=== PATIENT | female | born 1960 | race Caucasian/White ===

== ENCOUNTER 2020-04-16 08:39 | Inpatient (IN) | payer OTHER, MEDICAID, SELFPAY ==
[2020-04-16 09:10] VITALS: BP 142/70; PULSE 96; RESP 20; TEMP 36.8; BMI 86.0
--- NOTE | 2020-04-16 09:10 | ED.PSYCH ---
HPI - Psych General Chief Complaint: Psychiatric Symptoms Stated Complaint: CRISIS W/SI AND HALLUCINATIONS,REFUSED VS Time Seen by Provider: 04/16/20 08:55 Source: patient Mode of arrival: EMS Limitations: no limitations History of Present Illness HPI Narrative: Patient presents to ED for auditory and visual hallucinations. Patient states he is also suicidal. Patient states he stopped taking his psych meds. Patient states having auditory and visual hallucinations in the past. Patient states hallucinations have been occurring for the past 2 weeks. Related Data Home Medications Medication Instructions Recorded Confirmed clonazepam 1 mg PO BEDTIME 04/16/20 04/16/20 fluoxetine 40 mg PO DAILY 04/16/20 04/16/20 levothyroxine 50 mcg PO DAILY 04/16/20 04/16/20 lisinopril 20 mg PO DAILY 04/16/20 04/16/20 paliperidone [Invega] 6 mg PO QAM 04/16/20 04/16/20 trazodone 150 mg PO BEDTIME PRN 04/16/20 04/16/20 Allergies Allergy/AdvReac Type Severity Reaction Status Date / Time No Known Allergies Allergy Mild NOT Unverified 03/05/20 16:31 APPLICABLE Review of Systems Review of Systems: Yes all other systems are reviewed and are negative Constitutional: Constitutional: Denies frequent falls Eyes: Eyes: Reports as per HPI and Reports no additional eye complaints ENT: Reports system reviewed and no additional complaints, except as documented, Reports as per HPI, Denies vertigo and Denies dizziness Cardiovascular: Cardiovascular: Reports as per HPI, Reports no additional cardiovascular complaints, Denies painful fingertips, Denies chest pain, Denies chest pain at rest, Denies chest pain with activity, Denies syncope, Denies pedal edema, Denies edema, Denies dyspnea, Denies dyspnea on exertion, Denies orthopnea and Denies paroxysmal nocturnal dyspnea Respiratory: Respiratory: Reports as per HPI, Reports no additional respiratory complaints, Denies no additional respiratory complaints, Denies change in phlegm color, Denies chest congestion, Denies cough, Denies hemoptysis, Denies excessive phlegm production, Denies pain on inspiration, Denies pain with cough, Denies dyspnea, Denies dyspnea on exertion, Denies stridor and Denies wheezing Gastrointestinal: Gastrointestinal: Reports as per HPI, Reports no additional gastrointestinal complaints, Denies abdominal pain, Denies belching, Denies melena, Denies bloating, Denies hematochezia, Denies change in bowel habits, Denies tenesmus, Denies change in stool character, Denies coffee ground emesis, Denies constipation, Denies GI cramping, Denies dyspepsia, Denies heartburn, Denies fecal incontinence, Denies diarrhea, Denies loose stools and Denies nausea Genitourinary: Genitourinary: Reports no additional female genitourinary complaints, Denies urinary frequency, Denies dysuria, Denies pelvic pain, Denies urinary incontinence, Denies urinary hesitancy and Denies urinary urgency Musculoskeletal: Musculoskeletal: Reports no additional musculoskeletal complaints and Reports as per HPI Neurologic: Reports system reviewed and no additional complaints, except as documented, Reports as per HPI, Denies Neuro-related abnormal movements, Denies behavioral changes, Denies burning sensations, Denies confusion, Denies vertigo, Denies dizziness, Denies syncope and Denies frequent falls Psychiatric: Psychiatric: Reports no additional psychiatric complaints, Reports as per HPI, Denies behavioral changes, Denies change in appetite, Denies confusion, Denies auditory hallucinations, Denies hopelessness, Denies irritability, Denies anhedonia, Denies panic attacks and Denies paranoia Allergic/Immunologic: Allergic/Immunologic: Denies wheezing [facility] Past Medical History Medical History (Updated 04/16/20 @ 16:11 by SATISH Trinidad) Hypertension Hypothyroid Social History Social History Alcohol intake: unknown Smoking Status: Unknown if ever smoked Use of substances other than those prescribed or required for medical reasons: Unknown Advance Directives: No Advance Directives Information Provided: No Physical Exam Vital Signs: Vital Signs: Vital Signs Temp Pulse Resp BP 04/16/20 09:10 98.2 F 96 20 142/70 H Body Mass Index 86.0 Const: General: cooperative, healthy appearing, comfortable and no acute distress; No confusion Orientation/consciousness: patient oriented x3 and No confusion HENMT: Head: Yes normal to inspection Eyes: General: appearance normal, both eyes and all related structures Neck: Neck: Yes normal visual inspection, Yes full ROM, Yes no lymphadenopathy and Yes no meningeal signs Chest: Chest palpation & inspection: normal inspection of the chest, normal palpation of entire chest wall and no localized rib tenderness Resp: Effort & Inspection: normal respiratory effort, able to speak in complete sentences, normal respiratory pattern, no audible wheezes, no cough, no nasal flaring, no paradoxical thoraco-abdom movements, no pursed lip breathing, no segmental paradox chest wall movement, no stridor and no tracheal deviation Auscultation: clear to auscultation bilaterally, no crackles, no rales, no rhonchi and no wheezes Percussion: percussion normal Cardio: Jugular venous distension: no JVD Heart sounds: S1 normal heart sound present and S2 normal heart sound present GI: Inspection: Yes normal to inspection and No abdominal wall ecchymosis Palpation (GI): Soft to palpation, not firm, nontender, no guarding and not rigid Percussion: Yes normal to percussion Auscultation: normal bowel sounds : General: No CVA tenderness and Yes no CVA tenderness Back/Spine/Pelvis: Back: no CVA tenderness, No CVA tenderness and No back tenderness Skin: General skin exam: no rashes or lesions noted Neuro: General: patient oriented x3, no meningeal signs, CN's II-XI intact bilaterally and No confusion Cranial nerves: Yes CN's II-XII intact bilaterally Extrem: General: Yes normal to inspection and Yes full ROM Psych: Other: Patient has a flat affect Appearance: grossly normal and well kempt Course Course Course Narrative: Patient is alert oriented x3. Patient will have basic labs including UA and alcohol. Reevaluation(s) Reevaluation #1: patient seen by behavior health vocational rehabilitation consultant who recommends patient be admitted. Patient Section 12 was signed. Diagnosis psychosis. patient has a bed search Time: 16:03 Reevaluation #2: Patient will be signed out to electrical designer David Time: 16:12 MDM - Psych MDM Narrative Medical decision making narrative: psychosis Restraints Face to Face Assessment: Face to Face Assessment: Current Situation: After assessment of the patient, a review of the pertinent medical record and a discussion with nursing staff, I feel the patient requires a restrain intervention. Reaction To: [] Medical Condition: [] Behavioral State: [] Continued Need: [] Lab Data Result diagrams: 04/16/20 09:50 04/16/20 09:49 Labs: Lab Results 04/16/20 04/16/20 04/16/20 Range/Units 09:49 09:50 09:50 WBC 8.3 (4.8-10.8) X10*3/uL RBC 4.91 (4.20-5.50) X10*6/uL Hgb 14.5 (12.0-16.0) g/dl Hct 43.3 (37-47) % MCV 88.2 (80-98) fL MCH 29.5 (27.0-33.0) pg MCHC 33.5 (31.0-35.0) g/dl RDW 12.2 (11.0-16.0) % Plt Count 237 (160-400) X10*3/uL MPV 10.0 (9.4-12.3) fL Immature Gran % (Auto) 0.6 H (0.0-0.4) % Neut % (Auto) 75.3 H (45-73) % Lymph % (Auto) 15.9 L (20-40) % [place] % (Auto) 7.1 (2-11) % Eos % (Auto) 0.5 (0-4) % Baso % (Auto) 0.6 (0-2) % Lymph # (Auto) 1.3 (1.2-4.9) X10*3/uL [place] # (Auto) 0.6 (0.1-1.2) X10*3/uL Eos # (Auto) 0.0 (0.0-0.4) X10*3/uL Baso # (Auto) 0.1 (0.0-0.2) X10*3/uL Abs Immat Gran (auto) 0.05 H (0.00-0.03) X10*3/uL Absolute Neuts (auto) 6.2 (2.0-8.3) X10*3/uL Absolute Nucleated RBC 0.000 (0.0-0.012) X10*3/uL Nucleated RBC % (auto) 0.0 (0.0-0.2) /100WBC Sodium 136 (135-145) mmol/L Potassium 3.9 (3.3-5.1) mmol/l Chloride 102 (96-108) mmol/L Carbon Dioxide 24 (22-29) mmol/L Anion Gap 14 (12-20) BUN 9 (9-16) mg/dL Creatinine 0.69 (0.5-1.4) mg/dL Estim Creat Clear Calc 146.8 Estimated GFR > 60 Random Glucose 132 H (60-115) mg/dL Calcium 9.0 (8.4-10.2) mg/dL Total Bilirubin 1.0 (0.0-1.0) mg/dL Direct Bilirubin 0.3 (0.0-0.5) mg/dL AST 21 (5-31) U/L ALT 28 (0-31) U/L Alkaline Phosphatase 98 (39-117) U/L Total Protein 7.5 (6.5-8.0) g/dL Albumin 4.3 (3.5-5.0) g/dL Urine Color Urine Appearance Urine pH (5.0-8.0) Ur Specific [place] (1.005-1.025) Urine Protein (NEG-TRACE) MG/DL Urine Glucose (UA) (NEG) MG/DL Urine Ketones (NEG) MG/DL Urine Blood (NEG) Urine Nitrite (NEG) Ur Leukocyte Esterase (NEG) Urine RBC (0) /HPF Urine WBC (0-4) /HPF Ur Squamous Epith Cells /LPF Urine Bacteria /LPF Hyaline Casts /LPF Salicylates < 5.0 L (15-30) mg/dL Urine Opiates Screen (Not Detect) Acetaminophen < 1 (<30) mcg/mL Ur Barbiturates Screen (Not Detect) Ur Phencyclidine Scrn (Not Detect) Ur Amphetamines Screen (Not Detect) U Benzodiazepines Scrn (Not Detect) Urine Cocaine Screen (Not Detect) U Marijuana (THC) Screen (Not Detect) Ethyl Alcohol mg/dL 04/16/20 04/16/20 04/16/20 Range/Units 09:50 Unknown Unknown WBC (4.8-10.8) X10*3/uL RBC (4.20-5.50) X10*6/uL Hgb (12.0-16.0) g/dl Hct (37-47) % MCV (80-98) fL MCH (27.0-33.0) pg MCHC (31.0-35.0) g/dl RDW (11.0-16.0) % Plt Count (160-400) X10*3/uL MPV (9.4-12.3) fL Immature Gran % (Auto) (0.0-0.4) % Neut % (Auto) (45-73) % Lymph % (Auto) (20-40) % [place] % (Auto) (2-11) % Eos % (Auto) (0-4) % Baso % (Auto) (0-2) % Lymph # (Auto) (1.2-4.9) X10*3/uL [place] # (Auto) (0.1-1.2) X10*3/uL Eos # (Auto) (0.0-0.4) X10*3/uL Baso # (Auto) (0.0-0.2) X10*3/uL Abs Immat Gran (auto) (0.00-0.03) X10*3/uL Absolute Neuts (auto) (2.0-8.3) X10*3/uL Absolute Nucleated RBC (0.0-0.012) X10*3/uL Nucleated RBC % (auto) (0.0-0.2) /100WBC Sodium (135-145) mmol/L Potassium (3.3-5.1) mmol/l Chloride (96-108) mmol/L Carbon Dioxide (22-29) mmol/L Anion Gap (12-20) BUN (9-16) mg/dL Creatinine (0.5-1.4) mg/dL Estim Creat Clear Calc Estimated GFR Random Glucose (60-115) mg/dL Calcium (8.4-10.2) mg/dL Total Bilirubin (0.0-1.0) mg/dL Direct Bilirubin (0.0-0.5) mg/dL AST (5-31) U/L ALT (0-31) U/L Alkaline Phosphatase (39-117) U/L Total Protein (6.5-8.0) g/dL Albumin (3.5-5.0) g/dL Urine Color YELLOW Urine Appearance HAZY Urine pH 6.5 (5.0-8.0) Ur Specific [place] >= 1.030 H (1.005-1.025) Urine Protein 2+ H (NEG-TRACE) MG/DL Urine Glucose (UA) NEG (NEG) MG/DL Urine Ketones NEG (NEG) MG/DL Urine Blood TRACE (NEG) Urine Nitrite NEG (NEG) Ur Leukocyte Esterase NEG (NEG) Urine RBC 0-2 (0) /HPF Urine WBC 0-2 (0-4) /HPF Ur Squamous Epith Cells 2+ /LPF Urine Bacteria NONE /LPF Hyaline Casts 5-9 /LPF Salicylates (15-30) mg/dL Urine Opiates Screen Not Detected (Not Detect) Acetaminophen (<30) mcg/mL Ur Barbiturates Screen Not Detected (Not Detect) Ur Phencyclidine Scrn Not Detected (Not Detect) Ur Amphetamines Screen Not Detected (Not Detect) U Benzodiazepines Scrn Not Detected (Not Detect) Urine Cocaine Screen Not Detected (Not Detect) U Marijuana (THC) Screen Not Detected (Not Detect) Ethyl Alcohol < 10 mg/dL Discharge Plan Discharge Clinical Impression: Psychosis Prescriptions: No Action fluoxetine 40 mg Capsule 40 mg PO DAILY RF: 0 lisinopril 20 mg Tablet 20 mg PO DAILY RF: 0 clonazepam 1 mg Tablet 1 mg PO BEDTIME RF: 0 trazodone 150 mg Tablet 150 mg PO BEDTIME PRN (Reason: Insomnia) RF: 0 paliperidone [Invega] 6 mg Tablet Extended Release 24hr 6 mg PO QAM RF: 0 levothyroxine 50 mcg Capsule 50 mcg PO DAILY RF: 0
[2020-04-16 09:40] LABS: Glucose Urine UA NEG (NEG); Leukocyte Esterase Urine NEG (NEG); Nitrite Urine NEG (NEG); PH 6.5 (5.0-8.0); Specific Gravity - Urine >= 1.030 (1.005-1.025); Urine Blood TRACE (NEG); Urine Ketones NEG (NEG); Urine Protein 2+ MG/DL (NEG-TRACE)
[2020-04-16 09:41] LABS: Appearance Urine HAZY; Color Urine YELLOW
--- NOTE | 2020-04-16 09:49 | PC.NURSE ---
Pt resting in room, cooperative w/ lab draw.
[2020-04-16 09:56] LABS: Amphetamine Screen Urine Not Detected (Not Detect); Barbiturates, Urine Not Detected (Not Detect); Benzodiazepines Screen Urine Not Detected (Not Detect); Cannabinoid Screen Urine Not Detected (Not Detect); Cocaine Screen Urine Not Detected (Not Detect); Opiate Screen Urine Not Detected (Not Detect); Phencyclidine Screen Urine Not Detected (Not Detect)
[2020-04-16 09:58] LABS: MANUAL DIFF FLAG NO
[2020-04-16 09:59] LABS: RBC Urine 0-2 /HPF (0); Squamous Epithelial Cell Urine 2+ /LPF; WBC Urine 0-2 /HPF (0-4)
[2020-04-16 10:07] LABS: Basophils Absolute Auto 0.1 X10*3/uL (0.0-0.2); Basophils Percent Auto 0.6 % (0-2); Eosinophils Percent Auto 0.5 % (0-4); Hematocrit 43.3 % (37-47); Hemoglobin 14.5 g/dl (12.0-16.0); Imm Gran Abs Auto 0.05 X10*3/uL (0.00-0.03); Imm Gran Pct Auto 0.6 % (0.0-0.4); Lymphocytes Absolute Auto 1.3 X10*3/uL (1.2-4.9); Lymphocytes Percent Auto 15.9 % (20-40); Mean Corpuscular HGB Conc 33.5 g/dl (31.0-35.0); Mean Corpuscular Hemoglobin 29.5 pg (27.0-33.0); Mean Corpuscular Volume 88.2 fL (80-98); Monocytes Absolute Auto 0.6 X10*3/uL (0.1-1.2); Monocytes Percent Auto 7.1 % (2-11); Neutrophils Absolute Auto 6.2 X10*3/uL (2.0-8.3); Neutrophils Percent Auto 75.3 % (45-73); Platelet Count 237 X10*3/uL (160-400); Red Blood Count 4.91 X10*6/uL (4.20-5.50); Red Cell Distribution Width 12.2 % (11.0-16.0); White Blood Count 8.3 X10*3/uL (4.8-10.8)
[2020-04-16 10:23] LABS: Ethanol < 10 mg/dL
[2020-04-16 10:27] LABS: Acetaminophen LAB < 1 mcg/mL (<30); Salicylate < 5.0 mg/dL (15-30)
[2020-04-16 10:27] LABS: Alanine Aminotransferase 28 U/L (0-31); Albumin Level 4.3 g/dL (3.5-5.0); Alkaline Phosphatase 98 U/L (39-117); Anion Gap 14 (12-20); Aspartate Amino Transferase 21 U/L (5-31); Bilirubin Direct 0.3 mg/dL (0.0-0.5); Blood Urea Nitrogen 9 mg/dL (9-16); Carbon Dioxide 24 mmol/L (22-29); Chloride 102 mmol/L (96-108); Creatinine Clr Calc Pharmacy 146.8; Estimated Glomerular Filt Rate > 60; Glucose Random 132 mg/dL (60-115); Potassium 3.9 mmol/l (3.3-5.1); Sodium 136 mmol/L (135-145); Total Protein 7.5 g/dL (6.5-8.0)
--- NOTE | 2020-04-16 11:17 | PC.NURSE ---
Pt medication reconciliation completed w/ [facility]. Pt vague historian. Called daughter Nya, who is her RN REGISTRY, requesting return call re: when meds were last taken. Pt receives prefilled med box from [facility].
[2020-04-16] MEDS: clonazePAM 1 MG TABLET PO ×2 (12:57→20:41)
--- NOTE | 2020-04-16 14:34 | PC.NURSE ---
Daughters: Kiera Wood [phone] Nya Hugo [phone]
[2020-04-16 16:40] VITALS: BP 150/95; PULSE 74; RESP 18; TEMP 37.1; O2SAT 95
--- NOTE | 2020-04-16 19:12 | PC.NURSE ---
Report received. PT is sleeping in bed. Breathing is even and unlabored. Inpatient bed search in progress.
[2020-04-16 21:40] VITALS: BP 126/72; PULSE 78; RESP 18; TEMP 36.1; O2SAT 95
--- NOTE | 2020-04-17 07:09 | PC.NURSE ---
Report received from ALESIA Izaguirre. Pt awake, crying out at times, then took a shower.
[2020-04-17 07:41] VITALS: BP 124/94; PULSE 99; TEMP 36.3; O2SAT 94
[2020-04-17 08:09] VITALS: BP 124/94; PULSE 99
[2020-04-17] MEDS: Levothyroxine Sodium 50 MCG TABLET PO (08:09)
[2020-04-17] MEDS: Paliperidone ER 6 MG TAB.ER.24 PO (08:09)
[2020-04-17] MEDS: lisinopriL 20 MG TABLET PO (08:09)
[2020-04-17] MEDS: FLUoxetine HCl 20 MG CAPSULE 40 MG PO (08:09)
--- NOTE | 2020-04-17 09:36 | PC.NURSE ---
Pt was resting in room, came out and requested warm blanket, then became very agitated, screaming and shouting at staff. pt currently sitting in common area, home decorator called.
--- NOTE | 2020-04-17 12:36 | PC.NURSE ---
With drum drier operator present, Covid testing completed, pt cooperative. Pt aware that she will be transferred to [facility]- appears familiar w/ [facility], no concerns reported.
[2020-04-17 13:33] LABS: SARS COV2 PCR INHOUSE NEGATIVE (Negative)
--- NOTE | 2020-04-17 13:40 | PC.NURSE ---
pt ate lunch. sitting quietly in her room at present time
--- NOTE | 2020-04-17 14:57 | PC.NURSE ---
Report given to ALESIA Pennington on [facility].
--- NOTE | 2020-04-17 15:18 | PC.NURSE ---
Pt awoke, very upset, shouting. Director Business Development called.
[2020-04-17] MEDS: clonazePAM 1 MG TABLET PO (15:42)
--- NOTE | 2020-04-17 15:44 | PC.NURSE ---
Pt continued to be very upset, crying loudly- dressing room attendant called, pt difficult to console. Offered medication- initially refusing to take it, then after discussion, pt agreed to take pt.
--- NOTE | 2020-04-17 16:06 | PC.NURSE ---
Care team in to transfer pt to [facility]. Pt was initially reluctant to go, but after discussion w/ Care team, pt was willing to go. Pt calmer than she was earlier, no longer crying, able to converse with staff. Joel on M5 aware pt recently received clonopin.
[2020-04-17 18:00] VITALS: BP 129/71; PULSE 81; RESP 18; TEMP 36.4; O2SAT 98
--- NOTE | 2020-04-17 21:10 | PC.ADMIT ---
Pt is a 60 year old Slovenian speaking female who presented to [facility] via EMS after her daughter reported she was having increased hallucinations and poor sleep. During the assessment PT presented as paranoid and disorientated. Pt speech exhibited asderailed and untranslatable, with the support of spanish interpreter/translator. Pt reports visual,tactile and auditory hallucinations. Due to Pts current state she had minimal engagement in the assessment. Pt has a [facility] last 5 plus years ago. Precipitant appears to be a recent medication chage per her daughter. Pt came to via wheelchair at 1600. Pt did not answer most of the questions and signed legals after looking at it for alsmost 10 minutes with repeat instructions through interpretor on where to sign. Pt kept repeating that her body is in ghanaian and that the is not in it. Pt refused to take pm Clonazepam. Pt went to her room and is in bed with the covers over her. Pt signed CV.
[2020-04-18] MEDS: traZODone HCL 50 MG TABLET 150 MG PO ×2 (01:36→22:50)
[2020-04-18] MEDS: clonazePAM 1 MG TABLET PO (01:36)
--- NOTE | 2020-04-18 01:57 | PC.NURSE ---
At approximately 00:15 t/w responded to pt yelling and moaning while in bed. Pt Greek speaking only. Pan Devulcanizer called for assistance. Pt refused to take medication for sleep and anxiety and presented with psychosis I'm burning, I'm burning everywhere! I'm already! I'm a bad woman, I don't go to jewish. Pt continued to yell and refused request to get out of bed and move to Group Room A. Security called for assistance. Pt refused to walk and sat down on the floor. With assistance from the billing and insurance coordinator and security, pt transported via wheelchair to Group Room A. Through the hospital billing and insurance coordinator, she requested to not have a male nurse and stated bad things at home. Pt continued to refuse medication. I took medication for years and didn't work. Pt reported audio hallucination, referring to the voices. Eventually, pt took medication, PRN trazodone 150 mg PO and Klonopin 1 mg PO, with applesauce at 01:40. Pt deescalated but refused to return to bed. Will continue 5 min safety checks.
[2020-04-18 06:50] VITALS: BP 145/76; PULSE 80; RESP 18; TEMP 36.2; O2SAT 95
--- NOTE | 2020-04-18 08:00 | ECG_ITS ---
Test Reason : CP Blood Pressure : / mmHG Vent. Rate : 074 BPM Atrial Rate : 074 BPM P-R Int : 134 ms QRS Dur : 076 ms QT Int : 374 ms P-R-T Axes : 059 -16 016 degrees QTc Int : 415 ms Normal sinus rhythm with sinus arrhythmia Possible Left atrial enlargement Abnormal ECG When compared with ECG of 27-MAR-2013 10:03, No significant changes seen Referred By: Alfredo James Electronically Signed By:RADHA CARR MD
--- NOTE | 2020-04-18 10:53 | P.HPPS_ITS ---
HPI Chief Complaint: psychotic decompensation Sources of Information: patient interviewed, chart reviewed and crisis/core team assessment reviewed HPI Narrative: 60 yo HF presented to ER brought in by her daugther- wbo reported mother was not sleeping, and was having increse hallucinations and making no sense. Pt seemed paranoid and her speech was disorganized-/untranslatable- Pt was reporting tactile, visual and auditory hallucinations- Daughter reported pt had rescent medication change by outpt prescriber- Dr Miguel Connors Past Psychiatric History: Prior inpatient 5 years ago [facility] Medical History Hypertension Hypothyroid Diagnostics Vital Signs (24Hr): Vital Signs - 24 hr 04/17/20 18:00 04/18/20 06:50 Temperature 97.5 F 97.1 F Pulse Rate 81 80 Respiratory Rate 18 18 Blood Pressure 129/71 145/76 H Pulse Oximetry 98 95 Body Mass Index 86.0 Labs Results: 04/16/20 09:50 04/16/20 09:49 Labs: Laboratory Results - last 48 hr 04/17/20 12:33 Coronavirus (PCR) NEGATIVE Meds/Allergies Meds Home Medications Medication Instructions Recorded Confirmed Type clonazepam 1 mg PO BEDTIME 04/16/20 04/16/20 History fluoxetine 40 mg PO DAILY 04/16/20 04/16/20 History levothyroxine 50 mcg PO DAILY 04/16/20 04/16/20 History lisinopril 20 mg PO DAILY 04/16/20 04/16/20 History paliperidone [Invega] 6 mg PO QAM 04/16/20 04/16/20 History trazodone 150 mg PO BEDTIME PRN 04/16/20 04/16/20 History Allergies Allergies Allergy/AdvReac Type Severity Reaction Status Date / Time No Known Allergies Allergy Mild NOT Unverified 03/05/20 16:31 APPLICABLE Mental Status Exam Mental Status Exam Narrative: patient needing to be coached about most things on unit today screaming into phone, redirected- requesting her clothing- Patient Appearance: Disheveled and Unkempt Patient Orientation: Person Level of Consciousness: Awake and Disoriented Patient Behavior: Swearing, Confused, Impulsive and Poor Eye Contact Behavior Comments: patient mostly appears disorganized in appearance, behavior and thoughts Mood Description: Labile Affect Description: Depressed and Anxious Patient Cognition Impaired: Yes Ability to Follow Directions: Poor Speech Pattern: Loud and Poor Articulation Memory Description: Immediate Impaired Hallucinations: Auditory, Visual and Tactile Thought Process: Disoriented, Illogical and Word Salad (possibly since some things are untranslatable) Thought Content: positive for Disoriented and positive for Disorganized Depressive Symptoms: Insomnia, Diff. Making Decisions and Increased Irritability Abnormal Motor Activity Signs and Symptoms: Agitation Judgement: Poor Assessment & Plan Assessment & Plan (1) Psychosis: Status: Acute Code(s): F29 - Unspecified psychosis not due to a substance or known physiological condition Assessment and Plan: Taking medication will dc fluoxetine since pt not sleeping ? schizoaffective do - bioplar type (2) Hypothyroid: Status: Acute Code(s): E03.9 - Hypothyroidism, unspecified Assessment and Plan: check thyroid - blood was drawn today (3) Hypertension: Status: Acute Code(s): I10 - Essential (primary) hypertension Assessment and Plan: follow bp heraclio when less agitated
[2020-04-18 12:22] VITALS: BP 145/76; PULSE 80
[2020-04-18] MEDS: lisinopriL 20 MG TABLET PO (12:22)
[2020-04-18] MEDS: Levothyroxine Sodium 50 MCG TABLET PO (12:22)
[2020-04-18] MEDS: FLUoxetine HCl 20 MG CAPSULE 40 MG PO (12:22)
[2020-04-18] MEDS: Paliperidone ER 6 MG TAB.ER.24 PO (12:36)
[2020-04-18 14:37] LABS: Cholesterol 157 mg/dL; Glucose Fasting 153 mg/dL (60-99); HDL Cholesterol 54 mg/dL; LDL Cholesterol Calculated 87 mg/dl; Triglycerides 81 mg/dL
[2020-04-18 18:00] VITALS: BP 115/60; PULSE 88; RESP 16; TEMP 36.1
[2020-04-19 06:00] VITALS: BP 125/75; PULSE 86; RESP 16; TEMP 36.4; O2SAT 96
[2020-04-19 08:56] VITALS: BP 125/75; PULSE 86
[2020-04-19] MEDS: lisinopriL 20 MG TABLET PO (08:56)
[2020-04-19] MEDS: OXcarbazepine 150 MG TABLET PO ×3 (08:57→21:25)
[2020-04-19] MEDS: Levothyroxine Sodium 50 MCG TABLET PO (08:57)
[2020-04-19] MEDS: Paliperidone ER 6 MG TAB.ER.24 PO (08:57)
[2020-04-19] MEDS: Paliperidone ER 3 MG TAB.ER.24 PO (13:28)
--- NOTE | 2020-04-19 15:00 | P.PNPSI_ITS ---
Subjective Subjective Date of Service: 04/19/20 Reason For Visit: psychotic decompensation Subjective Notes: Conditional Voluntary Interim History: doing better more engaged and making more sense off fluoxetine has been taking oxcarbazipine and inc invega to 9 mg/day might want to change her to sustaina Medication Compliance: Yes Side effects from medications: No Attending Groups: No Review of Systems Acute medical concerns: No Review of Systems: co pain in neck , reports thyroid= but ? of stiffness did not want to start cogentin given most recent change in MSE and that she is better today Review of Systems Constitutional: Denies frequent falls Denies vertigo and Denies dizziness Cardiovascular: Denies syncope Reports as per HPI, Denies Neuro-related abnormal movements, Denies behavioral changes, Denies burning sensations, Denies confusion, Denies vertigo, Denies dizziness, Denies syncope and Denies frequent falls Psychiatric: Denies behavioral changes and Denies confusion Mental Status Exam Mental Status Exam Narrative: lying in bed with blanket over her but pulled down to talk to provider Patient Appearance: Disheveled Patient Orientation: Person and Place Level of Consciousness: Awake Patient Behavior: Appropriate Behavior Comments: much less labile today Ability to Follow Directions: Fair (yesterday was poor) Speech Pattern: Impoverished Thought Content: positive for [place] and positive for Poverty of Content Depressive Symptoms: Insomnia and Diff. Making Decisions Abnormal Motor Activity Signs and Symptoms: Muscle Rigidity (? doesn't appear so ) Judgement: Poor Diagnostics Vital Signs (24Hr): Vital Signs - 24 hr 04/18/20 18:00 04/19/20 06:00 04/19/20 08:56 Temperature 97 F 97.6 F Pulse Rate 88 86 86 Respiratory Rate 16 16 Blood Pressure 115/60 125/75 125/75 Pulse Oximetry 96 Body Mass Index 86.0 Labs Results: 04/16/20 09:50 04/16/20 09:49 Labs: Laboratory Results - last 48 hr 04/18/20 13:51 Fasting Glucose 153 H Triglycerides 81 Cholesterol 157 LDL Cholesterol, Calc 87 HDL Cholesterol 54 Medications Medications Current Medications Generic Name Dose Route Start Last Admin Trade Name Freq PRN Reason Stop Dose Admin Acetaminophen 650 mg 04/17/20 16:45 Acetaminophen 325 Mg Tablet PO Q6H PRN Headache/Pain Mild Scale (1-3) Al Hydroxide/Mg Hydroxide 30 ml 04/17/20 16:45 Magnesium Hydrox/Alum Hydrox 30 Ml Oral.Susp PO Q6H PRN Heartburn/Nausea Al Hydroxide/Mg Hydroxide 30 ml 04/17/20 17:25 Magnesium Hydrox/Alum Hydrox 30 Ml Oral.Susp PO Q6H PRN Heartburn/Nausea Clonazepam 1 mg 04/16/20 21:00 04/18/20 01:36 Clonazepam 1 Mg Tablet PO 1 mg BEDTIME SARATH Administration Hydroxyzine HCl 25 mg 04/17/20 16:45 Hydroxyzine Hcl 25 Mg Tablet PO BEDTIME PRN Anxiety Levothyroxine Sodium 50 mcg 04/16/20 17:15 04/19/20 08:57 Levothyroxine Sodium 50 Mcg Tablet PO 50 mcg DAILY SARATH Administration Lisinopril 20 mg 04/16/20 18:00 04/19/20 08:56 Lisinopril 20 Mg Tablet PO 20 mg DAILY SARATH Administration Protocol Magnesium Hydroxide 30 ml 04/17/20 16:45 Milk Of Magnesia 30 Ml Oral.Susp PO DAILY PRN Constipation Oxcarbazepine 150 mg 04/18/20 21:00 04/19/20 13:28 Oxcarbazepine 150 Mg Tablet PO 150 mg TID SARATH Administration Paliperidone 9 mg 04/20/20 09:00 Paliperidone Er 9 Mg Tab.Er.24 PO DAILY SARATH Trazodone HCl 150 mg 04/16/20 17:12 04/18/20 22:50 Trazodone Hcl 50 Mg Tablet PO 150 mg BEDTIME PRN Administration Insomnia Allergies Allergies Allergy/AdvReac Type Severity Reaction Status Date / Time No Known Allergies Allergy Mild NOT Unverified 03/05/20 16:31 APPLICABLE Assessment & Plan Assessment & Plan (1) Psychosis: Status: Acute Code(s): F29 - Unspecified psychosis not due to a substance or known physiological condition Assessment and Plan: better off fluoxetine and inc invega 9mg also started trileptal but may be fine just off fluoxetine and on higher invega Greater than 50% of the session was spent on counseling and/or coordination of care
[2020-04-19 18:00] VITALS: BP 137/59; PULSE 91; RESP 17; TEMP 36.7
[2020-04-19] MEDS: clonazePAM 1 MG TABLET PO (21:25)
[2020-04-20 06:10] VITALS: BP 96/80; PULSE 97; RESP 18; TEMP 36.3
[2020-04-20 08:46] VITALS: BP 96/80; PULSE 97
[2020-04-20] MEDS: Levothyroxine Sodium 50 MCG TABLET PO (08:46)
[2020-04-20] MEDS: lisinopriL 20 MG TABLET PO (08:46)
[2020-04-20] MEDS: OXcarbazepine 150 MG TABLET PO ×2 (08:46→15:26)
[2020-04-20] MEDS: Paliperidone ER 9 MG TAB.ER.24 PO (08:47)
--- NOTE | 2020-04-20 09:32 | HO.PSYCHPN ---
Subjective Subjective Date of Service: 04/20/20 Reason For Visit: psychotic decompensation Subjective Notes: Conditional Voluntary Interim History: Kiera was quiet and more visible. There was no behavioral dyscontrol. She did now want to talk to this engineering technical writer so I was not able to talk with her about switching to invega nienna. Will continue to attempt this. Medication Compliance: Yes Side effects from medications: No Attending Groups: Intermittent Review of Systems Acute medical concerns: No Medical Review of Systems: unchanged Review of Systems Review of Systems Yes all other systems are reviewed and are negative Constitutional: Denies frequent falls Denies vertigo Cardiovascular: Denies syncope Reports system reviewed and no additional complaints, except as documented, Reports as per HPI, Denies Neuro-related abnormal movements, Denies behavioral changes, Denies burning sensations, Denies confusion, Denies vertigo, Denies syncope and Denies frequent falls Psychiatric: Denies behavioral changes and Denies confusion Mental Status Exam Mental Status Exam Patient Appearance: Disheveled Patient Orientation: Person and Place Level of Consciousness: Awake Patient Behavior: Appropriate and Good Eye Contact Behavior Comments: much less labile today Mood Description: Apathetic and Appropriate Affect Description: Depressed and Anxious Patient Cognition Impaired: Yes Ability to Follow Directions: Fair (yesterday was poor) Speech Pattern: Impoverished Memory Description: Immediate Impaired Hallucinations: None Delusions: Not Present Thought Process: Rumination Thought Content: positive for Circumstantial, negative for Suicidal Ideation and negative for Homicidal Ideation Judgement: Fair Diagnostics Vital Signs (24Hr): Vital Signs - 24 hr 04/19/20 18:00 04/20/20 06:10 04/20/20 08:46 Temperature 98.1 F 97.4 F Pulse Rate 91 97 97 Respiratory Rate 17 18 Blood Pressure 137/59 L 96/80 96/80 Body Mass Index 86.0 Labs Results: 04/16/20 09:50 04/16/20 09:49 Labs: Laboratory Results - last 48 hr 04/18/20 13:51 Fasting Glucose 153 H Triglycerides 81 Cholesterol 157 LDL Cholesterol, Calc 87 HDL Cholesterol 54 Medications Medications Current Medications Generic Name Dose Route Start Last Admin Trade Name Freq PRN Reason Stop Dose Admin Acetaminophen 650 mg 04/17/20 16:45 Acetaminophen 325 Mg Tablet PO Q6H PRN Headache/Pain Mild Scale (1-3) Al Hydroxide/Mg Hydroxide 30 ml 04/17/20 16:45 Magnesium Hydrox/Alum Hydrox 30 Ml Oral.Susp PO Q6H PRN Heartburn/Nausea Al Hydroxide/Mg Hydroxide 30 ml 04/17/20 17:25 Magnesium Hydrox/Alum Hydrox 30 Ml Oral.Susp PO Q6H PRN Heartburn/Nausea Clonazepam 1 mg 04/16/20 21:00 04/19/20 21:25 Clonazepam 1 Mg Tablet PO 1 mg BEDTIME SARATH Administration Hydroxyzine HCl 25 mg 04/17/20 16:45 Hydroxyzine Hcl 25 Mg Tablet PO BEDTIME PRN Anxiety Levothyroxine Sodium 50 mcg 04/16/20 17:15 04/20/20 08:46 Levothyroxine Sodium 50 Mcg Tablet PO 50 mcg DAILY SARATH Administration Lisinopril 20 mg 04/16/20 18:00 04/20/20 08:46 Lisinopril 20 Mg Tablet PO 20 mg DAILY SARATH Administration Protocol Magnesium Hydroxide 30 ml 04/17/20 16:45 Milk Of Magnesia 30 Ml Oral.Susp PO DAILY PRN Constipation Oxcarbazepine 150 mg 04/18/20 21:00 04/20/20 08:46 Oxcarbazepine 150 Mg Tablet PO 150 mg TID SARATH Administration Paliperidone 9 mg 04/20/20 09:00 04/20/20 08:47 Paliperidone Er 9 Mg Tab.Er.24 PO 9 mg DAILY SARATH Administration Trazodone HCl 150 mg 04/16/20 17:12 04/18/20 22:50 Trazodone Hcl 50 Mg Tablet PO 150 mg BEDTIME PRN Administration Insomnia Allergies Allergies Allergy/AdvReac Type Severity Reaction Status Date / Time No Known Allergies Allergy Mild NOT Unverified 03/05/20 16:31 APPLICABLE Assessment & Plan Assessment & Plan (1) Psychosis: Status: Acute Code(s): F29 - Unspecified psychosis not due to a substance or known physiological condition Assessment and Plan: CT current plan Consider invega Liase with caregivers Greater than 50% of the session was spent on counseling and/or coordination of care
[2020-04-20 18:00] VITALS: BP 131/70; PULSE 121; RESP 20; TEMP 36
--- NOTE | 2020-04-20 23:39 | PC.NURSE ---
Tomy and another RN walked over to Kiera L rooms after hearing screams coming from her bedroom. Kiera was confused to Place, Time and Situation and reported that God placed her here in this dirt because she is a bad person . Kiera reported to staff that she is hearing voices in her head every time she goes to her bedroom. Yaron/Tristian offered Kiera PRN medications and she refused, she also had refused her nightly scheduled medications. Yaron/W told Kiera that she was safe on the unit and that she can come to staff when ever she needed to. Kiera has been picking at her forehead and Yaron/Tristian observed approximately three superficial cuts on her head from her picking at her skin with her nails. Kiera was encouraged to not pick at her head.
[2020-04-21 06:15] VITALS: BP 145/74; PULSE 100; RESP 18; TEMP 36.3
[2020-04-21 09:06] VITALS: BP 145/74; PULSE 100
[2020-04-21] MEDS: Paliperidone ER 9 MG TAB.ER.24 PO (09:06)
[2020-04-21] MEDS: Levothyroxine Sodium 50 MCG TABLET PO (09:06)
[2020-04-21] MEDS: lisinopriL 20 MG TABLET PO (09:06)
[2020-04-21] MEDS: OXcarbazepine 150 MG TABLET PO ×3 (09:06→20:42)
--- NOTE | 2020-04-21 09:17 | HO.PSYCHPN ---
Subjective Subjective Date of Service: 04/21/20 Reason For Visit: psychotic decompensation Subjective Notes: Conditional Voluntary Interim History: Kiera was quiet and more visible. There was no behavioral dyscontrol. She continues to complain of AH but states that they are less bothersome to her. She agreed to invega kely. Medication Compliance: Yes Side effects from medications: No Attending Groups: Yes Review of Systems Acute medical concerns: No Medical Review of Systems: unchanged Review of Systems Constitutional: Denies frequent falls Denies vertigo and Denies dizziness Cardiovascular: Denies syncope Reports system reviewed and no additional complaints, except as documented, Reports as per HPI, Denies Neuro-related abnormal movements, Denies behavioral changes, Denies burning sensations, Denies confusion, Denies vertigo, Denies dizziness, Denies syncope and Denies frequent falls Psychiatric: Denies behavioral changes and Denies confusion Mental Status Exam Mental Status Exam Patient Appearance: Disheveled Patient Orientation: Person and Place Level of Consciousness: Awake Patient Behavior: Appropriate and Good Eye Contact Behavior Comments: much less labile today Mood Description: Apathetic and Appropriate Affect Description: Depressed and Anxious Patient Cognition Impaired: Yes Ability to Follow Directions: Fair (yesterday was poor) Speech Pattern: Impoverished Memory Description: Immediate Impaired Diagnostics Vital Signs (24Hr): Vital Signs - 24 hr 04/20/20 18:00 04/21/20 06:15 04/21/20 09:06 Temperature 96.8 F 97.4 F Pulse Rate 121 H 100 100 Respiratory Rate 20 18 Blood Pressure 131/70 145/74 H 145/74 H Body Mass Index 86.0 Labs Results: 04/16/20 09:50 04/16/20 09:49 Medications Medications Current Medications Generic Name Dose Route Start Last Admin Trade Name Rajq PRN Reason Stop Dose Admin Acetaminophen 650 mg 04/17/20 16:45 Acetaminophen 325 Mg Tablet PO Q6H PRN Headache/Pain Mild Scale (1-3) Al Hydroxide/Mg Hydroxide 30 ml 04/17/20 16:45 Magnesium Hydrox/Alum Hydrox 30 Ml Oral.Susp PO Q6H PRN Heartburn/Nausea Al Hydroxide/Mg Hydroxide 30 ml 04/17/20 17:25 Magnesium Hydrox/Alum Hydrox 30 Ml Oral.Susp PO Q6H PRN Heartburn/Nausea Clonazepam 1 mg 04/16/20 21:00 04/20/20 21:06 Clonazepam 1 Mg Tablet PO Not Given BEDTIME SARATH Hydroxyzine HCl 25 mg 04/17/20 16:45 Hydroxyzine Hcl 25 Mg Tablet PO BEDTIME PRN Anxiety Levothyroxine Sodium 50 mcg 04/16/20 17:15 04/21/20 09:06 Levothyroxine Sodium 50 Mcg Tablet PO 50 mcg DAILY SARATH Administration Lisinopril 20 mg 04/16/20 18:00 04/21/20 09:06 Lisinopril 20 Mg Tablet PO 20 mg DAILY SARATH Administration Protocol Magnesium Hydroxide 30 ml 04/17/20 16:45 Milk Of Magnesia 30 Ml Oral.Susp PO DAILY PRN Constipation Oxcarbazepine 150 mg 04/18/20 21:00 04/21/20 09:06 Oxcarbazepine 150 Mg Tablet PO 150 mg TID SARATH Administration Paliperidone 9 mg 04/20/20 09:00 04/21/20 09:06 Paliperidone Er 9 Mg Tab.Er.24 PO 9 mg DAILY SARATH Administration Trazodone HCl 150 mg 04/16/20 17:12 04/18/20 22:50 Trazodone Hcl 50 Mg Tablet PO 150 mg BEDTIME PRN Administration Insomnia Allergies Allergies Allergy/AdvReac Type Severity Reaction Status Date / Time No Known Allergies Allergy Mild NOT Unverified 03/05/20 16:31 APPLICABLE Assessment & Plan Assessment & Plan (1) Psychosis: Status: Acute Code(s): F29 - Unspecified psychosis not due to a substance or known physiological condition Assessment and Plan: CT current plan Begin invega sustenna Liase with caregivers Greater than 50% of the session was spent on counseling and/or coordination of care Patient educated on: diagnosis and medication risk/benefits Informed Consent: further education needed Reason for contiued inpatient stay Substantial Risk for: rapid decompensation
[2020-04-21 18:00] VITALS: BP 142/65; PULSE 96; TEMP 36.5
[2020-04-21] MEDS: clonazePAM 1 MG TABLET PO (20:42)
[2020-04-22 05:35] VITALS: BP 139/79; PULSE 95; RESP 18; TEMP 36.9
[2020-04-22] MEDS: OXcarbazepine 150 MG TABLET PO ×3 (09:20→21:34)
--- NOTE | 2020-04-22 09:20 | HO.PSYCHPN ---
Subjective Subjective Date of Service: 04/22/20 Reason For Visit: psychotic decompensation Subjective Notes: Conditional Voluntary Interim History: Kiera was quiet and more visible. There was no behavioral dyscontrol. She continues to complain of AH but states that they are less bothersome to her. She appears to be returning to her baseline. She agreed to invega sustenna. This will be given today. Medication Compliance: Yes Side effects from medications: No Attending Groups: Yes Review of Systems Acute medical concerns: No Medical Review of Systems: unchanged Review of Systems Constitutional: Denies frequent falls Denies vertigo and Denies dizziness Cardiovascular: Denies syncope Reports system reviewed and no additional complaints, except as documented, Reports as per HPI, Denies Neuro-related abnormal movements, Denies behavioral changes, Denies burning sensations, Denies confusion, Denies vertigo, Denies dizziness, Denies syncope and Denies frequent falls Psychiatric: Denies behavioral changes and Denies confusion Mental Status Exam Mental Status Exam Patient Appearance: Well Grooomed Patient Orientation: Person and Place Level of Consciousness: Awake Patient Behavior: Appropriate and Good Eye Contact Behavior Comments: much less labile today Mood Description: Apathetic and Appropriate Affect Description: Depressed and Anxious Patient Cognition Impaired: Yes Ability to Follow Directions: Fair (yesterday was poor) Speech Pattern: Clear Memory Description: Intact Hallucinations: None Delusions: Not Present Thought Process: Rumination Thought Content: positive for Intact, negative for Suicidal Ideation and negative for Homicidal Ideation Judgement: Fair Diagnostics Vital Signs (24Hr): Vital Signs - 24 hr 04/21/20 18:00 04/22/20 05:35 Temperature 97.7 F 98.4 F Pulse Rate 96 95 Respiratory Rate 18 Blood Pressure 142/65 H 139/79 Body Mass Index 86.0 Labs Results: 04/16/20 09:50 04/16/20 09:49 Medications Medications Current Medications Generic Name Dose Route Start Last Admin Trade Name Freq PRN Reason Stop Dose Admin Acetaminophen 650 mg 04/17/20 16:45 Acetaminophen 325 Mg Tablet PO Q6H PRN Headache/Pain Mild Scale (1-3) Al Hydroxide/Mg Hydroxide 30 ml 04/17/20 16:45 Magnesium Hydrox/Alum Hydrox 30 Ml Oral.Susp PO Q6H PRN Heartburn/Nausea Al Hydroxide/Mg Hydroxide 30 ml 04/17/20 17:25 Magnesium Hydrox/Alum Hydrox 30 Ml Oral.Susp PO Q6H PRN Heartburn/Nausea Clonazepam 1 mg 04/16/20 21:00 04/21/20 20:42 Clonazepam 1 Mg Tablet PO 1 mg BEDTIME SARATH Administration Hydroxyzine HCl 25 mg 04/17/20 16:45 Hydroxyzine Hcl 25 Mg Tablet PO BEDTIME PRN Anxiety Levothyroxine Sodium 50 mcg 04/16/20 17:15 04/21/20 09:06 Levothyroxine Sodium 50 Mcg Tablet PO 50 mcg DAILY SARATH Administration Lisinopril 20 mg 04/16/20 18:00 04/21/20 09:06 Lisinopril 20 Mg Tablet PO 20 mg DAILY SARATH Administration Protocol Magnesium Hydroxide 30 ml 04/17/20 16:45 Milk Of Magnesia 30 Ml Oral.Susp PO DAILY PRN Constipation Oxcarbazepine 150 mg 04/18/20 21:00 04/21/20 20:42 Oxcarbazepine 150 Mg Tablet PO 150 mg TID SARATH Administration Paliperidone 9 mg 04/20/20 09:00 04/21/20 09:06 Paliperidone Er 9 Mg Tab.Er.24 PO 9 mg DAILY SARATH Administration Trazodone HCl 150 mg 04/16/20 17:12 04/18/20 22:50 Trazodone Hcl 50 Mg Tablet PO 150 mg BEDTIME PRN Administration Insomnia Allergies Allergies Allergy/AdvReac Type Severity Reaction Status Date / Time No Known Allergies Allergy Mild NOT Unverified 03/05/20 16:31 APPLICABLE Assessment & Plan Assessment & Plan (1) Psychosis: Qualifiers: Psychosis type: schizoaffective disorder Schizoaffective disorder type: unspecified Qualified Code(s): F25.9 - Schizoaffective disorder, unspecified Status: Acute Code(s): F29 - Unspecified psychosis not due to a substance or known physiological condition Assessment and Plan: CT current plan Begin invega sustenna Liase with caregivers Anticipate DC tomorrow Greater than 50% of the session was spent on counseling and/or coordination of care Patient educated on: diagnosis and medication risk/benefits Informed Consent: further education needed Reason for contiued inpatient stay Substantial Risk for: inability to function
[2020-04-22 09:21] VITALS: BP 139/79; PULSE 95
[2020-04-22] MEDS: lisinopriL 20 MG TABLET PO (09:21)
[2020-04-22] MEDS: Levothyroxine Sodium 50 MCG TABLET PO (09:21)
[2020-04-22] MEDS: Paliperidone ER 9 MG TAB.ER.24 PO (09:22)
[2020-04-22] MEDS: Paliperidone Palmitate 234 MG/1.5 ML SYRINGE IM (13:08)
[2020-04-22 18:00] VITALS: BP 132/63; PULSE 101; TEMP 36.2
[2020-04-22] MEDS: clonazePAM 1 MG TABLET PO (21:49)
[2020-04-23 06:00] VITALS: BP 129/88; PULSE 102
[2020-04-23 07:00] VITALS: BMI 49.1
[2020-04-23] MEDS: Paliperidone ER 9 MG TAB.ER.24 PO (09:14)
[2020-04-23] MEDS: Levothyroxine Sodium 50 MCG TABLET PO (09:15)
[2020-04-23 09:19] VITALS: BP 129/88; PULSE 102
[2020-04-23] MEDS: lisinopriL 20 MG TABLET PO (09:19)
--- NOTE | 2020-04-23 09:23 | P.DS_ITS ---
DS: Providers Provider Date of admission: 04/17/20 17:27 Primary care physician: [facility] DS: Diagnosis Discharge Diagnosis (1) Psychosis: Status: Acute Discharge Plan Discharge Referrals: Dona Keith, therapist [Other] - 04/30/20 2:[address] Miguel Connors, psychiatrist [Other] - 04/29/20 1:40 pm (Appointments by telehealth - number may come up blocked or as spam risk ) [place] [Primary Care Provider] - Discharge Medications: No Action fluoxetine 40 mg Capsule 40 mg PO DAILY RF: 0 lisinopril 20 mg Tablet 20 mg PO DAILY RF: 0 clonazepam 1 mg Tablet 1 mg PO BEDTIME RF: 0 trazodone 150 mg Tablet 150 mg PO BEDTIME PRN (Reason: Insomnia) RF: 0 paliperidone [Invega] 6 mg Tablet Extended Release 24hr 6 mg PO QAM RF: 0 levothyroxine 50 mcg Capsule 50 mcg PO DAILY RF: 0 Data Data Completed and Pending Completed studies during hospitalization [Text1]: 04/16/20 04/16/20 04/16/20 09:49 09:50 09:50 Sodium 136 Potassium 3.9 Chloride 102 Carbon Dioxide 24 Anion Gap 14 BUN 9 Creatinine 0.69 Estim Creat Clear Calc 146.8 Estimated GFR > 60 Random Glucose 132 H Fasting Glucose Calcium 9.0 Total Bilirubin 1.0 Direct Bilirubin 0.3 AST 21 ALT 28 Alkaline Phosphatase 98 Total Protein 7.5 Albumin 4.3 Triglycerides Cholesterol LDL Cholesterol, Calc HDL Cholesterol Salicylates < 5.0 L Acetaminophen < 1 Ethyl Alcohol < 10 Coronavirus (PCR) 04/17/20 04/18/20 12:33 13:51 Sodium Potassium Chloride Carbon Dioxide Anion Gap BUN Creatinine Estim Creat Clear Calc Estimated GFR Random Glucose Fasting Glucose 153 H Calcium Total Bilirubin Direct Bilirubin AST ALT Alkaline Phosphatase Total Protein Albumin Triglycerides 81 Cholesterol 157 LDL Cholesterol, Calc 87 HDL Cholesterol 54 Salicylates Acetaminophen Ethyl Alcohol Coronavirus (PCR) NEGATIVE DS: Summary Time Spent with Patient Time attestation: Total time spent providing and/or coordinating discharge services:
--- NOTE | 2020-04-23 14:19 | HO.PSYCHPN ---
Subjective Subjective Date of Service: 04/23/20 Reason For Visit: psychotic decompensation Subjective Notes: Conditional Voluntary Interim History: Kiera was more agitated and she became irritable with her nurse today. She was speaking of an increase in AH , and with worries that the world is going to come to an end. She reports that she is missing her daughter and wants to see her. Because of her increase in psychosis and agitation, DC is delayed. SUZI will be in touch with her daughter and will ask her to come in. Medication Compliance: Yes Side effects from medications: No Attending Groups: Yes Review of Systems Acute medical concerns: No Medical Review of Systems: unchanged Review of Systems Constitutional: Denies frequent falls Denies vertigo and Denies dizziness Cardiovascular: Denies syncope Reports system reviewed and no additional complaints, except as documented, Reports as per HPI, Denies Neuro-related abnormal movements, Denies behavioral changes, Denies burning sensations, Denies confusion, Denies vertigo, Denies dizziness, Denies syncope and Denies frequent falls Psychiatric: Denies behavioral changes and Denies confusion Mental Status Exam Mental Status Exam Patient Appearance: Well Grooomed Patient Orientation: Person and Place Level of Consciousness: Awake Patient Behavior: Appropriate and Good Eye Contact Behavior Comments: More labile today Mood Description: Apathetic and Appropriate Affect Description: Depressed and Anxious Patient Cognition Impaired: Yes Ability to Follow Directions: Fair (yesterday was poor) Speech Pattern: Clear and Soft-Spoken Memory Description: Intact Hallucinations: Auditory Delusions: Not Present, Paranoid Ideation and Present (End of the world) Thought Process: Rumination Thought Content: positive for Intact, positive for Slowed Thinking, negative for Suicidal Ideation and negative for Homicidal Ideation Judgement: Fair Diagnostics Vital Signs (24Hr): Vital Signs - 24 hr 04/22/20 18:00 04/23/20 06:00 04/23/20 09:19 Temperature 97.1 F Pulse Rate 101 H 102 H 102 H Blood Pressure 132/63 129/88 129/88 Body Mass Index 86.0 Labs Results: 04/16/20 09:50 04/16/20 09:49 Medications Medications Current Medications Generic Name Dose Route Start Last Admin Trade Name Freq PRN Reason Stop Dose Admin Acetaminophen 650 mg 04/17/20 16:45 Acetaminophen 325 Mg Tablet PO Q6H PRN Headache/Pain Mild Scale (1-3) Al Hydroxide/Mg Hydroxide 30 ml 04/17/20 16:45 Magnesium Hydrox/Alum Hydrox 30 Ml Oral.Susp PO Q6H PRN Heartburn/Nausea Al Hydroxide/Mg Hydroxide 30 ml 04/17/20 17:25 Magnesium Hydrox/Alum Hydrox 30 Ml Oral.Susp PO Q6H PRN Heartburn/Nausea Clonazepam 1 mg 04/16/20 21:00 04/22/20 21:49 Clonazepam 1 Mg Tablet PO 1 mg BEDTIME SARATH Administration Hydroxyzine HCl 25 mg 04/17/20 16:45 Hydroxyzine Hcl 25 Mg Tablet PO BEDTIME PRN Anxiety Levothyroxine Sodium 50 mcg 04/16/20 17:15 04/23/20 09:15 Levothyroxine Sodium 50 Mcg Tablet PO 50 mcg DAILY SARATH Administration Lisinopril 20 mg 04/16/20 18:00 04/23/20 09:19 Lisinopril 20 Mg Tablet PO 20 mg DAILY SARATH Administration Protocol Magnesium Hydroxide 30 ml 04/17/20 16:45 Milk Of Magnesia 30 Ml Oral.Susp PO DAILY PRN Constipation Oxcarbazepine 150 mg 04/18/20 21:00 04/23/20 09:15 Oxcarbazepine 150 Mg Tablet PO 150 mg TID SARATH Administration Paliperidone 9 mg 04/20/20 09:00 04/23/20 09:14 Paliperidone Er 9 Mg Tab.Er.24 PO 9 mg DAILY SARATH Administration Trazodone HCl 150 mg 04/16/20 17:12 04/18/20 22:50 Trazodone Hcl 50 Mg Tablet PO 150 mg BEDTIME PRN Administration Insomnia Allergies Allergies Allergy/AdvReac Type Severity Reaction Status Date / Time No Known Allergies Allergy Mild NOT Unverified 03/05/20 16:31 APPLICABLE Assessment & Plan Assessment & Plan (1) Psychosis: Qualifiers: Psychosis type: schizoaffective disorder Schizoaffective disorder type: unspecified Qualified Code(s): F25.9 - Schizoaffective disorder, unspecified Status: Acute Code(s): F29 - Unspecified psychosis not due to a substance or known physiological condition (2) Schizoaffective disorder: Qualifiers: Schizoaffective disorder type: bipolar Qualified Code(s): F25.0 - Schizoaffective disorder, bipolar type Status: Acute Code(s): F25.9 - Schizoaffective disorder, unspecified Assessment and Plan: Dealy DC. CT medications Ask daughter to visit so she can give more input into baseline. Greater than 50% of the session was spent on counseling and/or coordination of care Patient educated on: diagnosis and medication risk/benefits Informed Consent: further education needed Reason for contiued inpatient stay Substantial Risk for: inability to function and rapid decompensation
[2020-04-23] MEDS: OXcarbazepine 150 MG TABLET PO ×2 (15:10→20:10)
[2020-04-23] MEDS: Acetaminophen 325 MG TABLET 650 MG PO (15:44)
[2020-04-23 18:00] VITALS: BP 148/85; PULSE 91; TEMP 37.1
[2020-04-23] MEDS: clonazePAM 1 MG TABLET PO (20:09)
[2020-04-24 06:00] VITALS: BP 128/71; PULSE 99; TEMP 36.5
[2020-04-24 08:56] VITALS: BP 128/71; PULSE 99
[2020-04-24] MEDS: lisinopriL 20 MG TABLET PO (08:56)
[2020-04-24] MEDS: Paliperidone ER 9 MG TAB.ER.24 PO (08:56)
[2020-04-24] MEDS: OXcarbazepine 150 MG TABLET PO (08:56)
[2020-04-24] MEDS: Levothyroxine Sodium 50 MCG TABLET PO (08:56)
--- NOTE | 2020-04-24 11:57 | HO.PSYCHPN ---
Subjective Subjective Date of Service: 04/24/20 Reason For Visit: psychotic decompensation Subjective Notes: Conditional Voluntary Interim History: Kiera was somewhat sad. She has been appearing increasingly depressed. She does report that the voices are less than they have been. She continues to miss her daughter. She states that she feels that she needs to be in the hospital for a little longer. Medication Compliance: Yes Side effects from medications: No Attending Groups: Yes Review of Systems Acute medical concerns: No Medical Review of Systems: unchanged Review of Systems Constitutional: Denies frequent falls Denies vertigo and Denies dizziness Cardiovascular: Denies syncope Reports system reviewed and no additional complaints, except as documented, Reports as per HPI, Denies Neuro-related abnormal movements, Denies behavioral changes, Denies burning sensations, Denies confusion, Denies vertigo, Denies dizziness, Denies syncope and Denies frequent falls Psychiatric: Denies behavioral changes and Denies confusion Mental Status Exam Mental Status Exam Patient Appearance: Well Grooomed Patient Orientation: Person and Place Level of Consciousness: Awake Patient Behavior: Appropriate and Good Eye Contact Behavior Comments: More labile today Mood Description: Apathetic, Appropriate, Flat and Sad Affect Description: Depressed, Anxious and Sad Patient Cognition Impaired: Yes Ability to Follow Directions: Fair (yesterday was poor) Speech Pattern: Clear and Soft-Spoken Memory Description: Intact Hallucinations: Auditory Delusions: Not Present, Paranoid Ideation and Present (End of the world) Thought Process: Rumination Thought Content: positive for Intact, positive for Slowed Thinking, negative for Suicidal Ideation and negative for Homicidal Ideation Depressive Symptoms: Unhappiness and Loss of Energy Judgement: Fair Diagnostics Vital Signs (24Hr): Vital Signs - 24 hr 04/23/20 18:00 04/24/20 08:56 Temperature 98.8 F Pulse Rate 91 99 Blood Pressure 148/85 H 128/71 Body Mass Index 49.1 Labs Results: 04/16/20 09:50 04/16/20 09:49 Medications Medications Current Medications Generic Name Dose Route Start Last Admin Trade Name Freq PRN Reason Stop Dose Admin Acetaminophen 650 mg 04/17/20 16:45 04/23/20 15:44 Acetaminophen 325 Mg Tablet PO 650 mg Q6H PRN Administration Headache/Pain Mild Scale (1-3) Al Hydroxide/Mg Hydroxide 30 ml 04/17/20 16:45 Magnesium Hydrox/Alum Hydrox 30 Ml Oral.Susp PO Q6H PRN Heartburn/Nausea Al Hydroxide/Mg Hydroxide 30 ml 04/17/20 17:25 Magnesium Hydrox/Alum Hydrox 30 Ml Oral.Susp PO Q6H PRN Heartburn/Nausea Clonazepam 1 mg 04/16/20 21:00 04/23/20 20:09 Clonazepam 1 Mg Tablet PO 1 mg BEDTIME SARATH Administration Hydroxyzine HCl 25 mg 04/17/20 16:45 Hydroxyzine Hcl 25 Mg Tablet PO BEDTIME PRN Anxiety Levothyroxine Sodium 50 mcg 04/16/20 17:15 04/24/20 08:56 Levothyroxine Sodium 50 Mcg Tablet PO 50 mcg DAILY SARATH Administration Lisinopril 20 mg 04/16/20 18:00 04/24/20 08:56 Lisinopril 20 Mg Tablet PO 20 mg DAILY SARATH Administration Protocol Magnesium Hydroxide 30 ml 04/17/20 16:45 Milk Of Magnesia 30 Ml Oral.Susp PO DAILY PRN Constipation Paliperidone 9 mg 04/20/20 09:00 04/24/20 08:56 Paliperidone Er 9 Mg Tab.Er.24 PO 9 mg DAILY SARATH Administration Trazodone HCl 150 mg 04/16/20 17:12 04/18/20 22:50 Trazodone Hcl 50 Mg Tablet PO 150 mg BEDTIME PRN Administration Insomnia Allergies Allergies Allergy/AdvReac Type Severity Reaction Status Date / Time No Known Allergies Allergy Mild NOT Unverified 03/05/20 16:31 APPLICABLE Assessment & Plan Assessment & Plan (1) Schizoaffective disorder: Qualifiers: Schizoaffective disorder type: bipolar Qualified Code(s): F25.0 - Schizoaffective disorder, bipolar type Status: Acute Code(s): F25.9 - Schizoaffective disorder, unspecified Assessment and Plan: DC trileptal Add fluoxetine CT invega Collect collateral Anticipate DC 04/27 or 04/28 Greater than 50% of the session was spent on counseling and/or coordination of care Patient educated on: diagnosis and medication risk/benefits Informed Consent: further education needed Reason for contiued inpatient stay Substantial Risk for: rapid decompensation
[2020-04-24] MEDS: FLUoxetine HCl 20 MG CAPSULE PO (12:17)
[2020-04-24 18:00] VITALS: BP 163/75; PULSE 117; TEMP 36.3
[2020-04-24] MEDS: clonazePAM 1 MG TABLET PO (20:20)
[2020-04-25 10:21] VITALS: BP 124/62; PULSE 92
[2020-04-25] MEDS: FLUoxetine HCl 20 MG CAPSULE PO (10:21)
[2020-04-25] MEDS: Paliperidone ER 9 MG TAB.ER.24 PO (10:21)
[2020-04-25] MEDS: Levothyroxine Sodium 50 MCG TABLET PO (10:21)
[2020-04-25] MEDS: lisinopriL 20 MG TABLET PO (10:21)
[2020-04-25 10:26] VITALS: BP 124/62; PULSE 92; TEMP 36.2; O2SAT 97
[2020-04-25 18:00] VITALS: BP 167/72; PULSE 90; TEMP 36.4
[2020-04-25] MEDS: clonazePAM 1 MG TABLET PO (20:06)
--- NOTE | 2020-04-25 20:39 | HO.PSYCHPN ---
Subjective Subjective Date of Service: 04/25/20 Reason For Visit: psychotic decompensation Subjective Notes: Conditional Voluntary Interim History: Kiera was somewhat sad. She has been appearing increasingly depressed. She does report that the voices are less than they have been. She continues to miss her daughter. She states that she feels that she needs to be in the hospital for a little longer. She states that she thinks that she and has been resurrected and she is not sure if she is alive or . Her baseline remains unclear. Medication Compliance: Yes Side effects from medications: No Attending Groups: Yes Review of Systems Acute medical concerns: No Medical Review of Systems: unchanged Review of Systems Constitutional: Denies frequent falls Denies vertigo and Denies dizziness Cardiovascular: Denies syncope Reports system reviewed and no additional complaints, except as documented, Reports as per HPI, Denies Neuro-related abnormal movements, Denies behavioral changes, Denies burning sensations, Denies confusion, Denies vertigo, Denies dizziness, Denies syncope and Denies frequent falls Psychiatric: Denies behavioral changes and Denies confusion Mental Status Exam Mental Status Exam Patient Appearance: Well Grooomed Patient Orientation: Person and Place Level of Consciousness: Awake Patient Behavior: Appropriate and Good Eye Contact Behavior Comments: More labile today Mood Description: Apathetic, Appropriate, Flat and Sad Affect Description: Depressed, Anxious and Sad Patient Cognition Impaired: Yes Ability to Follow Directions: Fair (yesterday was poor) Speech Pattern: Clear and Soft-Spoken Memory Description: Intact Hallucinations: Auditory Delusions: Not Present, Paranoid Ideation and Present (End of the world) Thought Process: Rumination Thought Content: positive for Intact, positive for Slowed Thinking, negative for Suicidal Ideation and negative for Homicidal Ideation Depressive Symptoms: Unhappiness and Loss of Energy Judgement: Fair Diagnostics Vital Signs (24Hr): Vital Signs - 24 hr 04/25/20 10:21 04/25/20 10:26 04/25/20 18:00 Temperature 97.2 F 97.6 F Pulse Rate 92 92 90 Blood Pressure 124/62 124/62 167/72 H Pulse Oximetry 97 Body Mass Index 49.1 Labs Results: 04/16/20 09:50 04/16/20 09:49 Medications Medications Current Medications Generic Name Dose Route Start Last Admin Trade Name Freq PRN Reason Stop Dose Admin Acetaminophen 650 mg 04/17/20 16:45 04/23/20 15:44 Acetaminophen 325 Mg Tablet PO 650 mg Q6H PRN Administration Headache/Pain Mild Scale (1-3) Al Hydroxide/Mg Hydroxide 30 ml 04/17/20 16:45 Magnesium Hydrox/Alum Hydrox 30 Ml Oral.Susp PO Q6H PRN Heartburn/Nausea Al Hydroxide/Mg Hydroxide 30 ml 04/17/20 17:25 Magnesium Hydrox/Alum Hydrox 30 Ml Oral.Susp PO Q6H PRN Heartburn/Nausea Clonazepam 1 mg 04/16/20 21:00 04/25/20 20:06 Clonazepam 1 Mg Tablet PO 1 mg BEDTIME SARATH Administration Fluoxetine HCl 20 mg 04/24/20 12:00 04/25/20 10:21 Fluoxetine Hcl 20 Mg Capsule PO 20 mg DAILY SARATH Administration Hydroxyzine HCl 25 mg 04/17/20 16:45 Hydroxyzine Hcl 25 Mg Tablet PO BEDTIME PRN Anxiety Levothyroxine Sodium 50 mcg 04/16/20 17:15 04/25/20 10:21 Levothyroxine Sodium 50 Mcg Tablet PO 50 mcg DAILY SARATH Administration Lisinopril 20 mg 04/16/20 18:00 04/25/20 10:21 Lisinopril 20 Mg Tablet PO 20 mg DAILY SARATH Administration Protocol Magnesium Hydroxide 30 ml 04/17/20 16:45 Milk Of Magnesia 30 Ml Oral.Susp PO DAILY PRN Constipation Paliperidone 9 mg 04/20/20 09:00 04/25/20 10:21 Paliperidone Er 9 Mg Tab.Er.24 PO 9 mg DAILY SARATH Administration Trazodone HCl 150 mg 04/16/20 17:12 04/18/20 22:50 Trazodone Hcl 50 Mg Tablet PO 150 mg BEDTIME PRN Administration Insomnia Allergies Allergies Allergy/AdvReac Type Severity Reaction Status Date / Time No Known Allergies Allergy Mild NOT Unverified 03/05/20 16:31 APPLICABLE Assessment & Plan Assessment & Plan (1) Schizoaffective disorder: Qualifiers: Schizoaffective disorder type: bipolar Qualified Code(s): F25.0 - Schizoaffective disorder, bipolar type Status: Acute Code(s): F25.9 - Schizoaffective disorder, unspecified Assessment and Plan: CT current plan Greater than 50% of the session was spent on counseling and/or coordination of care Patient educated on: diagnosis and medication risk/benefits Informed Consent: further education needed Reason for contiued inpatient stay Substantial Risk for: rapid decompensation
[2020-04-26] MEDS: FLUoxetine HCl 20 MG CAPSULE PO (08:31)
[2020-04-26] MEDS: Paliperidone ER 9 MG TAB.ER.24 PO (08:31)
[2020-04-26] MEDS: Levothyroxine Sodium 50 MCG TABLET PO (08:32)
[2020-04-26 08:44] VITALS: BP 139/68; PULSE 95
[2020-04-26] MEDS: lisinopriL 20 MG TABLET PO (08:44)
--- NOTE | 2020-04-26 12:14 | P.PNPSI_ITS ---
Subjective Subjective Date of Service: 04/26/20 Reason For Visit: psychotic decompensation Subjective Notes: Conditional Voluntary Interim History: Kiera was somewhat sad. She has been appearing increasingly depressed. She does report that the voices are less than they have been. She continues to miss her daughter. She states that she feels that she is ready to leave the hospital. She agreed to have the second invega shot today. Medication Compliance: Yes Side effects from medications: No Attending Groups: Yes Review of Systems Acute medical concerns: No Medical Review of Systems: unchanged Review of Systems Constitutional: Denies frequent falls Denies vertigo and Denies dizziness Cardiovascular: Denies syncope Reports system reviewed and no additional complaints, except as documented, Rep orts as per HPI, Denies Neuro-related abnormal movements, Denies behavioral changes, Denies burning sensations, Denies confusion, Denies vertigo, Denies dizziness, Denies syncope and Denies frequent falls Psychiatric: Denies behavioral changes and Denies confusion Mental Status Exam Mental Status Exam Patient Appearance: Well Grooomed Patient Orientation: Person and Place Level of Consciousness: Awake Patient Behavior: Appropriate and Good Eye Contact Behavior Comments: More labile today Mood Description: Apathetic, Appropriate, Flat and Sad Affect Description: Depressed, Anxious and Sad Patient Cognition Impaired: Yes Ability to Follow Directions: Fair (yesterday was poor) Speech Pattern: Clear and Soft-Spoken Memory Description: Intact Hallucinations: None Delusions: Not Present Thought Process: Intact Thought Content: negative for Suicidal Ideation and negative for Homicidal Ideation Diagnostics Vital Signs (24Hr): Vital Signs - 24 hr 04/25/20 18:00 04/26/20 08:44 Temperature 97.6 F Pulse Rate 90 95 Blood Pressure 167/72 H 139/68 Body Mass Index 49.1 Labs Results: 04/16/20 09:50 04/16/20 09:49 Medications Medications Current Medications Generic Name Dose Route Start Last Admin Trade Name Freq PRN Reason Stop Dose Admin Acetaminophen 650 mg 04/17/20 16:45 04/23/20 15:44 Acetaminophen 325 Mg Tablet PO 650 mg Q6H PRN Administration Headache/Pain Mild Scale (1-3) Al Hydroxide/Mg Hydroxide 30 ml 04/17/20 16:45 Magnesium Hydrox/Alum Hydrox 30 Ml Oral.Susp PO Q6H PRN Heartburn/Nausea Al Hydroxide/Mg Hydroxide 30 ml 04/17/20 17:25 Magnesium Hydrox/Alum Hydrox 30 Ml Oral.Susp PO Q6H PRN Heartburn/Nausea Clonazepam 1 mg 04/26/20 21:00 Clonazepam 1 Mg Tablet PO BEDTIME SARATH Fluoxetine HCl 20 mg 04/24/20 12:00 04/26/20 08:31 Fluoxetine Hcl 20 Mg Capsule PO 20 mg DAILY SARATH Administration Hydroxyzine HCl 25 mg 04/17/20 16:45 Hydroxyzine Hcl 25 Mg Tablet PO BEDTIME PRN Anxiety Levothyroxine Sodium 50 mcg 04/16/20 17:15 04/26/20 08:32 Levothyroxine Sodium 50 Mcg Tablet PO 50 mcg DAILY SARATH Administration Lisinopril 20 mg 04/16/20 18:00 04/26/20 08:44 Lisinopril 20 Mg Tablet PO 20 mg DAILY SARATH Administration Protocol Magnesium Hydroxide 30 ml 04/17/20 16:45 Milk Of Magnesia 30 Ml Oral.Susp PO DAILY PRN Constipation Paliperidone 9 mg 04/20/20 09:00 04/26/20 08:31 Paliperidone Er 9 Mg Tab.Er.24 PO 9 mg DAILY SARATH Administration Paliperidone Palmitate 156 mg 04/26/20 10:15 Paliperidone Palmitate 156 Mg/Ml Syringe IM Q30D SARATH Trazodone HCl 150 mg 04/16/20 17:12 04/18/20 22:50 Trazodone Hcl 50 Mg Tablet PO 150 mg BEDTIME PRN Administration Insomnia Allergies Allergies Allergy/AdvReac Type Severity Reaction Status Date / Time No Known Allergies Allergy Mild NOT Unverified 03/05/20 16:31 APPLICABLE Assessment & Plan Assessment & Plan (1) Schizoaffective disorder: Qualifiers: Schizoaffective disorder type: bipolar Qualified Code(s): F25.0 - Schizoaffective disorder, bipolar type Status: Acute Code(s): F25.9 - Schizoaffective disorder, unspecified Assessment and Plan: CT current plan Greater than 50% of the session was spent on counseling and/or coordination of care Patient educated on: diagnosis and medication risk/benefits Informed Consent: further education needed Reason for contiued inpatient stay Substantial Risk for: rapid decompensation
[2020-04-26] MEDS: Paliperidone Palmitate 156 MG/ML SYRINGE IM (13:56)
--- NOTE | 2020-04-26 16:05 | PC.NURSE ---
PT RECEIVED INVEGA SUSTENNA 156MG TO LEFT DELTOID
[2020-04-26 18:00] VITALS: BP 139/80; PULSE 115; TEMP 36.4
[2020-04-26] MEDS: Magnesium Hydrox/Alum Hydrox 30 ML ORAL.SUSP PO (20:23)
[2020-04-26] MEDS: traZODone HCL 50 MG TABLET 150 MG PO (21:24)
[2020-04-26] MEDS: clonazePAM 1 MG TABLET PO (21:24)
[2020-04-27] MEDS: Levothyroxine Sodium 50 MCG TABLET PO (08:45)
[2020-04-27] MEDS: Paliperidone ER 9 MG TAB.ER.24 PO (08:45)
[2020-04-27] MEDS: FLUoxetine HCl 20 MG CAPSULE PO (08:45)
[2020-04-27 08:48] VITALS: BP 112/56; PULSE 116
[2020-04-27] MEDS: lisinopriL 20 MG TABLET PO (08:48)
--- NOTE | 2020-04-27 14:09 | HO.PSYCHPN ---
Subjective Subjective Date of Service: 04/27/20 Reason For Visit: psychotic decompensation Subjective Notes: Conditional Voluntary Interim History: Kiera was in good spirits. SUZI spoke with her daughter who visited last night. She is comfortable with her going home tomorrow. She received her second invega shot wihtout incident. Medication Compliance: Yes Side effects from medications: No Attending Groups: Yes Review of Systems Acute medical concerns: No Medical Review of Systems: unchanged Review of Systems Constitutional: Denies frequent falls Denies vertigo and Denies dizziness Cardiovascular: Denies syncope Reports system reviewed and no additional complaints, except as documented, Reports as per HPI, Denies Neuro-related abnormal movements, Denies behavioral changes, Denies burning sensations, Denies confusion, Denies vertigo, Denies dizziness, Denies syncope and Denies frequent falls Psychiatric: Denies behavioral changes and Denies confusion Mental Status Exam Mental Status Exam Patient Appearance: Well Grooomed Patient Orientation: Person and Place Level of Consciousness: Awake Patient Behavior: Appropriate and Good Eye Contact Behavior Comments: More labile today Mood Description: Apathetic, Appropriate, Flat and Sad Affect Description: Depressed, Anxious and Sad Patient Cognition Impaired: Yes Ability to Follow Directions: Fair (yesterday was poor) Speech Pattern: Clear and Soft-Spoken Memory Description: Intact Hallucinations: None Delusions: Not Present Thought Process: Intact Thought Content: negative for Suicidal Ideation and negative for Homicidal Ideation Diagnostics Vital Signs (24Hr): Vital Signs - 24 hr 04/26/20 18:00 04/27/20 08:48 Temperature 97.6 F Pulse Rate 115 H 116 H Blood Pressure 139/80 112/56 L Body Mass Index 49.1 Labs Results: 04/16/20 09:50 04/16/20 09:49 Medications Medications Current Medications Generic Name Dose Route Start Last Admin Trade Name Freq PRN Reason Stop Dose Admin Acetaminophen 650 mg 04/17/20 16:45 04/23/20 15:44 Acetaminophen 325 Mg Tablet PO 650 mg Q6H PRN Administration Headache/Pain Mild Scale (1-3) Al Hydroxide/Mg Hydroxide 30 ml 04/17/20 16:45 04/26/20 20:23 Magnesium Hydrox/Alum Hydrox 30 Ml Oral.Susp PO 30 ml Q6H PRN Administration Heartburn/Nausea Al Hydroxide/Mg Hydroxide 30 ml 04/17/20 17:25 Magnesium Hydrox/Alum Hydrox 30 Ml Oral.Susp PO Q6H PRN Heartburn/Nausea Clonazepam 1 mg 04/26/20 21:00 04/26/20 21:24 Clonazepam 1 Mg Tablet PO 1 mg BEDTIME SARATH Administration Fluoxetine HCl 20 mg 04/24/20 12:00 04/27/20 08:45 Fluoxetine Hcl 20 Mg Capsule PO 20 mg DAILY SARATH Administration Hydroxyzine HCl 25 mg 04/17/20 16:45 Hydroxyzine Hcl 25 Mg Tablet PO BEDTIME PRN Anxiety Levothyroxine Sodium 50 mcg 04/16/20 17:15 04/27/20 08:45 Levothyroxine Sodium 50 Mcg Tablet PO 50 mcg DAILY SARATH Administration Lisinopril 20 mg 04/16/20 18:00 04/27/20 08:48 Lisinopril 20 Mg Tablet PO 20 mg DAILY SARATH Administration Protocol Magnesium Hydroxide 30 ml 04/17/20 16:45 Milk Of Magnesia 30 Ml Oral.Susp PO DAILY PRN Constipation Paliperidone 9 mg 04/20/20 09:00 04/27/20 08:45 Paliperidone Er 9 Mg Tab.Er.24 PO 9 mg DAILY SARATH Administration Paliperidone Palmitate 156 mg 04/26/20 10:15 04/26/20 13:56 Paliperidone Palmitate 156 Mg/Ml Syringe IM 156 mg Q30D SARATH Administration Trazodone HCl 150 mg 04/16/20 17:12 04/26/20 21:24 Trazodone Hcl 50 Mg Tablet PO 150 mg BEDTIME PRN Administration Insomnia Allergies Allergies Allergy/AdvReac Type Severity Reaction Status Date / Time No Known Allergies Allergy Mild NOT Unverified 03/05/20 16:31 APPLICABLE Assessment & Plan Assessment & Plan (1) Schizoaffective disorder: Qualifiers: Schizoaffective disorder type: bipolar Qualified Code(s): F25.0 - Schizoaffective disorder, bipolar type Status: Acute Code(s): F25.9 - Schizoaffective disorder, unspecified Assessment and Plan: CT current treatment plan DC in am Greater than 50% of the session was spent on counseling and/or coordination of care Patient educated on: diagnosis and medication risk/benefits Informed Consent: further education needed Reason for contiued inpatient stay Substantial Risk for: rapid decompensation
[2020-04-27 18:00] VITALS: BP 139/91; PULSE 92; TEMP 36.2; O2SAT 97
[2020-04-27] MEDS: clonazePAM 1 MG TABLET PO (20:49)
[2020-04-28] MEDS: FLUoxetine HCl 20 MG CAPSULE PO (08:46)
[2020-04-28] MEDS: Paliperidone ER 9 MG TAB.ER.24 PO (08:46)
[2020-04-28] MEDS: Levothyroxine Sodium 50 MCG TABLET PO (08:47)
[2020-04-28 08:51] VITALS: BP 117/79; PULSE 88
[2020-04-28] MEDS: lisinopriL 20 MG TABLET PO (08:51)
[2020-04-28 08:54] VITALS: BP 117/79; PULSE 88; RESP 16; TEMP 36.3; O2SAT 98
--- NOTE | 2020-04-28 09:22 | PM.PSYDC ---
DS: Providers Provider Date of admission: 04/17/20 17:27 Date of discharge: 04/28/20 Primary care physician: [facility] Attending physician on admission: Janie Spain Attending physician on discharge: Carlyn Alba DS: Diagnosis Discharge Diagnosis (1) Schizoaffective disorder: Status: Acute Discharge Plan Discharge Patient Disposition: Home, Self-Care Referrals: Dona Keith, therapist [Other] - 04/30/[address] 2:[address] Miguel Connors, psychiatrist [Other] - 04/29/20 1:40 pm (Appointments by telehealth - number may come up blocked or as spam risk ) [facility] [Other] - 04/29/20 (Fax- [phone]) Lindsay Chapman MD [Physician] - 05/08/20 9:30 am (TELE-VISIT VIA PHONE) Discharge Medications: New paliperidone [Invega] 9 mg Tablet Extended Release 24hr 9 mg PO DAILY Qty: 30 RF: 0 fluoxetine 20 mg Capsule 20 mg PO DAILY Qty: 30 RF: 0 Invega Sustenna 156 mg/mL Syringe 156 mg IM Q30D Qty: 1 RF: 0 Continued clonazepam 1 mg Tablet 1 mg PO BEDTIME RF: 0 lisinopril 20 mg Tablet 20 mg PO DAILY Qty: 30 RF: 0 trazodone 150 mg Tablet 150 mg PO BEDTIME PRN (Reason: Insomnia) Qty: 30 RF: 0 levothyroxine 50 mcg Capsule 50 mcg PO DAILY Qty: 30 RF: 0 Discontinued fluoxetine 40 mg Capsule 40 mg PO DAILY RF: 0 paliperidone [Invega] 6 mg Tablet Extended Release 24hr 6 mg PO QAM RF: 0 Discharge Orders: Discharge Order (Routine); Ordered 04/28/20 Ordered By: Carlyn Alba Diet: advance to your usual diet Activity on Discharge: As tolerated Stand Alone Forms: Community Support Discharge Date/Time: 04/28/20 17:25 Visit Report Forms: Patient Portal Discharge page Care Plan Goals: Reduce depression and voices Health Concerns: Psychosis Depression Low thyroid High BP Plan of Treatment: Stay on your medications Go to your appointments Mental Status Exam Mental Status Exam Patient Appearance: Well Grooomed Patient Orientation: Person and Place Level of Consciousness: Awake Patient Behavior: Appropriate and Good Eye Contact Behavior Comments: More labile today Mood Description: Apathetic, Appropriate, Flat and Sad Affect Description: Depressed and Sad Patient Cognition Impaired: Yes Ability to Follow Directions: Fair (yesterday was poor) Speech Pattern: Clear and Soft-Spoken Memory Description: Intact Hallucinations: None Delusions: Not Present Thought Process: Intact Thought Content: positive for Intact, negative for Suicidal Ideation and negative for Homicidal Ideation DS: Summary Hospital Course Hospital Course: 60 yo HF presented to ER brought in by her daughter, who reported mother was not sleeping, and was having an increase in hallucinations. She was not making sense. Patient seemed paranoid and her speech was disorganized-/untranslatable. She was reporting tactile, visual and auditory hallucinations. Her daughter reported patient had recent medication change by outpt prescriber- Dr Miguel Connors. She had not been compliant with medications. On arrival to the unit she was quite disorganized and behaviorally difficult. She was started on invega and later prozac was re-started. She accepted invega sustenna. She rapidly recompensated and stated that she felt ready to go home. However she did not want to fo home due to loneliness. SW worked with her daughters to problem solve. She was medically stable throughout her stay. Status at Discharge Cognitive/behavioral status at discharge: Future oriented and without AH or VH. Functional status at discharge: independent ambulation Overall status at discharge: patient is back to baseline Time Spent with Patient Time attestation: Total time spent providing and/or coordinating discharge services:
== END 2020-04-28 17:25 | disposition home or self-care (01) | DRG 750 ==
LOC: HO.ED 04-17 17:20 → HO.PM5 04-17 17:57
PROVIDERS: Physician Assistant; Psychiatry & Neurology Psychiatry; Admitting Provider Psychiatry & Neurology Psychiatry; Emergency Provider Emergency Medicine; Visit Provider Psychiatry & Neurology Psychiatry
DX: F25.9 Schizoaffective disorder, unspecified (principal); E03.9 Hypothyroidism, unspecified; I10 Essential (primary) hypertension; Z20.828 Contact with and (suspected) exposure to other viral communicable diseases; Z79.899 Other long term (current) drug therapy
CPT/HCPCS: 36415; 80053; 80061; 80076; 80307; 80320; 81001; 82248; 82947; 85025; 90792; 93005; 96365; 96375; 99232; 99284; 99285; G0480; J2426; U0003

== ENCOUNTER 2020-06-03 10:31 | Outpatient (REF) | payer MEDICAID, SELFPAY ==
--- NOTE | 2020-06-03 | MM_ITS ---
EXAMINATION: MM SCREENING DIGITAL BREAST TOMOSYNTHESIS, BILATERAL CLINICAL INFORMATION: Screening. Asymptomatic. The lifetime risk of breast cancer based on the Tyrer-Cuzick Model is 6%. COMPARISON: Mammography: 06/20/2018, 05/02/2017 TECHNIQUE: Digital breast tomosynthesis is performed in both the craniocaudal and mediolateral oblique views along with computer-aided detection (CAD). Synthesized 2D images are generated from the tomosynthesis. Additional bilateral exaggerated CC views and bilateral MLO views are provided. FINDINGS: There are scattered areas of fibroglandular density (ACR BI-RADS breast composition Category b). Breast tissue composition borders on predominantly fatty. There are no significant masses, abnormal calcifications, or other abnormalities. There are grouped dermal calcifications again noted posterior 6:00 right breast. The axilla and skin contours are unremarkable. MM/MM tomosynthesis screening BI IMPRESSION: No mammographic evidence of malignancy. ASSESSMENT: BI-RADS 2: Benign RECOMMENDATION: Routine annual mammography screening. This patient's information was entered into a reminder system with a target due date for their next mammogram.
== END 2020-06-03 10:32 | disposition home or self-care (01) ==
LOC: HO.MAMMO 10:31
PROVIDERS: PCP Family Medicine; Visit Provider Family Medicine
DX: Z12.31 Encounter for screening mammogram for malignant neoplasm of breast (principal)
CPT/HCPCS: 77063; 77067

== ENCOUNTER 2020-06-13 14:10 | Emergency (ER) | payer MEDICAID, SELFPAY ==
[2020-06-13 19:18] VITALS: BP 127/72; PULSE 97; RESP 16; TEMP 37; O2SAT 95; BMI 44.2
--- NOTE | 2020-06-13 19:49 | ED.ABDPAIN ---
HPI - Abdominal Pain General Chief Complaint: Abdominal Pain <Florida Espinal NP - Last Filed: 06/13/20 23:16> Stated Complaint: pelvic pain <Florida Espinal NP - Last Filed: 06/13/20 23:16> Time Seen by Provider: 06/13/20 20:53 <Florida Espinal NP - Last Filed: 06/13/20 23:16> Source: patient <Florida Espinal NP - Last Filed: 06/13/20 23:16> Mode of arrival: ambulatory <Florida Espinal NP - Last Filed: 06/13/20 23:16> Limitations: language barrier <Florida Espinal NP - Last Filed: 06/13/20 23:16> History of Present Illness HPI narrative: 60-year-old female with past medical history of hypertension, hypothyroidism, schizoaffective disorder presents with 3 weeks of left lower abdominal pain and suprapubic pain with dysuria. She does not report any fevers or chills, denies chest pain or pressure, palpitations, shortness of breath, vaginal discharge, abnormal vaginal bleeding, hematuria, or edema. <Florida Espinal NP - Last Filed: 06/13/20 23:16> MD elicited complaint: abdominal pain <Florida Espinal NP - Last Filed: 06/13/20 23:16> Pertinent past history: past UTI <Florida Espinal NP - Last Filed: 06/13/20 23:16> Onset (ago): week(s) (3) <Florida Espinal NP - Last Filed: 06/13/20 23:16> Pain Consistency: intermittent <Florida Espinal NP - Last Filed: 06/13/20 23:16> Location: LLQ and suprapubic <Florida Espinal NP - Last Filed: 06/13/20 23:16> Severity: moderate <Florida Espinal NP - Last Filed: 06/13/20 23:16> Pain scale (0-10): 6 <Florida Espinal NP - Last Filed: 06/13/20 23:16> Quality: aching <Florida Espinal NP - Last Filed: 06/13/20 23:16> Radiation: none <Florida Espinal NP - Last Filed: 06/13/20 23:16> Exacerbating factors: bowel movement and movement <Florida Espinal NP - Last Filed: 06/13/20 23:16> Relieving factors: nothing <Florida Espinal NP - Last Filed: 06/13/20 23:16> Associated symptoms: denies other symptoms <NUHA Mcguire Last Filed: 06/13/20 23:16> Related Data Home Medications: Home Medications Medication Instructions Recorded Confirmed clonazepam 1 mg PO BEDTIME 04/16/20 04/16/20 Previous Rx's Medication Instructions Recorded fluoxetine 20 mg PO DAILY #30 cap 04/28/20 levothyroxine 50 mcg PO DAILY #30 cap 04/28/20 lisinopril 20 mg PO DAILY #30 tab 04/28/20 paliperidone [Invega] 9 mg PO DAILY #30 tab 04/28/20 paliperidone palmitate [Invega 156 mg IM Q30D #1 ml 04/28/20 Sustenna] trazodone 150 mg PO BEDTIME PRN #30 tab 04/28/20 levofloxacin 750 mg PO DAILY 6 Days #6 tab 06/13/20 metoclopramide HCl [Reglan] 10 mg PO Q6H PRN 7 Days #14 tab 06/13/20 metronidazole [Flagyl] 500 mg PO Q8H 7 Days #21 tab 06/13/20 oxycodone 5 mg PO Q8H PRN #10 tab 06/13/20 <Florida Espinal NP - Last Filed: 06/13/20 23:16> Allergies/Adverse Reactions: Allergies Allergy/AdvReac Type Severity Reaction Status Date / Time No Known Allergies Allergy Mild NOT Unverified 03/05/20 16:31 APPLICABLE <NUHA Mcguire Last Filed: 06/13/20 23:16> Review of Systems Review of Systems Constitutional: No Weight loss, No Fever, No Chills, No Night Sweats, No Fatigue, No Malaise ENT/Mouth: No Hearing loss, No Ear Pain, No Nasal Congestion, No Sinus Pain, No Hoarseness, No sore throat, No Rhinorrhea, No Swallowing Difficulty Eyes: No Eye Pain, No Swelling, No Redness, No Foreign Body, No Discharge, No Vision Changes Cardiovascular: No Chest Pain, No SOB, No Dyspnea on Exertion, No Orthopnea, No Edema, No Palpitations Respiratory: No Cough, No Sputum, No Wheezing, No Smoke Exposure, No Dyspnea Gastrointestinal: Positive abdominal pain, No Nausea, no Vomiting, no Diarrhea, No Hematochezia, No Melena Genitourinary: Positive dysuria and frequency, no irregular bleeding, No Hematuria, No Urinary Incontinence, No Urgency, No Flank Pain, No Urinary Flow Changes, No Hesitancy Musculoskeletal: No joint pain, No Myalgias, No Joint Swelling Skin: No Skin Lesions, No rash Neuro: No Weakness, No Numbness, No Paresthesias, No Loss of Consciousness, No Dizziness, No Headache Psych: No Anxiety/Panic, No Depression, No SI/HI/AH/VH, No Social Issues Heme/Lymph: No Bruising, No Bleeding,No Lymphadenopathy Endocrine: No Polyuria, No Polydipsia, No Temperature Intolerance <Florida Espinal NP - Last Filed: 06/13/20 23:16> Yes all other systems are reviewed and are negative <Florida Espinal NP - Last Filed: 06/13/20 23:16> Physical Exam Vital Signs: Vital Signs: Last Vital Signs Temp 98.5 F 06/13/20 22:00 Pulse 80 06/13/20 22:00 Resp 16 06/13/20 22:00 BP 125/70 06/13/20 22:00 Pulse Ox 96 06/13/20 22:00 Body Mass Index 44.2 <Florida Espinal NP - Last Filed: 06/13/20 23:16> Vital Signs: Last Vital Signs Temp 98.5 F 06/13/20 22:00 Pulse 80 06/13/20 22:00 Resp 16 06/13/20 22:00 BP 125/70 06/13/20 22:00 Pulse Ox 96 06/13/20 22:00 Body Mass Index 44.2 <Emerita Jackson MD - Last Filed: 06/14/20 07:42> Appearance: Alert. Oriented X3. No acute distress. Eyes: Pupils equal, round and reactive to light. ENT: Pharynx normal. Neck: Normal inspection. Neck supple. CVS: Normal heart rate and rhythm. Pulses normal. Respiratory: No respiratory distress. Breath sounds normal. Abdomen: Soft and tender to palpation to the left lower quadrant. Skin: Skin warm and dry. Normal skin color. Normal skin turgor. Extremities: No lower extremity edema. Neuro: No motor deficit. No sensory deficit. <Florida Espinal NP - Last Filed: 06/13/20 23:16> Course Course Course Narrative: 60-year-old female with past medical history of hypertension, hypothyroidism and schizoaffective disorder presents with 3 weeks of left lower quadrant and suprapubic pain. She does not report any trauma, vaginal discharge, fevers or chills. Plan is for CT scan of abdomen as she does have tenderness to palpation to left lower quadrant, CBC, Chem 7, lactic, cultures, rule out ACS and urinalysis. EKG is normal sinus, troponins are negative, lab values are unremarkable with the exception of an elevated glucose at 142. Urinalysis is negative for acute findings. CT scan positive for sigmoid diverticulitis. Per discussion with hospitalist, review of labs, plan is to discharge home with p.o. antibiotics, antiemetics and pain management. Detailed description of findings and plan discussed with patient and patient's daughter. deal architect utilized for all correspondence. Google translate utilized for discharge instructions. <Florida Espinal NP - Last Filed: 06/13/20 23:16> Reevaluation(s) Reevaluation #1: CT scan still pending at this time. <Florida Espinal NP - Last Filed: 06/13/20 23:16> Time: 21:13 <Floirda Espinal NP - Last Filed: 06/13/20 23:16> Consultations Consultation #1: Julio <Florida Espinal NP - Last Filed: 06/13/20 23:16> Time: 22:30 <Florida Espinal NP - Last Filed: 06/13/20 23:16> MDM - Abdominal Pain Differential Diagnosis Differential diagnosis: Likely abdominal pain, acute appendicitis, calculus of kidney, constipation, diverticulitis and gastroenteritis <Florida Espinal NP - Last Filed: 06/13/20 23:16> Medical Records Attestation: I reviewed the patient's medical records. <Florida Espinal NP - Last Filed: 06/13/20 23:16> Lab Data Attestation: I reviewed the patient's lab results. <Florida Espinal NP - Last Filed: 06/13/20 23:16> Result diagrams: : 06/13/20 20:10 06/13/20 20:10 <Florida Espinal [employer] OPERATOR - Last Filed: 06/13/20 23:16> Labs: Lab Results 06/13/20 06/13/20 06/13/20 Range/Units 20:10 20:10 20:10 WBC 10.4 (4.8-10.8) X10*3/uL RBC 4.85 (4.20-5.50) X10*6/uL Hgb 14.3 (12.0-16.0) g/dl Hct 43.7 (37-47) % MCV 90.1 (80-98) fL MCH 29.5 (27.0-33.0) pg MCHC 32.7 (31.0-35.0) g/dl RDW 12.1 (11.0-16.0) % Plt Count 204 (160-400) X10*3/uL MPV 10.2 (9.4-12.3) fL Immature Gran % (Auto) 0.7 H (0.0-0.4) % Neut % (Auto) 62.8 (45-73) % Lymph % (Auto) 23.7 (20-40) % [place] % (Auto) 9.6 (2-11) % Eos % (Auto) 2.7 (0-4) % Baso % (Auto) 0.5 (0-2) % Lymph # (Auto) 2.5 (1.2-4.9) X10*3/uL [place] # (Auto) 1.0 (0.1-1.2) X10*3/uL Eos # (Auto) 0.3 (0.0-0.4) X10*3/uL Baso # (Auto) 0.1 (0.0-0.2) X10*3/uL Abs Immat Gran (auto) 0.07 H (0.00-0.03) X10*3/uL Absolute Neuts (auto) 6.5 (2.0-8.3) X10*3/uL Absolute Nucleated RBC 0.000 (0.0-0.012) X10*3/uL Nucleated RBC % (auto) 0.0 (0.0-0.2) /100WBC Sodium 138 (135-145) mmol/L Potassium 3.7 (3.3-5.1) mmol/l Chloride 101 (96-108) mmol/L Carbon Dioxide 26 (22-29) mmol/L Anion Gap 15 (12-20) BUN 7 L (9-16) mg/dL Creatinine 0.75 (0.5-1.4) mg/dL Estim Creat Clear Calc 96.6 Estimated GFR > 60 Random Glucose 142 H (60-115) mg/dL Calcium 8.6 (8.4-10.2) mg/dL Total Bilirubin 0.6 (0.0-1.0) mg/dL AST 18 (5-31) U/L ALT 19 (0-31) U/L Alkaline Phosphatase 93 (39-117) U/L Troponin I High Sens 5.3 (<3.5-17.0) ng/L Total Protein 7.5 (6.5-8.0) g/dL Albumin 4.2 (3.5-5.0) g/dL Urine Color Urine Appearance Urine pH (5.0-8.0) Ur Specific [place] (1.005-1.025) Urine Protein (NEG-TRACE) MG/DL Urine Glucose (UA) (NEG) MG/DL Urine Ketones (NEG) MG/DL Urine Blood (NEG) Urine Nitrite (NEG) Ur Leukocyte Esterase (NEG) 06/13/ Range/Units 20:10 WBC (4.8-10.8) X10*3/uL RBC (4.20-5.50) X10*6/uL Hgb (12.0-16.0) g/dl Hct (37-47) % MCV (80-98) fL MCH (27.0-33.0) pg MCHC (31.0-35.0) g/dl RDW (11.0-16.0) % Plt Count (160-400) X10*3/uL MPV (9.4-12.3) fL Immature Gran % (Auto) (0.0-0.4) % Neut % (Auto) (45-73) % Lymph % (Auto) (20-40) % [place] % (Auto) (2-11) % Eos % (Auto) (0-4) % Baso % (Auto) (0-2) % Lymph # (Auto) (1.2-4.9) X10*3/uL [place] # (Auto) (0.1-1.2) X10*3/uL Eos # (Auto) (0.0-0.4) X10*3/uL Baso # (Auto) (0.0-0.2) X10*3/uL Abs Immat Gran (auto) (0.00-0.03) X10*3/uL Absolute Neuts (auto) (2.0-8.3) X10*3/uL Absolute Nucleated RBC (0.0-0.012) X10*3/uL Nucleated RBC % (auto) (0.0-0.2) /100WBC Sodium (135-145) mmol/L Potassium (3.3-5.1) mmol/l Chloride (96-108) mmol/L Carbon Dioxide (22-29) mmol/L Anion Gap (12-20) BUN (9-16) mg/dL Creatinine (0.5-1.4) mg/dL Estim Creat Clear Calc Estimated GFR Random Glucose (60-115) mg/dL Calcium (8.4-10.2) mg/dL Total Bilirubin (0.0-1.0) mg/dL AST (5-31) U/L ALT (0-31) U/L Alkaline Phosphatase (39-117) U/L Troponin I High Sens (<3.5-17.0) ng/L Total Protein (6.5-8.0) g/dL Albumin (3.5-5.0) g/dL Urine Color YELLOW Urine Appearance CLEAR Urine pH 6.5 (5.0-8.0) Ur Specific [place] 1.020 (1.005-1.025) Urine Protein NEG (NEG-TRACE) MG/DL Urine Glucose (UA) NEG (NEG) MG/DL Urine Ketones NEG (NEG) MG/DL Urine Blood NEG (NEG) Urine Nitrite NEG (NEG) Ur Leukocyte Esterase NEG (NEG) <Florida Espinal NP - Last Filed: 06/13/20 23:16> Lab Results 06/13/20 06/13/20 06/13/20 Range/Units 20:10 20:10 20:10 WBC 10.4 (4.8-10.8) X10*3/uL RBC 4.85 (4.20-5.50) X10*6/uL Hgb 14.3 (12.0-16.0) g/dl Hct 43.7 (37-47) % MCV 90.1 (80-98) fL MCH 29.5 (27.0-33.0) pg MCHC 32.7 (31.0-35.0) g/dl RDW 12.1 (11.0-16.0) % Plt Count 204 (160-400) X10*3/uL MPV 10.2 (9.4-12.3) fL Immature Gran % (Auto) 0.7 H (0.0-0.4) % Neut % (Auto) 62.8 (45-73) % Lymph % (Auto) 23.7 (20-40) % [place] % (Auto) 9.6 (2-11) % Eos % (Auto) 2.7 (0-4) % Baso % (Auto) 0.5 (0-2) % Lymph # (Auto) 2.5 (1.2-4.9) X10*3/uL [place] # (Auto) 1.0 (0.1-1.2) X10*3/uL Eos # (Auto) 0.3 (0.0-0.4) X10*3/uL Baso # (Auto) 0.1 (0.0-0.2) X10*3/uL Abs Immat Gran (auto) 0.07 H (0.00-0.03) X10*3/uL Absolute Neuts (auto) 6.5 (2.0-8.3) X10*3/uL Absolute Nucleated RBC 0.000 (0.0-0.012) X10*3/uL Nucleated RBC % (auto) 0.0 (0.0-0.2) /100WBC Sodium 138 (135-145) mmol/L Potassium 3.7 (3.3-5.1) mmol/l Chloride 101 (96-108) mmol/L Carbon Dioxide 26 (22-29) mmol/L Anion Gap 15 (12-20) BUN 7 L (9-16) mg/dL Creatinine 0.75 (0.5-1.4) mg/dL Estim Creat Clear Calc 96.6 Estimated GFR > 60 Random Glucose 142 H (60-115) mg/dL Calcium 8.6 (8.4-10.2) mg/dL Total Bilirubin 0.6 (0.0-1.0) mg/dL AST 18 (5-31) U/L ALT 19 (0-31) U/L Alkaline Phosphatase 93 (39-117) U/L Troponin I High Sens 5.3 (<3.5-17.0) ng/L Total Protein 7.5 (6.5-8.0) g/dL Albumin 4.2 (3.5-5.0) g/dL Urine Color Urine Appearance Urine pH (5.0-8.0) Ur Specific [place] (1.005-1.025) Urine Protein (NEG-TRACE) MG/DL Urine Glucose (UA) (NEG) MG/DL Urine Ketones (NEG) MG/DL Urine Blood (NEG) Urine Nitrite (NEG) Ur Leukocyte Esterase (NEG) 06/13/20 Range/Units 20:10 WBC (4.8-10.8) X10*3/uL RBC (4.20-5.50) X10*6/uL Hgb (12.0-16.0) g/dl Hct (37-47) % MCV (80-98) fL MCH (27.0-33.0) pg MCHC (31.0-35.0) g/dl RDW (11.0-16.0) % Plt Count (160-400) X10*3/uL MPV (9.4-12.3) fL Immature Gran % (Auto) (0.0-0.4) % Neut % (Auto) (45-73) % Lymph % (Auto) (20-40) % [place] % (Auto) (2-11) % Eos % (Auto) (0-4) % Baso % (Auto) (0-2) % Lymph # (Auto) (1.2-4.9) X10*3/uL [place] # (Auto) (0.1-1.2) X10*3/uL Eos # (Auto) (0.0-0.4) X10*3/uL Baso # (Auto) (0.0-0.2) X10*3/uL Abs Immat Gran (auto) (0.00-0.03) X10*3/uL Absolute Neuts (auto) (2.0-8.3) X10*3/uL Absolute Nucleated RBC (0.0-0.012) X10*3/uL Nucleated RBC % (auto) (0.0-0.2) /100WBC Sodium (135-145) mmol/L Potassium (3.3-5.1) mmol/l Chloride (96-108) mmol/L Carbon Dioxide (22-29) mmol/L Anion Gap (12-20) BUN (9-16) mg/dL Creatinine (0.5-1.4) mg/dL Estim Creat Clear Calc Estimated GFR Random Glucose (60-115) mg/dL Calcium (8.4-10.2) mg/dL Total Bilirubin (0.0-1.0) mg/dL AST (5-31) U/L ALT (0-31) U/L Alkaline Phosphatase (39-117) U/L Troponin I High Sens (<3.5-17.0) ng/L Total Protein (6.5-8.0) g/dL Albumin (3.5-5.0) g/dL Urine Color YELLOW Urine Appearance CLEAR Urine pH 6.5 (5.0-8.0) Ur Specific [place] 1.020 (1.005-1.025) Urine Protein NEG (NEG-TRACE) MG/DL Urine Glucose (UA) NEG (NEG) MG/DL Urine Ketones NEG (NEG) MG/DL Urine Blood NEG (NEG) Urine Nitrite NEG (NEG) Ur Leukocyte Esterase NEG (NEG) <Emerita Jackson MD - Last Filed: 06/14/20 07:42> Imaging Data CT scan - abdomen: Attestation: I personally reviewed and interpreted this imaging study as follows: <Florida Espinal NP - Last Filed: 06/13/20 23:16> Radiologist's impression: EXAMINATION: CT ABDOMEN AND PELVIS WITHOUT CONTRAST CLINICAL INFORMATION: Suprapubic and left lower quadrant abdominal pain. COMPARISON: 08/21/2019 TECHNIQUE: Multidetector volumetric imaging was performed from the superior aspect of the liver through the pubic symphysis. Sagittal and coronal reformatted images were obtained on the technologist's workstation. This CT examination was performed using dose optimization techniques as appropriate, variously including the following: *Automated exposure control *Adjustment of mA and/or kV according to patient size (this includes techniques or standardized protocols for targeted exams where dose is matched to indication/reason for exam; i.e. extremities or head) *Use of iterative reconstruction technique DLP: 1088 mGy-cm FINDINGS: LUNG BASES: Bilateral posterior pleural thickening. Plate-like atelectasis in the left lung base. Diffuse low-attenuation of the liver. No focal lesions. No intrahepatic biliary duct dilatation. No definite gallstone seen. No acute inflammatory changes. Pancreas, spleen, adrenal glands appear unremarkable. Normal size of the kidneys. 2 mm calculus in the left renal upper pole calyceal region, vascular calcification versus tiny stone. No hydronephrosis. No suspicious lesions. Urinary bladder appears unremarkable. Diverticulosis of the descending colon and transverse colon. There is wall thickening of the junction of the lower descending and the sigmoid colon, with inflammatory changes present. The inflammatory changes/fluid extend into the pelvis. The findings are indicative of diverticulitis. No focal fluid collections or free air is seen. Stomach is partially distended. No dilated small bowel loops are seen. Appendix is best visualized on the coronal reconstructions, appears unremarkable. Normal caliber aorta. Again noted is a small, 7 mm, rounded, partially calcified focus in the region of the splenic artery, likely a small aneurysm. No lymphadenopathy is seen. Uterus and adnexa are within normal limits for CT. The abdominal wall appears unremarkable. No acute or suspicious osseous abnormality. CT/CT abdomen pelvis wo con IMPRESSION: 1. Abnormal findings indicative of diverticulitis involving the lower descending and the proximal sigmoid colon, with the presence of inflammatory changes and fluid. No focal drainable fluid collections or free air is seen. 2. A small 7 mm splenic artery aneurysm suspected, similar to previous. 3. Hepatic steatosis. 4. Additional findings and details as above. <Florida Espinal NP - Last Filed: 06/13/20 23:16> ECG Data Attestation: I personally reviewed and interpreted this ECG as follows: <Florida Espinal NP - Last Filed: 06/13/20 23:16> ECG interpretation date: 06/13/20 <Florida Espinal NP - Last Filed: 06/13/20 23:16> ECG interpretation time: 20:24 <Florida Espinal NP - Last Filed: 06/13/20 23:16> Interpretation: Vent. Rate : 083 BPM Atrial Rate : 083 BPM P-R Int : 146 ms QRS Dur : 072 ms QT Int : 372 ms P-R-T Axes : 055 -14 018 degrees QTc Int : 437 ms Normal sinus rhythm Normal ECG When compared with ECG of 17-APR-2020 14:51, No significant change was found <Florida Espinal NP - Last Filed: 06/13/20 23:16> Discharge Plan Discharge Clinical Impression: Diverticulitis <Florida Espinal NP - Last Filed: 06/13/20 23:16> Patient Disposition: Home, Self-Care <Florida Espinal NP - Last Filed: 06/13/20 23:16> Instructions: Diverticulitis (ED) <Florida Espinal NP - Last Filed: 06/13/20 23:16> Additional Instructions: Te evaluaron para el dolor abdominal del cuadrante inferior jonathan. La tomograf?a computarizada muestra diverticulitis que es jose infecci?n dentro del colon. Por favor, tome Levaquin 750 mg al d?a. Te dimos tu 1a dosis hoy. Le quedan 6 comprimidos. Por favor, tome Flagyl cada 8 horas aldo los pr?ximos 7 d?as. No luanne alcohol con nguyễn medicamento. Usted tendr? jose reacci?n grave algunos hace que nguyễn medicamento con alcohol. Le recetamos a Reglan para las n?useas. Por favor, tome nguyễn medicamento seg?n sea necesario. Le recetamos oxicodona para el manejo del dolor. Nguyễn medicamento es un narc?bridgette y tiene un alto riesgo de adicci?n y abuso. Nguyễn medicamento retrasar? el tiempo de reacci?n, aumentar? el riesgo de ca?martinez y causar? estre?imiento. No conduzca ni utilice maquinaria mientras est? tomando nguyễn medicamento. Si juanita s?ntomas empeoran o tiene fiebre, escalofr?os o distensi?n abdominal o cualquier otro s?ntoma relacionado, por favor regrese al departamento de emergencias inmediatamente. Fco por elegir nguyễn departamento de emergencias para la evaluaci?n. Por favor, sherrill un seguimiento con el m?dico de atenci?n primaria seg?n sea necesario. Regrese al servicio de urgencias para cualquier s?ntoma nuevo, preocupante o que empeore. You were evaluated for left lower quadrant abdominal pain. CT scan shows diverticulitis which is infection inside the colon. Please take Levaquin 750 mg daily. We gave you your 1st dose today. You have 6 tablets left. Please take Flagyl every 8 hours for the next 7 days. Do not drink alcohol with this medication. You will have a severe reaction a few makes this medication with alcohol. We prescribed Reglan for nausea. Please take this medication as needed. We prescribed oxycodone for pain management. This medication is a narcotic and has high risk for addiction and abuse. This medication will delay reaction time, increased risk for falls, and cause constipation. Do not drive or operate machinery while taking this medication. If your symptoms get worse or you have fevers, chills, or abdominal distension or any other concerning symptoms please return to the emergency department immediately. Thank you for choosing this emergency department for evaluation. Please follow-up with primary care physician as needed. Return to the emergency department for any new, concerning, or worsening symptoms. <Florida Espinal NP - Last Filed: 06/13/20 23:16> Prescriptions: New levofloxacin 750 mg tablet 750 mg PO DAILY 6 Days Qty: 6 RF: 0 metronidazole [Flagyl] 500 mg tablet 500 mg PO Q8H 7 Days Qty: 21 RF: 0 metoclopramide HCl [Reglan] 10 mg tablet 10 mg PO Q6H PRN (Reason: nausea and vomiting) 7 Days Qty: 14 RF: 0 oxycodone 5 mg tablet 5 mg PO Q8H PRN (Reason: pain) Qty: 10 RF: 0 No Action clonazepam 1 mg Tablet 1 mg PO BEDTIME RF: 0 paliperidone [Invega] 9 mg Tablet Extended Release 24hr 9 mg PO DAILY Qty: 30 RF: 0 fluoxetine 20 mg Capsule 20 mg PO DAILY Qty: 30 RF: 0 Invega Sustenna 156 mg/mL Syringe 156 mg IM Q30D Qty: 1 RF: 0 lisinopril 20 mg Tablet 20 mg PO DAILY Qty: 30 RF: 0 trazodone 150 mg Tablet 150 mg PO BEDTIME PRN (Reason: Insomnia) Qty: 30 RF: 0 levothyroxine 50 mcg Capsule 50 mcg PO DAILY Qty: 30 RF: 0 <Florida Espinal NP - Last Filed: 06/13/20 23:16> Interventions: ED Discharge Assessment Last Done: 06/13/20 22:51 <Florida Espinal NP - Last Filed: 06/13/20 23:16> Discharge Date/Time: 06/13/20 22:52 <Florida Espinal NP - Last Filed: 06/13/20 23:16> Print Language: Latvian <Florida Espinal NP - Last Filed: 06/13/20 23:16> [facility] Past Medical History Attestation statement: The following information was validated with the patient. <Florida Espinal NP - Last Filed: 06/13/20 23:16> Source: old records reviewed <Florida Espinal NP - Last Filed: 06/13/20 23:16> Medical History: Medical History Hypertension Hypothyroid <Florida Espinal NP - Last Filed: 06/13/20 23:16> Social History Social History: Social History Household Members: Unknown / Unable to assess Housing: Apartment Alcohol intake: never Smoking Status: Never smoker Second Hand Smoke Exposure: No Use of substances other than those prescribed or required for medical reasons: No Advance Directives: No service: No Sexual orientation: Straight/Heterosexual <Florida Espinal NP - Last Filed: 06/13/20 23:16>
--- NOTE | 2020-06-13 20:00 | ECG_ITS ---
Test Reason : ABD PAIN Blood Pressure : / mmHG Vent. Rate : 083 BPM Atrial Rate : 083 BPM P-R Int : 146 ms QRS Dur : 072 ms QT Int : 372 ms P-R-T Axes : 055 -14 018 degrees QTc Int : 437 ms Normal sinus rhythm Normal ECG When compared with ECG of 17-APR-2020 14:51, No significant change was found Referred By: Florida Espinal Electronically Signed By:BHAVANI PATEL MD
[2020-06-13 20:20] LABS: Basophils Absolute Auto 0.1 X10*3/uL (0.0-0.2); Basophils Percent Auto 0.5 % (0-2); Eosinophils Absolute Auto 0.3 X10*3/uL (0.0-0.4); Eosinophils Percent Auto 2.7 % (0-4); Hematocrit 43.7 % (37-47); Hemoglobin 14.3 g/dl (12.0-16.0); Imm Gran Abs Auto 0.07 X10*3/uL (0.00-0.03); Imm Gran Pct Auto 0.7 % (0.0-0.4); Lymphocytes Absolute Auto 2.5 X10*3/uL (1.2-4.9); Lymphocytes Percent Auto 23.7 % (20-40); MANUAL DIFF FLAG NO; Mean Corpuscular HGB Conc 32.7 g/dl (31.0-35.0); Mean Corpuscular Hemoglobin 29.5 pg (27.0-33.0); Mean Corpuscular Volume 90.1 fL (80-98); Mean Platelet Volume 10.2 fL (9.4-12.3); Monocytes Percent Auto 9.6 % (2-11); Neutrophils Absolute Auto 6.5 X10*3/uL (2.0-8.3); Neutrophils Percent Auto 62.8 % (45-73); Platelet Count 204 X10*3/uL (160-400); Red Blood Count 4.85 X10*6/uL (4.20-5.50); Red Cell Distribution Width 12.1 % (11.0-16.0); White Blood Count 10.4 X10*3/uL (4.8-10.8)
[2020-06-13 20:40] LABS: Glucose Urine UA NEG (NEG); Leukocyte Esterase Urine NEG (NEG); Nitrite Urine NEG (NEG); PH 6.5 (5.0-8.0); Urine Blood NEG (NEG); Urine Ketones NEG (NEG); Urine Protein NEG (NEG-TRACE)
[2020-06-13 20:47] LABS: Alanine Aminotransferase 19 U/L (0-31); Albumin Level 4.2 g/dL (3.5-5.0); Alkaline Phosphatase 93 U/L (39-117); Anion Gap 15 (12-20); Aspartate Amino Transferase 18 U/L (5-31); Bilirubin Total 0.6 mg/dL (0.0-1.0); Blood Urea Nitrogen 7 mg/dL (9-16); Calcium 8.6 mg/dL (8.4-10.2); Carbon Dioxide 26 mmol/L (22-29); Chloride 101 mmol/L (96-108); Creatinine Clr Calc Pharmacy 96.6; Estimated Glomerular Filt Rate > 60; Glucose Random 142 mg/dL (60-115); Potassium 3.7 mmol/l (3.3-5.1); Sodium 138 mmol/L (135-145); Total Protein 7.5 g/dL (6.5-8.0)
[2020-06-13 20:50] LABS: Troponin-I High Sensitivity 5.3 ng/L (<3.5-17.0)
[2020-06-13 20:52] LABS: Appearance Urine CLEAR; Color Urine YELLOW
[2020-06-13 22:00] VITALS: BP 125/70; PULSE 80; RESP 16; TEMP 36.9; O2SAT 96
[2020-06-13] MEDS: metroNIDAZOLE 500 MG TABLET PO (22:40)
[2020-06-13] MEDS: levoFLOXacin 750 MG TABLET PO (22:40)
== END 2020-06-13 22:52 | disposition home or self-care (01) ==
PROVIDERS: Nurse Practitioner Family; Emergency Provider Student in an Organized Health Care Education/Training Program
DX: K57.32 Diverticulitis of large intestine without perforation or abscess without bleeding (principal); R10.32 Left lower quadrant pain; I10 Essential (primary) hypertension; Z79.899 Other long term (current) drug therapy
CPT/HCPCS: 36415; 74176; 80053; 81003; 84484; 85025; 93005; 99284

== ENCOUNTER 2021-03-07 11:25 | Emergency (ER) | payer MEDICAID, SELFPAY ==
--- NOTE | ~2021-03-07 | CT_ITS ---
EXAMINATION: CT ABDOMEN AND PELVIS WITH CONTRAST CLINICAL INFORMATION: Left lower quadrant pain COMPARISON: Previous CT scan of the abdomen and pelvis May 2020 TECHNIQUE: Multidetector volumetric images were obtained from the superior aspect of the liver through the pubic symphysis following administration 100 mL of Omnipaque 350 intravenous contrast. Sagittal and coronal reformatted images were obtained on the technologist's workstation. Oral contrast: Yes This CT examination was performed using dose optimization techniques as appropriate, variously including the following: *Automated exposure control *Adjustment of mA and/or kV according to patient size (this includes techniques or standardized protocols for targeted exams where dose is matched to indication/reason for exam; i.e. extremities or head) *Use of iterative reconstruction technique DLP: 1398 mGy-cm FINDINGS: LUNG BASES: There are small bilateral pleural effusions. Heart is enlarged. LIVER, GALLBLADDER, AND BILIARY TREE: The liver is low in attenuation suggestive of fatty infiltration. No focal liver lesion is seen. The gallbladder is unremarkable. There is no intrahepatic biliary duct dilatation. The common bile duct appears slightly prominent measuring 1.1 cm. PANCREAS: Unremarkable. SPLEEN: Unremarkable. ADRENAL GLANDS: Unremarkable. KIDNEYS AND URETERS: The kidneys are normal in size, shape, and attenuation. No hydronephrosis, hydroureter, or calculi seen. No perinephric stranding. BLADDER: Unremarkable. GASTROINTESTINAL TRACT: There is diverticulosis of the colon. There is wall thickening of the distal left and proximal sigmoid colon and stranding of the surrounding fat suggestive of diverticulitis. This is similar in location to May 2020 exam. No evidence of obstruction, perforation or abscess is seen. There is a small amount of the pelvis. The small and large bowel are otherwise unremarkable. The appendix is unremarkable. Stomach is unremarkable. ABDOMINAL WALL: No significant hernia is appreciated. LYMPH NODES: Normal. VASCULAR: Unremarkable. PELVIC VISCERA: Uterus and adnexa are unremarkable. There is a small amount of fluid in the pelvis. OSSEOUS STRUCTURES: There are degenerative changes of the lower lumbar spine. CT/CT abdomen pelvis w con IMPRESSION: Diverticulitis of the distal colon. Small amount of fluid in the pelvis. Fatty liver.
--- NOTE | 2021-03-07 11:40 | ED_ITS ---
HPI - Abdominal Pain General Chief Complaint: Abdominal Pain Stated Complaint: abd pain Time Seen by Provider: 03/07/21 11:37 History of Present Illness HPI narrative: Patient is 61 years old presents today with having abdominal pain worse in the left lower quadrant. It is dull in nature. Nonradiating. No fever no chills no cough no congestion or upper respiratory symptoms. No diaph oresis. Patient had her coronavirus vaccine. History of diverticulitis with similar pain in the past. No history of abdominal surgery. Patient from home. No change in bowel movement. No vomiting. No nausea positive decreased appetite. Related Data Home Medications Medication Instructions Recorded Confirmed clonazepam 1 mg tablet 1 mg PO BEDTIME 04/16/20 04/16/20 Previous Rx's Medication Instructions Recorded fluoxetine 20 mg capsule 20 mg PO DAILY #30 cap 04/28/20 levothyroxine 50 mcg capsule 50 mcg PO DAILY #30 cap 04/28/20 lisinopril 20 mg tablet 20 mg PO DAILY #30 tab 04/28/20 paliperidone 9 mg tablet,extended 9 mg PO DAILY #30 tab 04/28/20 release 24 hr (Invega) paliperidone palmitate 156 mg/mL 156 mg IM Q30D #1 ml 04/28/20 intramuscular syringe (Invega Sustenna) trazodone 150 mg tablet 150 mg PO BEDTIME PRN #30 tab 04/28/20 levofloxacin 750 mg tablet 750 mg PO DAILY 6 Days #6 tab 06/13/20 metoclopramide HCl 10 mg tablet 10 mg PO Q6H PRN 7 Days #14 tab 06/13/20 (Reglan) metronidazole 500 mg tablet 500 mg PO Q8H 7 Days #21 tab 06/13/20 (Flagyl) oxycodone 5 mg tablet 5 mg PO Q8H PRN #10 tab 06/13/20 amoxicillin 875 mg-potassium 1 tab PO BID 10 Days #20 tab 03/07/21 clavulanate 125 mg tablet (Augmentin) Allergies Allergy/AdvReac Type Severity Reaction Status Date / Time No Known Allergies Allergy Mild NOT Unverified 03/05/20 16:31 APPLICABLE Review of Systems Review of Systems No fever no chills positive abdominal pain No diaphoresis all systems reviewed otherwise negative Yes all other systems are reviewed and are negative Physical Exam Vital Signs: Vital Signs: Last Vital Signs Temp 99.1 F 03/07/21 12:21 Pulse 96 03/07/21 12:21 Resp 18 03/07/21 12:21 BP 100/59 L 03/07/21 12:21 Pulse Ox 92 03/07/21 12:21 Body Mass Index 48.3 Appearance: Alert. Oriented X3. No acute distress. Eyes: Pupils equal, round and reactive to light. ENT: Pharynx normal. Neck: Normal inspection. Neck supple. No lymph nodes noted. No crepitus CVS: Normal heart rate and rhythm. Pulses normal. Normal S1 and S2 Respiratory: No respiratory distress. Breath sounds normal. No Wheezing. No rales Abdomen: Positive left lower quadrant tenderness no rebound or guarding. No rigidity. No distention. good BS x4 Skin: Skin warm and dry. Normal skin color. Normal skin turgor. Extremities: No lower extremity edema. Neurovascular intact to all extremities. No Lacerations. No Rash Neuro: Oriented X 3. No motor deficit. No sensory deficit. Moving all extermities. No slurred speech MDM - Abdominal Pain MDM Narrative Medical decision making narrative: CT scan of the abdomen positive for diverticulitis. There is no abscess is no perforation. Will start patient on antibiotics. Patient well-appearing. Close follow-up outpatient basis with GI. In stable condition. Differential Diagnosis Differential diagnosis: Likely abdominal pain, aortic dissection, acute appendicitis, bowel perforation, calculus of kidney, constipation, diverticulitis and endometriosis Lab Data Result diagrams: 03/07/21 11:59 03/07/21 11:59 Labs: Lab Results 03/07/21 03/07/21 03/07/21 Range/Units 11:59 11:59 11:59 WBC 13.2 H (4.8-10.8) X10*3/uL RBC 4.48 (4.20-5.50) X10*6/uL Hgb 13.3 (12.0-16.0) g/dl Hct 39.4 (37-47) % MCV 87.9 (80-98) fL MCH 29.7 (27.0-33.0) pg MCHC 33.8 (31.0-35.0) g/dl RDW 12.4 (11.0-16.0) % Plt Count 207 (160-400) X10*3/uL MPV 9.6 (9.4-12.3) fL Immature Gran % (Auto) 0.5 H (0.0-0.4) % Neut % (Auto) 79.0 H (45-73) % Lymph % (Auto) 13.2 L (20-40) % [place] % (Auto) 6.6 (2-11) % Eos % (Auto) 0.5 (0-4) % Baso % (Auto) 0.2 (0-2) % Lymph # (Auto) 1.7 (1.2-4.9) X10*3/uL [place] # (Auto) 0.9 (0.1-1.2) X10*3/uL Eos # (Auto) 0.1 (0.0-0.4) X10*3/uL Baso # (Auto) 0.0 (0.0-0.2) X10*3/uL Abs Immat Gran (auto) 0.07 H (0.00-0.03) X10*3/uL Absolute Neuts (auto) 10.4 H (2.0-8.3) X10*3/uL Absolute Nucleated RBC 0.000 (0.0-0.012) X10*3/uL Nucleated RBC % (auto) 0.0 (0.0-0.2) /100WBC PT 14.1 H (9.9-13.0) SEC INR 1.2 H (0.9-1.1) Sodium 137 (135-145) mmol/L Potassium 3.6 (3.3-5.1) mmol/L Chloride 102 (96-108) mmol/L Carbon Dioxide 26 (22-29) mmol/L Anion Gap 13 (12-20) BUN 7 L (9-16) mg/dL Creatinine 0.69 (0.5-1.4) mg/dL Estim Creat Clear Calc 105.4 Estimated GFR > 60 Random Glucose 133 H (60-115) mg/dL Calcium 8.9 (8.4-10.2) mg/dL Total Bilirubin 0.8 (0.0-1.0) mg/dL Direct Bilirubin 0.4 (0.0-0.5) mg/dL AST 15 (5-31) U/L ALT 19 (0-31) U/L Alkaline Phosphatase 92 (39-117) U/L Total Protein 6.7 (6.5-8.0) g/dL Albumin 3.8 (3.5-5.0) g/dL COVID-19 (ARNULFO) (Negative) COVID-19 Clin Com 03/07/21 Range/Units 11:59 WBC (4.8-10.8) X10*3/uL RBC (4.20-5.50) X10*6/uL Hgb (12.0-16.0) g/dl Hct (37-47) % MCV (80-98) fL MCH (27.0-33.0) pg MCHC (31.0-35.0) g/dl RDW (11.0-16.0) % Plt Count (160-400) X10*3/uL MPV (9.4-12.3) fL Immature Gran % (Auto) (0.0-0.4) % Neut % (Auto) (45-73) % Lymph % (Auto) (20-40) % [place] % (Auto) (2-11) % Eos % (Auto) (0-4) % Baso % (Auto) (0-2) % Lymph # (Auto) (1.2-4.9) X10*3/uL [place] # (Auto) (0.1-1.2) X10*3/uL Eos # (Auto) (0.0-0.4) X10*3/uL Baso # (Auto) (0.0-0.2) X10*3/uL Abs Immat Gran (auto) (0.00-0.03) X10*3/uL Absolute Neuts (auto) (2.0-8.3) X10*3/uL Absolute Nucleated RBC (0.0-0.012) X10*3/uL Nucleated RBC % (auto) (0.0-0.2) /100WBC PT (9.9-13.0) SEC INR (0.9-1.1) Sodium (135-145) mmol/L Potassium (3.3-5.1) mmol/L Chloride (96-108) mmol/L Carbon Dioxide (22-29) mmol/L Anion Gap (12-20) BUN (9-16) mg/dL Creatinine (0.5-1.4) mg/dL Estim Creat Clear Calc Estimated GFR Random Glucose (60-115) mg/dL Calcium (8.4-10.2) mg/dL Total Bilirubin (0.0-1.0) mg/dL Direct Bilirubin (0.0-0.5) mg/dL AST (5-31) U/L ALT (0-31) U/L Alkaline Phosphatase (39-117) U/L Total Protein (6.5-8.0) g/dL Albumin (3.5-5.0) g/dL COVID-19 (ARNULFO) Negative (Negative) COVID-19 Clin Com See Note Discharge Plan Discharge Clinical Impression: Diverticulitis Patient Disposition: Home, Self-Care Instructions: Diverticulitis (ED) Prescriptions: New amoxicillin-pot clavulanate [Augmentin] 875-125 mg tablet 1 tab PO BID 10 Days Qty: 20 RF: 0 No Action clonazepam 1 mg Tablet 1 mg PO BEDTIME RF: 0 paliperidone [Invega] 9 mg Tablet Extended Release 24hr 9 mg PO DAILY Qty: 30 RF: 0 fluoxetine 20 mg Capsule 20 mg PO DAILY Qty: 30 RF: 0 Invega Sustenna 156 mg/mL Syringe 156 mg IM Q30D Qty: 1 RF: 0 lisinopril 20 mg Tablet 20 mg PO DAILY Qty: 30 RF: 0 trazodone 150 mg Tablet 150 mg PO BEDTIME PRN (Reason: Insomnia) Qty: 30 RF: 0 levothyroxine 50 mcg Capsule 50 mcg PO DAILY Qty: 30 RF: 0 levofloxacin 750 mg tablet 750 mg PO DAILY 6 Days Qty: 6 RF: 0 metronidazole [Flagyl] 500 mg tablet 500 mg PO Q8H 7 Days Qty: 21 RF: 0 metoclopramide HCl [Reglan] 10 mg tablet 10 mg PO Q6H PRN (Reason: nausea and vomiting) 7 Days Qty: 14 RF: 0 oxycodone 5 mg tablet 5 mg PO Q8H PRN (Reason: pain) Qty: 10 RF: 0 Referrals: [facility] [Primary Care Provider] - 2 days Nayana Calderon MD [Physician] - 2 days Print Language: [facility] Past Medical History Medical History Hypertension Hypothyroid Social History Social History Household Members: Unknown / Unable to assess Housing: Apartment Do you presently have visiting nurse or other home services: No Alcohol intake: never Second Hand Smoke Exposure: No Advance Directives: No Advance Directives Information Provided: No Patient : No service: No Sexual orientation: Straight/Heterosexual
[2021-03-07 11:42] VITALS: BP 130/67; PULSE 103; RESP 18; TEMP 36.6; O2SAT 94; BMI 48.3
[2021-03-07 12:04] LABS: Basophils Percent Auto 0.2 % (0-2); Eosinophils Absolute Auto 0.1 X10*3/uL (0.0-0.4); Eosinophils Percent Auto 0.5 % (0-4); Hematocrit 39.4 % (37-47); Hemoglobin 13.3 g/dl (12.0-16.0); Imm Gran Abs Auto 0.07 X10*3/uL (0.00-0.03); Imm Gran Pct Auto 0.5 % (0.0-0.4); Lymphocytes Absolute Auto 1.7 X10*3/uL (1.2-4.9); Lymphocytes Percent Auto 13.2 % (20-40); MANUAL DIFF FLAG NO; Mean Corpuscular HGB Conc 33.8 g/dl (31.0-35.0); Mean Corpuscular Hemoglobin 29.7 pg (27.0-33.0); Mean Corpuscular Volume 87.9 fL (80-98); Mean Platelet Volume 9.6 fL (9.4-12.3); Monocytes Absolute Auto 0.9 X10*3/uL (0.1-1.2); Monocytes Percent Auto 6.6 % (2-11); Neutrophils Absolute Auto 10.4 X10*3/uL (2.0-8.3); Platelet Count 207 X10*3/uL (160-400); Red Blood Count 4.48 X10*6/uL (4.20-5.50); Red Cell Distribution Width 12.4 % (11.0-16.0); White Blood Count 13.2 X10*3/uL (4.8-10.8)
[2021-03-07] MEDS: 0.9 % Sodium Chloride 1,000 ML 999 ML IV (12:04)
[2021-03-07] MEDS: HYDROmorphone HCl 0.5 MG/0.5 ML SYRINGE IVPUSH (12:06)
[2021-03-07] MEDS: ondansetron HCL 4 MG/2 ML VIAL IVPUSH (12:06)
[2021-03-07 12:16] LABS: INTERNATIONAL NORM RATIO 1.2 (0.9-1.1); Prothrombin Time 14.1 SEC (9.9-13.0)
[2021-03-07 12:19] LABS: COVID-19 Test Negative (Negative)
[2021-03-07 12:21] VITALS: BP 100/59; PULSE 96; RESP 18; TEMP 37.3; O2SAT 92
[2021-03-07 12:39] LABS: Alanine Aminotransferase 19 U/L (0-31); Albumin Level 3.8 g/dL (3.5-5.0); Alkaline Phosphatase 92 U/L (39-117); Anion Gap 13 (12-20); Aspartate Amino Transferase 15 U/L (5-31); Bilirubin Direct 0.4 mg/dL (0.0-0.5); Bilirubin Total 0.8 mg/dL (0.0-1.0); Blood Urea Nitrogen 7 mg/dL (9-16); Calcium 8.9 mg/dL (8.4-10.2); Carbon Dioxide 26 mmol/L (22-29); Chloride 102 mmol/L (96-108); Creatinine Clr Calc Pharmacy 105.4; Estimated Glomerular Filt Rate > 60; Glucose Random 133 mg/dL (60-115); Potassium 3.6 mmol/L (3.3-5.1); Sodium 137 mmol/L (135-145); Total Protein 6.7 g/dL (6.5-8.0)
[2021-03-07] MEDS: iohexoL 350 MG/ML 100 ML INFUS..BTL IV (13:49)
[2021-03-07] MEDS: metroNIDAZOLE 500 MG TABLET PO (14:55)
[2021-03-07] MEDS: cefTRIAXone sodium 1 GM in 0.9 % Sodium Chloride 50 ML IV (14:56)
== END 2021-03-07 15:41 | disposition home or self-care (01) ==
PROVIDERS: Emergency Provider Emergency Medicine Emergency Medical Services
DX: K57.32 Diverticulitis of large intestine without perforation or abscess without bleeding (principal); R10.32 Left lower quadrant pain; Z20.822 Contact with and (suspected) exposure to COVID-19; Z79.899 Other long term (current) drug therapy
CPT/HCPCS: 36415; 74177; 80048; 80076; 85025; 85610; 87635; 96361; 96365; 96375; 99283; 99284; J0696; J1170; J2405; Q9967

== ENCOUNTER 2022-01-11 09:10 | Emergency (ER) | payer MEDICAID, SELFPAY ==
--- NOTE | ~2022-01-11 | XR_ITS ---
EXAMINATION: XR ABDOMEN COMPLETE CLINICAL INDICATION: Constipation. COMPARISON: CT abdomen and pelvis 03/07/2021 TECHNIQUE: 5 views of the abdomen. FINDINGS: There is scattered gas in the bowel of normal caliber. There is no gaseous dilatation of bowel, pneumatosis, or abnormal collections of gas. No constipation. No visible urinary tract calculi. No acute bony abnormality. Lung bases grossly clear. No air bronchograms. Possible coarsening bronchiolar markings. XR/XR abdomen min 2V IMPRESSION: -No bowel obstruction or abnormal collections of gas. -No constipation.
[2022-01-11 09:22] VITALS: BP 153/88; PULSE 105; RESP 18; TEMP 36.3; O2SAT 93; BMI 69.0
[2022-01-11 09:38] LABS: MANUAL DIFF FLAG NO
[2022-01-11 09:39] LABS: Basophils Absolute Auto 0.1 X10*3/uL (0.0-0.2); Basophils Percent Auto 0.5 % (0-2); Eosinophils Absolute Auto 0.1 X10*3/uL (0.0-0.4); Eosinophils Percent Auto 1.2 % (0-4); Hematocrit 43.8 % (37.0-47.0); Hemoglobin 14.5 g/dl (12.0-16.0); Imm Gran Abs Auto 0.05 X10*3/uL (0.00-0.03); Imm Gran Pct Auto 0.5 % (0.0-0.4); Lymphocytes Percent Auto 19.6 % (20-40); Mean Corpuscular HGB Conc 33.1 g/dl (31.0-35.0); Mean Corpuscular Volume 87.6 fL (80.0-98.0); Mean Platelet Volume 9.7 fL (9.4-12.3); Monocytes Absolute Auto 0.5 X10*3/uL (0.1-1.2); Monocytes Percent Auto 5.2 % (2-11); Neutrophils Absolute Auto 7.3 x10*3/uL (2.0-8.3); Platelet Count 232 X10*3/uL (160-400); Red Cell Distribution Width 12.4 % (11.0-16.0)
[2022-01-11 09:55] LABS: Alanine Aminotransferase 36 U/L (0-31); Albumin Level 4.3 g/dL (3.5-5.0); Alkaline Phosphatase 101 U/L (39-117); Anion Gap 14 (12-20); Aspartate Amino Transferase 28 U/L (5-31); Bilirubin Total 0.9 mg/dL (0.0-1.0); Blood Urea Nitrogen 8 mg/dL (9-16); Calcium 9.3 mg/dL (8.4-10.2); Carbon Dioxide 26 mmol/L (22-29); Chloride 102 mmol/L (96-108); Creatinine Clr Calc Pharmacy 117.7; Estimated Glomerular Filt Rate > 60; Glucose Random 178 mg/dL (60-115); Potassium 4.8 mmol/L (3.3-5.1); Sodium 137 mmol/L (135-145); Total Protein 7.7 g/dL (6.5-8.0)
--- NOTE | 2022-01-11 12:02 | ED_ITS ---
HPI - Abdominal Pain General Chief Complaint: Abdominal Pain Stated Complaint: Abd pain Time Seen by Provider: 01/11/22 09:11 Source: patient Mode of arrival: ambulatory Limitations: language barrier History of Present Illness HPI narrative: History obtained through wound care coordinator. 3 days of low abdominal pain with co nstipation. Took a laxative and had diarrhea. patient with cramping pain, eating and drinking normally. patient feels very full and bloated. No fever no vomiting. MD elicited complaint: abdominal pain Pertinent past history: constipation Onset (ago): day(s) Pain Consistency: intermittent Location: RLQ and LLQ Severity: mild Quality: cramping Radiation: none Migration to: no migration Exacerbating factors: nothing Relieving factors: nothing Associated symptoms: constipation Related Data Home Medications Medication Instructions Recorded Confirmed clonazepam 1 mg tablet 1 mg PO BEDTIME 04/16/20 04/16/20 Previous Rx's Medication Instructions Recorded fluoxetine 20 mg capsule 20 mg PO DAILY #30 caps 04/28/20 levothyroxine 50 mcg capsule 50 mcg PO DAILY #30 caps 04/28/20 lisinopril 20 mg tablet 20 mg PO DAILY #30 tabs 04/28/20 paliperidone 9 mg tablet,extended 9 mg PO DAILY #30 tabs 04/28/20 release 24 hr (Invega) paliperidone palmitate 156 mg/mL 156 mg IM Q30D #1 mL 04/28/20 intramuscular syringe (Invega Sustenna) trazodone 150 mg tablet 150 mg PO BEDTIME PRN Insomnia #30 04/28/20 tabs levofloxacin 750 mg tablet 750 mg PO DAILY 6 days #6 tabs 06/13/20 metoclopramide HCl 10 mg tablet 10 mg PO Q6H PRN nausea and 06/13/20 (Reglan) vomiting 7 days #14 tabs metronidazole 500 mg tablet 500 mg PO Q8H 7 days #21 tabs 06/13/20 (Flagyl) oxycodone 5 mg tablet 5 mg PO Q8H PRN pain #10 tabs 06/13/20 amoxicillin 875 mg-potassium 1 tab PO BID diverticultitis 10 03/07/21 clavulanate 125 mg tablet days #20 tabs (Augmentin) psyllium husk 3.4 gram/5.4 gram 1 tbsp PO DAILY #660 grams 01/11/22 oral powder (Metamucil) Allergies Allergy/AdvReac Type Severity Reaction Status Date / Time No Known Allergies Allergy Mild NOT Unverified 03/05/20 16:31 APPLICABLE Review of Systems Constitutional: Reports no additional constitutional complaints Eyes: Reports no additional eye complaints Denies dizziness Cardiovascular: Reports no additional cardiovascular complaints Respiratory: Reports as per HPI Gastrointestinal: Reports no additional gastrointestinal complaints Genitourinary: Reports no additional female genitourinary complaints Musculoskeletal: Reports no additional musculoskeletal complaints Skin/Breast: Denies rash Reports system reviewed and no additional complaints, except as documented, Denies dizziness and Denies Sensory deficit (Neuro) Psychiatric: Denies anxiety [facility] Past Medical History Medical History Hypertension Hypothyroid Social History Social History Household Members: Unknown / Unable to assess Housing: Apartment Do you presently have visiting nurse or other home services: No Alcohol intake: never Second Hand Smoke Exposure: No Advance Directives: No Advance Directives Information Provided: Yes service: No Sexual orientation: Straight/Heterosexual Physical Exam ED Vital Signs: Vital Signs - 24 hr 01/11/22 09:22 01/11/22 12:28 Temperature 97.3 F 98.1 F Pulse Rate 105 H 102 H Respiratory Rate 18 28 H Blood Pressure 153/88 H 113/42 L Pulse Oximetry 93 94 Oxygen Delivery Method Room Air Room Air BMI result Body Mass Index 69.0 Const General: healthy appearing Nutritional Appearance: obese Orientation/consciousness: oriented to person and patient oriented x3 Limitations: no limitations HENMT Head: Yes normal to inspection Ears: external ears normal General nose exam: Normal external nose present Mouth: Normal oral and palatal mucosa present and oropharynx normal Throat: Yes posterior oropharynx normal Eyes General: appearance normal, both eyes and all related structures Neck Neck: Yes normal visual inspection Chest Chest palpation & inspection: normal inspection of the chest Resp Auscultation: clear to auscultation bilaterally Cardio Jugular venous distension: no JVD Rate: regular rate Rhythm: regular rhythm Heart sounds: S1 normal heart sound present and S2 normal heart sound present GI Inspection: Yes normal to inspection Palpation (GI): Soft to palpation, nontender and No hepatosplenomegaly present Auscultation: normal bowel sounds General: Yes no CVA tenderness Back/Spine/Pelvis Back: no CVA tenderness Skin General skin exam: no rashes or lesions noted Neuro General: oriented to person and patient oriented x3 Cranial nerves: Yes CN's II-XII intact bilaterally Motor exam (neuro): 5/5 motor strength present throughout Sensory Exam: No Sensory deficit (Neuro) Extrem General: Yes normal to inspection Psych Appearance: grossly normal Course Reevaluation(s) Reevaluation #1: No increase in stool burden will start on metamucil Time: 13:27 MDM - Abdominal Pain Lab Data Result diagrams: 01/11/22 09:29 01/11/22 09:29 Labs: Lab Results 01/11/22 01/11/22 01/11/22 Range/Units 09:29 09:29 12:34 WBC 10.0 (4.8-10.8) X10*3/uL RBC 5.00 (4.20-5.50) X10*6/uL Hgb 14.5 (12.0-16.0) g/dl Hct 43.8 (37.0-47.0) % MCV 87.6 (80.0-98.0) fL MCH 29.0 (27.0-33.0) pg MCHC 33.1 (31.0-35.0) g/dl RDW 12.4 (11.0-16.0) % Plt Count 232 (160-400) X10*3/uL MPV 9.7 (9.4-12.3) fL Immature Gran % (Auto) 0.5 H (0.0-0.4) % Neut % (Auto) 73.0 (45-73) % Lymph % (Auto) 19.6 L (20-40) % Kane % (Auto) 5.2 (2-11) % Eos % (Auto) 1.2 (0-4) % Baso % (Auto) 0.5 (0-2) % Lymph # (Auto) 2.0 (1.2-4.9) X10*3/uL Kane # (Auto) 0.5 (0.1-1.2) X10*3/uL Eos # (Auto) 0.1 (0.0-0.4) X10*3/uL Baso # (Auto) 0.1 (0.0-0.2) X10*3/uL Abs Immat Gran (auto) 0.05 H (0.00-0.03) X10*3/uL Absolute Neuts (auto) 7.3 (2.0-8.3) x10*3/uL Absolute Nucleated RBC 0.000 (0.0-0.012) X10*3/uL Nucleated RBC % (auto) 0.0 (0.0-0.2) /100WBC Sodium 137 (135-145) mmol/L Potassium 4.8 D (3.3-5.1) mmol/L Chloride 102 (96-108) mmol/L Carbon Dioxide 26 (22-29) mmol/L Anion Gap 14 (12-20) BUN 8 L (9-16) mg/dL Creatinine 0.78 (0.5-1.4) mg/dL Estim Creat Clear Calc 117.7 Estimated GFR > 60 Random Glucose 178 H (60-115) mg/dL Calcium 9.3 (8.4-10.2) mg/dL Total Bilirubin 0.9 (0.0-1.0) mg/dL AST 28 D (5-31) U/L ALT 36 H (0-31) U/L Alkaline Phosphatase 101 (39-117) U/L Total Protein 7.7 (6.5-8.0) g/dL Albumin 4.3 (3.5-5.0) g/dL Urine Color YELLOW Urine Appearance HAZY Urine pH 7.0 (5.0-8.0) Ur Specific [place] 1.010 (1.005-1.025) Urine Protein NEG (NEG-TRACE) MG/DL Urine Glucose (UA) NEG (NEG) MG/DL Urine Ketones NEG (NEG) MG/DL Urine Blood NEG (NEG) Urine Nitrite NEG (NEG) Ur Leukocyte Esterase NEG (NEG) Imaging Data Abdominal x-ray: Radiologist's impression: normal bowel gas pattern, no increased stool burden. Discharge Plan Discharge Clinical Impression: Constipation Patient Disposition: Home, Self-Care Instructions: Constipation (ED) Prescriptions: New Metamucil 3.4 gram/5.4 gram powder 1 tbsp PO DAILY Qty: 660 0RF Rx Instructions: mix into at least 8 oz of water or juice before administering No Action clonazepam 1 mg Tablet 1 mg PO BEDTIME paliperidone [Invega] 9 mg Tablet Extended Release 24hr 9 mg PO DAILY Qty: 30 0RF fluoxetine 20 mg Capsule 20 mg PO DAILY Qty: 30 0RF Invega Sustenna 156 mg/mL Syringe 156 mg IM Q30D Qty: 1 0RF lisinopril 20 mg Tablet 20 mg PO DAILY Qty: 30 0RF trazodone 150 mg Tablet 150 mg PO BEDTIME PRN (Reason: Insomnia) Qty: 30 0RF Rx Instructions: May take one or two tabs at bedtime prn levothyroxine 50 mcg Capsule 50 mcg PO DAILY Qty: 30 0RF levofloxacin 750 mg tablet 750 mg PO DAILY 6 Days Qty: 6 0RF metronidazole [Flagyl] 500 mg tablet 500 mg PO Q8H 7 Days Qty: 21 0RF metoclopramide HCl [Reglan] 10 mg tablet 10 mg PO Q6H PRN (Reason: nausea and vomiting) 7 Days Qty: 14 0RF oxycodone 5 mg tablet 5 mg PO Q8H PRN (Reason: pain) Qty: 10 0RF amoxicillin-pot clavulanate [Augmentin] 875-125 mg tablet 1 tab PO BID 10 Days Qty: 20 0RF Referrals: [facility] [Primary Care Provider] - 1 week
[2022-01-11 12:28] VITALS: BP 113/42; PULSE 102; RESP 28; TEMP 36.7; O2SAT 94
[2022-01-11 12:41] LABS: Appearance Urine HAZY; Color Urine YELLOW; Glucose Urine UA NEG (NEG); Leukocyte Esterase Urine NEG (NEG); Nitrite Urine NEG (NEG); Urine Blood NEG (NEG); Urine Ketones NEG (NEG); Urine Protein NEG (NEG-TRACE)
== END 2022-01-11 13:59 | disposition home or self-care (01) ==
PROVIDERS: Emergency Provider Emergency Medicine
DX: K59.00 Constipation, unspecified (principal); R10.30 Lower abdominal pain, unspecified; I10 Essential (primary) hypertension
CPT/HCPCS: 36415; 74019; 80053; 81003; 85025; 99283

== ENCOUNTER 2022-01-31 09:32 | Emergency (ER) | payer MEDICAID, SELFPAY ==
[2022-01-31 09:37] VITALS: BP 146/88; PULSE 89; RESP 19; TEMP 36.6; O2SAT 98; BMI 50.8
[2022-01-31] MEDS: Lidocaine HCl 1 % MPF 2 ML VIAL INFILTRATI ×3 (13:52)
--- NOTE | 2022-01-31 14:18 | ED_ITS ---
HPI - Wound/Laceration General Chief Complaint: Wound/Laceration Stated Complaint: cyst on R rear cheek Time Seen by Provider: 01/31/22 13:46 History of Present Illness HPI narrative: Patient complains of painful bump right posterior upper thigh for several days, no fever no chills no discharge Related Data Home Medications Medication Instructions Recorded Confirmed clonazepam 1 mg tablet 1 mg PO BEDTIME 04/16/20 04/16/20 Previous Rx's Medication Instructions Recorded fluoxetine 20 mg capsule 20 mg PO DAILY #30 caps 04/28/20 levothyroxine 50 mcg capsule 50 mcg PO DAILY #30 caps 04/28/20 lisinopril 20 mg tablet 20 mg PO DAILY #30 tabs 04/28/20 paliperidone 9 mg tablet,extended 9 mg PO DAILY #30 tabs 04/28/20 release 24 hr (Invega) paliperidone palmitate 156 mg/mL 156 mg IM Q30D #1 mL 04/28/20 intramuscular syringe (Invega Sustenna) trazodone 150 mg tablet 150 mg PO BEDTIME PRN Insomnia #30 04/28/20 tabs levofloxacin 750 mg tablet 750 mg PO DAILY 6 days #6 tabs 06/13/20 metoclopramide HCl 10 mg tablet 10 mg PO Q6H PRN nausea and 06/13/20 (Reglan) vomiting 7 days #14 tabs metronidazole 500 mg tablet 500 mg PO Q8H 7 days #21 tabs 06/13/20 (Flagyl) oxycodone 5 mg tablet 5 mg PO Q8H PRN pain #10 tabs 06/13/20 amoxicillin 875 mg-potassium 1 tab PO BID diverticultitis 10 03/07/21 clavulanate 125 mg tablet days #20 tabs (Augmentin) psyllium husk 3.4 gram/5.4 gram 1 tbsp PO DAILY #660 grams 01/11/22 oral powder (Metamucil) doxycycline hyclate 100 mg tablet 100 mg PO BID 7 days #14 tabs 01/31/22 Allergies Allergy/AdvReac Type Severity Reaction Status Date / Time No Known Allergies Allergy Mild NOT Unverified 03/05/20 16:31 APPLICABLE Review of Systems Review of Systems: Positive for painful bump back of right-sided Negatives no fever no chills no dizziness no weakness no headache neck pain no chest pain no abdominal pain no vomiting no joint pain Yes all other systems are reviewed and are negative [facility] Past Medical History Medical History Hypertension Hypothyroid Social History Social History Household Members: Unknown / Unable to assess Housing: Apartment Do you presently have visiting nurse or other home services: No Alcohol intake: never Second Hand Smoke Exposure: No Advance Directives: No Advance Directives Information Provided: Yes service: No Sexual orientation: Straight/Heterosexual Physical Exam Vital Signs: Vital Signs: Last Vital Signs Temp 98 F 01/31/22 09:37 Pulse 89 01/31/22 09:37 Resp 19 01/31/22 09:37 BP 146/88 H 01/31/22 09:37 Pulse Ox 98 01/31/22 09:37 O2 Del Method 01/31/22 09:37 BMI result Body Mass Index 50.8 General appearance no acute distress Head is normocephalic atraumatic Neck is supple Respiratory no distress Extremities full range of motion x4 Skin there is a slightly larger than quarter-sized indurated tender painful red area on the back of the right upper thigh no surrounding erythema Course Course Course Narrative: Small abscess on right thigh with no surrounding cellulitis Procedure note cleansed with Betadine Anesthesia 6 cc of 1% lidocaine A small incision was made and probed with forceps with discharge of a small amount of pus Packing was placed a small amount and dressing applied Discharge Plan Discharge Clinical Impression: Abscess Patient Disposition: Home, Self-Care Additional Instructions: Return to the ER in 2 days for packing removal and wound check If packing falls out it does not need to be replaced Return any time for worse pain and swelling spreading redness, fever, any sign of worsening infection any worse condition or any concerns Prescriptions: New doxycycline hyclate 100 mg tablet 100 mg PO BID 7 Days Qty: 14 0RF No Action clonazepam 1 mg Tablet 1 mg PO BEDTIME paliperidone [Invega] 9 mg Tablet Extended Release 24hr 9 mg PO DAILY Qty: 30 0RF fluoxetine 20 mg Capsule 20 mg PO DAILY Qty: 30 0RF Invega Sustenna 156 mg/mL Syringe 156 mg IM Q30D Qty: 1 0RF lisinopril 20 mg Tablet 20 mg PO DAILY Qty: 30 0RF trazodone 150 mg Tablet 150 mg PO BEDTIME PRN (Reason: Insomnia) Qty: 30 0RF Rx Instructions: May take one or two tabs at bedtime prn levothyroxine 50 mcg Capsule 50 mcg PO DAILY Qty: 30 0RF levofloxacin 750 mg tablet 750 mg PO DAILY 6 Days Qty: 6 0RF metronidazole [Flagyl] 500 mg tablet 500 mg PO Q8H 7 Days Qty: 21 0RF metoclopramide HCl [Reglan] 10 mg tablet 10 mg PO Q6H PRN (Reason: nausea and vomiting) 7 Days Qty: 14 0RF oxycodone 5 mg tablet 5 mg PO Q8H PRN (Reason: pain) Qty: 10 0RF amoxicillin-pot clavulanate [Augmentin] 875-125 mg tablet 1 tab PO BID 10 Days Qty: 20 0RF Metamucil 3.4 gram/5.4 gram powder 1 tbsp PO DAILY Qty: 660 0RF Rx Instructions: mix into at least 8 oz of water or juice before administering
== END 2022-01-31 14:56 | disposition home or self-care (01) ==
PROVIDERS: Emergency Provider Emergency Medicine
DX: L02.415 Cutaneous abscess of right lower limb (principal)
CPT/HCPCS: 10060; 99282; 99284

== ENCOUNTER 2022-02-02 09:49 | Emergency (ER) | payer MEDICAID, SELFPAY ==
[2022-02-02 09:58] VITALS: BP 138/83; PULSE 90; RESP 18; TEMP 36.6; O2SAT 94; BMI 46.7
--- NOTE | 2022-02-02 10:22 | ED.WOUNDLAC ---
HPI - Wound/Laceration General Chief Complaint: Wound/Laceration Stated Complaint: dizziness, multiple complaints Time Seen by Provider: 02/02/22 10:12 Source: patient Mode of arrival: ambulatory History of Present Illness HPI narrative: 61-year-old female with a past medical history of HTN, hypothyroid, abscess s/p I&D and our ED on 01/31/2022 presenting to the ED for wound check. Reports area overall improved, denies erythema/warmth, drainage, fever, chills. Denies taking prescribed antibiotics as was unaware they were at the pharmacy. Onset (ago): day(s) Related Data Home Medications Medication Instructions Recorded Confirmed clonazepam 1 mg tablet 1 mg PO BEDTIME 04/16/20 04/16/20 Previous Rx's Medication Instructions Recorded fluoxetine 20 mg capsule 20 mg PO DAILY #30 caps 04/28/20 levothyroxine 50 mcg capsule 50 mcg PO DAILY #30 caps 04/28/20 lisinopril 20 mg tablet 20 mg PO DAILY #30 tabs 04/28/20 paliperidone 9 mg tablet,extended 9 mg PO DAILY #30 tabs 04/28/20 release 24 hr (Invega) paliperidone palmitate 156 mg/mL 156 mg IM Q30D #1 mL 04/28/20 intramuscular syringe (Invega Sustenna) trazodone 150 mg tablet 150 mg PO BEDTIME PRN Insomnia #30 04/28/20 tabs levofloxacin 750 mg tablet 750 mg PO DAILY 6 days #6 tabs 06/13/20 metoclopramide HCl 10 mg tablet 10 mg PO Q6H PRN nausea and 06/13/20 (Reglan) vomiting 7 days #14 tabs metronidazole 500 mg tablet 500 mg PO Q8H 7 days #21 tabs 06/13/20 (Flagyl) oxycodone 5 mg tablet 5 mg PO Q8H PRN pain #10 tabs 06/13/20 amoxicillin 875 mg-potassium 1 tab PO BID diverticultitis 10 03/07/21 clavulanate 125 mg tablet days #20 tabs (Augmentin) psyllium husk 3.4 gram/5.4 gram 1 tbsp PO DAILY #660 grams 01/11/22 oral powder (Metamucil) doxycycline hyclate 100 mg tablet 100 mg PO BID 7 days #14 tabs 08/15/22 Allergies Allergy/AdvReac Type Severity Reaction Status Date / Time No Known Allergies Allergy Mild NOT Unverified 03/05/20 16:31 APPLICABLE Review of Systems Review of Systems: Constitutional: No Fever, No Chills ENT/Mouth: No Ear Pain, No Nasal Congestion, No sore throat, No Rhinorrhea, No Swallowing Difficulty Cardiovascular: No Chest Pain, No SOB Respiratory: No Cough, No Sputum, No Wheezing Gastrointestinal: No Nausea, No Vomiting, No Diarrhea, No Constipation, No Abdominal pain Genitourinary: No Dysuria, No Urinary Frequency, NNo Urgency, No Flank Pain Musculoskeletal: No joint pain, No Myalgias, No Joint Swelling Skin: + Skin Lesions, No rash Neuro: No Weakness, No Numbness, No Paresthesias Yes all other systems are reviewed and are negative Constitutional: Constitutional: Reports as per [facility] Past Medical History Attestation statement: The following information was validated with the patient. Medical History Hypertension Hypothyroid Social History Social History Household Members: Unknown / Unable to assess Housing: Apartment Do you presently have visiting nurse or other home services: No Alcohol intake: never Second Hand Smoke Exposure: No Advance Directives: No Advance Directives Information Provided: Yes service: No Sexual orientation: Straight/Heterosexual Physical Exam Vital Signs: Vital Signs: Last Vital Signs Temp 98 F 02/02/22 09:58 Pulse 90 02/02/22 09:58 Resp 18 02/02/22 09:58 BP 138/83 02/02/22 09:58 Pulse Ox 94 02/02/22 09:58 O2 Del Method 02/02/22 09:58 BMI result Body Mass Index 46.7 Const: General: cooperative, healthy appearing and no acute distress Orientation/consciousness: patient oriented x3 Limitations: no limitations HEENT: Head: Yes normal to inspection and Yes atraumatic Ears: hearing grossly normal bilaterally General nose exam: Normal external nose present Face and sinus: Yes normal facial exam Eyes: General: appearance normal, both eyes and all related structures EOM: EOMs intact bilaterally Neck: Neck: Yes normal visual inspection and Yes no meningeal signs Resp: Effort & Inspection: normal respiratory effort and no respiratory distress Auscultation: clear to auscultation bilaterally Cardio: Rate: regular rate Heart sounds: S1 normal heart sound present and S2 normal heart sound present Skin: Other: + healing indurated abscess noted to right upper posterior upper thigh/buttock. No surrounding cellulitis, no warmth, no drainage. No fluctuance or streaking. Packing not in place Rashes: no rashes Neuro: General: patient oriented x3, tone normal and no meningeal signs Gait exam (Neuro): Normal gait present Extrem: General: Yes normal to inspection MDM - Wound/Laceration MDM Narrative Medical decision making narrative: 61-year-old female with a past medical history of HTN, hypothyroid, abscess s/p I&D and our ED on 01/31/2022 presenting to the ED for wound check. On exam vital signs stable, NAD, physical exam as above with appropriately healing abscess s/p I&D 2 days ago. 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 Results discussed with patient including worrisome signs and symptoms and strict return precautions, and when to return to the emergency department. They verbalized understanding and feel safe for discharge at this time. Medical Records Attestation: I reviewed the patient's medical records. Lab Data Attestation: I reviewed the patient's lab results. Discharge Plan Discharge Clinical Impression: Wound check, abscess Patient Disposition: Home, Self-Care Instructions: Warm Compress or Soak (ED), Abscess Follow-up (ED) Additional Instructions: Your abscess is appropriately healing although you need to take previously prescribed antibiotics, go to the pharmacy to pick them up today. Keep area clean. If begins to grow, turn red, at drainage or you fever return to the emergency department. Follow up with her doctor as needed Tu absceso est? sanando adecuadamente aunque necesitas rishabh antibi?ticos prescritos previamente, acude a la farmacia a recogerlos hoy mismo. Mantenga el ?makenzie limpia. Si comienza a crecer, se pone macias, al drenaje o tiene fiebre regrese al departamento de emergencias. Seguimiento con thomson m?dico seg?n sea necesario Prescriptions: No Action clonazepam 1 mg Tablet 1 mg PO BEDTIME paliperidone [Invega] 9 mg Tablet Extended Release 24hr 9 mg PO DAILY Qty: 30 0RF fluoxetine 20 mg Capsule 20 mg PO DAILY Qty: 30 0RF Invega Sustenna 156 mg/mL Syringe 156 mg IM Q30D Qty: 1 0RF lisinopril 20 mg Tablet 20 mg PO DAILY Qty: 30 0RF trazodone 150 mg Tablet 150 mg PO BEDTIME PRN (Reason: Insomnia) Qty: 30 0RF Rx Instructions: May take one or two tabs at bedtime prn levothyroxine 50 mcg Capsule 50 mcg PO DAILY Qty: 30 0RF levofloxacin 750 mg tablet 750 mg PO DAILY 6 Days Qty: 6 0RF metronidazole [Flagyl] 500 mg tablet 500 mg PO Q8H 7 Days Qty: 21 0RF metoclopramide HCl [Reglan] 10 mg tablet 10 mg PO Q6H PRN (Reason: nausea and vomiting) 7 Days Qty: 14 0RF oxycodone 5 mg tablet 5 mg PO Q8H PRN (Reason: pain) Qty: 10 0RF amoxicillin-pot clavulanate [Augmentin] 875-125 mg tablet 1 tab PO BID 10 Days Qty: 20 0RF doxycycline hyclate 100 mg tablet 100 mg PO BID 7 Days Qty: 14 0RF Metamucil 3.4 gram/5.4 gram powder 1 tbsp PO DAILY Qty: 660 0RF Rx Instructions: mix into at least 8 oz of water or juice before administering Referrals: [facility] [Primary Care Provider] - Print Language: Malaysian
== END 2022-02-02 10:38 | disposition home or self-care (01) ==
PROVIDERS: Emergency Provider Emergency Medicine
DX: Z48.01 Encounter for change or removal of surgical wound dressing (principal); L02.415 Cutaneous abscess of right lower limb
CPT/HCPCS: 99283

== ENCOUNTER 2022-02-23 13:29 | Inpatient (IN) | payer OTHER, SELFPAY ==
--- NOTE | 2022-02-23 | ECG_ITS ---
Test Reason : MD ORDERED Blood Pressure : / mmHG Vent. Rate : 091 BPM Atrial Rate : 091 BPM P-R Int : 146 ms QRS Dur : 074 ms QT Int : 364 ms P-R-T Axes : 056 033 021 degrees QTc Int : 447 ms Normal sinus rhythm Normal ECG When compared with ECG of 13-JUN-2020 20:24, No significant change was found Referred By: Gina Christine Electronically Signed By:HUGO SUAZO
[2022-02-23 14:41] VITALS: BP 134/86; BP 140/90; PULSE 105; PULSE 118; RESP 18; TEMP 37.1; O2SAT 97; BMI 44.5
[2022-02-23 15:04] LABS: COVID-19 Test Negative (Negative); IDNOW Serial# 16C4AD1C
[2022-02-23 15:08] LABS: Amphetamine Screen Urine Not Detected (Not Detect); Barbiturates, Urine Not Detected (Not Detect); Benzodiazepines Screen Urine Not Detected (Not Detect); Cannabinoid Screen Urine Not Detected (Not Detect); Cocaine Screen Urine Not Detected (Not Detect); Fentanyl, urine POSITIVE (Not Detect); Opiate Screen Urine Not Detected (Not Detect); Phencyclidine Screen Urine Not Detected (Not Detect)
--- NOTE | 2022-02-23 16:50 | ED_ITS ---
HPI - Psych General Chief Complaint: Psychiatric Symptoms Stated Complaint: HEARING VOICES Time Seen by Provider: 02/23/22 14:31 Source: patient History of Present Illness HPI Narrative: 62-year-old female with a past medical history HTN, hypothyroid, schizoaffective disorder presenting to the ED via EMS complaining of insomnia x3 days and intermittently hearing voices. Patient denies SI/HI at present. Denies EtOH or illicit substance use. Denies CP/SOB, abdominal pain, nausea/vomiting Onset (ago): day(s) Related Data Home Medications Medication Instructions Recorded Confirmed clonazepam 1 mg tablet 1 mg PO BEDTIME 04/16/20 04/16/20 Previous Rx's Medication Instructions Recorded fluoxetine 20 mg capsule 20 mg PO DAILY #30 caps 04/28/20 levothyroxine 50 mcg capsule 50 mcg PO DAILY #30 caps 04/28/20 lisinopril 20 mg tablet 20 mg PO DAILY #30 tabs 04/28/20 paliperidone 9 mg tablet,extended 9 mg PO DAILY #30 tabs 04/28/20 release 24 hr (Invega) paliperidone palmitate 156 mg/mL 156 mg IM Q30D #1 mL 04/28/20 intramuscular syringe (Invega Sustenna) trazodone 150 mg tablet 150 mg PO BEDTIME PRN Insomnia #30 04/28/20 tabs levofloxacin 750 mg tablet 750 mg PO DAILY 6 days #6 tabs 06/13/20 metoclopramide HCl 10 mg tablet 10 mg PO Q6H PRN nausea and 06/13/20 (Reglan) vomiting 7 days #14 tabs metronidazole 500 mg tablet 500 mg PO Q8H 7 days #21 tabs 06/13/20 (Flagyl) oxycodone 5 mg tablet 5 mg PO Q8H PRN pain #10 tabs 06/13/20 amoxicillin 875 mg-potassium 1 tab PO BID diverticultitis 10 03/07/21 clavulanate 125 mg tablet days #20 tabs (Augmentin) psyllium husk 3.4 gram/5.4 gram 1 tbsp PO DAILY #660 grams 01/11/22 oral powder (Metamucil) doxycycline hyclate 100 mg tablet 100 mg PO BID 7 days #14 tabs 01/31/22 Allergies Allergy/AdvReac Type Severity Reaction Status Date / Time No Known Allergies Allergy Mild NOT Unverified 03/05/20 16:31 APPLICABLE Review of Systems Review of Systems: Constitutional: No Fever, No Chills, No Fatigue, No Ma laise, +insomnia ENT/Mouth: No Ear Pain, No Nasal Congestion, No sore throat, No Rhinorrhea, No Swallowing Difficulty Eyes: No Eye Pain, No Swelling, No Redness, No Vision Changes Cardiovascular: No Chest Pain, No SOB, No Edema, No Palpitations Respiratory: No Cough, No Sputum, No Dyspnea Gastrointestinal: No Nausea, No Vomiting, No Diarrhea, No Constipation, No Abdominal pain Genitourinary: No Dysuria, No Urinary Frequency, No Hematuria, No Urinary Incontinence/retention, No Flank Pain Musculoskeletal: No joint pain, No Myalgias, No Joint Swelling Skin: No Skin Lesions, No rash Neuro: No Weakness, No Numbness, No Dizziness, No Headache Psych: No Anxiety/Panic, No Depression, No SI/HI, +AH, No VH, No Social Issues Yes all other systems are reviewed and are negative Constitutional: Constitutional: Reports as per [facility] Past Medical History Attestation statement: The following information was validated with the patient. Medical History Hypertension Hypothyroid Social History Social History Household Members: Unknown / Unable to assess Housing: Apartment Do you presently have visiting nurse or other home services: No Alcohol intake: never Second Hand Smoke Exposure: No Advance Directives: No Advance Directives Information Provided: Yes service: No Sexual orientation: Straight/Heterosexual Physical Exam Vital Signs: Vital Signs: Last Vital Signs Temp 98.8 F 02/23/22 14:41 Pulse 105 H 02/23/22 14:41 Resp 18 02/23/22 14:41 BP 140/90 H 02/23/22 14:41 Pulse Ox 97 02/23/22 14:41 O2 Del Method 02/23/22 14:41 BMI result Body Mass Index 44.5 Const: General: cooperative, healthy appearing and no acute distress Orientation/consciousness: patient oriented x3 Limitations: no limitations HEENT: Head: Yes normal to inspection and Yes atraumatic Ears: hearing grossly normal bilaterally General nose exam: Normal external nose present Face and sinus: Yes normal facial exam Eyes: General: appearance normal, both eyes and all related structures EOM: EOMs intact bilaterally Neck: Neck: Yes normal visual inspection and Yes no meningeal signs Resp: Effort & Inspection: normal respiratory effort and no respiratory distress Auscultation: clear to auscultation bilaterally Cardio: Rate: regular rate Heart sounds: S1 normal heart sound present and S2 normal heart sound present GI: Inspection: Yes normal to inspection Palpation (GI): Soft to palpation, nontender, no guarding and not rigid : General: Yes no CVA tenderness Back/Spine/Pelvis: Back: no CVA tenderness Skin: Rashes: no rashes Wounds: no wounds Neuro: General: patient oriented x3, tone normal and no meningeal signs Gait exam (Neuro): Normal gait present Extrem: General: Yes normal to inspection Course Course Course Narrative: Tox screen positive for fentanyl. COVID-19 negative -labs reassuring. Physician observation initiated as patient needs more time to be evaluated by crisis -1800--ED care transferred to [facility] pending crisis evaluation MDM - Psych MDM Narrative Medical decision making narrative: 62-year-old female with a past medical history HTN, hypothyroid, schizoaffective disorder presenting to the ED via EMS complaining of insomnia x3 days and intermittently hearing voices. On exam vital signs stable, NAD, nontoxic appearing, denies SI/HI at present. Concern for schizoaffective disorder vs sleep deprivation. Plan: Labs, UA, drug screen, crisis eval Differential Diagnosis Differential diagnosis: Likely acute psychosis, mood disorder and schizoaffective disorder Medical Records Attestation: I reviewed the patient's medical records. Lab Data Attestation: I reviewed the patient's lab results. Result diagrams: 02/23/22 17:23 02/23/22 17:23 Labs: Lab Results 02/23/22 02/23/22 02/23/22 Range/Units 14:40 14:40 14:40 WBC (4.8-10.8) X10*3/uL RBC (4.20-5.50) X10*6/uL Hgb (12.0-16.0) g/dl Hct (37.0-47.0) % MCV (80.0-98.0) fL MCH (27.0-33.0) pg MCHC (31.0-35.0) g/dl RDW (11.0-16.0) % Plt Count (160-400) X10*3/uL MPV (9.4-12.3) fL Immature Gran % (Auto) (0.0-0.4) % Neut % (Auto) (45-73) % Lymph % (Auto) (20-40) % Angelina % (Auto) (2-11) % Eos % (Auto) (0-4) % Baso % (Auto) (0-2) % Lymph # (Auto) (1.2-4.9) X10*3/uL Angelina # (Auto) (0.1-1.2) X10*3/uL Eos # (Auto) (0.0-0.4) X10*3/uL Baso # (Auto) (0.0-0.2) X10*3/uL Abs Immat Gran (auto) (0.00-0.03) X10*3/uL Absolute Neuts (auto) (2.0-8.3) x10*3/uL Absolute Nucleated RBC (0.0-0.012) X10*3/uL Nucleated RBC % (auto) (0.0-0.2) /100WBC Sodium (135-145) mmol/L Potassium (3.3-5.1) mmol/L Chloride (96-108) mmol/L Carbon Dioxide (22-29) mmol/L Anion Gap (12-20) BUN (9-16) mg/dL Creatinine (0.5-1.4) mg/dL Estim Creat Clear Calc Estimated GFR Random Glucose (60-115) mg/dL Calcium (8.4-10.2) mg/dL Total Bilirubin (0.0-1.0) mg/dL Direct Bilirubin (0.0-0.5) mg/dL AST (5-31) U/L ALT (0-31) U/L Alkaline Phosphatase (39-117) U/L Total Protein (6.5-8.0) g/dL Albumin (3.5-5.0) g/dL Urine Color Yellow Urine Appearance Clear Urine pH 7.0 (5.0-9.0) Ur Specific [place] 1.015 (1.005-1.025) Urine Protein Trace (Neg-Trace) mg/dL Urine Glucose (UA) Negative (Negative) mg/dL Urine Ketones 15 (Negative) mg/dL Urine Blood Negative (Negative) Urine Nitrite Negative (Negative) Ur Leukocyte Esterase Trace H (Negative) Urine RBC 3-5 H (0-2) /HPF Urine WBC 0-5 (0-5) /HPF Ur Squamous Epith Cells 3-5 (0-2) /HPF Urine Bacteria None Seen (None Seen) Hyaline Casts 0-2 (0-2) /LPF Urine Opiates Screen Not Detected (Not Detect) Urine Fentanyl Screen POSITIVE H (Not Detect) Ur Barbiturates Screen Not Detected (Not Detect) Ur Phencyclidine Scrn Not Detected (Not Detect) Ur Amphetamines Screen Not Detected (Not Detect) U Benzodiazepines Scrn Not Detected (Not Detect) Urine Cocaine Screen Not Detected (Not Detect) U Marijuana (THC) Screen Not Detected (Not Detect) COVID-19 (ARNULFO) Negative (Negative) COVID-19 Clin Com See Note 02/23/22 02/23/22 Range/Units 17:23 17:23 WBC 9.0 (4.8-10.8) X10*3/uL RBC 4.97 (4.20-5.50) X10*6/uL Hgb 14.2 (12.0-16.0) g/dl Hct 43.4 (37.0-47.0) % MCV 87.3 (80.0-98.0) fL MCH 28.6 (27.0-33.0) pg MCHC 32.7 (31.0-35.0) g/dl RDW 12.6 (11.0-16.0) % Plt Count 233 (160-400) X10*3/uL MPV 9.7 (9.4-12.3) fL Immature Gran % (Auto) 0.7 H (0.0-0.4) % Neut % (Auto) 69.3 (45-73) % Lymph % (Auto) 21.5 (20-40) % Angelina % (Auto) 8.0 (2-11) % Eos % (Auto) 0.1 (0-4) % Baso % (Auto) 0.4 (0-2) % Lymph # (Auto) 1.9 (1.2-4.9) X10*3/uL Angelina # (Auto) 0.7 (0.1-1.2) X10*3/uL Eos # (Auto) 0.0 (0.0-0.4) X10*3/uL Baso # (Auto) 0.0 (0.0-0.2) X10*3/uL Abs Immat Gran (auto) 0.06 H (0.00-0.03) X10*3/uL Absolute Neuts (auto) 6.3 (2.0-8.3) x10*3/uL Absolute Nucleated RBC 0.000 (0.0-0.012) X10*3/uL Nucleated RBC % (auto) 0.0 (0.0-0.2) /100WBC Sodium 136 (135-145) mmol/L Potassium 4.2 (3.3-5.1) mmol/L Chloride 101 (96-108) mmol/L Carbon Dioxide 22 (22-29) mmol/L Anion Gap 17 (12-20) BUN 7 L (9-16) mg/dL Creatinine 0.72 (0.5-1.4) mg/dL Estim Creat Clear Calc 84.2 Estimated GFR > 60 Random Glucose 141 H (60-115) mg/dL Calcium 8.9 (8.4-10.2) mg/dL Total Bilirubin 0.3 (0.0-1.0) mg/dL Direct Bilirubin 0.2 (0.0-0.5) mg/dL AST 32 H (5-31) U/L ALT 39 H (0-31) U/L Alkaline Phosphatase 87 (39-117) U/L Total Protein 7.8 (6.5-8.0) g/dL Albumin 4.2 (3.5-5.0) g/dL Urine Color Urine Appearance Urine pH (5.0-9.0) Ur Specific [place] (1.005-1.025) Urine Protein (Neg-Trace) mg/dL Urine Glucose (UA) (Negative) mg/dL Urine Ketones (Negative) mg/dL Urine Blood (Negative) Urine Nitrite (Negative) Ur Leukocyte Esterase (Negative) Urine RBC (0-2) /HPF Urine WBC (0-5) /HPF Ur Squamous Epith Cells (0-2) /HPF Urine Bacteria (None Seen) Hyaline Casts (0-2) /LPF Urine Opiates Screen (Not Detect) Urine Fentanyl Screen (Not Detect) Ur Barbiturates Screen (Not Detect) Ur Phencyclidine Scrn (Not Detect) Ur Amphetamines Screen (Not Detect) U Benzodiazepines Scrn (Not Detect) Urine Cocaine Screen (Not Detect) U Marijuana (THC) Screen (Not Detect) COVID-19 (ARNULFO) (Negative) COVID-19 Clin Com Discharge Plan Discharge Clinical Impression: Schizoaffective disorder, Insomnia Patient Disposition: Still a Patient Prescriptions: No Action clonazepam 1 mg Tablet 1 mg PO BEDTIME paliperidone [Invega] 9 mg Tablet Extended Release 24hr 9 mg PO DAILY Qty: 30 0RF fluoxetine 20 mg Capsule 20 mg PO DAILY Qty: 30 0RF Invega Sustenna 156 mg/mL Syringe 156 mg IM Q30D Qty: 1 0RF lisinopril 20 mg Tablet 20 mg PO DAILY Qty: 30 0RF trazodone 150 mg Tablet 150 mg PO BEDTIME PRN (Reason: Insomnia) Qty: 30 0RF Rx Instructions: May take one or two tabs at bedtime prn levothyroxine 50 mcg Capsule 50 mcg PO DAILY Qty: 30 0RF levofloxacin 750 mg tablet 750 mg PO DAILY 6 Days Qty: 6 0RF metronidazole [Flagyl] 500 mg tablet 500 mg PO Q8H 7 Days Qty: 21 0RF metoclopramide HCl [Reglan] 10 mg tablet 10 mg PO Q6H PRN (Reason: nausea and vomiting) 7 Days Qty: 14 0RF oxycodone 5 mg tablet 5 mg PO Q8H PRN (Reason: pain) Qty: 10 0RF amoxicillin-pot clavulanate [Augmentin] 875-125 mg tablet 1 tab PO BID 10 Days Qty: 20 0RF doxycycline hyclate 100 mg tablet 100 mg PO BID 7 Days Qty: 14 0RF Metamucil 3.4 gram/5.4 gram powder 1 tbsp PO DAILY Qty: 660 0RF Rx Instructions: mix into at least 8 oz of water or juice before administering
[2022-02-23 17:14] LABS: Appearance Urine Clear; Color Urine Yellow; Glucose Urine UA Negative (Negative); Leukocyte Esterase Urine Trace (Negative); Nitrite Urine Negative (Negative); Specific Gravity - Urine 1.015 (1.005-1.025); Urine Blood Negative (Negative); Urine Ketones 15 mg/dL (Negative); Urine Protein Trace mg/dL (Neg-Trace)
[2022-02-23 17:19] LABS: Bacteria Urine None Seen (None Seen); Hyaline Casts Urine 0-2 /LPF (0-2); WBC Urine 0-5 /HPF (0-5)
[2022-02-23 17:27] LABS: MANUAL DIFF FLAG NO
[2022-02-23 17:29] LABS: Basophils Percent Auto 0.4 % (0-2); Eosinophils Percent Auto 0.1 % (0-4); Hematocrit 43.4 % (37.0-47.0); Hemoglobin 14.2 g/dl (12.0-16.0); Imm Gran Abs Auto 0.06 X10*3/uL (0.00-0.03); Imm Gran Pct Auto 0.7 % (0.0-0.4); Lymphocytes Absolute Auto 1.9 X10*3/uL (1.2-4.9); Lymphocytes Percent Auto 21.5 % (20-40); Mean Corpuscular HGB Conc 32.7 g/dl (31.0-35.0); Mean Corpuscular Hemoglobin 28.6 pg (27.0-33.0); Mean Corpuscular Volume 87.3 fL (80.0-98.0); Mean Platelet Volume 9.7 fL (9.4-12.3); Monocytes Absolute Auto 0.7 X10*3/uL (0.1-1.2); Neutrophils Absolute Auto 6.3 x10*3/uL (2.0-8.3); Neutrophils Percent Auto 69.3 % (45-73); Platelet Count 233 X10*3/uL (160-400); Red Blood Count 4.97 X10*6/uL (4.20-5.50); Red Cell Distribution Width 12.6 % (11.0-16.0)
--- NOTE | 2022-02-23 17:38 | MHC.CARE ---
Pt was evaluated by the CARE Team and an Voluntary inpatient bedsearch at this time
[2022-02-23 17:46] LABS: Alanine Aminotransferase 39 U/L (0-31); Albumin Level 4.2 g/dL (3.5-5.0); Alkaline Phosphatase 87 U/L (39-117); Anion Gap 17 (12-20); Aspartate Amino Transferase 32 U/L (5-31); Bilirubin Direct 0.2 mg/dL (0.0-0.5); Bilirubin Total 0.3 mg/dL (0.0-1.0); Blood Urea Nitrogen 7 mg/dL (9-16); Calcium 8.9 mg/dL (8.4-10.2); Carbon Dioxide 22 mmol/L (22-29); Chloride 101 mmol/L (96-108); Creatinine Clr Calc Pharmacy 84.2; Estimated Glomerular Filt Rate > 60; Glucose Random 141 mg/dL (60-115); Potassium 4.2 mmol/L (3.3-5.1); Sodium 136 mmol/L (135-145); Total Protein 7.8 g/dL (6.5-8.0)
[2022-02-23 20:59] VITALS: BP 136/84; PULSE 97; RESP 18; TEMP 36.6; O2SAT 95
[2022-02-23 22:20] VITALS: BP 153/82; PULSE 95; RESP 16; TEMP 36.6; O2SAT 97
[2022-02-23] MEDS: traZODone HCL 50 MG TABLET PO (23:41)
[2022-02-23] MEDS: hydrOXYzine HCL 25 MG TABLET PO (23:41)
--- NOTE | 2022-02-24 00:15 | PC.NURSE ---
Pt is 62-year-old Khmer-speaking, COVID-negative female admitted on CV basis from [facility] ED after reporting to her daughter she did not sleep for three days, and AH. Pt reports AH and was observed to be RTIS in the ED. During assessment, she was difficult to direct and deemed by fire pilot to be incompetent to participate in full assessment. Documentation and brief verbal assessment are used as basis for admission documentation. MedHx reported: Pt reports hypertension, thyroid, unspecified blood issues, and DM I. Pt has no upper teeth. Normal EKG 02/23/22. PsycheHx: F25.0 Schizoaffective d-o. Mental status during assessment was alert to situation, anxious, fearful, concerned about sleeping.? Pt receives medication at [facility]. Med Req needs to be done. Her Aide?s contact information is provided on an index card in the chart.
[2022-02-24 06:00] VITALS: BP 170/108; PULSE 109; RESP 16; TEMP 36.6; O2SAT 98
[2022-02-24 07:00] VITALS: BMI 51.1
[2022-02-24 09:17] LABS: Estimated Average Glucose 120 mg/dL; Hemoglobin A1c % 5.8 %
--- NOTE | 2022-02-24 09:46 | P.HPPS_ITS ---
HPI Date of Service: 02/24/22 Chief Complaint: Hallucinations/psychosis Sources of Information: patient interviewed, chart reviewed and crisis/core team assessment reviewed HPI Subjective Notes: Earl Warning and Conditional Voluntary Narrative: Mrs. Wood is a 62 year-old with hx of schizophrenia. Pt was brought by daughter as pt has not been sleeping, increase paranoia, hearing voices telling her that she is going to lose her apartment and that she will be hurt. She also reports seeing monsters, which pt reports is very scary and distressing to her. Utox was negative. Mrs. Wood appears poor historian. She reports that she did receive LOPEZ of invega. However, it appears that she has been off her medications, but this has not been confirmed. Pt reports very poor sleep due to increase AH and paranoia which she reports making her feel very anxious. She denies SI/HI. She reports fair appetite. She abruptly end meeting stating she is feeling very tired and this technical proposal writer is asking too many questions. Past Psychiatric History: Inpatient: 2019; 2014 unknown OP: Dr. Miguel Connors Past Med trials: invega, prozac Medical Evaluation Reviewed: Yes 02/23/22 CBC wnl, CMP, slightly elevated AST/ALT. EKG normal sinus, Qtc 447ms. Normal EKG. [facility] Medical History Hypertension Hypothyroid Diagnostics Vital Signs (24Hr): Vital Signs - 24 hr 02/23/22 14:41 02/23/22 20:59 02/23/22 22:20 Temperature 98.8 F 98 F 97.8 F Pulse Rate 105 H 97 95 Respiratory Rate 18 18 16 Blood Pressure 140/90 H 136/84 153/82 H Pulse Oximetry 97 95 97 Oxygen Delivery Method Room Air Room Air Room Air 02/24/22 06:00 Temperature 97.8 F Pulse Rate 109 H Respiratory Rate 16 Blood Pressure 170/108 H Pulse Oximetry 98 Oxygen Delivery Method Room Air BMI result Body Mass Index 44.5 Labs Results: 02/23/22 17:23 02/24/22 08:11 Labs: Laboratory Results - last 48 hr 02/23/22 02/23/22 02/23/22 14:40 14:40 14:40 WBC RBC Hgb Hct MCV MCH MCHC RDW Plt Count MPV Immature Gran % (Auto) Neut % (Auto) Lymph % (Auto) Edwards % (Auto) Eos % (Auto) Baso % (Auto) Lymph # (Auto) Edwards # (Auto) Eos # (Auto) Baso # (Auto) Abs Immat Gran (auto) Absolute Neuts (auto) Absolute Nucleated RBC Nucleated RBC % (auto) Sodium Potassium Chloride Carbon Dioxide Anion Gap BUN Creatinine Estim Creat Clear Calc Estimated GFR Random Glucose Estimat Average Glucose Hemoglobin A1c % Calcium Total Bilirubin Direct Bilirubin AST ALT Alkaline Phosphatase Total Protein Albumin Urine Color Yellow Urine Appearance Clear Urine pH 7.0 Ur Specific [place] 1.015 Urine Protein Trace Urine Glucose (UA) Negative Urine Ketones 15 Urine Blood Negative Urine Nitrite Negative Ur Leukocyte Esterase Trace H Urine RBC 3-5 H Urine WBC 0-5 Ur Squamous Epith Cells 3-5 Urine Bacteria None Seen Hyaline Casts 0-2 Urine Opiates Screen Not Detected Urine Fentanyl Screen POSITIVE H Ur Barbiturates Screen Not Detected Ur Phencyclidine Scrn Not Detected Ur Amphetamines Screen Not Detected U Benzodiazepines Scrn Not Detected Urine Cocaine Screen Not Detected U Marijuana (THC) Screen Not Detected COVID-19 (ARNULFO) Negative COVID-19 Clin Com See Note 02/23/22 02/23/22 02/24/22 17:23 17:23 08:11 WBC 9.0 RBC 4.97 Hgb 14.2 Hct 43.4 MCV 87.3 MCH 28.6 MCHC 32.7 RDW 12.6 Plt Count 233 MPV 9.7 Immature Gran % (Auto) 0.7 H Neut % (Auto) 69.3 Lymph % (Auto) 21.5 Edwards % (Auto) 8.0 Eos % (Auto) 0.1 Baso % (Auto) 0.4 Lymph # (Auto) 1.9 Edwards # (Auto) 0.7 Eos # (Auto) 0.0 Baso # (Auto) 0.0 Abs Immat Gran (auto) 0.06 H Absolute Neuts (auto) 6.3 Absolute Nucleated RBC 0.000 Nucleated RBC % (auto) 0.0 Sodium 136 Potassium 4.2 Chloride 101 Carbon Dioxide 22 Anion Gap 17 BUN 7 L Creatinine 0.72 Estim Creat Clear Calc 84.2 Estimated GFR > 60 Random Glucose 141 H Estimat Average Glucose 120 Hemoglobin A1c % 5.8 Calcium 8.9 Total Bilirubin 0.3 Direct Bilirubin 0.2 AST 32 H ALT 39 H Alkaline Phosphatase 87 Total Protein 7.8 Albumin 4.2 Urine Color Urine Appearance Urine pH Ur Specific [place] Urine Protein Urine Glucose (UA) Urine Ketones Urine Blood Urine Nitrite Ur Leukocyte Esterase Urine RBC Urine WBC Ur Squamous Epith Cells Urine Bacteria Hyaline Casts Urine Opiates Screen Urine Fentanyl Screen Ur Barbiturates Screen Ur Phencyclidine Scrn Ur Amphetamines Screen U Benzodiazepines Scrn Urine Cocaine Screen U Marijuana (THC) Screen COVID-19 (ARNULFO) COVID-19 Clin Com Meds/Allergies Meds Home Medications Medication Instructions Recorded Confirmed Type clonazepam 1 mg tablet 1 mg PO BEDTIME 04/16/20 02/24/22 History metformin 500 mg tablet 1 tab PO 02/24/22 History Allergies Allergies Allergy/AdvReac Type Severity Reaction Status Date / Time No Known Allergies Allergy Mild NOT Unverified 03/05/20 16:31 APPLICABLE Mental Status Exam Mental Status Exam Narrative: Appearance: casually groomed, fair hygiene in NAD Behavior: guarded but cooperative psychomotor: no agitation or retardation noted Speech:mumbles at times, some delayed responses, spontaneous Thought process:disorganized at times Thought content:anxious and scared of monster she is seeing and voices telling her that she has no apartment. Mood: tired Affect: somewhat agitated when talking about voices and VH. SI:none HI:none VH/AH:+AH, VH of monsters Delusions:paranoid delusions Insight/judgment:fair x 2. Memory/cog: alert, oriented x 3. not formally tested. Assessment & Plan Assessment & Plan (1) Schizoaffective disorder: Status: Acute Code(s): F25.9 - Schizoaffective disorder, unspecified Plan Mrs. Wood is 62 year-old with hx of schizophrenia. She brought in to hospital as she has not been sleeping and increasingly hearing more voices telling her that she is about to lose her apartment and that she will be hurt, seeing monsters which is very distressing to her. NO SI/HI. This is similar presentation as when she was last admitted to [address] in 03/2020. Utox positive for fentanyl but this may be false positive. Pt does not have substance use hx. She has been on invega sustenna 156mg IM qmonthly but unclear if she has been taking it or not. We discussed risks, benefits and alternative treatment o ptions. Will start oral paliperidone 6mg po qhs, as we verify last Sustenna injection. Continue clonazepam. PLAN 1. Admit to M3, CV, 15 minutes checks for safety 2. start oral as we confirm dose 6mg po qhs, continue clonazepam 1mg po QHS. 3. Obtain collateral information 4. Aftercare planning. Patient educated on: diagnosis and medication risk/benefits Informed Consent: understands Reason for continued inpatient stay Substantial Risk for: inability to function
[2022-02-24 10:09] LABS: Alanine Aminotransferase 41 U/L (0-31); Albumin Level 4.5 g/dL (3.5-5.0); Alkaline Phosphatase 94 U/L (39-117); Anion Gap 17 (12-20); Aspartate Amino Transferase 36 U/L (5-31); Bilirubin Total 0.9 mg/dL (0.0-1.0); Blood Urea Nitrogen 7 mg/dL (9-16); Calcium 9.5 mg/dL (8.4-10.2); Carbon Dioxide 25 mmol/L (22-29); Chloride 99 mmol/L (96-108); Cholesterol 192 mg/dL; Creatinine Clr Calc Pharmacy 77.8; Estimated Glomerular Filt Rate > 60; Glucose Fasting 126 mg/dL (60-99); HDL Cholesterol 64 mg/dL; LDL Cholesterol Calculated 114 mg/dl; Potassium 4.3 mmol/L (3.3-5.1); Sodium 137 mmol/L (135-145); Total Protein 8.3 g/dL (6.5-8.0); Triglycerides 74 mg/dL
[2022-02-24 10:15] LABS: TSH reflex Free T4 3.03 uIU/mL (0.32-4.0)
--- NOTE | 2022-02-24 11:51 | PC.NURSE ---
Patient states she is not a smoker.
[2022-02-24 15:05] VITALS: BP 143/73; PULSE 98; RESP 16
[2022-02-24] MEDS: lisinopriL 20 MG TABLET PO (15:20)
[2022-02-24] MEDS: hydrOXYzine HCL 25 MG TABLET PO (18:01)
[2022-02-24] MEDS: Paliperidone ER 6 MG TAB.ER.24 PO (18:27)
[2022-02-24] MEDS: clonazePAM 1 MG TABLET PO (18:27)
--- NOTE | 2022-02-24 18:31 | PC.NURSE ---
Patient had outburst, screaming as loud as she can, saying that she feels crazy and is hearing voices. Patient given PRN atarax, and per MD was given some her her night time meds early, Klonopin and Invega.
[2022-02-24 22:30] VITALS: RESP 16
[2022-02-25 10:05] VITALS: BP 139/76; PULSE 106; RESP 18; TEMP 36.6; O2SAT 94
[2022-02-25] MEDS: lisinopriL 20 MG TABLET PO (10:06)
[2022-02-25] MEDS: FLUoxetine HCl 20 MG CAPSULE PO (10:07)
[2022-02-25] MEDS: Levothyroxine Sodium 50 MCG TABLET PO (10:07)
[2022-02-25] MEDS: Acetaminophen 325 MG TABLET 650 MG PO (10:21)
--- NOTE | 2022-02-25 12:23 | HO.PSYCHPN ---
Subjective Subjective Date of Service: 02/25/22 Reason For Visit: Hallucinations/psychosis Subjective Notes: Conditional Voluntary Interim History: Pt reports she slept slightly better last night. She does report that she continues to hear voices telling bad things but denies command in nature. She denies SI/HI. She is taking medications as prescribed. Mostly ni her room. No behavioral concerns. Medication Compliance: Yes Side effects from medications: No Review of Systems Review of Systems Constitutional: No Fever, No Chills, No Fatigue, No Malaise, +insomnia ENT/Mouth: No Ear Pain, No Nasal Congestion, No sore throat, No Rhinorrhea, No Swallowing Difficulty Eyes: No Eye Pain, No Swelling, No Redness, No Vision Changes Cardiovascular: No Chest Pain, No SOB, No Edema, No Palpitations Respiratory: No Cough, No Sputum, No Dyspnea Gastrointestinal: No Nausea, No Vomiting, No Diarrhea, No Constipation, No Abdominal pain Genitourinary: No Dysuria, No Urinary Frequency, No Hematuria, No Urinary Incontinence/retention, No Flank Pain Musculoskeletal: No joint pain, No Myalgias, No Joint Swelling Skin: No Skin Lesions, No rash Neuro: No Weakness, No Numbness, No Dizziness, No Headache Psych: No Anxiety/Panic, No Depression, No SI/HI, +AH, No VH, No Social Issues Yes all other systems are reviewed and are negative Constitutional: Reports as per [facility] Mental Status Exam Mental Status Exam Narrative: Appearance: casually groomed, fair hygiene in NAD Behavior: guarded but cooperative psychomotor: no agitation or retardation noted Speech:mumbles at times, some delayed responses, spontaneous Thought process:disorganized at times Thought content:anxious and scared of monster she is seeing and voices telling her that she has no apartment. Mood: tired Affect: somewhat agitated when talking about voices and VH. SI:none HI:none VH/AH:+AH, VH of monsters Delusions:paranoid delusions Insight/judgment:fair x 2. Memory/cog: alert, oriented x 3. not formally tested. Diagnostics Vital Signs (24Hr): Vital Signs - 24 hr 02/24/22 22:30 02/25/22 10:05 02/25/22 20:19 Temperature 97.8 F 97.8 F Pulse Rate 106 H 84 Respiratory Rate 16 18 18 Blood Pressure 139/76 129/77 Pulse Oximetry 94 95 Oxygen Delivery Method Room Air Room Air BMI result Body Mass Index 51.1 Labs Results: 02/23/22 17:23 02/24/22 08:11 Labs: Laboratory Results - last 48 hr 02/24/22 02/24/22 08:11 08:11 Sodium 137 Potassium 4.3 Chloride 99 Carbon Dioxide 25 Anion Gap 17 BUN 7 L Creatinine 0.78 Estim Creat Clear Calc 77.8 Estimated GFR > 60 Fasting Glucose 126 H Estimat Average Glucose 120 Hemoglobin A1c % 5.8 Calcium 9.5 D Total Bilirubin 0.9 AST 36 H ALT 41 H Alkaline Phosphatase 94 Total Protein 8.3 H Albumin 4.5 Triglycerides 74 Cholesterol 192 D LDL Cholesterol, Calc 114 HDL Cholesterol 64 TSH 3.03 Medications Medications Current Medications Acetaminophen (Acetaminophen 325 Mg Tablet) 650 mg PO Q6H PRN PRN Reason: Headache/Pain Mild Scale (1-3) Last Admin: 02/25/22 10:21 Dose: 650 mg Al Hydroxide/Mg Hydroxide (Magnesium Hydrox/Alum Hydrox 30 Ml Oral.Susp) 30 ml PO Q6H PRN PRN Reason: Heartburn/Nausea Clonazepam (Clonazepam 1 Mg Tablet) 1 mg PO BEDTIME SARATH Last Admin: 02/25/22 21:11 Dose: 1 mg Fluoxetine HCl (Fluoxetine Hcl 20 Mg Capsule) 20 mg PO DAILY SARATH Last Admin: 02/25/22 10:07 Dose: 20 mg Hydroxyzine HCl (Hydroxyzine Hcl 25 Mg Tablet) 25 mg PO Q6H PRN PRN Reason: Anxiety Last Admin: 02/24/22 18:01 Dose: 25 mg Levothyroxine Sodium (Levothyroxine Sodium 50 Mcg Tablet) 50 mcg PO DAILY SARATH Last Admin: 02/25/22 10:07 Dose: 50 mcg Lisinopril (Lisinopril 20 Mg Tablet) 20 mg PO DAILY SARATH; Protocol Last Admin: 02/25/22 10:06 Dose: 20 mg Magnesium Hydroxide (Milk Of Magnesia 30 Ml Oral.Susp) 30 ml PO DAILY PRN PRN Reason: Constipation Paliperidone (Paliperidone Er 6 Mg Tab.Er.24) 6 mg PO BEDTIME SARATH Last Admin: 02/25/22 21:11 Dose: 6 mg Trazodone HCl (Trazodone Hcl 50 Mg Tablet) 50 mg PO BEDTIME PRN PRN Reason: Insomnia Last Admin: 02/23/22 23:41 Dose: 50 mg Trazodone HCl (Trazodone Hcl 50 Mg Tablet) 150 mg PO BEDTIME SARATH Last Admin: 02/25/22 21:11 Dose: 150 mg Allergies Allergies Allergy/AdvReac Type Severity Reaction Status Date / Time No Known Allergies Allergy Mild NOT Unverified 03/05/20 16:31 APPLICABLE Assessment & Plan Assessment & Plan (1) Schizoaffective disorder: Status: Acute Code(s): F25.9 - Schizoaffective disorder, unspecified Plan Mrs. Wood is 62 year-old with hx of schizophrenia. She brought in to hospital as she has not been sleeping and increasingly hearing more voices telling her that she is about to lose her apartment and that she will be hurt, seeing monsters which is very distressing to her. NO SI/HI. This is similar presentation as when she was last admitted to back in 03/2020. Utox positive for fentanyl but this may be false positive. Pt does not have substance use hx. She has been on invega sustenna 156mg IM qmonthly but unclear if she has been taking it or not. We discussed risks, benefits and alternative treatment options. Will start oral paliperidone 6mg po qhs, as we verify last Sustenna injection. Continue clonazepam. PLAN 1. Admit to M3, CV, 15 minutes checks for safety 2. start oral as we confirm dose 6mg po qhs, continue clonazepam 1mg po QHS. 3. Obtain collateral information 4. Aftercare planning. 02/25 continue oral paliperidone, unable to confirm if she had invega sustenna, daughter suspect she has not gotten LOPEZ in more than 2 months but states she is not sure either. Need to contact [facility] clinic as it is not [facility] who gives her LOPEZ per daughter. I spent minutes with the patient and/or on the patient floor today, greater than?50% of which was spent counseling/coordinating care. Reason for contiued inpatient stay Substantial Risk for: inability to function
[2022-02-25 20:19] VITALS: BP 129/77; PULSE 84; RESP 18; TEMP 36.6; O2SAT 95
[2022-02-25] MEDS: Paliperidone ER 6 MG TAB.ER.24 PO (21:11)
[2022-02-25] MEDS: clonazePAM 1 MG TABLET PO (21:11)
[2022-02-25] MEDS: traZODone HCL 50 MG TABLET 150 MG PO (21:11)
[2022-02-26 06:00] VITALS: BP 125/74; PULSE 64; RESP 18; TEMP 36.7; O2SAT 98
[2022-02-26] MEDS: lisinopriL 20 MG TABLET PO (09:23)
[2022-02-26] MEDS: FLUoxetine HCl 20 MG CAPSULE PO (09:23)
[2022-02-26] MEDS: Levothyroxine Sodium 50 MCG TABLET PO (09:23)
--- NOTE | 2022-02-26 13:44 | HO.PSYCHPN ---
Subjective Subjective Date of Service: 02/26/22 Reason For Visit: Hallucinations/psychosis Interim History: Patient seen with aid of an database programmer. Has been complaining of stomach pain and constipation not overly agitated or combative patient is withdrawn Medication Compliance: Yes Mental Status Exam Mental Status Exam Narrative: Patient seen with database programmer patient somewhat withdrawn mumbling denied hallucinations could not really explain why she was in the hospital. Mood anxious dysphoric cooperative Denies suicidal thoughts somewhat guarded and evasive Diagnostics Vital Signs (24Hr): Vital Signs - 24 hr 02/25/22 20:19 02/26/22 06:00 Temperature 97.8 F 98.0 F Pulse Rate 84 64 Respiratory Rate 18 18 Blood Pressure 129/77 125/74 Pulse Oximetry 95 98 Oxygen Delivery Method Room Air Room Air BMI result Body Mass Index 51.1 Labs Results: 02/23/22 17:23 02/24/22 08:11 Medications Medications Current Medications Acetaminophen (Acetaminophen 325 Mg Tablet) 650 mg PO Q6H PRN PRN Reason: Headache/Pain Mild Scale (1-3) Last Admin: 02/25/22 10:21 Dose: 650 mg Al Hydroxide/Mg Hydroxide (Magnesium Hydrox/Alum Hydrox 30 Ml Oral.Susp) 30 ml PO Q6H PRN PRN Reason: Heartburn/Nausea Clonazepam (Clonazepam 1 Mg Tablet) 1 mg PO BEDTIME [facility] Last Admin: 02/25/22 21:11 Dose: 1 mg Fluoxetine HCl (Fluoxetine Hcl 20 Mg Capsule) 20 mg PO DAILY [facility] Last Admin: 02/26/22 09:23 Dose: 20 mg Hydroxyzine HCl (Hydroxyzine Hcl 25 Mg Tablet) 25 mg PO Q6H PRN PRN Reason: Anxiety Last Admin: 02/24/22 18:01 Dose: 25 mg Levothyroxine Sodium (Levothyroxine Sodium 50 Mcg Tablet) 50 mcg PO DAILY SARATH Last Admin: 02/26/22 09:23 Dose: 50 mcg Lisinopril (Lisinopril 20 Mg Tablet) 20 mg PO DAILY [facility]; Protocol Last Admin: 02/26/22 09:23 Dose: 20 mg Magnesium Hydroxide (Milk Of Magnesia 30 Ml Oral.Susp) 30 ml PO DAILY PRN PRN Reason: Constipation Paliperidone (Paliperidone Er 6 Mg Tab.Er.24) 6 mg PO BEDTIME SARATH Last Admin: 02/25/22 21:11 Dose: 6 mg Polyethylene Glycol (Polyethylene Glycol 3350 17 Gm Powd.Pack) 17 gm PO DAILY PRN PRN Reason: Constipation Trazodone HCl (Trazodone Hcl 50 Mg Tablet) 50 mg PO BEDTIME PRN PRN Reason: Insomnia Last Admin: 02/23/22 23:41 Dose: 50 mg Trazodone HCl (Trazodone Hcl 50 Mg Tablet) 150 mg PO BEDTIME SARATH Last Admin: 02/25/22 21:11 Dose: 150 mg Allergies Allergies Allergy/AdvReac Type Severity Reaction Status Date / Time No Known Allergies Allergy Mild NOT Unverified 03/05/20 16:31 APPLICABLE Assessment & Plan Assessment & Plan (1) Schizoaffective disorder: Status: Acute Code(s): F25.9 - Schizoaffective disorder, unspecified Plan Mrs. Wood is 62 year-old with hx of schizophrenia. She brought in to hospital as she has not been sleeping and increasingly hearing more voices telling her that she is about to lose her apartment and that she will be hurt, seeing monsters which is very distressing to her. NO SI/HI. This is similar presentation as when she was last admitted to back in 03/2020. Utox positive for fentanyl but this may be false positive. Pt does not have substance use hx. She has been on invega sustenna 156mg IM qmonthly but unclear if she has been taking it or not. We discussed risks, benefits and alternative treatment options. Will start oral paliperidone 6mg po qhs, as we verify last Sustenna injection. Continue clonazepam. PLAN 1. Admit to , CV, 15 minutes checks for safety 2. start oral as we confirm dose 6mg po qhs, continue clonazepam 1mg po QHS. 3. Obtain collateral information 4. Aftercare planning. 02/26/2022 Or continue plan of care I spent minutes with the patient and/or on the patient floor today, greater than?50% of which was spent counseling/coordinating care. Reason for contiued inpatient stay Substantial Risk for: harm to self, inability to function, rapid decompensation and med/psych decompensation
[2022-02-26] MEDS: polyethylene glycoL 3350 17 GM POWD.PACK PO (14:20)
[2022-02-26] MEDS: Paliperidone ER 6 MG TAB.ER.24 PO (21:21)
[2022-02-26] MEDS: clonazePAM 1 MG TABLET PO (21:21)
[2022-02-26] MEDS: traZODone HCL 50 MG TABLET 150 MG PO (21:21)
[2022-02-26] MEDS: hydrOXYzine HCL 25 MG TABLET PO (21:34)
[2022-02-26 21:36] VITALS: BP 124/58; PULSE 96; RESP 18; TEMP 36.8; O2SAT 94
[2022-02-27 06:00] VITALS: BP 120/59; PULSE 58; RESP 18; TEMP 36.7; O2SAT 95
[2022-02-27] MEDS: FLUoxetine HCl 20 MG CAPSULE PO (09:49)
[2022-02-27] MEDS: lisinopriL 20 MG TABLET PO (09:49)
[2022-02-27] MEDS: Levothyroxine Sodium 50 MCG TABLET PO (09:49)
[2022-02-27 20:00] VITALS: BP 116/73; PULSE 90; RESP 18; TEMP 36.7; O2SAT 98
[2022-02-27 20:15] LABS: Glucose, Whole Blood 160 mg/dL (60-115)
[2022-02-27] MEDS: traZODone HCL 50 MG TABLET PO (20:59)
[2022-02-27] MEDS: traZODone HCL 50 MG TABLET 150 MG PO (20:59)
[2022-02-27] MEDS: Paliperidone ER 6 MG TAB.ER.24 PO (20:59)
--- NOTE | 2022-02-27 23:50 | HO.PSYCHPN ---
Subjective Subjective Date of Service: 02/27/22 Reason For Visit: Hallucinations/psychosis Interim History: Patient seen with parachute marker butler range of motion today patient asking about getting her diabetes medication more organized and forthcoming Mental Status Exam Mental Status Exam Narrative: Patient seen with parachute marker patient less withdrawn butler affect no self-harm denies hallucinations. Not very informational regarding events that brought her to the hospital more logical. Denies hallucinations states future oriented Diagnostics Vital Signs (24Hr): Vital Signs - 24 hr 02/27/22 06:00 02/27/22 20:00 Temperature 98.1 F 98.1 F Pulse Rate 58 90 Respiratory Rate 18 18 Blood Pressure 120/59 L 116/73 Pulse Oximetry 95 98 Oxygen Delivery Method Room Air Room Air BMI result Body Mass Index 51.1 Labs Results: 02/23/22 17:23 02/24/22 08:11 Labs: Laboratory Results - last 48 hr 02/27/22 20:01 POC Glucose 160 H Medications Medications Current Medications Acetaminophen (Acetaminophen 325 Mg Tablet) 650 mg PO Q6H PRN PRN Reason: Headache/Pain Mild Scale (1-3) Last Admin: 02/25/22 10:21 Dose: 650 mg Al Hydroxide/Mg Hydroxide (Magnesium Hydrox/Alum Hydrox 30 Ml Oral.Susp) 30 ml PO Q6H PRN PRN Reason: Heartburn/Nausea Clonazepam (Clonazepam 1 Mg Tablet) 1 mg PO BEDTIME SARATH Last Admin: 02/27/22 21:00 Dose: Not Given Fluoxetine HCl (Fluoxetine Hcl 20 Mg Capsule) 20 mg PO DAILY SARATH Last Admin: 02/27/22 09:49 Dose: 20 mg Hydroxyzine HCl (Hydroxyzine Hcl 25 Mg Tablet) 25 mg PO Q6H PRN PRN Reason: Anxiety Last Admin: 02/26/22 21:34 Dose: 25 mg Levothyroxine Sodium (Levothyroxine Sodium 50 Mcg Tablet) 50 mcg PO DAILY SARATH Last Admin: 02/27/22 09:49 Dose: 50 mcg Lisinopril (Lisinopril 20 Mg Tablet) 20 mg PO DAILY [facility]; Protocol Last Admin: 02/27/22 09:49 Dose: 20 mg Magnesium Hydroxide (Milk Of Magnesia 30 Ml Oral.Susp) 30 ml PO DAILY PRN PRN Reason: Constipation Metformin HCl (Metformin Hcl 500 Mg Tablet) 500 mg PO BIDWM [facility] Paliperidone (Paliperidone Er 6 Mg Tab.Er.24) 6 mg PO BEDTIME SARATH Last Admin: 02/27/22 20:59 Dose: 6 mg Polyethylene Glycol (Polyethylene Glycol 3350 17 Gm Powd.Pack) 17 gm PO DAILY PRN PRN Reason: Constipation Last Admin: 02/26/22 14:20 Dose: 17 gm Trazodone HCl (Trazodone Hcl 50 Mg Tablet) 50 mg PO BEDTIME PRN PRN Reason: Insomnia Last Admin: 02/27/22 20:59 Dose: 50 mg Trazodone HCl (Trazodone Hcl 50 Mg Tablet) 150 mg PO BEDTIME SARATH Last Admin: 02/27/22 20:59 Dose: 150 mg Allergies Allergies Allergy/AdvReac Type Severity Reaction Status Date / Time No Known Allergies Allergy Mild NOT Unverified 03/05/20 16:31 APPLICABLE Assessment & Plan Assessment & Plan (1) Schizoaffective disorder: Status: Acute Code(s): F25.9 - Schizoaffective disorder, unspecified Plan Mrs. Wood is 62 year-old with hx of schizophrenia. She brought in to hospital as she has not been sleeping and increasingly hearing more voices telling her that she is about to lose her apartment and that she will be hurt, seeing monsters which is very distressing to her. NO SI/HI. This is similar presentation as when she was last admitted to back in 03/2020. Utox positive for fentanyl but this may be false positive. Pt does not have substance use hx. She has been on invega sustenna 156mg IM qmonthly but unclear if she has been taking it or not. We discussed risks, benefits and alternative treatment options. Will start oral paliperidone 6mg po qhs, as we verify last Sustenna injection. Continue clonazepam. PLAN 1. Admit to M3, CV, 15 minutes checks for safety 2. start oral as we confirm dose 6mg po qhs, continue clonazepam 1mg po QHS. 3. Obtain collateral information 4. Aftercare planning. 02/27/2022 Continue plan of care try and confirm what Invega injection due I spent minutes with the patient and/or on the patient floor today, greater than?50% of which was spent counseling/coordinating care. Reason for contiued inpatient stay Substantial Risk for: inability to function and med/psych decompensation
[2022-02-28 08:57] VITALS: BP 119/66; PULSE 78; RESP 16; TEMP 36.7; O2SAT 95
[2022-02-28] MEDS: metFORMIN HCl 500 MG TABLET PO ×2 (08:58→17:04)
[2022-02-28] MEDS: FLUoxetine HCl 20 MG CAPSULE PO (08:58)
[2022-02-28] MEDS: lisinopriL 20 MG TABLET PO (08:58)
[2022-02-28] MEDS: Levothyroxine Sodium 50 MCG TABLET PO (08:58)
[2022-02-28 09:26] LABS: Glucose, Whole Blood 112 mg/dL (60-115)
--- NOTE | 2022-02-28 12:45 | P.PNPSI_ITS ---
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 patient asking about getting her diabetes medication more organized and forthcoming Review of Systems Review of Systems Constitutional: No Fever, No Chills, No Fatigue, No Malaise, +insomnia ENT/Mouth: No Ear Pain, No Nasal Congestion, No sore throat, No Rhinorrhea, No Swallowing Difficulty Eyes: No Eye Pain, No Swelling, No Redness, No Vision Changes Cardiovascular: No Chest Pain, No SOB, No Edema, No Palpitations Respiratory: No Cough, No Sputum, No Dyspnea Gastrointestinal: No Nausea, No Vomiting, No Diarrhea, No Constipation, No Abdominal pain Genitourinary: No Dysuria, No Urinary Frequency, No Hematuria, No Urinary Incontinence/retention, No Flank Pain Musculoskeletal: No joint pain, No Myalgias, No Joint Swelling Skin: No Skin Lesions, No rash Neuro: No Weakness, No Numbness, No Dizziness, No Headache Psych: No Anxiety/Panic, No Depression, No SI/HI, +AH, No VH, No Social Issues Yes all other systems are reviewed and are negative Constitutional: Reports as per HPI Mental Status Exam Mental Status Exam Narrative: Appearance: casually groomed, fair hygiene in NAD Behavior: cooperative psychomotor: no agitation or retardation noted Speech:mumbles at times, some delayed responses, spontaneous Thought process:disorganized at times Thought content:anxious and scared of monster she is seeing and voices telling her that she has no apartment. Mood: better Affect: constricted in no distress SI:none HI:none VH/AH: less +AH, VH of monsters Delusions:paranoid delusions Insight/judgment:fair x 2. Memory/cog: alert, oriented x 3. limited cognitively but not formally tested. Diagnostics Vital Signs (24Hr): Vital Signs - 24 hr 02/28/22 21:00 03/01/22 09:24 Temperature 98.0 F 98.0 F Pulse Rate 85 88 Respiratory Rate 16 17 Blood Pressure 114/68 135/63 Pulse Oximetry 95 96 Oxygen Delivery Method Room Air Room Air BMI result Body Mass Index 51.1 Labs Results: 02/23/22 17:23 02/24/22 08:11 Labs: Laboratory Results - last 48 hr 02/27/22 02/28/22 02/28/22 20:01 09:08 21:43 POC Glucose 160 H 112 153 H 03/01/22 08:34 POC Glucose 107 Medications Medications Current Medications Acetaminophen (Acetaminophen 325 Mg Tablet) 650 mg PO Q6H PRN PRN Reason: Headache/Pain Mild Scale (1-3) Last Admin: 02/25/22 10:21 Dose: 650 mg Al Hydroxide/Mg Hydroxide (Magnesium Hydrox/Alum Hydrox 30 Ml Oral.Susp) 30 ml PO Q6H PRN PRN Reason: Heartburn/Nausea Fluoxetine HCl (Fluoxetine Hcl 10 Mg Capsule) 10 mg PO DAILY SARATH Last Admin: 03/01/22 09:20 Dose: 10 mg Hydroxyzine HCl (Hydroxyzine Hcl 25 Mg Tablet) 25 mg PO Q6H PRN PRN Reason: Anxiety Last Admin: 02/26/22 21:34 Dose: 25 mg Levothyroxine Sodium (Levothyroxine Sodium 50 Mcg Tablet) 50 mcg PO DAILY SARATH Last Admin: 03/01/22 09:19 Dose: 50 mcg Lisinopril (Lisinopril 20 Mg Tablet) 20 mg PO DAILY SARATH; Protocol Last Admin: 03/01/22 09:20 Dose: 20 mg Lorazepam (Lorazepam 1 Mg Tablet) 1 mg PO BEDTIME SARATH Last Admin: 02/28/22 21:44 Dose: 1 mg Magnesium Hydroxide (Milk Of Magnesia 30 Ml Oral.Susp) 30 ml PO DAILY PRN PRN Reason: Constipation Last Admin: 03/01/22 09:23 Dose: 30 ml Metformin HCl (Metformin Hcl 500 Mg Tablet) 500 mg PO BIDWM SARATH Last Admin: 03/01/22 09:19 Dose: 500 mg Paliperidone (Paliperidone Er 9 Mg Tab.Er.24) 9 mg PO BEDTIME SARATH Last Admin: 02/28/22 21:44 Dose: 9 mg Polyethylene Glycol (Polyethylene Glycol 3350 17 Gm Powd.Pack) 17 gm PO DAILY PRN PRN Reason: Constipation Last Admin: 02/26/22 14:20 Dose: 17 gm Trazodone HCl (Trazodone Hcl 50 Mg Tablet) 50 mg PO BEDTIME PRN PRN Reason: Insomnia Last Admin: 02/28/22 21:44 Dose: 50 mg Trazodone HCl (Trazodone Hcl 100 Mg Tablet) 100 mg PO BEDTIME SARATH Last Admin: 02/28/22 21:44 Dose: 100 mg Allergies Allergies Allergy/AdvReac Type Severity Reaction Status Date / Time No Known Allergies Allergy Mild NOT Unverified 03/05/20 16:31 APPLICABLE Assessment & Plan Assessment & Plan (1) Schizoaffective disorder: Status: Acute Code(s): F25.9 - Schizoaffective disorder, unspecified Plan Mrs. Wood is 62 year-old with hx of schizophrenia. She brought in to hospital as she has not been sleeping and increasingly hearing more voices telling her that she is about to lose her apartment and that she will be hurt, seeing monsters which is very distressing to her. NO SI/HI. This is similar presentation as when she was last admitted to back in 03/2020. Utox positive for fentanyl but this may be false positive. Pt does not have substance use hx. She has been on invega sustenna 156mg IM qmonthly but unclear if she has been taking it or not. We discussed risks, benefits and alternative treatment options. Will start oral paliperidone 6mg po qhs, as we verify last Sustenna injection. Continue clonazepam. PLAN 1. Admit to , CV, 15 minutes checks for safety 2. start oral as we confirm dose 6mg po qhs, continue clonazepam 1mg po QHS. 3. Obtain collateral information 4. Aftercare planning. 02/27/2022 Continue plan of care try and confirm what Invega injection due 02/28 continue current medications. I spent ___25___ minutes with the patient and/or on the patient floor today, greater than?50% of which was spent counseling/coordinating care. Reason for contiued inpatient stay Substantial Risk for: inability to function
[2022-02-28 21:00] VITALS: BP 114/68; PULSE 85; RESP 16; TEMP 36.7; O2SAT 95
[2022-02-28] MEDS: Paliperidone ER 9 MG TAB.ER.24 PO (21:44)
[2022-02-28] MEDS: LORazepam 1 MG TABLET PO (21:44)
[2022-02-28] MEDS: traZODone HCL 100 MG TABLET PO (21:44)
[2022-02-28] MEDS: traZODone HCL 50 MG TABLET PO (21:44)
[2022-02-28 21:56] LABS: Glucose, Whole Blood 153 mg/dL (60-115)
[2022-03-01 08:45] LABS: Glucose, Whole Blood 107 mg/dL (60-115)
[2022-03-01] MEDS: Levothyroxine Sodium 50 MCG TABLET PO (09:19)
[2022-03-01] MEDS: metFORMIN HCl 500 MG TABLET PO ×2 (09:19→17:31)
[2022-03-01] MEDS: FLUoxetine HCl 10 MG CAPSULE PO (09:20)
[2022-03-01] MEDS: lisinopriL 20 MG TABLET PO (09:20)
[2022-03-01] MEDS: Milk of Magnesia 30 ML ORAL.SUSP PO (09:23)
[2022-03-01 09:24] VITALS: BP 135/63; PULSE 88; RESP 17; TEMP 36.7; O2SAT 96
--- NOTE | 2022-03-01 12:55 | P.PNPSI_ITS ---
Subjective Subjective Date of Service: 03/01/22 Reason For Visit: Hallucinations/psychosis Subjective Notes: Conditional Voluntary Interim History: Pt reports she slept well. She is in bed, reports feeling tired and wanting to rest a bit more. She reports less AH, denies VH- was seeing monsters. She does present with some delayed in response. She denies SI/HI. Medication Compliance: Yes Side effects from medications: No Attending Groups: No Review of Systems Review of Systems Constitutional: No Fever, No Chills, No Fatigue, No Malaise, +insomnia ENT/Mouth: No Ear Pain, No Nasal Congestion, No sore throat, No Rhinorrhea, No Swallowing Difficulty Eyes: No Eye Pain, No Swelling, No Redness, No Vision Changes Cardiovascular: No Chest Pain, No SOB, No Edema, No Palpitations Respiratory: No Cough, No Sputum, No Dyspnea Gastrointestinal: No Nausea, No Vomiting, No Diarrhea, No Constipation, No Abdominal pain Genitourinary: No Dysuria, No Urinary Frequency, No Hematuria, No Urinary Incontinence/retention, No Flank Pain Musculoskeletal: No joint pain, No Myalgias, No Joint Swelling Skin: No Skin Lesions, No rash Neuro: No Weakness, No Numbness, No Dizziness, No Headache Psych: No Anxiety/Panic, No Depression, No SI/HI, +AH, No VH, No Social Issues Yes all other systems are reviewed and are negative Constitutional: Reports as per HPI Mental Status Exam Mental Status Exam Narrative: Appearance: casually groomed, fair hygiene in NAD Behavior: cooperative psychomotor: no agitation or retardation noted Speech:mumbles at times, some delayed responses, spontaneous Thought process:disorganized at times Thought content:less anxious and scared of monster she is seeing and voices tel ling her that she has no apartment. Mood: better Affect: constricted in no distress SI:none HI:none VH/AH: less +AH, VH of monsters Delusions:paranoid delusions Insight/judgment:fair x 2. Memory/cog: alert, oriented x 3. limited cognitively but not formally tested. Diagnostics Vital Signs (24Hr): Vital Signs - 24 hr 02/28/22 21:00 03/01/22 09:24 Temperature 98.0 F 98.0 F Pulse Rate 85 88 Respiratory Rate 16 17 Blood Pressure 114/68 135/63 Pulse Oximetry 95 96 Oxygen Delivery Method Room Air Room Air BMI result Body Mass Index 51.1 Labs Results: 02/23/22 17:23 02/24/22 08:11 Labs: Laboratory Results - last 48 hr 02/27/22 02/28/22 02/28/22 20:01 09:08 21:43 POC Glucose 160 H 112 153 H 03/01/22 08:34 POC Glucose 107 Medications Medications Current Medications Acetaminophen (Acetaminophen 325 Mg Tablet) 650 mg PO Q6H PRN PRN Reason: Headache/Pain Mild Scale (1-3) Last Admin: 02/25/22 10:21 Dose: 650 mg Al Hydroxide/Mg Hydroxide (Magnesium Hydrox/Alum Hydrox 30 Ml Oral.Susp) 30 ml PO Q6H PRN PRN Reason: Heartburn/Nausea Fluoxetine HCl (Fluoxetine Hcl 10 Mg Capsule) 10 mg PO DAILY SARATH Last Admin: 03/01/22 09:20 Dose: 10 mg Hydroxyzine HCl (Hydroxyzine Hcl 25 Mg Tablet) 25 mg PO Q6H PRN PRN Reason: Anxiety Last Admin: 02/26/22 21:34 Dose: 25 mg Levothyroxine Sodium (Levothyroxine Sodium 50 Mcg Tablet) 50 mcg PO DAILY SARATH Last Admin: 03/01/22 09:19 Dose: 50 mcg Lisinopril (Lisinopril 20 Mg Tablet) 20 mg PO DAILY SARATH; Protocol Last Admin: 03/01/22 09:20 Dose: 20 mg Lorazepam (Lorazepam 1 Mg Tablet) 1 mg PO BEDTIME SARATH Last Admin: 02/28/22 21:44 Dose: 1 mg Magnesium Hydroxide (Milk Of Magnesia 30 Ml Oral.Susp) 30 ml PO DAILY PRN PRN Reason: Constipation Last Admin: 03/01/22 09:23 Dose: 30 ml Metformin HCl (Metformin Hcl 500 Mg Tablet) 500 mg PO BIDWM SARATH Last Admin: 03/01/22 09:19 Dose: 500 mg Paliperidone (Paliperidone Er 9 Mg Tab.Er.24) 9 mg PO BEDTIME SARATH Last Admin: 02/28/22 21:44 Dose: 9 mg Polyethylene Glycol (Polyethylene Glycol 3350 17 Gm Powd.Pack) 17 gm PO DAILY PRN PRN Reason: Constipation Last Admin: 02/26/22 14:20 Dose: 17 gm Trazodone HCl (Trazodone Hcl 50 Mg Tablet) 50 mg PO BEDTIME PRN PRN Reason: Insomnia Last Admin: 02/28/22 21:44 Dose: 50 mg Trazodone HCl (Trazodone Hcl 100 Mg Tablet) 100 mg PO BEDTIME SARATH Last Admin: 02/28/22 21:44 Dose: 100 mg Allergies Allergies Allergy/AdvReac Type Severity Reaction Status Date / Time No Known Allergies Allergy Mild NOT Unverified 03/05/20 16:31 APPLICABLE Assessment & Plan Assessment & Plan (1) Schizoaffective disorder: Status: Acute Code(s): F25.9 - Schizoaffective disorder, unspecified Plan Mrs. Wood is 62 year-old with hx of schizophrenia. She brought in to hospital as she has not been sleeping and increasingly hearing more voices telling her that she is about to lose her apartment and that she will be hurt, seeing monsters which is very distressing to her. NO SI/HI. This is similar presentation as when she was last admitted to back in 03/2020. Utox positive for fentanyl but this may be false positive. Pt does not have substance use hx. She has been on invega sustenna 156mg IM qmonthly but unclear if she has been taking it or not. We discussed risks, benefits and alternative treatment options. Will start oral paliperidone 6mg po qhs, as we verify last Sustenna injection. Continue clonazepam. PLAN 1. Admit to , CV, 15 minutes checks for safety 2. start oral as we confirm dose 6mg po qhs, continue clonazepam 1mg po QHS. 3. Obtain collateral information 4. Aftercare planning. 02/27/2022 Continue plan of care try and confirm what Invega injection due 02/28 continue current medications. 03/01 continue current medications. I spent ___25___ minutes with the patient and/or on the patient floor today, greater than?50% of which was spent counseling/coordinating care. Reason for contiued inpatient stay Substantial Risk for: inability to function
[2022-03-01] MEDS: Magnesium Hydrox/Alum Hydrox 30 ML ORAL.SUSP PO (17:31)
[2022-03-01] MEDS: Paliperidone ER 9 MG TAB.ER.24 PO (22:25)
[2022-03-01] MEDS: LORazepam 1 MG TABLET PO (22:25)
[2022-03-01] MEDS: traZODone HCL 50 MG TABLET PO (22:25)
[2022-03-01] MEDS: traZODone HCL 100 MG TABLET PO (22:25)
[2022-03-01 22:35] VITALS: BP 125/74; PULSE 95; RESP 18; TEMP 35.9; O2SAT 94
[2022-03-01 22:37] LABS: Glucose, Whole Blood 97 mg/dL (60-115)
[2022-03-02] MEDS: metFORMIN HCl 500 MG TABLET PO ×2 (08:38→17:24)
[2022-03-02] MEDS: Levothyroxine Sodium 50 MCG TABLET PO (08:38)
[2022-03-02] MEDS: FLUoxetine HCl 10 MG CAPSULE PO (08:38)
[2022-03-02] MEDS: lisinopriL 20 MG TABLET PO (08:38)
[2022-03-02 08:44] LABS: Glucose, Whole Blood 109 mg/dL (60-115)
[2022-03-02 09:23] VITALS: BP 112/59; PULSE 84; RESP 14; TEMP 36.3; O2SAT 93
--- NOTE | 2022-03-02 12:31 | P.PNPSI_ITS ---
Subjective Subjective Date of Service: 03/02/22 Reason For Visit: Hallucinations/psychosis Subjective Notes: Conditional Voluntary Interim History: Pt with constricted affect, delayed in response. She reports sleeping and eating well. She reports she is not hearing voices as much. She denies seeing monsters. She denies SI/HI. She shows this principal technical writer small open cyst, some scaring of similar wound. She reports it itches at times but not now. Medication Compliance: Yes Side effects from medications: No Attending Groups: Yes Review of Systems Review of Systems Constitutional: No Fever, No Chills, No Fatigue, No Malaise, +insomnia ENT/Mouth: No Ear Pain, No Nasal Congestion, No sore throat, No Rhinorrhea, No Swallowing Difficulty Eyes: No Eye Pain, No Swelling, No Redness, No Vision Changes Cardiovascular: No Chest Pain, No SOB, No Edema, No Palpitations Respiratory: No Cough, No Sputum, No Dyspnea Gastrointestinal: No Nausea, No Vomiting, No Diarrhea, No Constipation, No Abdominal pain Genitourinary: No Dysuria, No Urinary Frequency, No Hematuria, No Urinary Incontinence/retention, No Flank Pain Musculoskeletal: No joint pain, No Myalgias, No Joint Swelling Skin: No Skin Lesions, No rash Neuro: No Weakness, No Numbness, No Dizziness, No Headache Psych: No Anxiety/Panic, No Depression, No SI/HI, +AH, No VH, No Social Issues Yes all other systems are reviewed and are negative Constitutional: Reports as per HPI Mental Status Exam Mental Status Exam Narrative: Appearance: casually groomed, fair hygiene in NAD Behavior: cooperative psychomotor: no agitation or retardation noted Speech:mumbles at times, some delayed responses, spontaneous Thought process:disorganized at times Thought content:less anxious and scared of monster she is seeing and voices telling her that she has no apartment. Mood: better Affect: constricted in no distress SI:none HI:none VH/AH: less +AH, VH of monsters Delusions:paranoid delusions Insight/judgment:fair x 2. Memory/cog: alert, oriented x 3. limited cognitively but not formally tested. Diagnostics Vital Signs (24Hr): Vital Signs - 24 hr 03/02/22 20:51 03/03/22 08:45 Temperature 97.9 F 97.6 F Pulse Rate 92 82 Respiratory Rate 20 Blood Pressure 120/58 L 128/71 Pulse Oximetry 95 94 Oxygen Delivery Method Room Air Room Air BMI result Body Mass Index 51.2 Labs Results: 02/23/22 17:23 02/24/22 08:11 Labs: Laboratory Results - last 48 hr 03/01/22 03/02/22 03/02/22 22:22 08:26 20:27 POC Glucose 97 109 114 03/03/22 08:21 POC Glucose 102 Medications Medications Current Medications Acetaminophen (Acetaminophen 325 Mg Tablet) 650 mg PO Q6H PRN PRN Reason: Headache/Pain Mild Scale (1-3) Last Admin: 02/25/22 10:21 Dose: 650 mg Al Hydroxide/Mg Hydroxide (Magnesium Hydrox/Alum Hydrox 30 Ml Oral.Susp) 30 ml PO Q6H PRN PRN Reason: Heartburn/Nausea Last Admin: 03/01/22 17:31 Dose: 30 ml Fluoxetine HCl (Fluoxetine Hcl 10 Mg Capsule) 10 mg PO DAILY SARATH Last Admin: 03/03/22 08:53 Dose: 10 mg Hydroxyzine HCl (Hydroxyzine Hcl 25 Mg Tablet) 25 mg PO Q6H PRN PRN Reason: Anxiety Last Admin: 02/26/22 21:34 Dose: 25 mg Levothyroxine Sodium (Levothyroxine Sodium 50 Mcg Tablet) 50 mcg PO DAILY SARATH Last Admin: 03/03/22 08:53 Dose: 50 mcg Lisinopril (Lisinopril 20 Mg Tablet) 20 mg PO DAILY SARATH; Protocol Last Admin: 03/03/22 08:53 Dose: 20 mg Lorazepam (Lorazepam 1 Mg Tablet) 1 mg PO BEDTIME SARATH Last Admin: 03/02/22 20:58 Dose: 1 mg Magnesium Hydroxide (Milk Of Magnesia 30 Ml Oral.Susp) 30 ml PO DAILY PRN PRN Reason: Constipation Last Admin: 03/01/22 09:23 Dose: 30 ml Metformin HCl (Metformin Hcl 500 Mg Tablet) 500 mg PO BIDWM SARATH Last Admin: 03/03/22 08:53 Dose: 500 mg Paliperidone (Paliperidone Er 9 Mg Tab.Er.24) 9 mg PO BEDTIME SARATH Last Admin: 03/02/22 20:58 Dose: 9 mg Polyethylene Glycol (Polyethylene Glycol 3350 17 Gm Powd.Pack) 17 gm PO DAILY PRN PRN Reason: Constipation Last Admin: 02/26/22 14:20 Dose: 17 gm Trazodone HCl (Trazodone Hcl 50 Mg Tablet) 50 mg PO BEDTIME PRN PRN Reason: Insomnia Last Admin: 03/03/22 01:21 Dose: 50 mg Trazodone HCl (Trazodone Hcl 100 Mg Tablet) 100 mg PO BEDTIME SARATH Last Admin: 03/02/22 20:58 Dose: 100 mg Allergies Allergies Allergy/AdvReac Type Severity Reaction Status Date / Time No Known Allergies Allergy Mild NOT Unverified 03/05/20 16:31 APPLICABLE Assessment & Plan Assessment & Plan (1) Schizoaffective disorder: Status: Acute Code(s): F25.9 - Schizoaffective disorder, unspecified Plan Mrs. Wood is 62 year-old with hx of schizophrenia. She brought in to hospital as she has not been sleeping and increasingly hearing more voices telling her that she is about to lose her apartment and that she will be hurt, seeing monsters which is very distressing to her. NO SI/HI. This is similar presentation as when she was last admitted to back in 03/2020. Utox positive for fentanyl but this may be false positive. Pt does not have substance use hx. She has been on invega sustenna 156mg IM qmonthly but unclear if she has been taking it or not. We discussed risks, benefits and alternative treatment options. Will start oral paliperidone 6mg po qhs, as we verify last Sustenna injection. Continue clonazepam. PLAN 1. Admit to M3, CV, 15 minutes checks for safety 2. start oral as we confirm dose 6mg po qhs, continue clonazepam 1mg po QHS. 3. Obtain collateral information 4. Aftercare planning. 02/27/2022 Continue plan of care try and confirm what Invega injection due 02/28 continue current medications. 03/01 continue current medications. 03/02 continue current medications. I spent __25____ minutes with the patient and/or on the patient floor today, greater than?50% of which was spent counseling/coordinating care. Reason for contiued inpatient stay Substantial Risk for: inability to function
[2022-03-02 20:50] LABS: Glucose, Whole Blood 114 mg/dL (60-115)
[2022-03-02 20:51] VITALS: BP 120/58; PULSE 92; TEMP 36.6; O2SAT 95
[2022-03-02] MEDS: traZODone HCL 100 MG TABLET PO (20:58)
[2022-03-02] MEDS: Paliperidone ER 9 MG TAB.ER.24 PO (20:58)
[2022-03-02] MEDS: LORazepam 1 MG TABLET PO (20:58)
[2022-03-03] MEDS: traZODone HCL 50 MG TABLET PO (01:21)
[2022-03-03 07:00] VITALS: BMI 51.2
[2022-03-03 08:36] LABS: Glucose, Whole Blood 102 mg/dL (60-115)
[2022-03-03 08:45] VITALS: BP 128/71; PULSE 82; RESP 20; TEMP 36.4; O2SAT 94
[2022-03-03] MEDS: metFORMIN HCl 500 MG TABLET PO ×2 (08:53→17:08)
[2022-03-03] MEDS: Levothyroxine Sodium 50 MCG TABLET PO (08:53)
[2022-03-03] MEDS: lisinopriL 20 MG TABLET PO (08:53)
[2022-03-03] MEDS: FLUoxetine HCl 10 MG CAPSULE PO (08:53)
--- NOTE | 2022-03-03 09:41 | P.PNPSI_ITS ---
Subjective Subjective Date of Service: 03/03/22 Reason For Visit: Hallucinations/psychosis Subjective Notes: Conditional Voluntary Interim History: Pt continues to present with constricted affect, delayed in response. She reports sleeping and eating well. She reports she is not hearing voices as much. She denies seeing monsters. She denies SI/HI.Somewhat suspicious about male staff who had entered the room while meeting with this junior technical writer. Per nursing, no behavioral concerns. Medication Compliance: Yes Side effects from medications: No Review of Systems Review of Systems Constitutional: No Fever, No Chills, No Fatigue, No Malaise, +insomnia ENT/Mouth: No Ear Pain, No Nasal Congestion, No sore throat, No Rhinorrhea, No Swallowing Difficulty Eyes: No Eye Pain, No Swelling, No Redness, No Vision Changes Cardiovascular: No Chest Pain, No SOB, No Edema, No Palpitations Respiratory: No Cough, No Sputum, No Dyspnea Gastrointestinal: No Nausea, No Vomiting, No Diarrhea, No Constipation, No Abdominal pain Genitourinary: No Dysuria, No Urinary Frequency, No Hematuria, No Urinary Incontinence/retention, No Flank Pain Musculoskeletal: No joint pain, No Myalgias, No Joint Swelling Skin: No Skin Lesions, No rash Neuro: No Weakness, No Numbness, No Dizziness, No Headache Psych: No Anxiety/Panic, No Depression, No SI/HI, +AH, No VH, No Social Issues Yes all other systems are reviewed and are negative Constitutional: Reports as per HPI Mental Status Exam Mental Status Exam Narrative: Appearance: casually groomed, fair hygiene in NAD Behavior: cooperative psychomotor: no agitation or retardation noted Speech:mumbles at times, some delayed responses, spontaneous Thought process:disorganized at times Thought content:less anxious and scared of monster she is seeing and voices telling her that she has no apartment. Mood: better Affect: constricted in no distress SI:none HI:none VH/AH: less +AH, VH of monsters Delusions:paranoid delusions Insight/judgment:fair x 2. Memory/cog: alert, oriented x 3. limited cognitively but not formally tested. Diagnostics Vital Signs (24Hr): Vital Signs - 24 hr 03/03/22 20:45 03/04/22 08:58 Temperature 97.9 F 97.7 F Pulse Rate 69 78 Respiratory Rate 20 16 Blood Pressure 130/69 115/62 Pulse Oximetry 95 96 Oxygen Delivery Method Room Air Room Air BMI result Body Mass Index 51.2 Labs Results: 02/23/22 17:23 02/24/22 08:11 Labs: Laboratory Results - last 48 hr 03/02/22 03/03/22 03/03/22 20:27 08:21 21:00 POC Glucose 114 102 112 03/04/22 08:30 POC Glucose 98 Medications Medications Current Medications Acetaminophen (Acetaminophen 325 Mg Tablet) 650 mg PO Q6H PRN PRN Reason: Headache/Pain Mild Scale (1-3) Last Admin: 02/25/22 10:21 Dose: 650 mg Al Hydroxide/Mg Hydroxide (Magnesium Hydrox/Alum Hydrox 30 Ml Oral.Susp) 30 ml PO Q6H PRN PRN Reason: Heartburn/Nausea Last Admin: 03/01/22 17:31 Dose: 30 ml Fluoxetine HCl (Fluoxetine Hcl 10 Mg Capsule) 10 mg PO DAILY SARATH Last Admin: 03/04/22 09:07 Dose: 10 mg Hydrocortisone (Hydrocortisone 1 % Ointment 28.35 Gm Tube) 1 appl TOPICAL BID SARATH; Protocol Last Admin: 03/04/22 09:07 Dose: 1 appl Hydroxyzine HCl (Hydroxyzine Hcl 25 Mg Tablet) 25 mg PO Q6H PRN PRN Reason: Anxiety Last Admin: 02/26/22 21:34 Dose: 25 mg Levothyroxine Sodium (Levothyroxine Sodium 50 Mcg Tablet) 50 mcg PO DAILY SARATH Last Admin: 03/04/22 09:07 Dose: 50 mcg Lisinopril (Lisinopril 20 Mg Tablet) 20 mg PO DAILY SARATH; Protocol Last Admin: 03/04/22 09:07 Dose: 20 mg Lorazepam (Lorazepam 1 Mg Tablet) 1 mg PO BEDTIME SARATH Last Admin: 03/03/22 20:49 Dose: 1 mg Magnesium Hydroxide (Milk Of Magnesia 30 Ml Oral.Susp) 30 ml PO DAILY PRN PRN Reason: Constipation Last Admin: 03/01/22 09:23 Dose: 30 ml Metformin HCl (Metformin Hcl 500 Mg Tablet) 500 mg PO BIDWM SARATH Last Admin: 03/04/22 09:07 Dose: 500 mg Paliperidone (Paliperidone Er 9 Mg Tab.Er.24) 9 mg PO BEDTIME SARATH Last Admin: 03/03/22 20:49 Dose: 9 mg Polyethylene Glycol (Polyethylene Glycol 3350 17 Gm Powd.Pack) 17 gm PO DAILY PRN PRN Reason: Constipation Last Admin: 02/26/22 14:20 Dose: 17 gm Trazodone HCl (Trazodone Hcl 50 Mg Tablet) 50 mg PO BEDTIME PRN PRN Reason: Insomnia Last Admin: 03/03/22 01:21 Dose: 50 mg Trazodone HCl (Trazodone Hcl 100 Mg Tablet) 100 mg PO BEDTIME SARATH Last Admin: 03/03/22 20:49 Dose: 100 mg Allergies Allergies Allergy/AdvReac Type Severity Reaction Status Date / Time No Known Allergies Allergy Mild NOT Unverified 03/05/20 16:31 APPLICABLE Assessment & Plan Assessment & Plan (1) Schizoaffective disorder: Status: Acute Code(s): F25.9 - Schizoaffective disorder, unspecified Plan Mrs. Wood is 62 year-old with hx of schizophrenia. She brought in to hospital as she has not been sleeping and increasingly hearing more voices telling her that she is about to lose her apartment and that she will be hurt, seeing monsters which is very distressing to her. NO SI/HI. This is similar presentation as when she was last admitted to back in 03/2020. Utox positive for fentanyl but this may be false positive. Pt does not have substance use hx. She has been on invega sustenna 156mg IM qmonthly but unclear if she has been taking it or not. We discussed risks, benefits and alternative treatment options. Will start oral paliperidone 6mg po qhs, as we verify last Sustenna injection. Continue clonazepam. PLAN 1. Admit to , CV, 15 minutes checks for safety 2. start oral as we confirm dose 6mg po qhs, continue clonazepam 1mg po QHS. 3. Obtain collateral information 4. Aftercare planning. 02/27/2022 Continue plan of care try and confirm what Invega injection due 02/28 continue current medications. 03/01 continue current medications. 03/02 continue current medications. 03/03 continue current medications, start low dose ativan blank stares. I spent minutes with the patient and/or on the patient floor today, greater than?50% of which was spent counseling/coordinating care. Reason for contiued inpatient stay Substantial Risk for: inability to function
[2022-03-03] MEDS: Hydrocortisone 1 % Ointment 28.35 GM TUBE 1 APPL TOPICAL ×2 (17:15→22:06)
[2022-03-03 20:45] VITALS: BP 130/69; PULSE 69; RESP 20; TEMP 36.6; O2SAT 95
[2022-03-03] MEDS: LORazepam 1 MG TABLET PO (20:49)
[2022-03-03] MEDS: Paliperidone ER 9 MG TAB.ER.24 PO (20:49)
[2022-03-03] MEDS: traZODone HCL 100 MG TABLET PO (20:49)
[2022-03-03 21:05] LABS: Glucose, Whole Blood 112 mg/dL (60-115)
[2022-03-04 08:35] LABS: Glucose, Whole Blood 98 mg/dL (60-115)
[2022-03-04 08:58] VITALS: BP 115/62; PULSE 78; RESP 16; TEMP 36.5; O2SAT 96
[2022-03-04] MEDS: Levothyroxine Sodium 50 MCG TABLET PO (09:07)
[2022-03-04] MEDS: FLUoxetine HCl 10 MG CAPSULE PO (09:07)
[2022-03-04] MEDS: lisinopriL 20 MG TABLET PO (09:07)
[2022-03-04] MEDS: metFORMIN HCl 500 MG TABLET PO ×2 (09:07→17:34)
[2022-03-04] MEDS: Hydrocortisone 1 % Ointment 28.35 GM TUBE 1 APPL TOPICAL (09:07)
--- NOTE | 2022-03-04 09:16 | P.PNPSI_ITS ---
Subjective Subjective Date of Service: 03/04/22 Reason For Visit: Hallucinations/psychosis Subjective Notes: Conditional Voluntary Interim History: Pt given ativan challenge as she has been presenting with blank stare, less verbal. Pt significantly brighten after ativan 1.5mg po much more visible. She is smiling, reports doing better, hearing less voices. No SI/HI. No VH. No behavioral concerns. Medication Compliance: Yes Review of Systems Review of Systems Constitutional: No Fever, No Chills, No Fatigue, No Malaise, +insomnia ENT/Mouth: No Ear Pain, No Nasal Congestion, No sore throat, No Rhinorrhea, No Swallowing Difficulty Eyes: No Eye Pain, No Swelling, No Redness, No Vision Changes Cardiovascular: No Chest Pain, No SOB, No Edema, No Palpitations Respiratory: No Cough, No Sputum, No Dyspnea Gastrointestinal: No Nausea, No Vomiting, No Diarrhea, No Constipation, No Abdominal pain Genitourinary: No Dysuria, No Urinary Frequency, No Hematuria, No Urinary Incontinence/retention, No Flank Pain Musculoskeletal: No joint pain, No Myalgias, No Joint Swelling Skin: No Skin Lesions, No rash Neuro: No Weakness, No Numbness, No Dizziness, No Headache Psych: No Anxiety/Panic, No Depression, No SI/HI, +AH, No VH, No Social Issues Yes all other systems are reviewed and are negative Constitutional: Reports as per [facility] Mental Status Exam Mental Status Exam Narrative: Appearance: casually groomed, fair hygiene in NAD Behavior: cooperative psychomotor: no agitation or retardation noted Speech:mumbles at times, some delayed responses, spontaneous Thought process:disorganized at times Thought content:less anxious and scared of monster she is seeing and voices telling her that she has no apartment. Mood: better Affect: constricted in no distress SI:none HI:none VH/AH: less +AH, VH of monsters Delusions:paranoid delusions Insight/judgment:fair x 2. Memory/cog: alert, oriented x 3. limited cognitively but not formally tested. Diagnostics Vital Signs (24Hr): Vital Signs - 24 hr 03/04/22 21:12 03/05/22 06:00 Temperature 97.6 F 97.2 F Pulse Rate 86 100 Respiratory Rate 18 16 Blood Pressure 116/59 L 120/85 Pulse Oximetry 95 94 Oxygen Delivery Method Room Air Room Air BMI result Body Mass Index 51.2 Labs Results: 02/23/22 17:23 02/24/22 08:11 Labs: Laboratory Results - last 48 hr 03/03/22 03/04/22 03/04/22 21:00 08:30 21:15 POC Glucose 112 98 105 03/05/22 08:27 POC Glucose 111 Medications Medications Current Medications Acetaminophen (Acetaminophen 325 Mg Tablet) 650 mg PO Q6H PRN PRN Reason: Headache/Pain Mild Scale (1-3) Last Admin: 02/25/22 10:21 Dose: 650 mg Al Hydroxide/Mg Hydroxide (Magnesium Hydrox/Alum Hydrox 30 Ml Oral.Susp) 30 ml PO Q6H PRN PRN Reason: Heartburn/Nausea Last Admin: 03/01/22 17:31 Dose: 30 ml Fluoxetine HCl (Fluoxetine Hcl 10 Mg Capsule) 10 mg PO DAILY SARATH Last Admin: 03/05/22 09:10 Dose: 10 mg Hydrocortisone (Hydrocortisone 1 % Ointment 28.35 Gm Tube) 1 appl TOPICAL BID SARATH; Protocol Last Admin: 03/05/22 09:14 Dose: 1 appl Hydroxyzine HCl (Hydroxyzine Hcl 25 Mg Tablet) 25 mg PO Q6H PRN PRN Reason: Anxiety Last Admin: 02/26/22 21:34 Dose: 25 mg Levothyroxine Sodium (Levothyroxine Sodium 50 Mcg Tablet) 50 mcg PO DAILY SARATH Last Admin: 03/05/22 09:11 Dose: 50 mcg Lisinopril (Lisinopril 20 Mg Tablet) 20 mg PO DAILY SARATH; Protocol Last Admin: 03/05/22 09:11 Dose: 20 mg Lorazepam (Lorazepam 0.5 Mg Tablet) 0.5 mg PO TID SARATH Last Admin: 03/05/22 09:10 Dose: 0.5 mg Magnesium Hydroxide (Milk Of Magnesia 30 Ml Oral.Susp) 30 ml PO DAILY PRN PRN Reason: Constipation Last Admin: 03/01/22 09:23 Dose: 30 ml Metformin HCl (Metformin Hcl 500 Mg Tablet) 500 mg PO BIDWM SARATH Last Admin: 03/05/22 09:10 Dose: 500 mg Paliperidone (Paliperidone Er 9 Mg Tab.Er.24) 9 mg PO BEDTIME SARATH Last Admin: 03/04/22 21:29 Dose: 9 mg Polyethylene Glycol (Polyethylene Glycol 3350 17 Gm Powd.Pack) 17 gm PO DAILY PRN PRN Reason: Constipation Last Admin: 02/26/22 14:20 Dose: 17 gm Trazodone HCl (Trazodone Hcl 50 Mg Tablet) 50 mg PO BEDTIME PRN PRN Reason: Insomnia Last Admin: 03/03/22 01:21 Dose: 50 mg Trazodone HCl (Trazodone Hcl 100 Mg Tablet) 100 mg PO BEDTIME SARATH Last Admin: 03/04/22 21:29 Dose: 100 mg Allergies Allergies Allergy/AdvReac Type Severity Reaction Status Date / Time No Known Allergies Allergy Mild NOT Unverified 03/05/20 16:31 APPLICABLE Assessment & Plan Assessment & Plan (1) Schizoaffective disorder: Status: Acute Code(s): F25.9 - Schizoaffective disorder, unspecified Plan Mrs. Wood is 62 year-old with hx of schizophrenia. She brought in to hospital as she has not been sleeping and increasingly hearing more voices telling her that she is about to lose her apartment and that she will be hurt, seeing monsters which is very distressing to her. NO SI/HI. This is similar presentation as when she was last admitted to back in 03/2020. Utox positive for fentanyl but this may be false positive. Pt does not have substance use hx. She has been on invega sustenna 156mg IM qmonthly but unclear if she has been taking it or not. We discussed risks, benefits and alternative treatment options. Will start oral paliperidone 6mg po qhs, as we verify last Sustenna injection. Continue clonazepam. PLAN 1. Admit to , CV, 15 minutes checks for safety 2. start oral as we confirm dose 6mg po qhs, continue clonazepam 1mg po QHS. 3. Obtain collateral information 4. Aftercare planning. 02/27/2022 Continue plan of care try and confirm what Invega injection due 02/28 continue current medications. 03/01 continue current medications. 03/02 continue current medications. 03/03 continue current medications, start low dose ativan blank stares. 03/04 continue ativan 0.5mg po tid, continue paliperidone. I spent minutes with the patient and/or on the patient floor today, greater than?50% of which was spent counseling/coordinating care. Reason for contiued inpatient stay Substantial Risk for: inability to function
[2022-03-04] MEDS: LORazepam 0.5 MG TABLET PO ×3 (10:19→21:29)
[2022-03-04] MEDS: LORazepam 1 MG TABLET PO (10:19)
[2022-03-04 21:12] VITALS: BP 116/59; PULSE 86; RESP 18; TEMP 36.4; O2SAT 95
[2022-03-04] MEDS: Paliperidone ER 9 MG TAB.ER.24 PO (21:29)
[2022-03-04] MEDS: traZODone HCL 100 MG TABLET PO (21:29)
[2022-03-04 21:43] LABS: Glucose, Whole Blood 105 mg/dL (60-115)
[2022-03-05 06:00] VITALS: BP 120/85; PULSE 100; RESP 16; TEMP 36.2; O2SAT 94
[2022-03-05 09:04] LABS: Glucose, Whole Blood 111 mg/dL (60-115)
[2022-03-05] MEDS: LORazepam 0.5 MG TABLET PO ×3 (09:10→22:27)
[2022-03-05] MEDS: FLUoxetine HCl 10 MG CAPSULE PO (09:10)
[2022-03-05] MEDS: metFORMIN HCl 500 MG TABLET PO ×2 (09:10→16:51)
[2022-03-05] MEDS: lisinopriL 20 MG TABLET PO (09:11)
[2022-03-05] MEDS: Levothyroxine Sodium 50 MCG TABLET PO (09:11)
[2022-03-05] MEDS: Hydrocortisone 1 % Ointment 28.35 GM TUBE 1 APPL TOPICAL (09:14)
--- NOTE | 2022-03-05 09:18 | P.PNPSI_ITS ---
Subjective Subjective Date of Service: 03/05/22 Reason For Visit: Hallucinations/psychosis Subjective Notes: Conditional Voluntary Interim History: Pt with brighter affect, more talkative without signs of labile mood. She reports sleeping well. She reports eating fine. She denies SI/HI. She reports less AH, no monster although reported to RN last night seeing some. No behavioral concerns. Medication Compliance: Yes Side effects from medications: No Review of Systems Review of Systems Constitutional: No Fever, No Chills, No Fatigue, No Malaise, +insomnia ENT/Mouth: No Ear Pain, No Nasal Congestion, No sore throat, No Rhinorrhea, No Swallowing Difficulty Eyes: No Eye Pain, No Swelling, No Redness, No Vision Changes Cardiovascular: No Chest Pain, No SOB, No Edema, No Palpitations Respiratory: No Cough, No Sputum, No Dyspnea Gastrointestinal: No Nausea, No Vomiting, No Diarrhea, No Constipation, No Abdominal pain Genitourinary: No Dysuria, No Urinary Frequency, No Hematuria, No Urinary Incontinence/retention, No Flank Pain Musculoskeletal: No joint pain, No Myalgias, No Joint Swelling Skin: No Skin Lesions, No rash Neuro: No Weakness, No Numbness, No Dizziness, No Headache Psych: No Anxiety/Panic, No Depression, No SI/HI, +AH, No VH, No Social Issues Yes all other systems are reviewed and are negative Constitutional: Reports as per [facility] Mental Status Exam Mental Status Exam Narrative: Appearance: casually groomed, fair hygiene in NAD Behavior: cooperative psychomotor: no agitation or retardation noted Speech:mumbles at times, some delayed responses, spontaneous Thought process:disorganized at times Thought content:less anxious and scared of monster she is seeing and voices telling her that she has no apartment. Mood: better Affect: constricted in no distress SI:none HI:none VH/AH: less +AH, VH of monsters Delusions:paranoid delusions Insight/judgment:fair x 2. Memory/cog: alert, oriented x 3. limited cognitively but not formally tested. Diagnostics Vital Signs (24Hr): Vital Signs - 24 hr 03/04/22 21:12 03/05/22 06:00 Temperature 97.6 F 97.2 F Pulse Rate 86 100 Respiratory Rate 18 16 Blood Pressure 116/59 L 120/85 Pulse Oximetry 95 94 Oxygen Delivery Method Room Air Room Air BMI result Body Mass Index 51.2 Labs Results: 02/23/22 17:23 02/24/22 08:11 Labs: Laboratory Results - last 48 hr 03/03/22 03/04/22 03/04/22 21:00 08:30 21:15 POC Glucose 112 98 105 03/05/22 08:27 POC Glucose 111 Medications Medications Current Medications Acetaminophen (Acetaminophen 325 Mg Tablet) 650 mg PO Q6H PRN PRN Reason: Headache/Pain Mild Scale (1-3) Last Admin: 02/25/22 10:21 Dose: 650 mg Al Hydroxide/Mg Hydroxide (Magnesium Hydrox/Alum Hydrox 30 Ml Oral.Susp) 30 ml PO Q6H PRN PRN Reason: Heartburn/Nausea Last Admin: 03/01/22 17:31 Dose: 30 ml Fluoxetine HCl (Fluoxetine Hcl 10 Mg Capsule) 10 mg PO DAILY SARATH Last Admin: 03/05/22 09:10 Dose: 10 mg Hydrocortisone (Hydrocortisone 1 % Ointment 28.35 Gm Tube) 1 appl TOPICAL BID SARATH; Protocol Last Admin: 03/05/22 09:14 Dose: 1 appl Hydroxyzine HCl (Hydroxyzine Hcl 25 Mg Tablet) 25 mg PO Q6H PRN PRN Reason: Anxiety Last Admin: 02/26/22 21:34 Dose: 25 mg Levothyroxine Sodium (Levothyroxine Sodium 50 Mcg Tablet) 50 mcg PO DAILY SARATH Last Admin: 03/05/22 09:11 Dose: 50 mcg Lisinopril (Lisinopril 20 Mg Tablet) 20 mg PO DAILY SARATH; Protocol Last Admin: 03/05/22 09:11 Dose: 20 mg Lorazepam (Lorazepam 0.5 Mg Tablet) 0.5 mg PO TID SARATH Last Admin: 03/05/22 09:10 Dose: 0.5 mg Magnesium Hydroxide (Milk Of Magnesia 30 Ml Oral.Susp) 30 ml PO DAILY PRN PRN Reason: Constipation Last Admin: 03/01/22 09:23 Dose: 30 ml Metformin HCl (Metformin Hcl 500 Mg Tablet) 500 mg PO BIDWM SARATH Last Admin: 03/05/22 09:10 Dose: 500 mg Paliperidone (Paliperidone Er 9 Mg Tab.Er.24) 9 mg PO BEDTIME SARATH Last Admin: 03/04/22 21:29 Dose: 9 mg Polyethylene Glycol (Polyethylene Glycol 3350 17 Gm Powd.Pack) 17 gm PO DAILY PRN PRN Reason: Constipation Last Admin: 02/26/22 14:20 Dose: 17 gm Trazodone HCl (Trazodone Hcl 50 Mg Tablet) 50 mg PO BEDTIME PRN PRN Reason: Insomnia Last Admin: 03/03/22 01:21 Dose: 50 mg Trazodone HCl (Trazodone Hcl 100 Mg Tablet) 100 mg PO BEDTIME SARATH Last Admin: 03/04/22 21:29 Dose: 100 mg Allergies Allergies Allergy/AdvReac Type Severity Reaction Status Date / Time No Known Allergies Allergy Mild NOT Unverified 03/05/20 16:31 APPLICABLE Assessment & Plan Assessment & Plan (1) Schizoaffective disorder: Status: Acute Code(s): F25.9 - Schizoaffective disorder, unspecified Plan Mrs. Wood is 62 year-old with hx of schizophrenia. She brought in to hospital as she has not been sleeping and increasingly hearing more voices telling her that she is about to lose her apartment and that she will be hurt, seeing monsters which is very distressing to her. NO SI/HI. This is similar p resentation as when she was last admitted to back in 03/2020. Utox positive for fentanyl but this may be false positive. Pt does not have substance use hx. She has been on invega sustenna 156mg IM qmonthly but unclear if she has been taking it or not. We discussed risks, benefits and alternative treatment options. Will start oral paliperidone 6mg po qhs, as we verify last Sustenna injection. Continue clonazepam. PLAN 1. Admit to , CV, 15 minutes checks for safety 2. start oral as we confirm dose 6mg po qhs, continue clonazepam 1mg po QHS. 3. Obtain collateral information 4. Aftercare planning. 02/27/2022 Continue plan of care try and confirm what Invega injection due 02/28 continue current medications. 03/01 continue current medications. 03/02 continue current medications. 03/03 continue current medications, start low dose ativan blank stares. 03/04 continue ativan 0.5mg po tid, continue paliperidone. 03/05 continue current medications. I spent minutes with the patient and/or on the patient floor today, greater than?50% of which was spent counseling/coordinating care. Reason for contiued inpatient stay Substantial Risk for: inability to function
[2022-03-05 11:49] LABS: Creatinine Clr Calc Pharmacy 90.8; Estimated Glomerular Filt Rate > 60
[2022-03-05 22:18] VITALS: BP 133/74; PULSE 96; RESP 18; TEMP 36.3; O2SAT 94
[2022-03-05] MEDS: Paliperidone ER 9 MG TAB.ER.24 PO (22:27)
[2022-03-05] MEDS: traZODone HCL 100 MG TABLET PO (22:27)
[2022-03-05 22:41] LABS: Glucose, Whole Blood 93 mg/dL (60-115)
[2022-03-06 08:30] VITALS: BP 107/59; PULSE 110; RESP 16; TEMP 36.8; O2SAT 98
[2022-03-06 08:42] LABS: Glucose, Whole Blood 110 mg/dL (60-115)
[2022-03-06] MEDS: FLUoxetine HCl 10 MG CAPSULE PO (09:07)
[2022-03-06] MEDS: Levothyroxine Sodium 50 MCG TABLET PO (09:08)
[2022-03-06] MEDS: lisinopriL 20 MG TABLET PO (09:08)
[2022-03-06] MEDS: LORazepam 0.5 MG TABLET PO ×3 (09:08→21:20)
[2022-03-06] MEDS: metFORMIN HCl 500 MG TABLET PO ×2 (09:08→18:13)
--- NOTE | 2022-03-06 11:49 | HO.PSYCHPN ---
Subjective Subjective Date of Service: 03/06/22 Reason For Visit: Hallucinations/psychosis Subjective Notes: Conditional Voluntary Interim History: Pt with brighter affect, smiling. She reports less AH/VH. No SI/HI. She has been visible on the unit. She is taking medications as prescribed looking forward to return home. Medication Compliance: Yes Review of Systems Review of Systems Constitutional: No Fever, No Chills, No Fatigue, No Malaise, +insomnia ENT/Mouth: No Ear Pain, No Nasal Congestion, No sore throat, No Rhinorrhea, No Swallowing Difficulty Eyes: No Eye Pain, No Swelling, No Redness, No Vision Changes Cardiovascular: No Chest Pain, No SOB, No Edema, No Palpitations Respiratory: No Cough, No Sputum, No Dyspnea Gastrointestinal: No Nausea, No Vomiting, No Diarrhea, No Constipation, No Abdominal pain Genitourinary: No Dysuria, No Urinary Frequency, No Hematuria, No Urinary Incontinence/retention, No Flank Pain Musculoskeletal: No joint pain, No Myalgias, No Joint Swelling Skin: No Skin Lesions, No rash Neuro: No Weakness, No Numbness, No Dizziness, No Headache Psych: No Anxiety/Panic, No Depression, No SI/HI, +AH, No VH, No Social Issues Yes all other systems are reviewed and are negative Constitutional: Reports as per [facility] Mental Status Exam Mental Status Exam Narrative: Appearance: casually groomed, fair hygiene in NAD Behavior: cooperative psychomotor: no agitation or retardation noted Speech:mumbles at times, some delayed responses, spontaneous Thought process:disorganized at times Thought content:less anxious and scared of monster she is seeing and voices telling her that she has no apartment. Mood: better Affect: brighter, non labile. SI:none HI:none VH/AH: less +AH, VH of monsters Delusions:less pranoia Insight/judgment:fair x 2. Memory/cog: alert, oriented x 3. limited cognitively but not formally tested. Diagnostics Vital Signs (24Hr): Vital Signs - 24 hr 03/06/22 08:30 03/06/22 20:15 Temperature 98.3 F 97.4 F Pulse Rate 110 H 95 Respiratory Rate 16 16 Blood Pressure 107/59 L 148/81 H Pulse Oximetry 98 97 Oxygen Delivery Method Room Air Room Air BMI result Body Mass Index 51.2 Labs Results: 02/23/22 17:23 03/05/22 11:19 Labs: Laboratory Results - last 48 hr 03/05/22 03/05/22 03/05/22 08:27 11:19 22:22 Creatinine 0.73 Estim Creat Clear Calc 90.8 Estimated GFR > 60 POC Glucose 111 93 03/06/22 03/06/22 08:32 21:19 Creatinine Estim Creat Clear Calc Estimated GFR POC Glucose 110 119 H Medications Medications Current Medications Acetaminophen (Acetaminophen 325 Mg Tablet) 650 mg PO Q6H PRN PRN Reason: Headache/Pain Mild Scale (1-3) Last Admin: 02/25/22 10:21 Dose: 650 mg Al Hydroxide/Mg Hydroxide (Magnesium Hydrox/Alum Hydrox 30 Ml Oral.Susp) 30 ml PO Q6H PRN PRN Reason: Heartburn/Nausea Last Admin: 03/01/22 17:31 Dose: 30 ml Fluoxetine HCl (Fluoxetine Hcl 10 Mg Capsule) 10 mg PO DAILY SARATH Last Admin: 03/06/22 09:07 Dose: 10 mg Hydrocortisone (Hydrocortisone 1 % Ointment 28.35 Gm Tube) 1 appl TOPICAL BID SARATH; Protocol Last Admin: 03/06/22 21:00 Dose: Not Given Hydroxyzine HCl (Hydroxyzine Hcl 25 Mg Tablet) 25 mg PO Q6H PRN PRN Reason: Anxiety Last Admin: 02/26/22 21:34 Dose: 25 mg Levothyroxine Sodium (Levothyroxine Sodium 50 Mcg Tablet) 50 mcg PO DAILY SARATH Last Admin: 03/06/22 09:08 Dose: 50 mcg Lisinopril (Lisinopril 20 Mg Tablet) 20 mg PO DAILY SARATH; Protocol Last Admin: 03/06/22 09:08 Dose: 20 mg Lorazepam (Lorazepam 0.5 Mg Tablet) 0.5 mg PO TID SARATH Last Admin: 03/06/22 21:20 Dose: 0.5 mg Magnesium Hydroxide (Milk Of Magnesia 30 Ml Oral.Susp) 30 ml PO DAILY PRN PRN Reason: Constipation Last Admin: 03/01/22 09:23 Dose: 30 ml Metformin HCl (Metformin Hcl 500 Mg Tablet) 500 mg PO BIDWM SARATH Last Admin: 03/06/22 18:13 Dose: 500 mg Paliperidone (Paliperidone Er 9 Mg Tab.Er.24) 9 mg PO BEDTIME SARATH Last Admin: 09/18/22 21:20 Dose: 9 mg Polyethylene Glycol (Polyethylene Glycol 3350 17 Gm Powd.Pack) 17 gm PO DAILY PRN PRN Reason: Constipation Last Admin: 02/26/22 14:20 Dose: 17 gm Trazodone HCl (Trazodone Hcl 50 Mg Tablet) 50 mg PO BEDTIME PRN PRN Reason: Insomnia Last Admin: 03/07/22 01:20 Dose: 50 mg Trazodone HCl (Trazodone Hcl 100 Mg Tablet) 100 mg PO BEDTIME SARATH Last Admin: 03/06/22 21:20 Dose: 100 mg Allergies Allergies Allergy/AdvReac Type Severity Reaction Status Date / Time No Known Allergies Allergy Mild NOT Unverified 03/05/20 16:31 APPLICABLE Assessment & Plan Assessment & Plan (1) Schizoaffective disorder: Status: Acute Code(s): F25.9 - Schizoaffective disorder, unspecified Plan Mrs. Wood is 62 year-old with hx of schizophrenia. She brought in to hospital as she has not been sleeping and increasingly hearing more voices telling her that she is about to lose her apartment and that she will be hurt, seeing monsters which is very distressing to her. NO SI/HI. This is similar presentation as when she was last admitted to back in 03/2020. Utox positive for fentanyl but this may be false positive. Pt does not have substance use hx. She has been on invega sustenna 156mg IM qmonthly but unclear if she has been taking it or not. We discussed risks, benefits and alternative treatment options. Will start oral paliperidone 6mg po qhs, as we verify last Sustenna injection. Continue clonazepam. PLAN 1. Admit to [facility], CV, 15 minutes checks for safety 2. start oral as we confirm dose 6mg po qhs, continue clonazepam 1mg po QHS. 3. Obtain collateral information 4. Aftercare planning. 02/27/2022 Continue plan of care try and confirm what Invega injection due 02/28 continue current medications. 03/01 continue current medications. 03/02 continue current medications. 03/03 continue current medications, start low dose ativan blank stares. 03/04 continue ativan 0.5mg po tid, continue paliperidone. 03/05 continue current medications. 03/06 continue current medications. I spent minutes with the patient and/or on the patient floor today, greater than?50% of which was spent counseling/coordinating care. Reason for contiued inpatient stay Substantial Risk for: inability to function
[2022-03-06 20:15] VITALS: BP 148/81; PULSE 95; RESP 16; TEMP 36.3; O2SAT 97
[2022-03-06] MEDS: Paliperidone ER 9 MG TAB.ER.24 PO (21:20)
[2022-03-06] MEDS: traZODone HCL 100 MG TABLET PO (21:20)
[2022-03-06 22:36] LABS: Glucose, Whole Blood 119 mg/dL (60-115)
[2022-03-07] MEDS: traZODone HCL 50 MG TABLET PO (01:20)
[2022-03-07 06:00] VITALS: BP 130/87; PULSE 91; RESP 16; TEMP 36.7; O2SAT 95
[2022-03-07] MEDS: metFORMIN HCl 500 MG TABLET PO ×2 (09:00→16:04)
[2022-03-07] MEDS: lisinopriL 20 MG TABLET PO (09:00)
[2022-03-07] MEDS: FLUoxetine HCl 10 MG CAPSULE PO (09:00)
[2022-03-07] MEDS: Levothyroxine Sodium 50 MCG TABLET PO (09:01)
[2022-03-07] MEDS: LORazepam 0.5 MG TABLET PO ×3 (09:01→21:06)
[2022-03-07 12:26] LABS: Glucose, Whole Blood 170 mg/dL (60-115)
--- NOTE | 2022-03-07 15:48 | HO.PSYCHPN ---
Subjective Subjective Date of Service: 03/07/22 Reason For Visit: Hallucinations/psychosis Interim History: denies AVH, SI/HI. mood a little better. seen with staffing branch manager. discuss her loneliness at home and that she is in a program from 8:30 to 2 three days per week. she may look into trying to go 5 days per week. planning for discharge tomorrow. per staff, denies psych Sx. distractable. low anxiety. appears to be RIS. Mental Status Exam Mental Status Exam Narrative: Appearance: casually groomed, fair hygiene in NAD Behavior: cooperative psychomotor: no agitation or retardation noted Speech:mumbles at times, some delayed responses, spontaneous Thought process:disorganized at times Thought content:less anxious and scared of monster she is seeing and voices telling her that she has no apartment. Mood: a little better Affect: brighter, non labile. SI:none HI:none VH/AH: denies Delusions:less pranoia Insight/judgment:fair x 2. Memory/cog: alert, oriented x 3. limited cognitively but not formally tested. Diagnostics Vital Signs (24Hr): Vital Signs - 24 hr 03/06/22 20:15 03/07/22 06:00 Temperature 97.4 F 98.0 F Pulse Rate 95 91 Respiratory Rate 16 16 Blood Pressure 148/81 H 130/87 Pulse Oximetry 97 95 Oxygen Delivery Method Room Air Room Air BMI result Body Mass Index 51.2 Labs Results: 02/23/22 17:23 03/05/22 11:19 Labs: Laboratory Results - last 48 hr 03/05/22 03/06/22 03/06/22 22:22 08:32 21:19 POC Glucose 93 110 119 H 03/07/22 12:22 POC Glucose 170 H Medications Medications Current Medications Acetaminophen (Acetaminophen 325 Mg Tablet) 650 mg PO Q6H PRN PRN Reason: Headache/Pain Mild Scale (1-3) Last Admin: 02/25/22 10:21 Dose: 650 mg Al Hydroxide/Mg Hydroxide (Magnesium Hydrox/Alum Hydrox 30 Ml Oral.Susp) 30 ml PO Q6H PRN PRN Reason: Heartburn/Nausea Last Admin: 03/01/22 17:31 Dose: 30 ml Fluoxetine HCl (Fluoxetine Hcl 10 Mg Capsule) 10 mg PO DAILY SARATH Last Admin: 03/07/22 09:00 Dose: 10 mg Hydrocortisone (Hydrocortisone 1 % Ointment 28.35 Gm Tube) 1 appl TOPICAL BID SARATH; Protocol Last Admin: 03/07/22 09:04 Dose: Not Given Hydroxyzine HCl (Hydroxyzine Hcl 25 Mg Tablet) 25 mg PO Q6H PRN PRN Reason: Anxiety Last Admin: 02/26/22 21:34 Dose: 25 mg Levothyroxine Sodium (Levothyroxine Sodium 50 Mcg Tablet) 50 mcg PO DAILY SARATH Last Admin: 03/07/22 09:01 Dose: 50 mcg Lisinopril (Lisinopril 20 Mg Tablet) 20 mg PO DAILY SARATH; Protocol Last Admin: 03/07/22 09:00 Dose: 20 mg Lorazepam (Lorazepam 0.5 Mg Tablet) 0.5 mg PO TID SARATH Last Admin: 03/07/22 09:01 Dose: 0.5 mg Magnesium Hydroxide (Milk Of Magnesia 30 Ml Oral.Susp) 30 ml PO DAILY PRN PRN Reason: Constipation Last Admin: 03/01/22 09:23 Dose: 30 ml Metformin HCl (Metformin Hcl 500 Mg Tablet) 500 mg PO BIDWM SARATH Last Admin: 03/07/22 09:00 Dose: 500 mg Paliperidone (Paliperidone Er 9 Mg Tab.Er.24) 9 mg PO BEDTIME SARATH Last Admin: 03/06/22 21:20 Dose: 9 mg Polyethylene Glycol (Polyethylene Glycol 3350 17 Gm Powd.Pack) 17 gm PO DAILY PRN PRN Reason: Constipation Last Admin: 02/26/22 14:20 Dose: 17 gm Trazodone HCl (Trazodone Hcl 50 Mg Tablet) 50 mg PO BEDTIME PRN PRN Reason: Insomnia Last Admin: 03/07/22 01:20 Dose: 50 mg Trazodone HCl (Trazodone Hcl 100 Mg Tablet) 100 mg PO BEDTIME SARATH Last Admin: 03/06/22 21:20 Dose: 100 mg Allergies Allergies Allergy/AdvReac Type Severity Reaction Status Date / Time No Known Allergies Allergy Mild NOT Unverified 03/05/20 16:31 APPLICABLE Assessment & Plan Assessment & Plan (1) Schizoaffective disorder: Status: Acute Code(s): F25.9 - Schizoaffective disorder, unspecified Plan Mrs. Wood is 62 year-old with hx of schizophrenia. She brought in to hospital as she has not been sleeping and increasingly hearing more voices telling her that she is about to lose her apartment and that she will be hurt, seeing monsters which is very distressing to her. NO SI/HI. This is similar presentation as when she was last admitted to [facility] back in 03/2020. Utox positive for fentanyl but this may be false positive. Pt does not have substance use hx. She has been on invega sustenna 156mg IM qmonthly but unclear if she has been taking it or not. We discussed risks, benefits and alternative treatment options. Will start oral paliperidone 6mg po qhs, as we verify last Sustenna injection. Continue clonazepam. PLAN 1. Admit to [facility], CV, 15 minutes checks for safety 2. start oral as we confirm dose 6mg po qhs, continue clonazepam 1mg po QHS. 3. Obtain collateral information 4. Aftercare planning. 02/27/2022 Continue plan of care try and confirm what Invega injection due 02/28 continue current medications. 03/01 continue current medications. 03/02 continue current medications. 03/03 continue current medications, start low dose ativan blank stares. 03/04 continue ativan 0.5mg po tid, continue paliperidone. 03/05 continue current medications. 03/06 continue current medications. 03/07: continue current mgmt. I spent ___20___ minutes with the patient and/or on the patient floor today, greater than?50% of which was spent counseling/coordinating care. Reason for contiued inpatient stay Substantial Risk for: inability to function and rapid decompensation
[2022-03-07 20:05] VITALS: BP 122/66; PULSE 100; RESP 18; TEMP 36.3; O2SAT 95
[2022-03-07 20:16] LABS: Glucose, Whole Blood 134 mg/dL (60-115)
[2022-03-07] MEDS: Paliperidone ER 9 MG TAB.ER.24 PO (21:06)
[2022-03-07] MEDS: traZODone HCL 100 MG TABLET PO (21:06)
[2022-03-08 08:25] LABS: Glucose, Whole Blood 106 mg/dL (60-115)
[2022-03-08] MEDS: LORazepam 0.5 MG TABLET PO (08:50)
[2022-03-08] MEDS: Levothyroxine Sodium 50 MCG TABLET PO (08:50)
[2022-03-08] MEDS: lisinopriL 20 MG TABLET PO (08:50)
[2022-03-08] MEDS: FLUoxetine HCl 10 MG CAPSULE PO (08:51)
[2022-03-08] MEDS: metFORMIN HCl 500 MG TABLET PO (08:51)
[2022-03-08 08:53] VITALS: BP 129/72; PULSE 80; RESP 17; TEMP 36.6; O2SAT 97
--- NOTE | 2022-03-08 11:50 | P.DS_ITS ---
DS: Providers Provider Date of Service: 03/08/22 Date of admission: 02/23/22 21:36 Primary care physician: Unknown Physician DS: Diagnosis Discharge Diagnosis (1) Schizoaffective disorder: Status: Acute DS: Medications Discharge Medications Home Medications: Home Medications Medication Instructions Recorded Confirmed clonazepam 1 mg tablet 1 mg PO BEDTIME 04/16/20 02/24/22 Previous Rx's Medication Instructions Recorded levothyroxine 50 mcg capsule 50 mcg PO DAILY #30 caps 04/28/20 lisinopril 20 mg tablet 20 mg PO DAILY #30 tabs 04/28/20 paliperidone 9 mg tablet,extended 9 mg PO DAILY #30 tabs 04/28/20 release 24 hr (Invega) paliperidone palmitate 156 mg/mL 156 mg IM Q30D #1 mL 04/28/20 intramuscular syringe (Invega Sustenna) metoclopramide HCl 10 mg tablet 10 mg PO Q6H PRN nausea and 06/13/20 (Reglan) vomiting 7 days #14 tabs oxycodone 5 mg tablet 5 mg PO Q8H PRN pain #10 tabs 06/13/20 psyllium husk 3.4 gram/5.4 gram 1 tbsp PO DAILY #660 grams 01/11/22 oral powder (Metamucil) fluoxetine 10 mg capsule 10 mg PO DAILY 30 days #30 caps 03/08/22 hydrocortisone 1 % topical ointment 1 appl topical BID 30 days #100 03/08/22 grams lorazepam 0.5 mg tablet 0.5 mg PO TID 30 days #90 tabs 03/08/22 metformin 500 mg tablet 500 mg PO BIDWM 30 days #60 tabs 03/08/22 trazodone 100 mg tablet 100 mg PO BEDTIME 30 days #30 tabs 03/08/22 Mental Status Exam Mental Status Exam Narrative: Appearance: casually groomed, fair hygiene in NAD Behavior: cooperative psychomotor: no agitation or retardation noted Speech:mumbles at times, some delayed responses, spontaneous Thought process: generally organized Thought content: no delusions or paranoia expressed Mood: good Affect: brighter, non labile. SI:none HI:none VH/AH: denies Insight/judgment:fair x 2. Memory/cog: alert, oriented x 3. limited cognitively but not formally tested. Data Data Completed and Pending Completed studies during hospitalization [Text1]: 03/01/22 03/02/22 03/02/22 22:22 08:26 20:27 Creatinine Estim Creat Clear Calc Estimated GFR POC Glucose 97 109 114 03/03/22 03/03/22 03/04/22 08:21 21:00 08:30 Creatinine Estim Creat Clear Calc Estimated GFR POC Glucose 102 112 98 03/04/22 03/05/22 03/05/22 21:15 08:27 11:19 Creatinine 0.73 Estim Creat Clear Calc 90.8 Estimated GFR > 60 POC Glucose 105 111 03/05/22 03/06/22 03/06/22 22:22 08:32 21:19 Creatinine Estim Creat Clear Calc Estimated GFR POC Glucose 93 110 119 H 03/07/22 03/07/22 03/08/22 12:22 20:11 08:21 Creatinine Estim Creat Clear Calc Estimated GFR POC Glucose 170 H 134 H 106 DS: Summary Hospital Course Hospital Course: per 02/24 admission note: Mrs. Wood is a 62 year-old with hx of schizophrenia. Pt was brought by daughter as pt has not been sleeping, increase paranoia, hearing voices telling her that she is going to lose her apartment and that she will be hurt. She also reports seeing monsters, which pt reports is very scary and distressing to her. Utox was negative. Mrs. Wood appears poor historian. She reports that she did receive LOPEZ of invega. However, it appears that she has been off her medications, but this has not been confirmed. Pt reports very poor sleep due to increase AH and paranoia which she reports making her feel very anxious. She denies SI/HI. She reports fair appetite.? She abruptly end meeting stating she is feeling very tired and this engineering technical writer is asking too many questions. Past Psychiatric History: Inpatient: [facility] 2019; 2014 unknown ? OP: Dr. Miguel Connors Past Med trials: invega, prozac Medical Evaluation Reviewed: Yes 02/23/22 CBC wnl, CMP, slightly elevated AST/ALT. EKG normal sinus, Qtc 447ms. Normal EKG. [facility] Medical History? Hypertension Hypothyroid 02/25: Pt reports she slept slightly better last night. She does report that she continues to hear voices telling bad things but denies command in nature. She denies SI/HI. She is taking medications as prescribed. Mostly ni her room. No behavioral concerns. 03/01: Pt reports she slept well. She is in bed, reports feeling tired and wanting to rest a bit more. She reports less AH, denies VH- was seeing monsters. She does present with some delayed in response. She denies SI/HI. 03/03: Pt continues to present with constricted affect, delayed in response. She reports sleeping and eating well. She reports she is not hearing voices as much. She denies seeing monsters. She denies SI/HI.Somewhat suspicious about male staff who had entered the room while meeting with this engineering technical writer. Per nursing, no behavioral concerns. 03/04: Pt given ativan challenge as she has been presenting with blank stare, less verbal. Pt significantly brighten after ativan 1.5mg po much more visible. She is smiling, reports doing better, hearing less voices. No SI/HI. No VH. No behavioral concerns. 03/07: denies AVH, SI/HI.? mood a little better. ? seen with rehab consultant.? discuss her loneliness at home and that she is in a program from 8:30 to 2 three days per week.? she may look into trying to go 5 days per week.? planning for discharge tomorrow.? per staff, denies psych Sx.? distractable.? low anxiety.? appears to be RIS. Precis: Mrs. Wood is 62 year-old with hx of schizophrenia. She brought in to hospital as she has not been sleeping and increasingly hearing more voices telling her that she is about to lose her apartment and that she will be hurt, seeing monsters which is very distressing to her. NO SI/HI. This is similar presen tation as when she was last admitted to [address] in 03/2020. Utox positive for fentanyl but this may be false positive. Pt does not have substance use hx. 02/24 - 02/26: She has been on invega sustenna 156mg IM qmonthly but unclear if she has been taking it or not. We discussed risks, benefits and alternative treatment options. Will start oral paliperidone 6mg po qhs, as we verify last Sustenna injection. Continue clonazepam. 02/27: Continue plan of care try and confirm what Invega injection due 02/28: continue current medications. 03/01: continue current medications. 03/02: continue current medications. 03/03: continue current medications, start low dose ativan blank stares. 03/04: continue ativan 0.5mg po tid, continue paliperidone. 03/05: continue current medications. 03/06: continue current medications. 03/07: continue current mgmt. 03/08: stably improved. discharged to care of family. Time Spent with Patient Time attestation: Total time spent providing and/or coordinating discharge services: Time spent: Greater than 30 minutes Discharge Plan Discharge Patient Disposition: Home, Self-Care Discharge Diagnosis: Schizoaffective Disorder, Bipolar Type Referrals: Joaquín Ramires (therapy intake) [Other] - 03/11/22 3:45 pm (In office appointment) Lynne Hickman (psychiatrist) [Other] - 04/06/22 8:00 am (Telehealth appointment - go to [facility] office in [place] and they will set you up with a [facility] for your appointment) Lynne Hickman (psychiatrist) [Other] - 05/11/22 10:30 am (Telehealth appointment - go to [facility] office in [place] and they will set you up with a computer for your appointment) [facility] [Physician] - 1 Week Discharge Medications: New metformin 500 mg Tablet 500 mg PO BIDWM 30 Days Qty: 60 0RF hydrocortisone 1 % Ointment 1 appl topical BID 30 Days Qty: 100 0RF Protocol: Apply to: Apply to: left deltoid lorazepam 0.5 mg Tablet 0.5 mg PO TID 30 Days Qty: 90 0RF trazodone 100 mg Tablet 100 mg PO BEDTIME 30 Days Qty: 30 0RF fluoxetine 10 mg Capsule 10 mg PO DAILY 30 Days Qty: 30 0RF Continued clonazepam 1 mg Tablet 1 mg PO BEDTIME paliperidone [Invega] 9 mg Tablet Extended Release 24hr 9 mg PO DAILY Qty: 30 0RF Invega Sustenna 156 mg/mL Syringe 156 mg IM Q30D Qty: 1 0RF lisinopril 20 mg Tablet 20 mg PO DAILY Qty: 30 0RF levothyroxine 50 mcg Capsule 50 mcg PO DAILY Qty: 30 0RF metoclopramide HCl [Reglan] 10 mg tablet 10 mg PO Q6H PRN (Reason: nausea and vomiting) 7 Days Qty: 14 0RF oxycodone 5 mg tablet 5 mg PO Q8H PRN (Reason: pain) Qty: 10 0RF Metamucil 3.4 gram/5.4 gram powder 1 tbsp PO DAILY Qty: 660 0RF Rx Instructions: mix into at least 8 oz of water or juice before administering Discontinued fluoxetine 20 mg Capsule 20 mg PO DAILY Qty: 30 0RF trazodone 150 mg Tablet 150 mg PO BEDTIME PRN (Reason: Insomnia) Qty: 30 0RF Rx Instructions: May take one or two tabs at bedtime prn levofloxacin 750 mg tablet 750 mg PO DAILY 6 Days Qty: 6 0RF metronidazole [Flagyl] 500 mg tablet 500 mg PO Q8H 7 Days Qty: 21 0RF amoxicillin-pot clavulanate [Augmentin] 875-125 mg tablet 1 tab PO BID 10 Days Qty: 20 0RF doxycycline hyclate 100 mg tablet 100 mg PO BID 7 Days Qty: 14 0RF metformin 500 mg tablet 1 tab PO Discharge Orders: Discharge Order (Routine); Ordered 03/08/22 Ordered By: Bin Puente Diet: Diabetic diet Activity on Discharge: As tolerated Stand Alone Forms: Patient Portal Discharge page, Community Support Print Language: Turkmen Care Plan Goals: remain safe and stable in the outpatient treatment setting Health Concerns: Diabetes Hypothyroidism Hypertension Plan of Treatment: take medications as prescribed, attend appointments as scheduled Assessment: not at imminent risk of harm to self or others
--- NOTE | 2022-03-08 12:33 | PC.NURSE ---
Discharge completed with Frisian speaking chemists. Patient reports being ready for discharge and looking forward to going home. Patient denies acute physical complaints at this time. No SI/HI/AH/VH Reported. Patient reported an understanding of discharge teachings and was in agreement.
== END 2022-03-08 12:46 | disposition home or self-care (01) | DRG 885 ==
LOC: HO.ED 17:13 → HO.PADLT16 21:43
PROVIDERS: Physician Assistant; Admitting Provider Psychiatry & Neurology Psychiatry; Emergency Provider Emergency Medicine Emergency Medical Services; Visit Provider Social Worker
DX: F25.9 Schizoaffective disorder, unspecified (principal); I10 Essential (primary) hypertension; E03.9 Hypothyroidism, unspecified; Z20.822 Contact with and (suspected) exposure to COVID-19; Z79.84 Long term (current) use of oral hypoglycemic drugs; Z79.890 Hormone replacement therapy; Z79.899 Other long term (current) drug therapy
CPT/HCPCS: 36415; 80048; 80053; 80061; 80076; 80307; 81001; 81003; 82565; 82947; 83036; 84443; 85025; 87635; 93005; 99285

== ENCOUNTER 2022-06-01 10:18 | Emergency (ER) | payer MEDICAID, SELFPAY ==
[2022-06-01 11:08] VITALS: BP 138/85; PULSE 101; RESP 17; TEMP 36.1; O2SAT 95; BMI 46.2
--- NOTE | 2022-06-01 12:52 | ED_ITS ---
HPI - Extremity Problem General Chief complaint: Extremity Problem Stated complaint: rash/yeast infection both feet Time Seen by Provider: 06/01/22 12:44 Source: patient Mode of arrival: ambulatory Limitations: language barrier History of Present Illness HPI Narrative: 62 year old, slovak speaking female with a PMH HTN, hypothyroid, and schizoaffective disorder presents to the emergency department today with com plaints of redness near right toes, dry skin on right foot, itching and two small open areas on the right lateral foot for the past 2 weeks. She states she had similar symptoms on the left foot which she has been treating with [id number] antifungal cream with reduction in symptoms. She states she recently moved into a new apartment and believes she contracted a fungul infection on her feet from the shower franks. She states she cleaned the area well, however; the symptoms have not resolved. She denies any itching on other parts of the body, known sores or rashes, or insect bites. She denies any fever, chills, drainage from the feet. Onset (ago): week(s) (2) Pain Consistency: constant Location: left and right Quality: other (itching) Radiation: none Relieving factors: nothing Exacerbating factors: nothing Associated symptoms: denies other symptoms Context: other (new apartment) Related Data Home Medications Medication Instructions Recorded Confirmed clonazepam 1 mg tablet 1 mg PO BEDTIME 04/16/20 02/24/22 Previous Rx's Medication Instructions Recorded levothyroxine 50 mcg capsule 50 mcg PO DAILY #30 caps 04/28/20 lisinopril 20 mg tablet 20 mg PO DAILY #30 tabs 04/28/20 paliperidone 9 mg tablet,extended 9 mg PO DAILY #30 tabs 04/28/20 release 24 hr (Invega) paliperidone palmitate 156 mg/mL 156 mg IM Q30D #1 mL 04/28/20 intramuscular syringe (Invega Sustenna) metoclopramide HCl 10 mg tablet 10 mg PO Q6H PRN nausea and 06/13/20 (Reglan) vomiting 7 days #14 tabs oxycodone 5 mg tablet 5 mg PO Q8H PRN pain #10 tabs 06/13/20 psyllium husk 3.4 gram/5.4 gram 1 tbsp PO DAILY #660 grams 01/11/22 oral powder (Metamucil) fluoxetine 10 mg capsule 10 mg PO DAILY 30 days #30 caps 03/08/22 hydrocortisone 1 % topical ointment 1 appl topical BID 30 days #100 03/08/22 grams lorazepam 0.5 mg tablet 0.5 mg PO TID 30 days #90 tabs 03/08/22 metformin 500 mg tablet 500 mg PO BIDWM 30 days #60 tabs 03/08/22 trazodone 100 mg tablet 100 mg PO BEDTIME 30 days #30 tabs 03/08/22 clotrimazole 1 % topical cream 1 appl topical BID 2 weeks #30 06/01/22 (Antifungal (clotrimazole)) grams Allergies Allergy/AdvReac Type Severity Reaction Status Date / Time No Known Allergies Allergy Mild NOT Unverified 03/05/20 16:31 APPLICABLE Review of Systems Review of Systems: In addition to documented HPI above, the additional ROS was obtained: Constitutional: No Weight loss, No Fever, No Chills ENT/Mouth: No Ear Pain, No Nasal Congestion, No Sinus Pain, No Hoarseness, No sore throat, No Rhinorrhea, No Swallowing Difficulty Cardiovascular: No Chest Pain, No SOB Respiratory: No Cough, No Sputum, No Wheezing Musculoskeletal: No joint pain, No Myalgias, No Joint Swelling Skin: No Skin Lesions, insect bites, body rashes Neuro: No Weakness, No Numbness, No Paresthesias Yes all other systems are reviewed and are negative [facility] Past Medical History Attestation statement: The following information was validated with the patient. 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 Housing: Unknown / Unable to assess Unable to assess alcohol history related to: Unable to respond Alcohol intake: never Patient Tobacco Use Status: Tobacco use Unknown Second Hand Smoke Exposure: No Advance Directives: No service: No Sexual orientation: Straight/Heterosexual Physical Exam Vital Signs: Vital Signs: Last Vital Signs Temp 97.0 F 06/01/22 11:08 Pulse 101 H 06/01/22 11:08 Resp 17 06/01/22 11:08 BP 138/85 06/01/22 11:08 Pulse Ox 95 06/01/22 11:08 O2 Del Method 06/01/22 11:08 BMI result Body Mass Index 46.2 Const: General: cooperative, alert and awake Nutritional Appearance: well nourished Orientation/consciousness: patient oriented x3 Limitations: language barrier HEENT: Head: Yes normal to inspection and Yes atraumatic Ears: hearing grossly normal bilaterally General nose exam: Normal external nose present Face and sinus: Yes normal facial exam and Yes face symmetric Mouth: Normal oral and palatal mucosa present Eyes: General: appearance normal, both eyes and all related structures Visual Perdomo: normal visual perdomo by confrontation Alignment and Position: alignment normal Periorbital: periorbital findings normal Eyelids: Yes eyelids normal Conjunctivae: conjunctivae normal Sclerae: sclerae normal Corneas: corneas normal Pupils: Equal, round and reactive pupils present EOM: EOMs intact bilaterally Neck: Neck: Yes normal visual inspection and Yes full ROM Chest: Chest palpation & inspection: normal inspection of the chest Resp: Effort & Inspection: normal respiratory effort and not labored Auscultation: clear to auscultation bilaterally, no crackles, no rhonchi and no wheezes Cardio: Rate: regular rate Rhythm: regular rhythm Back/Spine/Pelvis: Cervical Spine: cervical ROM normal Thoracic/Lumbar Spine: thoraco-lumbar ROM normal Skin: General skin exam: no rashes or lesions noted and other (dry peeling skin present on bilateral feet) Neuro: General: patient oriented x3 and moves all extremities Cranial nerves: Yes Equal, round and reactive pupils present Cognition (Neuro): normal cognition Gait exam (Neuro): Normal gait present Motor exam (neuro): 5/5 motor strength present throughout Extrem: General: Yes normal to inspection, Yes full ROM and Yes capillary refill normal Medical Decision Making Medical Decision Making MDM Narrative: 62 year old, slovak speaking female with a PMH HTN, hypothyroid, and schizoaffective disorder presents to the emergency department today with complaints of redness near right toes, dry skin on right foot, itching and two small open areas on the right lateral foot for the past 2 weeks. She states she had similar symptoms on the left foot which she has been treating with [id number] antifungal cream with reduction in symptoms. On exam right foot with dry peeling skin and erythema noted between toes. Right lateral foot with two nonbleeding open areas. Educated to check feet often for skin breakdown and open wounds. Clotrimazole topical cream ordered for treatment of presumed tinea pedis. HPI, physical, and plan discussed with patient via delivery representative with no unanswered questions. Educated to please return to the emergency department with worsening redness and/or itching, worsening pain, swelling in your feet. Recommended to follow up with her primary care provider for further treatment and management Discharge Plan Discharge Clinical Impression: Athlete's foot Patient Disposition: Home, Self-Care Instructions: Betamethasone/Clotrimazole (On the skin), Athlete's Foot (ED), Skin Yeast Infection (ED) Additional Instructions: Please return to the emergency department with worsening redness and/or itching, worsening pain, swelling in your feet. Recommended to follow up with your primary care provider for further treatment and management Prescriptions: New clotrimazole [Antifungal (clotrimazole)] 1 % cream 1 appl topical BID 14 Days Qty: 30 0RF No Action clonazepam 1 mg Tablet 1 mg PO BEDTIME paliperidone [Invega] 9 mg Tablet Extended Release 24hr 9 mg PO DAILY Qty: 30 0RF Invega Sustenna 156 mg/mL Syringe 156 mg IM Q30D Qty: 1 0RF lisinopril 20 mg Tablet 20 mg PO DAILY Qty: 30 0RF levothyroxine 50 mcg Capsule 50 mcg PO DAILY Qty: 30 0RF metoclopramide HCl [Reglan] 10 mg tablet 10 mg PO Q6H PRN (Reason: nausea and vomiting) 7 Days Qty: 14 0RF oxycodone 5 mg tablet 5 mg PO Q8H PRN (Reason: pain) Qty: 10 0RF Metamucil 3.4 gram/5.4 gram powder 1 tbsp PO DAILY Qty: 660 0RF Rx Instructions: mix into at least 8 oz of water or juice before administering metformin 500 mg Tablet 500 mg PO BIDWM 30 Days Qty: 60 0RF hydrocortisone 1 % Ointment 1 appl topical BID 30 Days Qty: 100 0RF Protocol: Apply to: Apply to: left deltoid lorazepam 0.5 mg Tablet 0.5 mg PO TID 30 Days Qty: 90 0RF trazodone 100 mg Tablet 100 mg PO BEDTIME 30 Days Qty: 30 0RF fluoxetine 10 mg Capsule 10 mg PO DAILY 30 Days Qty: 30 0RF Referrals: [facility] Family Medicine [Provider Group] [facility] [Provider Group] [facility] [Provider Group] Interventions: ED Discharge Assessment Last Done: 06/01/22 13:23 Discharge Date/Time: 06/01/22 13:24 Print Language: Pashto
--- OUTSIDE RECORDS SUMMARY | 2022-06-01 13:15 | XMS_ITS | Continuity of Care Document ---
:1960 Author Organization [facility] Address [address] [place] [id number] Care Team Providers Name Role Phone Placido MARLOW, David Primary Care Physician Encounter [facility] [place] Date(s): 10/21/20 - 11/20/[address] [id number] Attending Physician: Kulwinder Marvin Admitting Physician: AdmtrKulwinder Referring Physician: AdmtrKulwinder Allergies, Adverse Reactions, Alerts No Known Medication Allergies Medications clonazePAM 1 mg oral tablet 1 tablet = 1 mg, By Mouth, 3 times a day, 0 Refills, Maintenance, 04/13/18 15:01:10 EDT Start Date: 04/13/18 Status: OrderedInvega 6 mg oral tablet, extended release 1 tablet = 6 mg, By Mouth, Daily in AM, 0 Refills, Maintenance, 04/13/18 15:01:25 EDT Start Date: 04/13/18 Status: Orderedliotrix (levothyroxine 50 mcg-liothyronine 12.5 mcg) oral tablet 1 tablet = 60 mg, By Mouth, Daily, 0 Refills, Maintenance, 04/13/18 15:02:22 EDT Start Date: 04/13/18 Status: Orderedlisinopril 20 mg oral tablet 20 mg, 1, tablet, By Mouth, Daily, Refills 0, Maintenance, 04/13/18 15:02:36 EDT Start Date: 04/13/18 Status: OrderedPROzac 20 mg oral capsule 20 mg, 1, capsule, By Mouth, Daily, Refills 0, Maintenance, 04/13/18 15:02:51 EDT Start Date: 04/13/18 Status: Ordered
== END 2022-06-01 13:24 | disposition home or self-care (01) ==
PROVIDERS: Emergency Provider Student in an Organized Health Care Education/Training Program
DX: B35.3 Tinea pedis (principal); I10 Essential (primary) hypertension; Z79.899 Other long term (current) drug therapy
CPT/HCPCS: 99282; 99283; 99284

== ENCOUNTER 2022-06-14 14:08 | Emergency (ER) | payer MEDICAID, SELFPAY ==
[2022-06-14 16:39] VITALS: BP 151/89; PULSE 88; RESP 18; TEMP 36.4; O2SAT 98; BMI 41.0
--- NOTE | 2022-06-14 16:39 | ED.GENADULT ---
HPI - General Adult General Chief complaint: General Medical Stated complaint: Burning sensation on feet Source: patient Mode of arrival: ambulatory Limitations: no limitations History of Present Illness HPI narrative: 62 year old, spa female with a PMH HTN, hypothyroid, and schizoaffective disorder presents to the emergency department today with complaints of redness near right toes, dry skin on right foot, itchingX 4 weeks. Patient tells me shes was seen here and told she has a fungus needs refill on the medication and needs something for her dry feet. Denies fevers, chills, numbness, tingling, cp, sob Related Data Home Medications Medication Instructions Recorded Confirmed clonazepam 1 mg tablet 1 mg PO BEDTIME 04/16/20 02/24/22 Previous Rx's Medication Instructions Recorded levothyroxine 50 mcg capsule 50 mcg PO DAILY #30 caps 04/28/20 lisinopril 20 mg tablet 20 mg PO DAILY #30 tabs 04/28/20 paliperidone 9 mg tablet,extended 9 mg PO DAILY #30 tabs 04/28/20 release 24 hr (Invega) paliperidone palmitate 156 mg/mL 156 mg IM Q30D #1 mL 04/28/20 intramuscular syringe (Invega Sustenna) metoclopramide HCl 10 mg tablet 10 mg PO Q6H PRN nausea and 06/13/20 (Reglan) vomiting 7 days #14 tabs oxycodone 5 mg tablet 5 mg PO Q8H PRN pain #10 tabs 06/13/20 psyllium husk 3.4 gram/5.4 gram 1 tbsp PO DAILY #660 grams 01/11/22 oral powder (Metamucil) fluoxetine 10 mg capsule 10 mg PO DAILY 30 days #30 caps 03/08/22 hydrocortisone 1 % topical ointment 1 appl topical BID 30 days #100 03/08/22 grams lorazepam 0.5 mg tablet 0.5 mg PO TID 30 days #90 tabs 03/08/22 metformin 500 mg tablet 500 mg PO BIDWM 30 days #60 tabs 03/08/22 trazodone 100 mg tablet 100 mg PO BEDTIME 30 days #30 tabs 03/08/22 clotrimazole 1 % topical cream 1 appl topical BID 2 weeks #30 06/01/22 (Antifungal (clotrimazole)) grams hydrocortisone 1 % topical 1 appl topical BID PRN itching 06/14/22 ointment (Anti-Itch #28.35 grams (hydrocortisone)) Allergies Allergy/AdvReac Type Severity Reaction Status Date / Time No Known Allergies Allergy Mild NOT Verified 06/14/22 16:44 APPLICABLE Review of Systems Review of Systems: Constitutional : No Weight loss, No Fever, No Chills, No Fatigue, No Malaise ENT/Mouth : No sore throat, No Rhinorrhea Eyes: No Eye Pain, No Swelling, No Redness Cardiovascular : No Chest Pain, No SOB, No Dyspnea on Exertion, No Orthopnea, No Edema, No Palpitations Respiratory : No Cough, No Sputum, No Wheezing Gastrointestinal : No Nausea, No Vomiting, No Diarrhea, No Constipation, No abdominal Pain, No Hematochezia, No Melena Genitourinary : No Dysuria, No Urinary Frequency, No Hematuria, Musculoskeletal : No joint pain, No Myalgias, No Joint Swelling Skin : No Skin Lesions, No rash, + itchy feet Neuro : No Weakness, No Numbness, No Dizziness, No Headache Psych : No Anxiety/Panic, No Depression All other systems reviewed and are negative Yes all other systems are reviewed and are negative [facility] Past Medical History Attestation statement: The following information was validated with the patient. Source: old records reviewed and nursing notes reviewed Medical History Hypertension Hypothyroid Social History Social History Household Members: None and Other Household Members Other:: Drophammer Operator advised pt was not competent to participate in assessment. Housing: Unknown / Unable to assess Unable to assess alcohol history related to: Unable to respond Alcohol intake: never Patient Tobacco Use Status: Tobacco use Unknown Second Hand Smoke Exposure: No service: No Sexual orientation: Straight/Heterosexual Physical Exam ED Vital Signs: vss Appearance: Alert.? Oriented X3.? No acute distress.? Head: Normocephalic, atraumatic, no step-offs or deformities Eyes: Pupils equal, round and reactive to light.? CVS: Normal heart rate and rhythm.? Pulses normal.? Respiratory: No respiratory distress.? Breath sounds normal.? Abdomen: Soft and nontender.? Skin: Skin warm and dry.? Normal skin color.? Normal skin turgor.? Extremities: No lower extremity edema.? No calf ttp. 5/5 strength to bilateral upper and lower extremities + dry peeling skin present on bilateral feet no open wounds. Neuro: Oriented X 3.? No motor deficit.? No sensory deficit. CN 2-12 intact Course Reevaluation(s) Reevaluation #1: Was advised to apply hydrocortisone cream to the cracking skin also advised her to use [id number] moisturizers. She can continue to use antifungal between her feet. Educated patient on diagnosis and treatment plan, answered all question, patient verbalizes understanding. At this time patient will be discharged home, advised to return with new or worsening symptoms. Educated on worrisome signs and symptoms and when to return. At this time I feel comfortable discharge home. Medical Decision Making Medical Decision Making [facility] Narrative: [id number] 62 year old female presents w/ dry itchy feet bilaterally X 4 weeks. Recently dx with athletes foot. Needs med refil PE with dy peeling skin to b/l feet NV intact. Hermelindaley athletes foot with exzema. Plan- dc home with hydrocortisone cream Critical Care Time Critical Care Time Critical Care Time: No Discharge Plan Discharge Clinical Impression: Eczema, Athlete's foot Patient Disposition: Home, Self-Care Instructions: Athlete's Foot (ED), Dermatitis (ED) Additional Instructions: Take your medications as prescribed. If you were prescribed antibiotics today, it is important that you take your medication to their entirety, do not skip any doses, do not finish them early. Follow-up with your primary care provider this week. Return to the emergency department with new or worsening symptoms. Such as fevers, chills, chest pain, shortness of breath, nausea, vomiting, dizziness, headache, vision changes, lethargy In case of emergency call 911 Please apply hydrocortisone cream to the cracking part of the skin. Also apply [id number] lotions. You can apply the antifungal between your toes. [place] juanita medicamentos seg?n lo prescrito. Si le recetaron antibi?ticos hoy, es importante que tome thomson medicamento en thomson totalidad, no se salte ninguna dosis, no los termine antes de tiempo. Seguimiento con thomson proveedor de atenci?n primaria esta semana. Regrese al departamento de emergencias con s?ntomas nuevos o que empeoran. Chika fiebre, escalofr?os, dolor de pecho, dificultad para respirar, n?useas, v?mitos, mareos, dolor de lincoln, cambios en la visi?n, letargo En shan de emergencia llama al 911 Aplique crema de hidrocortisona en la parte agrietada de la piel. Tambi?n aplique lociones de venta alyssa. Puede aplicar el antimic?bridgette entre los dedos de los pies. Prescriptions: New hydrocortisone [Anti-Itch (HC)] 1 % ointment 1 appl topical BID PRN (Reason: itching) Qty: 28.35 0RF Continued clotrimazole [Antifungal (clotrimazole)] 1 % cream 1 appl topical BID 14 Days Qty: 30 0RF No Action clonazepam 1 mg Tablet 1 mg PO BEDTIME paliperidone [Invega] 9 mg Tablet Extended Release 24hr 9 mg PO DAILY Qty: 30 0RF Invega Sustenna 156 mg/mL Syringe 156 mg IM Q30D Qty: 1 0RF lisinopril 20 mg Tablet 20 mg PO DAILY Qty: 30 0RF levothyroxine 50 mcg Capsule 50 mcg PO DAILY Qty: 30 0RF metoclopramide HCl [Reglan] 10 mg tablet 10 mg PO Q6H PRN (Reason: nausea and vomiting) 7 Days Qty: 14 0RF oxycodone 5 mg tablet 5 mg PO Q8H PRN (Reason: pain) Qty: 10 0RF Metamucil 3.4 gram/5.4 gram powder 1 tbsp PO DAILY Qty: 660 0RF Rx Instructions: mix into at least 8 oz of water or juice before administering metformin 500 mg Tablet 500 mg PO BIDWM 30 Days Qty: 60 0RF hydrocortisone 1 % Ointment 1 appl topical BID 30 Days Qty: 100 0RF Protocol: Apply to: Apply to: left deltoid lorazepam 0.5 mg Tablet 0.5 mg PO TID 30 Days Qty: 90 0RF trazodone 100 mg Tablet 100 mg PO BEDTIME 30 Days Qty: 30 0RF fluoxetine 10 mg Capsule 10 mg PO DAILY 30 Days Qty: 30 0RF Referrals: Physician,Unknown J [Primary Care Provider] - 2 days
== END 2022-06-14 16:56 | disposition home or self-care (01) ==
LOC: HO.ED 16:55
PROVIDERS: Emergency Provider Internal Medicine
DX: B35.3 Tinea pedis (principal); L30.9 Dermatitis, unspecified
CPT/HCPCS: 99282; 99283

== ENCOUNTER 2023-01-07 15:01 | Emergency (ER) | payer MEDICAID, SELFPAY ==
--- NOTE | ~2023-01-07 | XR_ITS ---
EXAMINATION: XR FOOT, LEFT CLINICAL INFORMATION: Trauma. Pain to great toe. COMPARISON: None available. TECHNIQUE: AP, lateral, and oblique views of the left foot. FINDINGS: The ankle mortise and subtalar joints are normal. There is a small calcaneal enthesophyte. No visible acute fracture or dislocation seen. The soft tissues are normal. XR/XR foot LT min 3V IMPRESSION: Small calcaneal enthesophyte. No visible acute fracture or dislocation seen. Especially no abnormality seen involving the left great toe.
[2023-01-07 15:19] VITALS: BP 123/76; PULSE 106; RESP 16; TEMP 36; O2SAT 95; BMI 52.9
--- NOTE | 2023-01-07 15:21 | ED.LOWEXIN ---
HPI - Extremity Injury (Lower) General Chief Complaint: Extremity Injury, Lower Stated Complaint: leg pain Time Seen by Provider: 01/07/23 16:30 Source: patient Mode of arrival: ambulatory Limitations: language barrier (Syrian-speaking biomedical engineer utilized) History of Present Illness HPI Narrative: Patient is a 62-year-old female who presents emergency department for evaluation of traumatic left great toe pain. Two days ago she was walking in the street which she tripped. Has increasing pain to the great toe. Denies any head strike or loss of consciousness. Upon examination has decreased flexion of the digit the and bruising, no subungual hematoma Related Data Home Medications Medication Instructions Recorded Confirmed clonazepam 1 mg tablet 1 mg PO BEDTIME 04/16/20 02/24/22 Previous Rx's Medication Instructions Recorded levothyroxine 50 mcg capsule 50 mcg PO DAILY #30 caps 04/28/20 lisinopril 20 mg tablet 20 mg PO DAILY #30 tabs 04/28/20 paliperidone 9 mg tablet,extended 9 mg PO DAILY #30 tabs 04/28/20 release 24 hr (Invega) paliperidone palmitate 156 mg/mL 156 mg IM Q30D #1 mL 04/28/20 intramuscular syringe (Invega Sustenna) metoclopramide HCl 10 mg tablet 10 mg PO Q6H PRN nausea and 06/13/20 (Reglan) vomiting 7 days #14 tabs oxycodone 5 mg tablet 5 mg PO Q8H PRN pain #10 tabs 06/13/20 psyllium husk 3.4 gram/5.4 gram 1 tbsp PO DAILY #660 grams 01/11/22 oral powder (Metamucil) fluoxetine 10 mg capsule 10 mg PO DAILY 30 days #30 caps 03/08/22 hydrocortisone 1 % topical ointment 1 appl topical BID 30 days #100 03/08/22 grams lorazepam 0.5 mg tablet 0.5 mg PO TID 30 days #90 tabs 03/08/22 metformin 500 mg tablet 500 mg PO BIDWM 30 days #60 tabs 03/08/22 trazodone 100 mg tablet 100 mg PO BEDTIME 30 days #30 tabs 03/08/22 clotrimazole 1 % topical cream 1 appl topical BID 2 weeks #30 06/01/22 (Antifungal (clotrimazole)) grams hydrocortisone 1 % topical 1 appl topical BID PRN itching 06/14/22 ointment (Anti-Itch #28.35 grams (hydrocortisone)) Allergies Allergy/AdvReac Type Severity Reaction Status Date / Time No Known Allergies Allergy Mild NOT Verified 06/14/22 16:44 APPLICABLE Review of Systems Review of Systems: Yes all other systems are reviewed and are negative [facility] Past Medical History Attestation statement: The following information was validated with the patient. Source: old records reviewed Medical History Hypertension Hypothyroid Social History Social History Household Members: None and Other Household Members Other:: Career Guidance Counselor advised pt was not competent to participate in assessment. Housing: Unknown / Unable to assess Unable to assess alcohol history related to: Unable to respond Alcohol intake: never Patient Tobacco Use Status: Tobacco use Unknown Second Hand Smoke Exposure: No service: No Sexual orientation: Straight/Heterosexual Physical Exam Vital Signs: Vital Signs: Last Vital Signs Temp 96.8 F 01/07/23 15:19 Pulse 106 H 01/07/23 15:19 Resp 16 01/07/23 15:19 BP 123/76 01/07/23 15:19 Pulse Ox 95 01/07/23 15:19 O2 Del Method Room Air 01/07/23 15:19 BMI result Body Mass Index 52.9 Appearance: Alert.?Oriented to person, place and time. No acute distress.?Normal affect.? Neck: Normal inspection.? Neck supple.?? CVS: Heart sounds normal. Normal heart rate and rhythm.? Pulses normal.?? Respiratory: No respiratory distress.? Lung sounds clear to auscultation bilaterally?? Abdomen: Soft and non-tender. Skin: Skin warm and dry.? Normal skin color.? Extremities: No lower extremity edema.? No calf ttp. ?left great toe without obvious deformity, localized bruising without subungual hematoma, decreased flexion, toe is held in extension. Neuro: Moves all extremities spontaneously. Sensation intact bilaterally. No focal neuro deficits. Ambulates with normal steady gait. Medical Decision Making Medical Decision Making MDM Narrative: Patient is a 62-year-old female past medical history of hypertension, hypothyroidism, schizoaffective disorder presenting to emergency department for evaluation of traumatic left great toe pain. Ambulates with antalgic gait. No obvious deformity. Localized bruising without subungual hematoma. XR reveals no acute fracture or dislocation, pain is consistent with sprain of the phalanx. Placed in an offloading postop shoe, advised these to acetaminophen/ibuprofen for pain management, outpatient follow-up with primary care provider for persistent symptoms. Reviewed worrisome signs and symptoms that would warrant re-evaluation emergency department. All questions answered. Stable for discharge. Differential Diagnosis Differential Diagnoses: The differential diagnosis associated with the presentation includes (As noted above) Independent Interpretation I performed an independent interpretation of an: Plain X-Ray (I have personally interpreted XR imaging of the left foot and agree with radiologist impression, there is no acute fracture or dislocation) Radiology Impression Discussion of test interpretation with radiology: I have reviewed the radiologist's reading. Radiologist Impression: XR/XR foot LT min 3V IMPRESSION: Small calcaneal enthesophyte. No visible acute fracture or dislocation seen. Especially no abnormality seen involving the left great toe. Tests considered The following testing was considered but not selected: I considered serum labs including uric acid for potential gout flare, however given history a suspect this is less likely, pain is traumatic in nature, labs were deferred Prescription Management I considered prescription management with: Pain Medication (Considered prescription pain medication management however feel that acetaminophen/ibuprofen would be appropriate at this time) Discharge Plan Discharge Clinical Impression: Contusion of foot, left Patient Disposition: Home, Self-Care Instructions: Foot Contusion (ED) Additional Instructions: Wear the offloading shoe as provided. You can take ibuprofen 200 mg, 3 tablets (600mg) every 6-8 hours as needed for pain, in addition to Tylenol 500 mg, 2 tablets (1,000mg) every 4-6 hours as needed for pain, but not to exceed 3 doses daily (3,000mg).? Follow-up with your primary care provider for any persistent symptoms. Return back to emergency department any new or worsening symptoms or concerns. Use el zapato de descarga nakia se proporciona. Puede rishabh ibuprofeno 200 mg, 3 tabletas (600 mg) cada 6 a 8 horas seg?n sea necesario para el dolor, adem?s de Tylenol 500 mg, 2 tabletas (1000 mg) cada 4 a 6 horas seg?n sea necesario para el dolor, santana sin exceder las 3 dosis diarias (3000 mg). Timmy un seguimiento con thomson proveedor de atenci?n primaria por cualquier s?ntoma persistente. Devuelva al departamento de emergencias cualquier s?ntoma o inquietud nueva o que empeore. Prescriptions: No Action clonazepam 1 mg Tablet 1 mg PO BEDTIME paliperidone [Invega] 9 mg Tablet Extended Release 24hr 9 mg PO DAILY Qty: 30 0RF Invega Sustenna 156 mg/mL Syringe 156 mg IM Q30D Qty: 1 0RF lisinopril 20 mg Tablet 20 mg PO DAILY Qty: 30 0RF levothyroxine 50 mcg Capsule 50 mcg PO DAILY Qty: 30 0RF metoclopramide HCl [Reglan] 10 mg tablet 10 mg PO Q6H PRN (Reason: nausea and vomiting) 7 Days Qty: 14 0RF oxycodone 5 mg tablet 5 mg PO Q8H PRN (Reason: pain) Qty: 10 0RF Metamucil 3.4 gram/5.4 gram powder 1 tbsp PO DAILY Qty: 660 0RF Rx Instructions: mix into at least 8 oz of water or juice before administering metformin 500 mg Tablet 500 mg PO BIDWM 30 Days Qty: 60 0RF hydrocortisone 1 % Ointment 1 appl topical BID 30 Days Qty: 100 0RF Protocol: Apply to: Apply to: left deltoid lorazepam 0.5 mg Tablet 0.5 mg PO TID 30 Days Qty: 90 0RF trazodone 100 mg Tablet 100 mg PO BEDTIME 30 Days Qty: 30 0RF fluoxetine 10 mg Capsule 10 mg PO DAILY 30 Days Qty: 30 0RF clotrimazole [Antifungal (clotrimazole)] 1 % cream 1 appl topical BID 14 Days Qty: 30 0RF hydrocortisone [Anti-Itch (HC)] 1 % ointment 1 appl topical BID PRN (Reason: itching) Qty: 28.35 0RF Print Language: Syrian
== END 2023-01-07 16:57 | disposition home or self-care (01) ==
PROVIDERS: Emergency Provider Emergency Medicine
DX: S90.112A Contusion of left great toe without damage to nail, initial encounter (principal); X58.XXXA Exposure to other specified factors, initial encounter; Y93.9 Activity, unspecified; Y92.9 Unspecified place or not applicable; Y99.9 Unspecified external cause status; I10 Essential (primary) hypertension; E03.9 Hypothyroidism, unspecified; M79.675 Pain in left toe(s); F25.9 Schizoaffective disorder, unspecified
CPT/HCPCS: 73630; 99283

== ENCOUNTER 2023-03-01 11:07 | Emergency (ER) | payer MEDICAID, SELFPAY ==
--- NOTE | ~2023-03-01 | XR_ITS ---
EXAMINATION: XR SHOULDER, RIGHT XR SHOULDER, LEFT CLINICAL INFORMATION: Right and left shoulder pain. COMPARISON: None available. TECHNIQUE: AP, Grashey, and scapular Y views of the right and left shoulder. FINDINGS: Right Shoulder: No acute fracture or dislocation. Moderate acromioclavicular joint space narrowing with marginal osteophytes. No significant glenohumeral joint space narrowing or marginal osteophytes. No concerning lytic or blastic osseous lesion. Calcification adjacent to the posterior aspect of the greater tuberosity measuring up to 0.9 cm, consistent with distal infraspinatus calcific tendinitis. Left Shoulder: No acute fracture or dislocation. Moderate acromioclavicular joint space narrowing with marginal osteophytes. Small subacromial spurs. No significant glenohumeral joint space narrowing or marginal osteophytes. No concerning lytic or blastic osseous lesion. Tiny calcification adjacent to the posterior aspect of the greater tuberosity measuring 0.8 and 0.2 cm, consistent with distal infraspinatus calcific tendinitis. XR/XR shoulder LT min 2V IMPRESSION: RIGHT SHOULDER: Moderate acromioclavicular osteoarthritis with small subacromial spurs. Distal infraspinatus calcific tendinitis. LEFT SHOULDER: Moderate acromioclavicular osteoarthritis with small subacromial spurs. Mild distal infraspinatus calcific tendinitis.
--- NOTE | ~2023-03-01 | XR_ITS ---
EXAMINATION: XR SHOULDER, RIGHT XR SHOULDER, LEFT CLINICAL INFORMATION: Right and left shoulder pain. COMPARISON: None available. TECHNIQUE: AP, Grashey, and scapular Y views of the right and left shoulder. FINDINGS: Right Shoulder: No acute fracture or dislocation. Moderate acromioclavicular joint space narrowing with marginal osteophytes. No significant glenohumeral joint space narrowing or marginal osteophytes. No concerning lytic or blastic osseous lesion. Calcification adjacent to the posterior aspect of the greater tuberosity measuring up to 0.9 cm, consistent with distal infraspinatus calcific tendinitis. Left Shoulder: No acute fracture or dislocation. Moderate acromioclavicular joint space narrowing with marginal osteophytes. Small subacromial spurs. No significant glenohumeral joint space narrowing or marginal osteophytes. No concerning lytic or blastic osseous lesion. Tiny calcification adjacent to the posterior aspect of the greater tuberosity measuring 0.8 and 0.2 cm, consistent with distal infraspinatus calcific tendinitis. XR/XR shoulder RT min 2V IMPRESSION: RIGHT SHOULDER: Moderate acromioclavicular osteoarthritis with small subacromial spurs. Distal infraspinatus calcific tendinitis. LEFT SHOULDER: Moderate acromioclavicular osteoarthritis with small subacromial spurs. Mild distal infraspinatus calcific tendinitis.
--- NOTE | ~2023-03-01 | XR_ITS ---
EXAMINATION: XR LUMBOSACRAL SPINE CLINICAL INFORMATION: Pain. COMPARISON: CT abdomen/pelvis dated 03/07/2021. TECHNIQUE: 3 views of the lumbosacral spine. FINDINGS: Normal vertebral body alignment. The lumbar lordosis is maintained. No acute fracture or subluxation. No loss of vertebral body or intervertebral disc height. Small multilevel endplate osteophytes. Prominent facet arthropathy at L3-S1. No concerning lytic or blastic osseous lesion. No abnormal soft tissue calcification. XR/XR lumbar spine 2-3V IMPRESSION: Mild multilevel degenerative disc disease. Prominent facet arthropathy at L3-S1.
[2023-03-01 11:15] VITALS: BP 139/79; PULSE 90; RESP 19; TEMP 36.6; O2SAT 94; BMI 43.1
--- NOTE | 2023-03-01 11:21 | ED_ITS ---
HPI - General Adult General Chief complaint: General Medical Stated complaint: Low Back Pain Etc Time Seen by Provider: 03/01/23 11:30 Source: patient and [employer] Mode of arrival: ambulatory Limitations: no limitations History of Present Illness HPI narrative: 63-year-old female with history of hypertension, schizoaffective disorder, hypothyroidism, morbid obesity who presents to the ER for evaluation of 3 months of lower back pain that radiates to her buttocks as well as bilateral shoulder pain. She denies any injury or trauma to either area. She states she has been avoiding coming to the hospital for evaluation. She has been taking Tylenol for pain with minimal relief. She has not seen her primary care doctor about this. She states the low back pain has gotten a little bit worse lately, it now radiates into her buttocks on the right. She denies any weakness, numbness, tingling into the legs. No inguinal paresthesias. No urinary or bowel symptoms. No abdominal pain, chest pain. MD complaint: Low back pain and bilateral shoulder pain Onset (ago): month(s) Location: back, left, right and upper extremity Radiation: distal Severity: moderate Quality: stabbing and aching Pain Consistency: intermittent Relieving factors: rest Exacerbating factors: movement Associated symptoms: denies other symptoms Treatments prior to arrival: none Related Data Home Medications Medication Instructions Recorded Confirmed clonazepam 1 mg tablet 1 mg PO BEDTIME 04/16/20 02/24/22 Previous Rx's Medication Instructions Recorded levothyroxine 50 mcg capsule 50 mcg PO DAILY #30 caps 04/28/20 lisinopril 20 mg tablet 20 mg PO DAILY #30 tabs 04/28/20 paliperidone 9 mg tablet,extended 9 mg PO DAILY #30 tabs 04/28/20 release 24 hr (Invega) paliperidone palmitate 156 mg/mL 156 mg IM Q30D #1 mL 04/28/20 intramuscular syringe (Invega Sustenna) metoclopramide HCl 10 mg tablet 10 mg PO Q6H PRN nausea and 06/13/20 (Reglan) vomiting 7 days #14 tabs oxycodone 5 mg tablet 5 mg PO Q8H PRN pain #10 tabs 06/13/20 psyllium husk 3.4 gram/5.4 gram 1 tbsp PO DAILY #660 grams 01/11/22 oral powder (Metamucil) fluoxetine 10 mg capsule 10 mg PO DAILY 30 days #30 caps 03/08/22 hydrocortisone 1 % topical ointment 1 appl topical BID 30 days #100 03/08/22 grams lorazepam 0.5 mg tablet 0.5 mg PO TID 30 days #90 tabs 03/08/22 metformin 500 mg tablet 500 mg PO BIDWM 30 days #60 tabs 03/08/22 trazodone 100 mg tablet 100 mg PO BEDTIME 30 days #30 tabs 03/08/22 clotrimazole 1 % topical cream 1 appl topical BID 2 weeks #30 06/01/22 (Antifungal (clotrimazole)) grams hydrocortisone 1 % topical 1 appl topical BID PRN itching 06/14/22 ointment (Anti-Itch #28.35 grams (hydrocortisone)) cyclobenzaprine 10 mg tablet 10 mg PO TID PRN muscle spasm #10 03/01/23 tabs ibuprofen 600 mg tablet 600 mg PO Q8H PRN pain #14 tabs 03/01/23 prednisone 50 mg tablet 50 mg PO DAILY #5 tabs 03/01/23 Allergies Allergy/AdvReac Type Severity Reaction Status Date / Time No Known Allergies Allergy Mild NOT Verified 03/01/23 11:15 APPLICABLE Review of Systems Review of Systems: Yes all other systems are reviewed and are negative [facility] Past Medical History Medical History Hypertension Hypothyroid Social History Social History Household Members: None and Other 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 Housing: Unknown / Unable to assess Unable to assess alcohol history related to: Unable to respond Alcohol intake: never Patient Tobacco Use Status: Tobacco use Unknown Second Hand Smoke Exposure: No Advance Directives: No Advance Directives Information Provided: Yes service: No Sexual orientation: Straight/Heterosexual Physical Exam ED Vital Signs: Vital Signs - 24 hr 03/01/23 11:15 Temperature 98 F Pulse Rate 90 Respiratory Rate 19 Blood Pressure 139/79 Pulse Oximetry 94 Oxygen Delivery Method Room Air BMI result Body Mass Index 43.1 Appearance: Alert. Oriented X3. No acute distress. HEENT: normal external inspection Neck: Normal inspection. Neck supple. CVS: Normal heart rate and rhythm. Pulses normal. Respiratory: No respiratory distress. Breath sounds normal. Back: Normal inspection. Soft tissue tenderness to the right lumbar area, SI joint on the right. Limited flexion of the spine due to pain. Skin: Skin warm and dry. Normal skin color. Normal skin turgor. No rashes. Extremities: No lower extremity edema. No joint swelling. normal inspection and palpation of the bilateral shoulders. Normal active and passive full range of motion of the bilateral shoulders. Neurovascularly intact distally. Strength is equal and symmetrical throughout. Neuro/psych: Oriented X 3. No motor deficit. No sensory deficit. CN II-XII intact. Normal speech and cognition. Steady gait Course Course Course Narrative: RME- 63-year-old female presents for evaluation of lower back pain and bilateral shoulder pain. Denies any specific injury. She is requesting x-rays, for x- rays. Medical Decision Making Medical Decision Making MDM Narrative: 63-year-old Fijian-speaking female presents to the ER for evaluation of 3 months of nontraumatic low back pain and bilateral shoulder pain. She has full range of motion of her shoulders on examination, exam is benign. She does have some soft tissue tenderness and SI joint tenderness in the lumbar area. X-rays today showing degenerative disc disease of the lumbar spine as well as some calcific tendinitis of the shoulders. residence hall director used to discuss diagnosis, treatment, and recommended outp atient follow-up. Patient expressed understanding and is stable for discharge home. Differential Diagnosis Differential Diagnoses: The differential diagnosis associated with the presentation includes Inflammatory disorders, malignancy, trauma, osteoporosis, nerve root compression, radiculopathy, plexopathy, degenerative disc disease, disc herniation, spinal stenosis, sacroiliac joint dysfunction, facet joint injury, and less likely infection?like abscess or diskitis shoulder pain was likely due to osteoarthritis, possible polymyalgia rheumatica, inflammatory arthritis Independent Interpretation I performed an independent interpretation of an: Plain X-Ray Interpretation: XR of bilateral shoulders w/out fracture or dislocation, agree w/ radiology read XR lumbar spine without compression fx, agree w/ radiology read Radiology Impression Discussion of test interpretation with radiology: I have reviewed the radiologist's reading. Radiologist Impression: XR/XR shoulder RT min 2V IMPRESSION: RIGHT SHOULDER: Moderate acromioclavicular osteoarthritis with small subacromial spurs. Distal infraspinatus calcific tendinitis. LEFT SHOULDER: Moderate acromioclavicular osteoarthritis with small subacromial spurs. Mild distal infraspinatus calcific tendinitis. XR/XR lumbar spine 2-3V IMPRESSION: Mild multilevel degenerative disc disease. Prominent facet arthropathy at L3-S1. External Record Review External record reviewed: Prior outpatient labs and Prior outpatient radiology Prescription Management I considered prescription management with: Pain Medication and Other (muscle relaxer, prednisone) Chronic Conditions Patient?s care impacted by: Other (morbid obesity) Critical Care Time Critical Care Time Critical Care Time: No Discharge Plan Discharge Clinical Impression: Degenerative disc disease, lumbar, Calcific tendonitis of right shoulder, Calcific tendonitis of left shoulder Patient Disposition: Home, Self-Care Instructions: Calcific Tendinitis (ED), Degenerative Disc Disease (ED) Additional Instructions: Your x-rays of the back showed multilevel degenerative disc disease. Your x-ray showed some tendinitis in the shoulders. Take the prescribed medications as directed to help with your symptoms. Recommend following up with Orthopedics as well as a hearing specialist for further evaluation and treatment. Also recommend following up with her primary care doctor. Use ice or heat to the area as needed for pain. If you develop new or worsening symptoms call 911 or come back to the ER for further evaluation. Portia radiograf?as de la espalda mostraron jose enfermedad degenerativa del disco multinivel. Tovar radiograf?a mostr? algo de tendinitis en los hombros. [place] los medicamentos recetados seg?n las indicaciones para ayudar con portia s?ntomas. Se recomienda realizar un seguimiento con un ortopedista y un especialista en [place] para jose evaluaci?n y tratamiento adicionales. Tambi?n recomienda hacer un seguimiento con tovar m?dico de atenci?n primaria. Use hielo o calor en el ?makenzie seg?n sea necesario para el dolor. Si desarrolla s?ntomas nuevos o que empeoran, llame al 911 o regrese a la suzette de emergencias para jose evaluaci?n adicional. Prescriptions: New prednisone 50 mg tablet 50 mg PO DAILY Qty: 5 0RF ibuprofen 600 mg tablet 600 mg PO Q8H PRN (Reason: pain) Qty: 14 0RF cyclobenzaprine 10 mg tablet 10 mg PO TID PRN (Reason: muscle spasm) Qty: 10 0RF No Action clonazepam 1 mg Tablet 1 mg PO BEDTIME paliperidone [Invega] 9 mg Tablet Extended Release 24hr 9 mg PO DAILY Qty: 30 0RF Invega Sustenna 156 mg/mL Syringe 156 mg IM Q30D Qty: 1 0RF lisinopril 20 mg Tablet 20 mg PO DAILY Qty: 30 0RF levothyroxine 50 mcg Capsule 50 mcg PO DAILY Qty: 30 0RF metoclopramide HCl [Reglan] 10 mg tablet 10 mg PO Q6H PRN (Reason: nausea and vomiting) 7 Days Qty: 14 0RF oxycodone 5 mg tablet 5 mg PO Q8H PRN (Reason: pain) Qty: 10 0RF Metamucil 3.4 gram/5.4 gram powder 1 tbsp PO DAILY Qty: 660 0RF Rx Instructions: mix into at least 8 oz of water or juice before administering metformin 500 mg Tablet 500 mg PO BIDWM 30 Days Qty: 60 0RF hydrocortisone 1 % Ointment 1 appl topical BID 30 Days Qty: 100 0RF Protocol: Apply to: Apply to: left deltoid lorazepam 0.5 mg Tablet 0.5 mg PO TID 30 Days Qty: 90 0RF trazodone 100 mg Tablet 100 mg PO BEDTIME 30 Days Qty: 30 0RF fluoxetine 10 mg Capsule 10 mg PO DAILY 30 Days Qty: 30 0RF clotrimazole [Antifungal (clotrimazole)] 1 % cream 1 appl topical BID 14 Days Qty: 30 0RF hydrocortisone [Anti-Itch (HC)] 1 % ointment 1 appl topical BID PRN (Reason: itching) Qty: 28.35 0RF Referrals: [facility]Provider Group] [facility] [Primary Care Provider] - Patrice Steiner MD, PhD [Physician] - Interventions: ED Discharge Assessment Last Done: 03/01/23 13:47 Discharge Date/Time: 03/01/23 13:47 Print Language: Fijian
== END 2023-03-01 13:47 | disposition home or self-care (01) ==
PROVIDERS: Emergency Provider Emergency Medicine Emergency Medical Services
DX: M51.36 Other intervertebral disc degeneration, lumbar region (principal); M75.31 Calcific tendinitis of right shoulder; M75.32 Calcific tendinitis of left shoulder; Z79.899 Other long term (current) drug therapy
CPT/HCPCS: 72100; 73030; 99283

== ENCOUNTER 2023-03-13 11:22 | Outpatient (AMB) | payer MEDICAID, SELFPAY ==
--- NOTE | 2023-03-13 11:24 | A.OFFVIS_ITS ---
Intake Intake Visit Reasons: Incontinence Intake Note: New Patient presents for initial visit incontinence Urology Medications: none Blood Thinner: none PVR: 28ml's Medical/Surgery Registered Nurse Required: Yes Medical/Surgery Registered Nurse Name: Marisol Accompanied by: Unknown Allergies No Known Allergies Allergy (Mild, Verified 03/13/23 17:37) NOT APPLICABLE Medication List - Last Reconciled 03/13/23 by EMIL Ellison clonazepam 1 mg PO BEDTIME clotrimazole 1% (Antifungal (clotrimazole)) 1 appl topical BID 2 weeks cyclobenzaprine 10 mg PO TID PRN fluoxetine 10 mg PO DAILY 30 days hydrocortisone 1% (Anti-Itch (hydrocortisone)) 1 appl topical BID PRN hydrocortisone 1% 1 appl See Protocol topical BID 30 days ibuprofen 600 mg PO Q8H PRN levothyroxine 50 mcg PO DAILY lisinopril 20 mg PO DAILY lorazepam 0.5 mg PO TID 30 days metformin 500 mg PO BIDWM 30 days metoclopramide HCl (Reglan) 10 mg PO Q6H PRN 7 days oxycodone 5 mg PO Q8H PRN paliperidone ER (Invega) 9 mg PO DAILY paliperidone palmitate (Invega Sustenna) 156 mg IM Q30D prednisone 50 mg PO DAILY psyllium husk (Metamucil) 1 tbsp PO DAILY trazodone 100 mg PO BEDTIME 30 days HPI HPI Comments History of Present Illness Details Kiera is a pleasant 63 year old Qatari speaking patient. She has a PMH of aneurysm a splenic artery, diverticulum of intestine, dyslipidemia, hypertension, hypothyroidism, nonalcoholic fatty liver disease, obesity, positive SILVIA, pre diabetes, skin picking disorder, seasonal allergies, skin picking disorder, and exotropia. When asked patient reports to be doing and feeling well. She reports noting intermittent issues with lower urinary tract symptoms. However, she states over the last 4-6 weeks she has not had a urinary frequency, nocturia, or urge incontinence. When asked patient reports having had 3 childbirth of average size babies. And reports labors were long. In office urinalysis results reviewed with the patient today. PVR 28ml's. When asked she denies urinary urgency, urinary frequency, incontinence, nocturia, hematuria, dysuria, foul smelling urine, changes to urinary stream, flank pain, fever, and or chills. She is happy with her current voiding parameters. She reports no bothersome urinary issues or concerns at this time. Discussed obtaining retroperitoneal ultrasound for further assessment evaluation as well as pelvic floor therapy verses trial of medication. However again, patient denies any urinary symptoms or concerns at this time. [facility] Medical History Skin-picking disorder Seasonal allergies Pre-diabetes Positive SILVIA (antinuclear antibody) Obesity Nonalcoholic fatty liver disease Exotropia Dyslipidemia Diverticula of intestine Aneurysm of splenic artery Schizoaffective disorder Hypothyroid Hypertension Social History Household Members: None and Other Household Members Other:: Medical/Surgery Registered Nurse advised pt was not competent to participate in assessment. Housing: Unknown / Unable to assess Unable to assess alcohol history related to: Unable to respond Alcohol intake: never Patient Tobacco Use Status: Tobacco use Unknown Second Hand Smoke Exposure: No service: No Sexual orientation: Straight/Heterosexual Review of Systems Const Reports no additional complaints Eyes Reports as per HPI ENT Reports no additional complaints Card Reports as per HPI Resp Reports no additional complaints GI Reports no additional complaints Reports as per HPI Musc Reports as per HPI Neuro Reports as per HPI Psych Reports as per HPI Endo Reports as per HPI Physical Exam Const General: cooperative, comfortable, no acute distress, well developed, alert and awake Nutritional Appearance: overweight Orientation/consciousness: patient oriented x3 Limitations: no limitations HEENT Head: Yes normal to inspection, Yes normocephalic and Yes atraumatic Ears: hearing grossly normal bilaterally Neck Neck: Yes normal visual inspection and Yes trachea midline Chest Chest palpation & inspection: normal inspection of the chest Resp Effort & Inspection: normal respiratory effort and able to speak in complete sentences Cardio Rate: regular rate GI Inspection: Yes normal to inspection General: Yes no CVA tenderness Back/Spine/Pelvis Back: no CVA tenderness Skin General skin exam: no rashes or lesions noted Neuro General: patient oriented x3 Extrem General: Yes normal to inspection Psych Appearance: grossly normal and well kempt Mental Status: mental status grossly normal Speech and movement: Normal speech and movement present and Clear speech present Affect: normal affect Attitude: cooperative Thought process: Normal thought process present Thought content: Normal thought content present Insight: Fair insight present (Psych) Judgement: Fair judgement present (Psych) Office Procedures Post Void Residual Post Residual Void Post Void Residual (PVR): 28 [id number] Void Residual by ultrasound Assessment & Plan Assessment & Plan (1) Urinary frequency: Code(s): R35.0 - Frequency of micturition (2) Urinary incontinence, urge: Code(s): N39.41 - Urge incontinence (3) Nocturia: Code(s): R35.1 - Nocturia Plan In office urinalysis results reviewed with the patient today; as noted above. PVR 28ml's Patient denies any bothersome urinary issues or concerns at this time. Will obtain retroperitoneal ultrasound for further assessment evaluation. Discussed pelvic floor therapy as well as lifestyle modifications to assist with lower urinary tract symptoms Discussed at length importance of managing diabetes for improvement in overall health and well-being Follow-up in 1-2 months with imaging to be completed prior; or sooner with any issues, concerns, and or questions. Orders: Orders AMB Post Void Residual by ultrasound Today Z13.9 - Encounter for screening, unspecified US retroperitoneal comp Today N39.41 - Urge incontinence, R35.0 - Frequency of micturition Patient Instructions: The patient had an opportunity to ask questions regarding the treatment plan. All questions were answered. Physical exam, labs, and imaging were discussed and reviewed in detail. As well as risks, benefits, and discussion of treatment choices. No major barriers to understanding were identified. The patient expressed understanding and agreement with the above treatment plan. The patient was made aware they should contact our office by phone for worsening of their current condition, the appearance of new symptoms, or with any questions or concerns. Compliance is encouraged with any medications and follow up testing that is ordered. It is a privilege to be allowed the opportunity to participate in? your urological care.? Again, if you have any questions or concerns If you have any questions or concerns please do not hesitate to contact me. The office is [phone]. This note is constructed using voice recognition software. While every effort has been made to ensure accuracy middle school band teacher errors may have been included. Yours sincerely, EMIL Ellison Coding Level of Care Code Est Pt Level 3 (30774) Diagnoses Urinary frequency R35.0 Urinary incontinence, urge N39.41 Nocturia R35.1 CPT Codes Post Residual Void - PVR CPT Code: 22785-Momf Void Residual by ultrasound ([id number])
== END 2023-03-13 12:18 | disposition home or self-care (01) ==
PROVIDERS: Visit Provider Nurse Practitioner Family
DX: R35.0 Frequency of micturition (principal); N39.41 Urge incontinence; R35.1 Nocturia
CPT/HCPCS: 99203

== ENCOUNTER → 2023-03-13 11:22 | Outpatient (BNVA) | payer MEDICAID, SELFPAY | PROVIDERS: Visit Provider Nurse Practitioner Family | DX: R35.0 Frequency of micturition (principal); R35.1 Nocturia; N39.41 Urge incontinence | CPT/HCPCS: 51798; 99212 ==

== ENCOUNTER 2023-04-07 11:27 | Outpatient (REF) | payer MEDICAID, SELFPAY ==
--- NOTE | ~2023-04-07 | US_ITS ---
EXAMINATION: US RETROPERITONEAL COMPLETE (RENAL) CLINICAL INFORMATION: Urge incontinence. COMPARISON: X-ray abdomen 01/11/2022. CT abdomen and pelvis 03/07/2021. TECHNIQUE: Real-time imaging of the kidneys and bladder. Limited visualization due to bowel gas. FINDINGS: RIGHT KIDNEY: 10.6 x 4.6 x 7.0 cm (SAG x AP x TRV). No hydronephrosis. No renal calculi. Renal cortical thickness is normal. Limited visualization. LEFT KIDNEY: 12.5 x 4.8 x 6.5 cm (SAG x AP x TRV). No hydronephrosis. No renal calculi. Renal cortical thickness is normal. Limited visualization. BLADDER: Partially distended, limiting evaluation. Bilateral ureteral jets are demonstrated. Prevoid bladder volume is 166.4 mL. Postvoid bladder volume is 12.2 mL. US/US retroperitoneal comp IMPRESSION: No hydronephrosis. No renal calculi.
== END 2023-04-07 11:28 | disposition home or self-care (01) ==
LOC: HO.US 11:27
PROVIDERS: PCP Internal Medicine; Visit Provider Nurse Practitioner Family
DX: N39.41 Urge incontinence (principal); R35.0 Frequency of micturition
CPT/HCPCS: 76770

== ENCOUNTER 2023-04-24 11:17 | Outpatient (AMB) | payer MEDICAID, SELFPAY ==
--- NOTE | 2023-04-24 11:19 | MHC.OFFVIS ---
Intake Intake Visit Reasons: 6w/US(set) Intake Note: Patient presents for follow up visit incontinence/ultrasound (imaging 04/07/23) Urology Medications: none Blood Thinner: none PVR: 0ml's Soft Tile Setter Required: Yes Soft Tile Setter Name: FLAVIO RAMSAYQuang PERES Accompanied by: Self / Same As Patient Allergies No Known Allergies Allergy (Mild, Verified 04/24/23 11:55) NOT APPLICABLE Medication List - Last Reconciled 04/24/23 by ROJAS Ellison- amlodipine 5 mg PO QAM cholecalciferol (vitamin D3) (Vitamin D3) 25 mcg PO QAM clonazepam 1 mg PO BEDTIME clotrimazole 1% (Antifungal (clotrimazole)) 1 appl topical BID 2 weeks cyclobenzaprine 10 mg PO TID PRN fluoxetine 10 mg PO DAILY 30 days hydrocortisone 1% (Anti-Itch (hydrocortisone)) 1 appl topical BID PRN hydrocortisone 1% 1 appl See Protocol topical BID 30 days ibuprofen 600 mg PO Q8H PRN levothyroxine 50 mcg PO DAILY lisinopril 20 mg PO DAILY lorazepam 0.5 mg PO TID 30 days metformin 500 mg PO BIDWM 30 days metoclopramide HCl (Reglan) 10 mg PO Q6H PRN 7 days oxycodone 5 mg PO Q8H PRN paliperidone ER (Invega) 9 mg PO DAILY paliperidone palmitate (Invega Sustenna) 156 mg IM Q30D psyllium husk (Metamucil) 1 tbsp PO DAILY trazodone 100 mg PO BEDTIME 30 days HPI HPI Comments History of Present Illness Details Kiera is a pleasant 63 year old Kittitian speaking patient. She has a PMH of aneurysm a splenic artery, diverticulum of intestine, dyslipidemia, hypertension, hypothyroidism, nonalcoholic fatty liver disease, obesity, positive SILVIA, pre diabetes, skin picking disorder, seasonal allergies, skin picking disorder, and exotropia. When asked patient reports to be doing and feeling well. She presents to the office today for follow-up of her lower urinary tract symptoms at which time a retroperitoneal ultrasound was ordered for further assessment evaluation. These results reviewed with the patient today. Bilateral kidneys with no hydronephrosis or calculi noted. The bladder was partially distended limiting evaluation. Bilateral ureteral jets are demonstrated. Pre void bladder volume is approximately 165 mL. Postvoid bladder volume is approximately 10 mL. She reports noting intermittent issues with lower urinary tract symptoms however does not find them bothersome. In office urinalysis results reviewed with the patient today. PVR 0 mL. She reports urinary symptoms of frequency, nocturia, and urge incontinence. Discuss treatment options with lifestyle modifications and pelvic floor therapy verses medication management. When asked patient reports having had 3 childbirth of average size babies and reports labors were long. She is happy with her current voiding parameters. She reports no bothersome urinary issues or concerns at this time. [facility] Medical History Skin-picking disorder Seasonal allergies Pre-diabetes Positive SILVIA (antinuclear antibody) Obesity Nonalcoholic fatty liver disease Exotropia Dyslipidemia Diverticula of intestine Aneurysm of splenic artery Schizoaffective disorder Hypothyroid Hypertension Social History Household Members: None and Other Household Members Other:: Soft Tile Setter advised pt was not competent to participate in assessment. Housing: Unknown / Unable to assess Unable to assess alcohol history related to: Unable to respond Alcohol intake: never Patient Tobacco Use Status: Tobacco use Unknown Second Hand Smoke Exposure: No service: No Sexual orientation: Straight/Heterosexual Review of Systems Const Reports no additional complaints Eyes Reports as per HPI ENT Reports no additional complaints Card Reports as per HPI Resp Reports no additional complaints GI Reports no additional complaints Reports as per HPI Musc Reports as per HPI Neuro Reports as per HPI Psych Reports as per HPI Endo Reports as per HPI Physical Exam Const General: cooperative, comfortable, no acute distress, well developed, alert and awake Nutritional Appearance: overweight Orientation/consciousness: patient oriented x3 Limitations: no limitations HEENT Head: Yes normal to inspection, Yes normocephalic and Yes atraumatic Ears: hearing grossly normal bilaterally Neck Neck: Yes normal visual inspection and Yes trachea midline Chest Chest palpation & inspection: normal inspection of the chest Resp Effort & Inspection: normal respiratory effort and able to speak in complete sentences Cardio Rate: regular rate GI Inspection: Yes normal to inspection General: Yes no CVA tenderness Back/Spine/Pelvis Back: no CVA tenderness Skin General skin exam: no rashes or lesions noted Neuro General: patient oriented x3 Extrem General: Yes normal to inspection Psych Appearance: grossly normal and well kempt Mental Status: mental status grossly normal Speech and movement: Normal speech and movement present and Clear speech present Affect: normal affect Attitude: cooperative Thought process: Normal thought process present Thought content: Normal thought content present Insight: Fair insight present (Psych) Judgement: Fair judgement present (Psych) Office Procedures Post Void Residual Post Residual Void Post Void Residual (PVR): 0 [id number] Void Residual by ultrasound Results AMB Urinalysis, Automated UA Leukoctes 0 Yessy/uL Last Edit by [employer]line on 04/24/23 11:45 UA Nitrite Negative Last Edit by [employer]line on 04/24/23 11:45 UA Urobilinogen 0.2 mg/dL Last Edit by [employer] on 04/24/23 11:45 UA Protein 0 mg/dL Last Edit by [employer]line on 04/24/23 11:45 UA pH 6.0 Last Edit by [employer] on 04/24/23 11:45 UA Blood 0 Shakir/uL Last Edit by [employer]line on 04/24/23 11:45 UA Specific [place] 1.015 Last Edit by [employer]line on 04/24/23 11:45 UA Ketone Negative Last Edit by [employer]line on 04/24/23 11:45 UA Bilirubin 0 mg/dL Last Edit by [employer]line on 04/24/23 11:45 UA Glucose 0 mg/dL Last Edit by Streamline on 04/24/23 11:45 Results Reviewed Results Reviewed: Laboratory Last Values Urine pH (Auto) 6.0 04/24/23 11:44 Specific [place] (Auto) 1.015 04/24/23 11:44 Urine Protein (Auto) 0 mg/dL 04/24/23 11:44 Glucose (UA)(Auto) 0 mg/dL 04/24/23 11:44 Urine Ketones (Auto) Negative 04/24/23 11:44 Urine Blood (Auto) 0 Shakir/uL 04/24/23 11:44 Urine Nitrite (Auto) Negative 04/24/23 11:44 Urine Bilirubin (Auto) 0 mg/dL 04/24/23 11:44 Urine Urobilinogen (Auto) 0.2 mg/dL 04/24/23 11:44 Leukocyte Esterase (Auto) 0 Yessy/uL 04/24/23 11:44 Date of Service: 04/07/23 EXAMINATION: US RETROPERITONEAL COMPLETE (RENAL) FINDINGS: RIGHT KIDNEY: 10.6 x 4.6 x 7.0 cm (SAG x AP x TRV). No hydronephrosis. No renal calculi. Renal cortical thickness is normal. Limited visualization. LEFT KIDNEY: 12.5 x 4.8 x 6.5 cm (SAG x AP x TRV). No hydronephrosis. No renal calculi. Renal cortical thickness is normal. Limited visualization. BLADDER: Partially distended, limiting evaluation. Bilateral ureteral jets are demonstrated. Prevoid bladder volume is 166.4 mL. Postvoid bladder volume is 12.2 mL. US/US retroperitoneal comp IMPRESSION: No hydronephrosis. No renal calculi. Assessment & Plan Assessment & Plan (1) Urinary incontinence, urge: Code(s): N39.41 - Urge incontinence (2) Urinary frequency: Code(s): R35.0 - Frequency of micturition (3) Nocturia: Code(s): R35.1 - Nocturia Plan In office urinalysis results reviewed with the patient today; as noted above. PVR 0ml's Patient denies any bothersome urinary issues or concerns at this time. Recent retroperitoneal ultrasound results reviewed with the patient today. Discussed pelvic floor therapy as well as lifestyle modifications to assist with lower urinary tract symptoms Discussed at length importance of managing diabetes for improvement in overall health and well-being Follow-up in 6 months with PVR; or sooner with any issues, concerns, and or questions. Orders: Orders AMB Post Void Residual by ultrasound Today R35.0 - Frequency of micturition AMB Urinalysis Automated Today Z13.9 - Encounter for screening, unspecified Patient Instructions: The patient had an opportunity to ask questions regarding the treatment plan. All questions were answered. Physical exam, labs, and imaging were discussed and reviewed in detail. As well as risks, benefits, and discussion of treatment choices. No major barriers to understanding were identified. The patient expressed understanding and agreement with the above treatment plan. The patient was made aware they should contact our office by phone for worsening of their current condition, the appearance of new symptoms, or with any questions or concerns. Compliance is encouraged with any medications and follow up testing that is ordered. It is a privilege to be allowed the opportunity to participate in? your urological care.? Again, if you have any questions or concerns If you have any questions or concerns please do not hesitate to contact me. The office is [phone]. This note is constructed using voice recognition software. While every effort has been made to ensure accuracy air defence officer errors may have been included. Yours sincerely, ROJSA Ellison-AMIRAH Coding Level of Care Code Est Pt Level 3 (75920) Diagnoses Urinary incontinence, urge N39.41 Urinary frequency R35.0 Nocturia R35.1 CPT Codes Post Residual Void - PVR CPT Code: 16103-Qofs Void Residual by ultrasound ([id number])
== END 2023-04-24 11:57 | disposition home or self-care (01) ==
PROVIDERS: PCP Internal Medicine; Visit Provider Nurse Practitioner Family
DX: N39.41 Urge incontinence (principal); R35.0 Frequency of micturition; R35.1 Nocturia
CPT/HCPCS: 99213

== ENCOUNTER → 2023-04-24 11:17 | Outpatient (BNVA) | payer MEDICAID, SELFPAY | PROVIDERS: PCP Internal Medicine; Visit Provider Nurse Practitioner Family | DX: N39.41 Urge incontinence (principal); R35.0 Frequency of micturition; R35.1 Nocturia | CPT/HCPCS: 51798; 81003; 99212 ==

== ENCOUNTER 2023-05-02 12:41 | Outpatient (AMB) | payer MEDICAID, SELFPAY ==
--- NOTE | 2023-05-02 12:44 | MHC.OFFVIS ---
Intake Vital Signs 05/02/23 12:45 Height 5 ft 1.85 in Weight 263 lb 7.238 oz BMI 48.4 BP 132/70 Blood Pressure Location Rt brachial Position Sitting Pulse 89 Pulse Source Pulse Oximeter Temp 96.9 F Temp Source Skin Pulse Oximetry (%) 97 Intake Visit Reasons: +SILVIA Intake Note: New pt presents today for +SILVIA consult. C/o pain in multiple joints, especially low back Hospice Home Care Coordinator Required: Yes Accompanied by: Daughter Nya Allergies No Known Allergies Allergy (Mild, Verified 05/02/23 12:49) NOT APPLICABLE Medication List - Last Reconciled 05/02/23 by Francesca Tirado MD amlodipine 5 mg PO QAM cholecalciferol (vitamin D3) (Vitamin D3) 25 mcg PO QAM clonazepam 1 mg PO BEDTIME clotrimazole 1% (Antifungal (clotrimazole)) 1 appl topical BID 2 weeks cyclobenzaprine 10 mg PO TID PRN fluoxetine 10 mg PO DAILY 30 days hydrocortisone 1% (Anti-Itch (hydrocortisone)) 1 appl topical BID PRN hydrocortisone 1% 1 appl See Protocol topical BID 30 days ibuprofen 600 mg PO Q8H PRN levothyroxine 50 mcg PO DAILY lisinopril 20 mg PO DAILY lorazepam 0.5 mg PO TID 30 days metformin 500 mg PO BIDWM 30 days metoclopramide HCl (Reglan) 10 mg PO Q6H PRN 7 days oxycodone 5 mg PO Q8H PRN paliperidone ER (Invega) 9 mg PO DAILY paliperidone palmitate (Invega Sustenna) 156 mg IM Q30D psyllium husk (Metamucil) 1 tbsp PO DAILY trazodone 100 mg PO BEDTIME 30 days HPI HPI Comments History of Present Illness Details This is a 63-year-old female who was referred for evaluation of a positive SILVIA. Patient has polyarthritis, pain in her shoulders, low back. She denies any swollen joints. She denies any history of Raynaud's, skin thickening, fevers, skin rashes. He is unaware of any family history of an autoimmune rheumatic disease. Denies any history of DVT/PE. Denies any acid reflux [facility] Medical History (Updated 05/02/23 @ 13:21 by Francesca Tirado MD) Pain in joint, multiple sites Skin-picking disorder Seasonal allergies Pre-diabetes Positive SILVIA (antinuclear antibody) Obesity Nonalcoholic fatty liver disease Exotropia Dyslipidemia Diverticula of intestine Aneurysm of splenic artery Schizoaffective disorder Hypothyroid Hypertension Surgical History No history of previous surgery Social History Household Members: None and Other Household Members Other:: Hospice Home Care Coordinator advised pt was not competent to participate in assessment. Housing: Unknown / Unable to assess Unable to assess alcohol history related to: Unable to respond Alcohol intake: never Patient Tobacco Use Status: Tobacco use Unknown Second Hand Smoke Exposure: No service: No Sexual orientation: Straight/Heterosexual Review of Systems Const Denies fever(s) GI Reports diarrhea Musc Reports arthralgias Physical Exam Vital Signs: Last Vital Signs Temp 96.9 F 05/02/23 12:45 Pulse 89 05/02/23 12:45 BP 132/70 05/02/23 12:45 Pulse Ox 97 05/02/23 12:45 BMI result Body Mass Index 48.4 Const General: cooperative, healthy appearing and comfortable Nutritional Appearance: obese morbidly obese Orientation/consciousness: patient oriented x3 HEENT Head: Yes normocephalic and Yes atraumatic Mouth: moist mucous membranes Resp Effort & Inspection: normal respiratory effort and able to speak in complete sentences GI Inspection: No distended Palpation (GI): Soft to palpation and nontender Skin Other: No telangiectasias noted Neuro General: patient oriented x3 Extrem Other: No skin thickening Normal nailfold capillaroscopy No active synovitis Assessment & Plan Assessment & Plan (1) Positive SILVIA (antinuclear antibody): Code(s): R76.8 - Other specified abnormal immunological findings in serum Plan: This is a 63-year-old female who is referred for evaluation of a positive SILVIA 1-40 speckled and 1-320 centromere pattern. Upon evaluation I do not see any signs of autoimmune rheumatic disease today. There are no rashes, there is no history of Raynaud's, no active synovitis, no telangiectasias, she has normal nailfold capillaroscopy. Significance of her positive SILVIA is unclear. I explained to patient that 20% of the population can have a positive SILVIA with no underlying autoimmune rheumatic disease. Follow-up as needed for any new symptoms. Plan I spent 30 minutes reviewing patient's chart, evaluating patient, counseling patient & her daughter and documenting in the chart Coding Level of Care Code New Pt Level 3 (36801) Diagnoses Positive SILVIA (antinuclear antibody) R76.8
[2023-05-02 12:45] VITALS: BP 132/70; PULSE 89; TEMP 36.1; O2SAT 97; BMI 48.4
== END 2023-05-02 13:23 | disposition home or self-care (01) ==
PROVIDERS: PCP Internal Medicine; Visit Provider Student in an Organized Health Care Education/Training Program
DX: R76.8 Other specified abnormal immunological findings in serum (principal)
CPT/HCPCS: 99203

== ENCOUNTER → 2023-05-02 12:41 | Outpatient (BNVA) | payer MEDICAID, SELFPAY | PROVIDERS: PCP Internal Medicine; Visit Provider Student in an Organized Health Care Education/Training Program | DX: R76.8 Other specified abnormal immunological findings in serum (principal) | CPT/HCPCS: 99202 ==

== ENCOUNTER 2023-07-02 10:18 | Emergency (ER) | payer MEDICAID, SELFPAY ==
[2023-07-02 10:24] VITALS: BP 129/76; PULSE 99; RESP 18; TEMP 36.5; O2SAT 95; BMI 48.7
--- NOTE | 2023-07-02 13:21 | ED.GENADULT ---
HPI - General Adult General Chief complaint: Skin/Abscess/Foreign Body Stated complaint: Rash Time Seen by Provider: 07/02/23 11:36 History of Present Illness HPI narrative: waiting for payroll representative. Patient does not speak Faroese. Patient was informed waiting for payroll representative. Patient left the room before I can speak to her with payroll representative. Related Data Home Medications Medication Instructions Recorded Confirmed clonazepam 1 mg tablet 1 mg PO BEDTIME 04/16/20 02/24/22 amlodipine 5 mg tablet 5 mg PO QAM 04/24/23 cholecalciferol (vitamin D3) 25 25 mcg PO QAM 04/24/23 mcg (1,000 unit) capsule (Vitamin D3) Previous Rx's Medication Instructions Recorded levothyroxine 50 mcg capsule 50 mcg PO DAILY #30 caps 04/28/20 lisinopril 20 mg tablet 20 mg PO DAILY #30 tabs 04/28/20 paliperidone 9 mg tablet,extended 9 mg PO DAILY #30 tabs 04/28/20 release 24 hr (Invega) paliperidone palmitate 156 mg/mL 156 mg IM Q30D #1 mL 04/28/20 [facility] metoclopramide HCl 10 mg tablet 10 mg PO Q6H PRN nausea and 06/13/20 (Reglan) vomiting 7 days #14 tabs oxycodone 5 mg tablet 5 mg PO Q8H PRN pain #10 tabs 06/13/20 psyllium husk 3.4 gram/5.4 gram 1 tbsp PO DAILY #660 grams 01/11/22 oral powder (Metamucil) fluoxetine 10 mg capsule 10 mg PO DAILY 30 days #30 caps 03/08/22 hydrocortisone 1 % topical ointment 1 appl topical BID 30 days #100 03/08/22 grams lorazepam 0.5 mg tablet 0.5 mg PO TID 30 days #90 tabs 03/08/22 metformin 500 mg tablet 500 mg PO BIDWM 30 days #60 tabs 03/08/22 trazodone 100 mg tablet 100 mg PO BEDTIME 30 days #30 tabs 03/08/22 clotrimazole 1 % topical cream 1 appl topical BID 2 weeks #30 06/01/22 (Antifungal (clotrimazole)) grams hydrocortisone 1 % topical 1 appl topical BID PRN itching 06/14/22 ointment (Anti-Itch #28.35 grams (hydrocortisone)) cyclobenzaprine 10 mg tablet 10 mg PO TID PRN muscle spasm #10 03/01/23 tabs ibuprofen 600 mg tablet 600 mg PO Q8H PRN pain #14 tabs 03/01/23 Allergies Allergy/AdvReac Type Severity Reaction Status Date / Time No Known Allergies Allergy Mild NOT Verified 05/02/23 12:49 APPLICABLE [facility] Past Medical History Onset Date is defined in the Problem List Problems that require an onset date and time if occurred within 24 hrs of arrival to the ED Aortic Dissection and Rupture; Neurologic impairment; Cardiopulmonary Arrest; Endotracheal Intubation; Insertion or Replacement of Mechanical Circulatory Assist Device Medical History (Updated 07/02/23 @ 14:50 by SATISH Trinidad) Pain in joint, multiple sites Skin-picking disorder Seasonal allergies Pre-diabetes Positive SILVIA (antinuclear antibody) Obesity Nonalcoholic fatty liver disease Exotropia Dyslipidemia Diverticula of intestine Aneurysm of splenic artery Schizoaffective disorder Hypothyroid Hypertension Surgical History No history of previous surgery Social History Social History Household Members: None and Other Household Members Other:: Tractor Mechanic Helper advised pt was not competent to participate in assessment. Housing: Unknown / Unable to assess Unable to assess alcohol history related to: Unable to respond Alcohol intake: never Comment: PATIENT ASLEEP Patient Tobacco Use Status: Tobacco use Unknown Second Hand Smoke Exposure: No Advance Directives: No Advance Directives Information Provided: Yes service: No Sexual orientation: Straight/Heterosexual Physical Exam ED Vital Signs: Vital Signs - 24 hr 07/02/23 10:24 Temperature 97.7 F Pulse Rate 99 Respiratory Rate 18 Blood Pressure 129/76 Pulse Oximetry 95 Oxygen Delivery Method Room Air BMI result Body Mass Index 48.7 Discharge Plan Discharge Clinical Impression: Rash Patient Disposition: Left W/O Completing Treatment Prescriptions: No Action clonazepam 1 mg Tablet 1 mg PO BEDTIME paliperidone [Invega] 9 mg Tablet Extended Release 24hr 9 mg PO DAILY Qty: 30 0RF Invega Sustenna 156 mg/mL Syringe 156 mg IM Q30D Qty: 1 0RF lisinopril 20 mg Tablet 20 mg PO DAILY Qty: 30 0RF levothyroxine 50 mcg Capsule 50 mcg PO DAILY Qty: 30 0RF metoclopramide HCl [Reglan] 10 mg tablet 10 mg PO Q6H PRN (Reason: nausea and vomiting) 7 Days Qty: 14 0RF oxycodone 5 mg tablet 5 mg PO Q8H PRN (Reason: pain) Qty: 10 0RF Metamucil 3.4 gram/5.4 gram powder 1 tbsp PO DAILY Qty: 660 0RF Rx Instructions: mix into at least 8 oz of water or juice before administering metformin 500 mg Tablet 500 mg PO BIDWM 30 Days Qty: 60 0RF hydrocortisone 1 % Ointment 1 appl topical BID 30 Days Qty: 100 0RF Protocol: Apply to: Apply to: left deltoid lorazepam 0.5 mg Tablet 0.5 mg PO TID 30 Days Qty: 90 0RF trazodone 100 mg Tablet 100 mg PO BEDTIME 30 Days Qty: 30 0RF fluoxetine 10 mg Capsule 10 mg PO DAILY 30 Days Qty: 30 0RF clotrimazole [Antifungal (clotrimazole)] 1 % cream 1 appl topical BID 14 Days Qty: 30 0RF hydrocortisone [Anti-Itch (HC)] 1 % ointment 1 appl topical BID PRN (Reason: itching) Qty: 28.35 0RF ibuprofen 600 mg tablet 600 mg PO Q8H PRN (Reason: pain) Qty: 14 0RF cyclobenzaprine 10 mg tablet 10 mg PO TID PRN (Reason: muscle spasm) Qty: 10 0RF amlodipine 5 mg tablet 5 mg PO QAM cholecalciferol (vitamin D3) [Vitamin D3] 25 mcg (1,000 unit) capsule 25 mcg PO QAM Discharge Date/Time: 07/02/23 12:30
== END 2023-07-02 12:30 | disposition left against medical advice (07) ==
PROVIDERS: Emergency Provider Emergency Medicine; PCP Internal Medicine
DX: R21 Rash and other nonspecific skin eruption (principal)
CPT/HCPCS: 99283

== ENCOUNTER 2023-07-16 18:25 | Emergency (ER) | payer MEDICAID, SELFPAY ==
--- NOTE | ~2023-07-16 | CT_ITS ---
EXAMINATION: CT ABDOMEN AND PELVIS WITH CONTRAST CLINICAL INFORMATION: Left lower abdominal pain. COMPARISON: Abnormal CT abdomen and pelvis 03/07/2021. TECHNIQUE: Multidetector volumetric images were obtained from the superior aspect of the liver through the pubic symphysis following administration 85 mL of Omnipaque 350 intravenous contrast. Sagittal and coronal reformatted images were obtained on the technologist's workstation. Oral contrast: No This CT examination was performed using dose optimization techniques as appropriate, variously including the following: *Automated exposure control *Adjustment of mA and/or kV according to patient size (this includes techniques or standardized protocols for targeted exams where dose is matched to indication/reason for exam; i.e. extremities or head) *Use of iterative reconstruction technique DLP: 990 mGy-cm FINDINGS: LUNG BASES: There is platelike atelectasis left lower lobe and lingular segments. Heart size is normal. LIVER, GALLBLADDER, AND BILIARY TREE: The liver is normal in size, shape, and mild hypo-attenuation. No focal hepatic lesion or biliary ductal dilatation is present. The gallbladder is unremarkable with no evidence of radiopaque gallstones, gallbladder wall thickening, or obvious pericholecystic inflammatory changes. PANCREAS: Unremarkable. SPLEEN: Unremarkable. ADRENAL GLANDS: Unremarkable. KIDNEYS AND URETERS: The kidneys are normal in size, shape, and attenuation. No hydronephrosis, hydroureter, or calculi seen. No perinephric stranding. BLADDER: Unremarkable. GASTROINTESTINAL TRACT: There is scattered stool, gas and diverticuli throughout the colon. There is pericolic fat stranding and adjacent diverticuli and mid descending colon consistent diverticulitis. No pericolic abscess or free air. No proximal bowel obstruction. The small bowel loops are normal caliber. Appendix is normal caliber. ABDOMINAL WALL: No significant hernia is appreciated. LYMPH NODES: Normal. VASCULAR: Unremarkable. PELVIC VISCERA: Unremarkable. OSSEOUS STRUCTURES: Mild facet joint arthropathy L4 3-4, L4-L5 and L5/S1 disc levels. CT/CT abdomen pelvis w IV con IMPRESSION: Colonic diverticulosis with acute descending colon diverticulitis. There is no free air or pericolic abscess. No proximal bowel obstruction. Fatty liver Fleischner guidelines were followed.
[2023-07-16 18:38] VITALS: BP 132/59; BP 134/78; PULSE 85; PULSE 95; RESP 10; TEMP 36.8; O2SAT 95; O2SAT 96; BMI 45.9
--- NOTE | 2023-07-16 19:10 | ED_ITS ---
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 Patient reports left lower abdominal pain that started yesterday. She denies associated symptoms including nausea vomiting, diarrhea, constipation She denies any history abdominal surgeries pain Denies any urinary complaints She rates her pain as 7/10. Denies any fevers, chills, black or bloody stool Related Data Home Medications Medication Instructions Recorded Confirmed clonazepam 1 mg tablet 1 mg PO BEDTIME 04/16/20 02/24/22 amlodipine 5 mg tablet 5 mg PO QAM 04/24/23 cholecalciferol (vitamin D3) 25 25 mcg PO QAM 04/24/23 mcg (1,000 unit) capsule (Vitamin D3) Previous Rx's Medication Instructions Recorded levothyroxine 50 mcg capsule 50 mcg PO DAILY #30 caps 04/28/20 lisinopril 20 mg tablet 20 mg PO DAILY #30 tabs 04/28/20 paliperidone 9 mg tablet,extended 9 mg PO DAILY #30 tabs 04/28/20 release 24 hr (Invega) paliperidone palmitate 156 mg/mL 156 mg IM Q30D #1 mL 04/28/20 intramuscular syringe (Invega Sustenna) metoclopramide HCl 10 mg tablet 10 mg PO Q6H PRN nausea and 06/13/20 (Reglan) vomiting 7 days #14 tabs oxycodone 5 mg tablet 5 mg PO Q8H PRN pain #10 tabs 06/13/20 psyllium husk 3.4 gram/5.4 gram 1 tbsp PO DAILY #660 grams 01/11/22 oral powder (Metamucil) fluoxetine 10 mg capsule 10 mg PO DAILY 30 days #30 caps 03/08/22 hydrocortisone 1 % topical ointment 1 appl topical BID 30 days #100 03/08/22 grams lorazepam 0.5 mg tablet 0.5 mg PO TID 30 days #90 tabs 03/08/22 metformin 500 mg tablet 500 mg PO BIDWM 30 days #60 tabs 03/08/22 trazodone 100 mg tablet 100 mg PO BEDTIME 30 days #30 tabs 03/08/22 clotrimazole 1 % topical cream 1 appl topical BID 2 weeks #30 06/01/22 (Antifungal (clotrimazole)) grams hydrocortisone 1 % topical 1 appl topical BID PRN itching 06/14/22 ointment (Anti-Itch #28.35 grams (hydrocortisone)) cyclobenzaprine 10 mg tablet 10 mg PO TID PRN muscle spasm #10 03/01/23 tabs ibuprofen 600 mg tablet 600 mg PO Q8H PRN pain #14 tabs 03/01/23 amoxicillin 875 mg-potassium 1 tab PO BID #14 tabs 07/16/23 clavulanate 125 mg tablet Allergies Allergy/AdvReac Type Severity Reaction Status Date / Time No Known Allergies Allergy Mild NOT Verified 07/16/23 18:47 APPLICABLE Review of Systems 2 Constitutional: Constitutional: Denies chills and Denies fever(s) Cardiovascular: Cardiovascular: Denies chest pain and Denies dyspnea Respiratory: Respiratory: Denies cough and Denies dyspnea Gastrointestinal: Gastrointestinal: Reports abdominal pain, Denies nausea and Denies vomiting Musculoskeletal: Musculoskeletal: Denies back pain Integumentary/Breasts: Skin/Breast: Denies rash [facility] Past Medical History Medical History (Updated 07/16/23 @ 21:28 by Gael Mathew) Pain in joint, multiple sites Skin-picking disorder Seasonal allergies Pre-diabetes Positive SILVIA (antinuclear antibody) Obesity Nonalcoholic fatty liver disease Exotropia Dyslipidemia 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 Housing: Unknown / Unable to assess Unable to assess alcohol history related to: Unable to respond Alcohol intake: never Comment: PATIENT ASLEEP Patient Tobacco Use Status: Tobacco use Unknown Smoked in Last 30 Days: No Second Hand Smoke Exposure: No Use of substances other than those prescribed or required for medical reasons: No Advance Directives: No Advance Directives Information Provided: No Patient : No service: No Sexual orientation: Straight/Heterosexual Physical Exam ED Vital Signs: Vital Signs - 24 hr 07/16/23 18:38 07/16/23 20:35 Temperature 98.3 F 98.1 F Pulse Rate 85 94 Respiratory Rate 10 L 18 Blood Pressure 132/59 L 114/71 Pulse Oximetry 95 94 Oxygen Delivery Method Room Air BMI result Body Mass Index 45.9 Const General: healthy appearing, comfortable, no acute distress, alert and awake Nutritional Appearance: well nourished Orientation/consciousness: patient oriented x3 HENMT Head: Yes normocephalic and Yes atraumatic Eyes Eyelids: Yes eyelids normal Conjunctivae: conjunctivae normal Sclerae: sclerae normal Corneas: corneas normal Pupils: Equal, round and reactive pupils present EOM: EOMs intact bilaterally Neck Neck: Yes full ROM Resp Effort & Inspection: normal respiratory effort, able to speak in complete sentences and not labored GI Other: Obese abdomen, soft, tender without guarding. Inspection: No distended Palpation (GI): Soft to palpation, not firm, Tenderness to palpation present (GI) in the LLQ, no guarding and not rigid Skin General skin exam: elasticity normal Neuro General: patient oriented x3 Cranial nerves: Yes Equal, round and reactive pupils present and Yes Bilaterally intact EOM present Cognition (Neuro): normal cognition Extrem Other: Moving all extremities well without any obvious deformities Medications Administered Discontinued Medications Generic Name Dose Route Start Last Admin Trade Name Freq PRN Reason Stop Dose Admin Iohexol 85 ml 07/16/23 20:28 07/16/23 20:28 Iohexol 350 Mg/Ml 100 Ml Infus..Btl IV 07/16/23 20:29 85 ml ONCE ONE Administration Medical Decision Making Medical Decision Making [facility] Narrative: 62-year-old female presents for evaluation of abdominal pain. She denies any associated symptoms including nausea vomiting, diarrhea, constipation or urinary symptoms. The patient seems to be a limited historian. Will get a CT scan to better evaluate her abdominal pain. Labs and UA are also pending. Differential Diagnosis Differential Diagnoses: The differential diagnosis associated with the presentation includes Constipation Colitis Diverticulitis Muscle strain Obstructive uropathy Admission/Observation Consideration of admission/observation: Escalation of care including admission/observation considered Patient has diverticulitis with no evidence of complications Lab Data [facility] Lab Attestation statement: I reviewed the patient's lab results. No leukocytosis or anemia. No significant electrolyte abnormalities. 07/16/23 19:19 07/16/23 19:19 Labs: Lab Results 07/16/23 07/16/23 Range/Units 19:19 20:34 WBC 9.3 (4.8-10.8) X10*3/uL RBC 4.46 (4.20-5.50) X10*6/uL Hgb 13.1 (12.0-16.0) g/dl Hct 39.0 (37.0-47.0) % MCV 87.4 (80.0-98.0) fL MCH 29.4 (27.0-33.0) pg MCHC 33.6 (31.0-35.0) g/dl RDW 11.8 (11.0-16.0) % Plt Count 211 (160-400) X10*3/uL MPV 10.1 (9.4-12.3) fL Immature Gran % (Auto) 0.8 H (0.0-0.4) % Neut % (Auto) 68.9 (45-73) % Lymph % (Auto) 18.0 L (20-40) % Avery % (Auto) 9.5 (2-11) % Eos % (Auto) 2.4 (0-4) % Baso % (Auto) 0.4 (0-2) % Lymph # (Auto) 1.7 (1.2-4.9) X10*3/uL Avery # (Auto) 0.9 (0.1-1.2) X10*3/uL Eos # (Auto) 0.2 (0.0-0.4) X10*3/uL Baso # (Auto) 0.0 (0.0-0.2) X10*3/uL Abs Immat Gran (auto) 0.07 H (0.00-0.03) X10*3/uL Absolute Neuts (auto) 6.4 (2.0-8.3) x10*3/uL Absolute Nucleated RBC 0.000 (0.0-0.012) X10*3/uL Nucleated RBC % (auto) 0.0 (0.0-0.2) /100WBC Sodium 137 (135-145) mmol/L Potassium 3.9 (3.3-5.1) mmol/L Chloride 103 (96-108) mmol/L Carbon Dioxide 25 (22-29) mmol/L Anion Gap 13 (12-20) BUN 8 L (9-16) mg/dL Creatinine 0.77 (0.5-1.4) mg/dL Estim Creat Clear Calc 96.0 Estimated GFR > 60 Random Glucose 128 H (60-115) mg/dL Calcium 9.6 (8.4-10.2) mg/dL Urine Color Yellow Urine Appearance Clear Urine pH 6.5 (5.0-9.0) Ur Specific [place] 1.010 (1.005-1.025) Urine Protein Negative (Neg-Trace) mg/dL Urine Glucose (UA) Negative (Negative) mg/dL Urine Ketones Negative (Negative) mg/dL Urine Blood Negative (Negative) Urine Nitrite Negative (Negative) Ur Leukocyte Esterase Negative (Negative) Urine RBC 0-2 (0-2) /HPF Urine WBC 0-5 (0-5) /HPF Ur Squamous Epith Cells 0-2 (0-2) /HPF Urine Bacteria None Seen (None Seen) Hyaline Casts 0-2 (0-2) /LPF Independent Interpretation I performed an independent interpretation of an: CT Scan (Agree with Radiology interpretation, descending colon diverticulitis) Radiology Impression Discussion of test interpretation with radiology: I have reviewed the radiologist's reading. (Colonic diverticulosis with acute descending colon diverticulitis. No free air or abscess) Discharge Plan Discharge Clinical Impression: Diverticulitis Patient Disposition: Home, Self-Care Instructions: Diverticulitis (ED) Additional Instructions: Your workup showed an infection in your colon called diverticulitis Take the antibiotic twice daily for 7 days Use Tylenol for pain Return for new or worsening symptoms, especially severe, worsening pain, or fevers Prescriptions: New amoxicillin-pot clavulanate 875-125 mg tablet 1 tab PO BID Qty: 14 0RF No Action clonazepam 1 mg Tablet 1 mg PO BEDTIME paliperidone [Invega] 9 mg Tablet Extended Release 24hr 9 mg PO DAILY Qty: 30 0RF Invega Sustenna 156 mg/mL Syringe 156 mg IM Q30D Qty: 1 0RF lisinopril 20 mg Tablet 20 mg PO DAILY Qty: 30 0RF levothyroxine 50 mcg Capsule 50 mcg PO DAILY Qty: 30 0RF metoclopramide HCl [Reglan] 10 mg tablet 10 mg PO Q6H PRN (Reason: nausea and vomiting) 7 Days Qty: 14 0RF oxycodone 5 mg tablet 5 mg PO Q8H PRN (Reason: pain) Qty: 10 0RF Metamucil 3.4 gram/5.4 gram powder 1 tbsp PO DAILY Qty: 660 0RF Rx Instructions: mix into at least 8 oz of water or juice before administering metformin 500 mg Tablet 500 mg PO BIDWM 30 Days Qty: 60 0RF hydrocortisone 1 % Ointment 1 appl topical BID 30 Days Qty: 100 0RF Protocol: Apply to: Apply to: left deltoid lorazepam 0.5 mg Tablet 0.5 mg PO TID 30 Days Qty: 90 0RF trazodone 100 mg Tablet 100 mg PO BEDTIME 30 Days Qty: 30 0RF fluoxetine 10 mg Capsule 10 mg PO DAILY 30 Days Qty: 30 0RF clotrimazole [Antifungal (clotrimazole)] 1 % cream 1 appl topical BID 14 Days Qty: 30 0RF hydrocortisone [Anti-Itch (HC)] 1 % ointment 1 appl topical BID PRN (Reason: itching) Qty: 28.35 0RF ibuprofen 600 mg tablet 600 mg PO Q8H PRN (Reason: pain) Qty: 14 0RF cyclobenzaprine 10 mg tablet 10 mg PO TID PRN (Reason: muscle spasm) Qty: 10 0RF amlodipine 5 mg tablet 5 mg PO QAM cholecalciferol (vitamin D3) [Vitamin D3] 25 mcg (1,000 unit) capsule 25 mcg PO QAM
[2023-07-16 19:30] LABS: MANUAL DIFF FLAG NO
[2023-07-16 19:31] LABS: Basophils Percent Auto 0.4 % (0-2); Eosinophils Absolute Auto 0.2 X10*3/uL (0.0-0.4); Eosinophils Percent Auto 2.4 % (0-4); Hemoglobin 13.1 g/dl (12.0-16.0); Imm Gran Abs Auto 0.07 X10*3/uL (0.00-0.03); Imm Gran Pct Auto 0.8 % (0.0-0.4); Lymphocytes Absolute Auto 1.7 X10*3/uL (1.2-4.9); Mean Corpuscular HGB Conc 33.6 g/dl (31.0-35.0); Mean Corpuscular Hemoglobin 29.4 pg (27.0-33.0); Mean Corpuscular Volume 87.4 fL (80.0-98.0); Mean Platelet Volume 10.1 fL (9.4-12.3); Monocytes Absolute Auto 0.9 X10*3/uL (0.1-1.2); Monocytes Percent Auto 9.5 % (2-11); Neutrophils Absolute Auto 6.4 x10*3/uL (2.0-8.3); Neutrophils Percent Auto 68.9 % (45-73); Platelet Count 211 X10*3/uL (160-400); Red Blood Count 4.46 X10*6/uL (4.20-5.50); Red Cell Distribution Width 11.8 % (11.0-16.0); White Blood Count 9.3 X10*3/uL (4.8-10.8)
[2023-07-16 19:50] LABS: Anion Gap 13 (12-20); Blood Urea Nitrogen 8 mg/dL (9-16); Calcium 9.6 mg/dL (8.4-10.2); Carbon Dioxide 25 mmol/L (22-29); Chloride 103 mmol/L (96-108); Estimated Glomerular Filt Rate > 60; Glucose Random 128 mg/dL (60-115); Potassium 3.9 mmol/L (3.3-5.1); Sodium 137 mmol/L (135-145)
--- NOTE | 2023-07-16 19:54 | PC.NURSE ---
Assumed care of pt. Pt lying on stretcher, endorsing pain as documented. IV established and labs obtained. Pending CT scan for dispo.
[2023-07-16] MEDS: iohexoL 350 MG/ML 100 ML INFUS..BTL 85 ML IV (20:28)
[2023-07-16 20:35] VITALS: BP 114/71; PULSE 94; RESP 18; TEMP 36.7; O2SAT 94
[2023-07-16 20:42] LABS: Appearance Urine Clear; Color Urine Yellow; Glucose Urine UA Negative (Negative); Leukocyte Esterase Urine Negative (Negative); Nitrite Urine Negative (Negative); PH 6.5 (5.0-9.0); Urine Blood Negative (Negative); Urine Ketones Negative (Negative); Urine Protein Negative (Neg-Trace)
[2023-07-16 20:47] LABS: Bacteria Urine None Seen (None Seen); Hyaline Casts Urine 0-2 /LPF (0-2); RBC Urine 0-2 /HPF (0-2); Squamous Epithelial Cell Urine 0-2 /HPF (0-2); WBC Urine 0-5 /HPF (0-5)
== END 2023-07-16 21:46 | disposition home or self-care (01) ==
PROVIDERS: Physician Assistant; Emergency Provider Internal Medicine
DX: K57.32 Diverticulitis of large intestine without perforation or abscess without bleeding (principal); R10.32 Left lower quadrant pain; R11.2 Nausea with vomiting, unspecified; I10 Essential (primary) hypertension; Z79.899 Other long term (current) drug therapy
CPT/HCPCS: 36415; 74177; 80048; 81001; 85025; 99284; Q9967

== ENCOUNTER 2023-11-10 17:15 | Outpatient (REF) | payer MEDICAID, SELFPAY | END 2023-11-10 17:16 | disposition home or self-care (01) | LOC: HO.HHCLNP 17:15 | PROVIDERS: Visit Provider Internal Medicine | DX: Z12.4 Encounter for screening for malignant neoplasm of cervix (principal); Z11.3 Encounter for screening for infections with a predominantly sexual mode of transmission | CPT/HCPCS: 36415; 87491; 87591; 87661; 88142 ==

== ENCOUNTER 2024-04-26 08:44 | Outpatient (REF) | payer MEDICAID, SELFPAY ==
[2024-04-26 11:50] LABS: Basophils Absolute Auto 0.1 X10*3/uL (0.0-0.2); Basophils Percent Auto 1.1 % (0-2); Eosinophils Absolute Auto 0.3 X10*3/uL (0.0-0.4); Eosinophils Percent Auto 3.5 % (0-4); Hematocrit 44.7 % (37.0-47.0); Hemoglobin 14.9 g/dl (12.0-16.0); Imm Gran Abs Auto 0.03 X10*3/uL (0.00-0.03); Imm Gran Pct Auto 0.4 % (0.0-0.4); Lymphocytes Absolute Auto 2.5 X10*3/uL (1.2-4.9); Lymphocytes Percent Auto 31.1 % (20-40); MANUAL DIFF FLAG NO; Mean Corpuscular HGB Conc 33.3 g/dl (31.0-35.0); Mean Corpuscular Hemoglobin 29.4 pg (27.0-33.0); Mean Corpuscular Volume 88.2 fL (80.0-98.0); Monocytes Absolute Auto 0.5 X10*3/uL (0.1-1.2); Monocytes Percent Auto 6.4 % (2-11); Neutrophils Absolute Auto 4.6 x10*3/uL (2.0-8.3); Neutrophils Percent Auto 57.5 % (45-73); Platelet Count 257 X10*3/uL (160-400); Red Blood Count 5.07 X10*6/uL (4.20-5.50)
[2024-04-26 12:31] LABS: Alanine Aminotransferase 56 U/L (0-31); Albumin Level 4.3 g/dL (3.5-5.0); Alkaline Phosphatase 105 U/L (39-117); Anion Gap 16 (12-20); Aspartate Amino Transferase 48 U/L (5-31); Bilirubin Total 0.5 mg/dL (0.0-1.0); Blood Urea Nitrogen 8 mg/dL (9-16); Calcium 9.4 mg/dL (8.4-10.2); Carbon Dioxide 24 mmol/L (22-29); Chloride 102 mmol/L (96-108); Cholesterol 181 mg/dL (<200); Estimated Glomerular Filt Rate > 60; Glucose Random 110 mg/dL (60-115); HDL Cholesterol 50 mg/dL (>40); LDL Cholesterol Calculated 106 mg/dL (<100); Potassium 3.8 mmol/L (3.3-5.1); Sodium 138 mmol/L (135-145); TSH reflex Free T4 2.41 uIU/mL (0.32-4.0); Triglycerides 127 mg/dL (<150)
[2024-04-27 04:13] LABS: HIV AB/AG Nonreactive (Nonreactive); HIV Num 1 0.73 S/CO (0.00-0.99); ~HepC Num1 0.13 S/CO (0.00-0.79); ~Hepatitis C Antibody Nonreactive (Nonreactive)
== END 2024-04-26 08:45 | disposition home or self-care (01) ==
LOC: HO.HHCL 08:44
PROVIDERS: Visit Provider Internal Medicine
DX: Z00.00 Encounter for general adult medical examination without abnormal findings (principal)
CPT/HCPCS: 36415; 80053; 80061; 82306; 84443; 85025; 86803; 87389

== ENCOUNTER → 2024-05-29 11:30 | Outpatient (BNV) | payer MEDICAID, SELFPAY | PROVIDERS: Visit Provider Internal Medicine | DX: Z12.31 Encounter for screening mammogram for malignant neoplasm of breast (principal) | CPT/HCPCS: 77063; 77067 ==

== ENCOUNTER 2024-05-29 11:38 | Outpatient (REF) | payer MEDICAID, SELFPAY | END 2024-05-29 11:39 | disposition home or self-care (01) | LOC: HO.MAMMO 11:38 | PROVIDERS: Visit Provider Internal Medicine | DX: Z12.31 Encounter for screening mammogram for malignant neoplasm of breast (principal) | CPT/HCPCS: 77063; 77067 ==

== ENCOUNTER 2025-04-02 15:11 | Emergency (ER) | payer MEDICARE, MEDICAID, SELFPAY ==
--- NOTE | ~2025-04-02 | XR_ITS ---
CLINICAL HISTORY: right low back thigh pain 3 views lumbar spine Comparison: CR/SR - XR LUMBAR SPINE 2-3 VIEWS - 03/01/23 11:52 EDT Findings: Normal vertebral body alignment. No acute fractures or dislocation. Degenerative disc disease and facet arthropathy at L5-S1, similar to prior. IMPRESSION: No acute findings. This document has been electronically signed by: Greg Miller MD on 04/02/2025 18:09:12
[2025-04-02 15:21] VITALS: BP 140/88; PULSE 81; O2SAT 99
[2025-04-02 15:34] VITALS: BP 126/62; PULSE 76; RESP 18; TEMP 35.9; O2SAT 93; BMI 46.5
--- NOTE | 2025-04-02 16:06 | ED_ITS ---
HPI - Back Pain/Injury General Chief Complaint: Back Pain/Injury Stated Complaint: low back pain Related Data Home Medications ?Medication ?Instructions ?Recorded ?Confirmed clonazepam 1 mg tablet 1 mg PO BEDTIME 04/16/2002/07 amlodipine 5 mg tablet 5 mg PO QAM 04/24/23 cholecalciferol (vitamin D3) 25 25 mcg PO QAM 04/24/23 mcg (1,000 unit) capsule (Vitamin D3) Previous Rx's ?Medication ?Instructions ?Recorded levothyroxine 50 mcg capsule 50 mcg PO DAILY #30 caps 04/28/20 lisinopril 20 mg tablet 20 mg PO DAILY #30 tabs 04/19 paliperidone 9 mg tablet,extended 9 mg PO DAILY #30 ta bs 04/28/20 release 24 hr (Invega) paliperidone palmitate 156 mg/mL 156 mg IM Q30D #1 mL 04/28/20 [facility] metoclopramide HCl 10 mg tablet 10 mg PO Q6H PRN nause a and 06/13/20 (Reglan) vomiting 7 days #14 tabs oxycodone 5 mg tablet 5 mg PO Q8H PRN pain #10 tab s 06/13/20 psyllium husk 3.4 gram/5.4 gram 1 tbsp PO DAILY #660 g feroz 01/11/22 oral powder (Metamucil) fluoxetine 10 mg capsule 10 mg PO DAILY 30 days #30 c aps 03/08/22 hydrocortisone 1 % topical ointment 1 appl topical BID 30 days #100 03/08/22 grams lorazepam 0.5 mg tablet 0.5 mg PO TID 30 days #90 ta bs 03/08/22 metformin 500 mg tablet 500 mg PO BIDWM 30 days #60 tabs 03/08/22 trazodone 100 mg tablet 100 mg PO BEDTIME 30 days #3 0 tabs 03/08/22 clotrimazole 1 % topical cream 1 appl topical BID 2 we eks #30 06/01/22 (Antifungal (clotrimazole)) grams hydrocortisone 1 % topical 1 appl topical BID PRN itch ing 06/14/22 ointment (Anti-Itch #28.35 grams (hydrocortisone)) cyclobenzaprine 10 mg tablet 10 mg PO TID PRN muscle s pasm #10 03/01/23 tabs ibuprofen 600 mg tablet 600 mg PO Q8H PRN pain #14 t abs 03/01/23 amoxicillin 875 mg-potassium 1 tab PO BID #14 tabs clavulanate 125 mg tablet Allergies Allergy/AdvReac Type Severity Reaction Status Date / Time No Known Allergies Allergy Mild NOT Verified 04/02/25 15:34 APPLICABLE [facility] Past Medical History Medical History (Updated 07/17/23 @ 00:03 by Background Jennifer) Pain in joint, multiple sites Skin-picking disorder Seasonal allergies Pre-diabetes Positive SILVIA (antinuclear antibody) Obesity Nonalcoholic fatty liver disease Exotropia Dyslipidemia 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 Housing: Unknown / Unable to assess Alcohol intake: never Comment: PATIENT ASLEEP Patient Tobacco Use Status: Tobacco use Unknown Second Hand Smoke Exposure: No service: No Sexual orientation: Straight/Heterosexual Physical Exam Vital Signs: Vital Signs: Last Vital Signs Temp 96.6 F L 04/02/25 15:34 Pulse 76 04/02/25 15:34 Resp 18 04/02/25 15:34 BP 126/62 04/02/25 15:34 Pulse Ox 93 04/02/25 15:34 O2 Del Method Room Air 04/02/25 15:34 BMI result Body Mass Index 46.5 Course Course Course Narrative: This is a Rapid Medical Examination (RME) performed by Abhilash Boone PA-C in triage. Full HPI, ROS, assessment and treatment plan per primary provider in the Main ED. Hx: 65 yo F BIBA for eval of right low back/thigh pain since this morning. no injury/fall/trauma. Plan: xrs Discharge Plan Discharge Prescriptions: No Action clonazepam 1 mg Tablet 1 mg PO BEDTIME paliperidone [Invega] 9 mg Tablet Extended Release 24hr 9 mg PO DAILY Qty: 30 0RF Invega Sustenna 156 mg/mL Syringe 156 mg IM Q30D Qty: 1 0RF lisinopril 20 mg Tablet 20 mg PO DAILY Qty: 30 0RF levothyroxine 50 mcg Capsule 50 mcg PO DAILY Qty: 30 0RF metoclopramide HCl [Reglan] 10 mg tablet 10 mg PO Q6H PRN (Reason: nausea and vomiting) 7 Days Qty: 14 0RF oxycodone 5 mg tablet 5 mg PO Q8H PRN (Reason: pain) Qty: 10 0RF Metamucil 3.4 gram/5.4 gram powder 1 tbsp PO DAILY Qty: 660 0RF Rx Instructions: mix into at least 8 oz of water or juice before administering metformin 500 mg Tablet 500 mg PO BIDWM 30 Days Qty: 60 0RF hydrocortisone 1 % Ointment 1 appl topical BID 30 Days Qty: 100 0RF Protocol: Apply to: Apply to: left deltoid lorazepam 0.5 mg Tablet 0.5 mg PO TID 30 Days Qty: 90 0RF trazodone 100 mg Tablet 100 mg PO BEDTIME 30 Days Qty: 30 0RF fluoxetine 10 mg Capsule 10 mg PO DAILY 30 Days Qty: 30 0RF clotrimazole [Antifungal (clotrimazole)] 1 % cream 1 appl topical BID 14 Days Qty: 30 0RF hydrocortisone [Anti-Itch (HC)] 1 % ointment 1 appl topical BID PRN (Reason: itching) Qty: 28.35 0RF ibuprofen 600 mg tablet 600 mg PO Q8H PRN (Reason: pain) Qty: 14 0RF cyclobenzaprine 10 mg tablet 10 mg PO TID PRN (Reason: muscle spasm) Qty: 10 0RF amoxicillin-pot clavulanate 875-125 mg tablet 1 tab PO BID Qty: 14 0RF amlodipine 5 mg tablet 5 mg PO QAM cholecalciferol (vitamin D3) [Vitamin D3] 25 mcg (1,000 unit) capsule 25 mcg PO QAM Print Language: Jamaican
--- OUTSIDE RECORDS SUMMARY | 2025-04-02 19:39 | XMS_ITS | Encounter Summary ---
Author Organization [employer] Address [address] [place] [address] Care Team Providers Care History Faculty Member Name Role Phone Irina Ventura MD Primary Care Provide r Encounter Details Date Type Department Care Team (Late st Contact Info) Description 08/03/2022 Orders Only [facility] [address] [place] [address] Dimple Hickman LPN Social History Tobacco Use Types Packs/Day Years Used Date Smoking Tobacco: Never Assessed Comments Unknown Sex and Gender Information Value Date Recorded Sex Assigned at Female 04/18/2022 10:14 AM EDT Legal Sex Female 10:14 AM EDT Gender Identity Female 04/18/2022 10:14 AM EDT Sexual Orientation Straight 04/18/2022 10 :14 AM EDT documented as of this encounter Plan of Treatment Upcoming Encounters Date Type Department Care Team (Late st Contact Info) Description 04/21/2025 9:15 AM EST Office Visit [facility] [address] [place] [address] Irina Ventura MD [address] [place] [address] documented as of this encounter Visit Diagnoses Not on filedocumented in this encounter Care Teams History Faculty Member Relationship Specialty Start Date End Date Irina Ventura MD [address] [place] [address] PCP - General Family Medicine 07/03/20 documented as of this encounter
--- OUTSIDE RECORDS SUMMARY | 2025-04-02 19:39 | XMS_ITS | Encounter Summary ---
Author Organization [employer] Address [address] [facility] [address] [place] [address] Care Team Providers Care Balance Wheel Motion Inspector Name Role Phone Irina Ventura MD Primary Care Provide r Encounter Details Date Type Department Care Team ([facility] st Contact Info) Description 05/16/2023 Abstract [facility] MED[facility]INE [address] [place], [place] [phone] Elle Mercado Social History Tobacco Use Types Packs/Day Years Used Date Smoking Tobacco: Never Passive Smoke Exposure: Never Smokeless Tobacco: Never Depression Answer Date Recorded Patient Health Questionnaire-9 Score 0 04/13/2023 Patient Health Questionnaire-9 Score 0 04/13/2023 Last PHQ-9: Questionnaire Data Not on file 1 Housing Stability Answer Date Recorded What is your housing situation today? I have jovi lauren 04/05/[address] you li ve. Do you have problems with any of the following? None of the above 04/05/2023 Food Insecurity Answer Date Recorded Within the past 12 months, y ou worried that your food would run out before you got money to buy more: Never True 04/05/2023 Within the past 12 months,th e food you bought just didn't last and you didn't have enough money to get more: Never True Transportation Answer Date Recorded In the past 12 months, has l ack of transportation kept you from medical appts, meetings, work or from getting things needed for daily living? No 04/05/2023 Utilities Answer Date Recorded In the past 12 months, has t he electric, gas, oil or water company threatened to shut off services in your home? No 04/05/2023 Depression Answer Date Recorded Patient Health Questionnaire-2 Score 0 04/13/2023 Comments Unknown Sex and Gender Information Value [...] Description 04/21/2025 9:15 AM EST Office Visit [facility] [address] [place] [address] Irina Ventura MD [address] [place], [place] [phone] documented as of this encounter Visit Diagnoses Not on filedocumented in this encounter Additional Health Concerns Assessment Noted Time PHQ-9 Depression Total Score: 0 04/13/20 23 1:10 PM EDT documented as of this encounter Care Teams Balance Wheel Motion Inspector Relationship Specialty Start Date End Date Irina Ventura MD [address] [place] [phone] PCP - General Family Medicine 07/03/20 documented as of this encounter
--- OUTSIDE RECORDS SUMMARY | 2025-04-02 19:39 | XMS_ITS | Encounter Summary ---
Author Organization [employer] Address [address] [place] [address] Care Team Providers Care Acid Crane Operator Name Role Phone Irina Ventura MD Primary Care Provide r Encounter Details Date Type Department Care Team (Late Contact Info) Description 06/09/2022 [facility] Health Information Management [address] [place] [address] Irina Ventura MD [address] [place], [place] [phone] Social History Tobacco Use Types Packs/Day Years [...] Description 04/21/2025 9:15 AM EST Office Visit [facility] [address] [place] [address] Irina Ventura MD [address] [place], [place] [phone] documented as of this encounter Visit Diagnoses Not on filedocumented in this encounter Care Teams Acid Crane Operator Relationship Specialty Start Date End Date Irina Ventura MD [address] [place], [place] [phone] PCP - General Family Medicine 07/03/20 documented as of this encounter
--- OUTSIDE RECORDS SUMMARY | 2025-04-02 19:39 | XMS_ITS | Clinical Summary ---
Author Organization [employer] Address [address] [facility] [address] [place] [address] Care Team Providers Care Racquet Maker Name Role Phone Irina Ventura MD Primary Care Provide r Allergies No known active allergies Medications bacitracin 500 UNIT/GM ointment APPLY TWICE DAILY Active clonazePAM (KlonoPIN) 1 MG tablet Take 1 mg by mouth at bedtime. 023 Active FLUoxetine (PROzac) 10 MG capsule Take 10 mg by mouth in the morning. 023 Active latanoprost (Xalatan) 0.005 % ophthalmic solution INSTILL 1 DROP IN EACH EYE AT BEDTIME Active LORazepam (Ativan) 0.5 MG tablet Take 0.5 mg by mouth 2 times daily. 023 Active Invega Sustenna 156 MG/ML suspension prefilled syringe INJECT 1 ML INTRAMUSCULARLY EACH MONTH DIRECTED 023 Active traZODone (Desyrel) 100 MG tablet Take 100 mg by mouth if needed at bedtime. 023 Active clotrimazole-be tamethasone (Lotrisone) creamIndication s:Intertrigo Apply BID on affected zone for 14 days 45 g 024 Active baclofen (Lioresal) 10 MG tablet TAKE 1/2 TABLET BY MOUTH THREE TIMES DAILY 45 tablet 024 Active naproxen (Naprosyn) 500 MG tablet TAKE 1 TABLET BY MOUTH TWICE DAILY 60 tablet 024 Active nystatin (Mycostatin) 403989 UNIT/GM powder Apply topically 2 times daily. 120 g 3 025 2025 Active clotrimazole (Lotrimin) 1 % cream Apply topically if needed in the morning and at bedtime (rash). 113 g 3 025 Active metFORMIN (Glucophage) 500 MG tabletIndicatio ns:Type 2 diabetes mellitus with other specified complication, unspecified whether terminal manager insulin use (HCC) TAKE 1 TABLET BY MOUTH TWICE DAILY IN THE MORNING AND IN THE EVENING WITH MEALS 180 tablet 1 025 Active Diclofenac Sodium 1 % gel APPLY 2 GRAMS TOPICALLY TO AFFECTED AREA(S) FOUR TIMES DAILY 300 g 2 025 Active lisinopril 40 MG tabletIndicatio ns:Essential hypertension TAKE 1 TABLET BY MOUTH EVERY MORNING 90 tablet 3 025 Active levothyroxine (Synthroid, Levoxyl) 50 MCG tablet TAKE 1 TABLET BY MOUTH EVERY MORNING 90 tablet 3 025 Active D3-1000 25 MCG (1000 UT) capsuleIndicati ons:Vitamin D insufficiency TAKE 1 CAPSULE BY MOUTH EVERY MORNING 90 capsule 3 025 Active amLODIPine (Norvasc) 5 MG tabletIndicatio ns:Essential hypertension Take 1 tablet (5 mg) by mouth in the morning. 90 tablet 3 025 Active amLODIPine (Norvasc) 5 MG tabletIndicatio ns:Essential hypertension TAKE 1 TABLET BY MOUTH EVERY MORNING 90 tablet 3 024 2024 Discontinued(R eorder (will not trigger notification to Pharmacy)) Active Problems Problem Noted Date Diagnosed Date Screening for malignant neoplasm of colon declin ed 04/15/2024 Intertrigo 11/10/2023 Encounter for Papanicolaou s mear for cervical cancer screening 11/10/2023 Assessment & Plan (11/10/2023 1:28 PM EDT): Pelvic exam and PAP done, patient will be contacted with results Diverticulitis 07/24/2023 Encounter for preventive care 04/13/2023 Assessment & Plan (04/15/2024 10:53 AM EDT): See HPI Assessment & Plan (04/13/2023 1:45 PM EDT): See HPI Type 2 diabetes mellitus wit hout complication, without long-term current use of insulin 04/13/2023 Assessment & Plan (08/22/2024 10:43 AM EST): Diabetes is: controlled - Lab Results Component Value Date HGBA1C 6.3 (A) 08/22/2024 HGBA1C 6.1 (A) 04/15/2024 HGBA1C 6.6 (A) 07/24/2023 - Lab Results Component Value Date MICROALBUR 2.6 01/28/2022 CREATININE 0.74 04/26/2024 -Changes: None - Diabetic eye exam: Up-to-date, patient recently had cataract surgery done - Diabetic foot exam: Up-to-date - Continue lifestyle modifications - Continue current medications - Follow up: 6 months Assessment & Plan (04/15/2024 10:53 AM EDT): Diabetes is: controlled - Lab Results Component Value Date HGBA1C 6.1 (A) 04/15/2024 HGBA1C 6.6 (A) 07/24/2023 HGBA1C 6.6 (A) 04/13/2023 - Lab Results Component Value Date MICROALBUR 2.6 01/28/2022 CREATININE 0.77 07/16/2023 -Changes: none - Diabetic eye exam:upcoming appointment - Diabetic foot exam:podiatry referral done - Continue lifestyle modifications - Continue current medications - Follow up: 3 months Assessment & Plan (07/24/2023 5:41 PM EST): - Lab Results Component Value Date HGBA1C 6.6 (A) 07/24/2023 HGBA1C 6.6 (A) 04/13/2023 HGBA1C 6.3 (H) 10/14/2022 - Lab Results Component Value Date MICROALBUR 2.6 01/28/2022 CREATININE 0.77 07/16/2023 - Diabetic eye exam:pending - Diabetic foot exam:pending - Continue lifestyle modifications - Continue current medications Assessment & Plan (04/13/2023 1:45 PM EDT): - Lab Results Component Value Date HGBA1C 6.3 (H) 10/14/2022 HGBA1C 5.9 (H) 01/28/2022 HGBA1C 5.8 (H) 11/12/2020 - Lab Results Component Value Date MICROALBUR 2.6 01/28/2022 CREATININE 0.69 10/14/2022 - - Diabetic eye exam: up to date - Diabetic foot exam:pending - Continue lifestyle modifications - Continue current medications - Encounter for screening mamm ogram for malignant neoplasm of breast 04/13/2023 Colon cancer screening 04/13/2023 Chronic bilateral low back pain without sciatica 04/13/2023 Assessment & Plan (04/13/2023 1:46 PM EDT): Apply heat on affected area Polyarthralgia 11/30/2022 Skin tags, multiple acquired 11/30/2022 Mixed stress and urge urinary incontinence 11/30 Subconjunctival hemorrhage, left 11/01/2022 Assessment & Plan (11/01/2022 10:47 AM EDT): Diagnosis unclear. [facility] not able to see pt this week. Will discuss with our eye doctor this afternoon. ER precautions discussed. Dyslipidemia 03/28/2018 Essential hypertension 03/28/2018 Assessment & Plan (08/22/2024 10:43 AM EST): -I advise low-sodium diet and weight reduction -I advised not to miss any dose of her medication - Home BP monitoring 1-2 x day with goal of <140/90. - Seek immediate medical attention for chest pain, palpitations, SOB, syncope, or sudden changes in mental status. - Do not change or discontinue current prescriptions without first consulting health care provider Assessment & Plan (07/24/2023 5:40 PM EST): - Aerobic exercise to reduce BP. Initial goal of 30 min walk 3-5x/week. Increase as tolerated. - low-sodium diet (goal: <2g/day) and heart healthy diet such as DASH to reduce BP and prevent ASCVD. - Home BP monitoring 1-2 x day with goal of <140/90. - Seek immediate medical attention for chest pain, palpitations, SOB, syncope, or sudden changes in mental status. - Do not change or discontinue current prescriptions without first consulting health care provider Assessment & Plan (04/13/2023 1:44 PM EDT): -Today I added amlodipine 5mg daily - Aerobic exercise to reduce BP. Initial goal of 30 min walk 3-5x/week. Increase as tolerated. - low-sodium diet (goal: <2g/day) and heart healthy diet such as DASH to reduce BP and prevent ASCVD. - Home BP monitoring 1-2 x day with goal of <140/90. - Seek immediate medical attention for chest pain, palpitations, SOB, syncope, or sudden changes in mental status. - Do not change or discontinue current prescriptions without first consulting health care provider Assessment & Plan (11/30/2022 12:42 PM EDT): - Aerobic exercise to reduce BP. Initial goal of 30 min walk 3-5x/week. Increase as tolerated. - low-sodium diet (goal: <2g/day) and heart healthy diet such as DASH to reduce BP and prevent ASCVD. - Home BP monitoring 1-2 x day with goal of <140/90. - Seek immediate medical attention for chest pain, palpitations, SOB, syncope, or sudden changes in mental status. -Today I increase her lisinopril to 40mg daily - Do not change or discontinue current prescriptions without first consulting health care provider NAFLD (nonalcoholic fatty liver disease) 018 Prediabetes 03/28/2018 Assessment & Plan (11/30/2022 12:43 PM EDT): Today extensive discussion was done about life style modifications I advise healthy diet (low calorie) and cardiovascular exercise Aneurysm of splenic artery 03/22/2018 Positive SILVIA (antinuclear antibody) 03/02/2018 Diverticula of intestine 01/09/2018 Seasonal allergic rhinitis 12/21/2016 Skin-picking disorder 12/21/2016 Exotropia 06/07/2013 Hypothyroidism 02/06/2012 Schizophrenia 02/06/2012 Assessment & Plan (11/30/2022 12:43 PM EDT): Continue to follow with specialist Obesity 11/30/2011 Encounters Date Type Department Care Team Description 03/18/2025 Refill [facility] [address] [place] [address] Irina Ventura MD Essential hypertension from Last 3 Months Immunizations Immunization Administration Dates Next Due Hep A, Adult 01/24/2022,03/28/2018 Hep B, adult 01/24/2022,04/26/2018,03/28/2018 Influenza injectable quadriv alent IIV4 with preservative 11/20/2016 Influenza injectable quadriv alent preservative free 04/13/2023,06/16/2021,07/15/2019 Influenza, IIV3, injectable 07/22/2014, 9 Influenza, Split (incl. major fied surface antigen) 03/26/2012 Moderna Covid-19 Vaccine 6+ Bivalent 06/15/2022 Pneumococcal Conjugate PCV 13 01/06/2016, 015 Pneumococcal Conjugate PCV 20 08/22/2024 RSV Bivalent 08/18/2023 TD (adult), 2 Lf tetanus tox oid, preservative free, adsorbed 10/30/2003 Tdap 01/06/2016,04/15/2014 Zoster, Recombinant 08/18/2023,02/08/2022 Family History Medical History Relation Name Comments Diabetes Brother Mental illness Brother Glaucoma Father Hypertension Mother Thyroid disease Mother Diabetes Sister Relation Name Status Comments Brother Father Mother Sister Social History Tobacco Use Types Packs/Day Years Used Date Smoking Tobacco: Never Passive Smoke Exposure: Never Smokeless Tobacco: Never Tobacco Cessation:Counseling Given: Not Answered Depression Answer Date Recorded Patient Health Questionnaire-9 Score 0 04/15/2024 Patient Health Questionnaire-9 Score 0 04/15/2024 Last PHQ-9: Questionnaire Data Not on file 1 Housing Stability Answer Date Recorded What is your housing situation today? I have jovi leonidas 06/26/[address] you li ve. Do you have problems with any of the following? Pests such as bugs, ants, or mice 06/26/2024 Food Insecurity Answer Date Recorded Within the [...] Date Recorded Patient Health Questionnaire-2 Score 0 04/15/2024 Internet Access Answer Date Recorded Internet Access Q1 No 06/26/2024 Internet Access Q2 I do not want or need it 01/2025 Comments Unknown Sex and Gender Information Value Date Recorded Sex Assigned at Female 04/18/2022 10:14 AM EDT Legal Sex Female 10:14 AM EDT Gender Identity Female 04/18/2022 10:14 AM EDT Sexual Orientation Straight 04/18/2022 10 :14 AM EDT Last Filed Vital Signs Vital Sign Reading Time Taken Comments Blood Pressure 134/68 11/29/2024 10:13 AM EDT Pulse 66 11/29/2024 10:13 AM EDT Temperature 37.1 C (98.7 F) 11/29/2024 10:13 AM EDT Respiratory Rate 18 11/29/2024 10:13 AM EDT Oxygen Saturation 95% 09/19/2024 10:31 AM EDT Inhaled Oxygen Concentration - - Weight 116 kg (256 lb 9.6 oz) 11/29/2024 10:13 A M EDT Height 154.9 cm (5' 1 ) 11/29/2024 10:13 AM EDT Body Mass Index 48.48 11/29/2024 10:13 AM EDT Plan of Treatment Upcoming Encounters Date Type Department Care Team (Late st Contact Info) Description 04/21/2025 9:15 AM EST Office Visit [facility] [address], [place] [id number] Irina Ventura MD [address] [place] [address] Health Maintenance Due Date Last Done Comments CT Colonography 1960 Colonoscopy 1960 Colorectal Cancer Screening 1960 FIT DNA/Cologuard 1960 FIT 1960 FOBT 1960 Sigmoidoscopy 1960 Diabetes: Foot Exam 02/03/1970 Eye Exam 02/03/1970 Alcohol/Substance Use Screening 1972 Diabetes: Urine Protein Screening 01/28/2023 01/28/2022 HPV/Cotest 08/16/2023 08/16/2018 COVID-19 Vaccine ( season) 2025 06/15/2022, 06/02/2021, 09/25/2020, Additional history exists Influenza Vaccine (#1) 2025 , 06/16/2021, 07/15/2019, Additional history exists Diabetes: Hemoglobin A1C 02/22/2025 025, 04/15/2024, 07/24/2023, Additional history exists Depression Screening 04/15/2025 04/15/2024, 04/15/20 24 Lipid Panel 04/26/2025 04/26/2024, 01/17, 11/12/2020, Additional history exists Mammogram 05/29/2025 05/29/2024, 05/19, 06/03/2020, Additional history exists SDOH Screening 06/26/2025 06/26/2024 Tobacco Screening 09/19/2025 09/19/2024 DTaP/Tdap/Td Vaccines (3 - Td or Tdap) 01/05/2026 01/06/2016, 04/15/2014, 10/30/2003 Cervical Cancer Screening 11/09/2026 Pap Smear 11/09/2026 11/10/2023 Hepatitis A Vaccines Completed 01/24/2022, 03/28/20 Hepatitis B Vaccines Completed 01/24/2022, 04/26/2018, 03/28/2018 RSV Patients and Patients Aged 60 years or older Completed 08/18/2023 Zoster Vaccines Completed 08/18/2023, 02/08/2022 Hepatitis C Screening Completed 04/26/2024 Pneumococcal Vaccine: 50+ Years Completed 08/22/2024, 01/06/2016, 07/22/2014 HIB Vaccines Aged Out No longer eligi ble based on patient's age to complete this topic HPV Vaccines Aged Out No longer eligi ble based on patient's age to complete this topic IPV Vaccines Aged Out No longer eligi ble based on patient's age to complete this topic Meningococcal B Vaccine Aged Out No l onger eligible based on patient's age to complete this topic Meningococcal Vaccine Aged Out No rama july eligible based on patient's age to complete this topic RSV under 20 months Aged Out No longe r eligible based on patient's age to complete this topic Rotavirus Vaccines Aged Out No longer eligible based on patient's age to complete this topic Procedures Procedure Name Priority Date/Time Associated Diagnosis Comments POCT GLYCATED HEMOGLOBIN, TOTAL Routine 08/22/2024 9:57 AM EST Type 2 diabetes mellitus without complication, without long-term current use of insulin (CMS/HCC) BI MAMMOGRAM SCREENING TOMOSYNTHESIS BILATERAL Routine 05/29/2024 11:45 AM EST Encounter for screening mammogram for malignant neoplasm of breast HEPATITIS C AB W/REFL TO HCV RNA, QN, PCR Routine 04/26/2024 8:50 AM EST Encounter for preventive care LIPID PANEL, STANDARD Routine 04/26/2024 8:50 AM EST Encounter for preventive care PAP SMEAR Routine 11/10/2023 1:28 PM EDT ALBUMIN, RANDOM URINE W/CREATININE Routine 01/28/2022 8:06 AM EDT ZZZ HISTORICAL HPV MRNA E6/E7 Routine 08/16/2018 10:30 AM EST from Last 3 Months or Most Recently Relevant to Health Maintenance Results * (ABNORMAL) POCT HGB A1C (08/22/2024 9:57 AM EST) Hemoglobin A1C 6.3(A) 4.0 - 6.0 % QC Media Lot # [id number] Lot# Expiration Date Blood 08/22/2024 9:57 AM EST us Irina Carrillo MD POINT OF CARE TEST EN TER/EDIT ORDERABLES Final Result * BI Mammogram Screening Tomosynthesis Bilateral (05/29/2024 11:45 AM EST) Anatomical Region Laterality Modality Breast Bilateral Mammography 05/29/2024 11:4 5 AM EST Narrative 06/04/2024 3:02 PM EST [facility] [address] [place] [address] Mammography Report Signed Patient: Kiera Mcintyre MR#: [id number] : 1960 Acct:[id number] Age/Sex: 64 / F ADM Date: 05/29/24 Loc: HO.MAMMO Attending Dr: Irina Carrillo MD Ordering Physician: Irina Ventura MD Results: 1Negative Date of Service: 05/29/24 Follow Up: 1 Year From Orig inal Mammogram Procedure(s): MM tomosynthesis screening BI Accession Number(s): [id number] cc: Irina Ventura MD EXAMINATION: MM SCREENING DIGITAL BREAST TOMOSYNTHESIS, BILATERAL CLINICAL INFORMATION: Screening. Asymptomatic. COMPARISON: Mammography: Comparison is made with available priors TECHNIQUE: Digital breast mammography with tomosynthesis is performed in both the craniocaudal and mediolateral oblique views along with computer-aided detection (CAD). FINDINGS: There are scattered areas of fibroglandular density (ACR BI-RADS breast composition Category b). There are no significant masses, abnormal calcifications, or other abnormalities. MM/MM tomosynthesis screening BI IMPRESSION: No mammographic evidence of malignancy. ASSESSMENT: BI-RADS BI-RADS 1 - Negative RECOMMENDATION: Routine annual mammography screening. 1 year F/U This examination should not preclude the clinical evaluation of a suspicious palpable abnormality. This patient's information was entered into a reminder system with a target due date for their next mammogram. Electronically signed by: Magy Pretty DO 06/04/2024 02:58 PM EST Dictated By: Magy Pretty DO Signed By: <Electronically signed by Magy Pretty DO in OV> 06/04/24 1458 DD/ 1145 TD/TT: 05/29/24 1213 Nuclear Engineering Technician: Procedure Note Donotuseinterpreter, Image - 06/04/2024 [facility] [address] [place] [address] Mammography Report Signed Patient: Kiera McintyreMR#: [id number] : 1960Acct:[id number] Age/Sex: 64 / FADM Date: 05/29/24 Loc: HO.MAMMO Attending Dr: Irina Carrillo MD Ordering Physician: Irina Ventura MDResults: 1Negative Date of Service: 05/29/24Follow Up: 1 Year From Orig inal Mammogram Procedure(s): MM tomosynthesis screening BI Accession Number(s): [id number] cc: Irina Ventura MD EXAMINATION: MM SCREENING DIGITAL BREAST TOMOSYNTHESIS, BILATERAL CLINICAL INFORMATION: Screening. Asymptomatic. COMPARISON: Mammography: Comparison is made with available priors TECHNIQUE: Digital breast mammography with tomosynthesis is performed in both the craniocaudal and mediolateral oblique views along with computer-aided detection (CAD). FINDINGS: There are scattered areas of fibroglandular density (ACR BI-RADS breast composition Category b). There are no significant masses, abnormal calcifications, or other abnormalities. MM/MM tomosynthesis screening BI IMPRESSION: No mammographic evidence of malignancy. ASSESSMENT: BI-RADS BI-RADS 1 - Negative RECOMMENDATION: Routine annual mammography screening. 1 year F/U This examination should not preclude the clinical evaluation of a suspicious palpable abnormality. This patient's information was entered into a reminder system with a target due date for their next mammogram. Electronically signed by: Magy Pretty DO 06/04/2024 02:58 PM EST Dictated By: Magy Pretty DO Signed By: <Electronically signed by Magy Pretty DO in OV> 06/04/24 1458 DD/ 1145 TD/TT: 05/29/24 1213 Nuclear Engineering Technician: us Irina Carrillo MD IMG BI PROCEDURES Fin al Result * Hepatitis C Antibody with Reflex to HCV, RNA, Quantitative, Real-Time PCR (04/26/2024 8:50 AM EST) Hepatitis C Antibody Nonreactive Nonreactive [facility] Comment:Antibodies to HCV no t detected; does not exclude early acuteHCV infection. Blood Venous blood specimen / Unknown 04/26/2024 8:50 AM EST 04/26/2024 11:34 AM EST us Irina Carrillo MD LAB BLOOD ORDERABLES Final Result [facility] [address] [place] [phone] * (ABNORMAL) Lipid Panel, Standard (04/26/2024 8:50 AM EST) Triglycerides 127 <150 mg/dL [facility] Comment:Desirable Triglyceri de: less than 150 mg/dLBorderline High Triglyceride 150-199 mg/dLHigh Triglyceride: 200-499 mg/dLVery High Triglyceride: greater than or equal to 5OO mg/dL Cholesterol 181 <200 mg/dL [facility] Comment:Desirable Cholestero l: less than 200 mg/dLBorderline High Cholesterol: 200-239 mg/dLHigh Cholesterol: greater than 239 mg/dL LDL Cholesterol Calculated 106(H) <100 mg/dL [facility] Comment:Desirable LDL: less than 100 mg/dLNear Optimal/Above Optimal LDL: 110- 129 mg/dLBorderline High LDL: 130-159 mg/dLHigh LDL: 160-189 mg/dLVery High LDL: greater than or equal to 190 mg/dL HDL Cholesterol 50 >40 mg/dL [facility] Comment:Desirable HDL: great er than 40 mg/dL Note: This HDL assay may give artificially low results in patients with liver disease. Blood Venous blood specimen / Unknown 04/26/2024 8:50 AM EST 04/26/2024 11:39 AM EST us Irina Carrillo MD LAB BLOOD ORDERABLES Final Result [facility] [address] [place] [phone] * Pap Smear (11/10/2023 1:28 PM EDT) 11/10/2023 1:28 PM EDT 11/13/2023 10:00 AM EDT Narrative [facility] - 11/27/2023 4:50 PM EDT ----- ------- Name: Kiera Mcintyre Age/Sex: 63/F : 1960 Unit#: [id number] Attend Dr: Irina Ventura MD Re11/10/23 Status: DEP REF Location: HO.HHCLNP Disch: ----- ------- SPEC : [id number] RECD: 11/13/23-1000 STATUS: MAE ALEMAN NUM: [id number] KAROLINA: 11/10/23-[address]: Irina Ventura MD ENTERED: 11/13/23-1259 SP TYPE: Pap Smr OTHR DR: ORDERED: Pap Smear Interpretation Satisfactory for evaluation. Negative for intraepithelial lesion or malignancy. Clinical Information LMP:Unk Previous PAP test:Unk Material Received ThinPrep-Cervical ----- ------- Signed (signature on file) Chani Schwartz 11/27/23 1650 ----- ------- END OF REPORT us Irina Carrillo MD LAB CYTOLOGY ORDERABL ES Final Result [facility] [address] [place] [phone] * ALBUMIN, RANDOM URINE W/CREATININE (01/28/2022 8:06 AM EDT) Microalbumin Urine 2.6 See Note: mg/dL [facility] Comment: Reference Range: Reference Range Not established Microalb/Creat Ratio 14 <30 mcg/mg creat [facility] Comment: The ADA defines abnormalities in albumin excretion as follows: Albuminuria Category Result (mcg/mg creatinine) Normal to Mildly increased <30 Moderately increased 30-299 Severely increased > OR = 300 The ADA recommends that at least two of three specimens collected within a 3-6 month period be abnormal before considering a patient to be within a diagnostic category. Creatinine, Urine 186 20 - 275 mg/dL [facility] 01/28/2022 8:06 AM EDT us Dimple Garcia DO LAB URINE ORDERABLES Final R esult Performing Organization Address [facility]/ZIP Co de Phone Number [facility] [address] * HPV mRNA E6/E7 (08/16/2018 10:30 AM EST) HPV mRNA E6/E7 Not Detected NOT DETECTED [facility] Comment: This test was performed using the APTIMA(R) HPV Assay ([employer] This assay detects E6/E7 viral messenger RNA (mRNA) from 14 high-risk HPV types (16,18,31,33,35,39,45,51, 52,56,58,59,66,68). For additional information please refer to: http://education.Vizify/faq/KAD454n0 (This link is being provided for informational/ educational purposes only.) The analytical performance characteristics of this assay have been determined by [employer] [place], [place]. The modifications have not been cleared or approved by the FDA. This assay has been validated pursuant to the CLIA regulations and is used for clinical purposes. Test Performed by [facility], [employer] [facility], [address] [place] [address] Gucci Ortiz M.D., Ph.D., Director of Laboratories , CLIA [id number] Please note: Effective 02/29/2016, HPV testing will be performed using [employer]'s APTIMA test which targets mRNA. Detecting mRNA instead of DNA, as in older methods, offers significant improvements in specificity. 08/16/2018 10:3 0 AM EST Dari Reeves CNM HISTORICAL/NON ORDERABLE LABS Final Result Performing Organization Address [facility] Co de Phone Number [facility] [address] from Last 3 Months or Most Recently Relevant to Health Maintenance Insurance [facility] C3 Care Teams Racquet Maker Relationship Specialty Start Date End Date Irina Ventura MD [address] [place] [phone] PCP - General Family Medicine 07/03/20
--- OUTSIDE RECORDS SUMMARY | 2025-04-02 19:39 | XMS_ITS | Encounter Summary ---
Author Organization [employer] Address [address] [place] [address] Care Team Providers Care Sap Payroll Consultant Name Role Phone Irina Ventura MD Primary Care Provide r Reason for Visit * Reason Comments Med Refill Encounter Details Date Type Department Care Team (Late st Contact Info) Description 08/03/2022 Refill [facility] [address], [place] [phone] Suzy Dobbs FNP [address], [place] [phone] Type 2 diabetes mellitus with hyperglycemia, unspecified whether longterm insulin use (CMS/HCC) (Primary Dx) Social History Tobacco Use Types Packs/Day Years [...] Description 04/21/2025 9:15 AM EST Office Visit [facility] [address], [place] [phone] Irina Ventura MD [address] [place], [place] [phone] documented as of this encounter Visit Diagnoses Diagnosis Type 2 diabetes mellitus with hyperglycemia, unspecified whether watermelon inspector insulin use (HCC)- Primary documented in this encounter Care Teams Sap Payroll Consultant Relationship Specialty Start Date End Date Irina Ventura MD [address] [place] [address] PCP - General Family Medicine 07/03/20 documented as of this encounter
[2025-04-02 20:16] VITALS: BP 100/50; PULSE 87; RESP 16; TEMP 36.7; O2SAT 98
--- NOTE | 2025-04-02 20:19 | PC.NURSE ---
reviewed discharge instructions with pt. pt verbalized understanding, no sign of distress.
[2025-04-02 20:20] VITALS: BP 100/50; PULSE 87; RESP 16; TEMP 36.7; O2SAT 98
--- NOTE | 2025-04-02 20:30 | ED_ITS ---
HPI - General Adult General Chief complaint: Back Pain/Injury Stated complaint: low back pain Time Seen by Provider: 04/02/25 19:22 Source: patient Mode of arrival: ambulatory Limitations: language barrier History of Present Illness ED Provider: Dr. Chiang HPI narrative: This is a 65-year-old female presented hospital today for evaluation of right gluteus pain that radiates down to her right thigh. Patient stated that this occurred suddenly today. She does have this pain in the past. Improved with Motrin. However she has been taking Motrin without any alleviation of his pain. Denies any traumatic injury to this right hip. Patient stated that she does feel a shooting pain down her right leg. Related Data Home Medications ?Medication ?Instructions ?Recorded ?Confirmed clonazepam 1 mg tablet 1 mg PO BEDTIME 04/16/2002/07 amlodipine 5 mg tablet 5 mg PO QAM 04/24/23 cholecalciferol (vitamin D3) 25 25 mcg PO QAM 04/24/23 mcg (1,000 unit) capsule (Vitamin D3) Previous Rx's ?Medication ?Instructions ?Recorded levothyroxine 50 mcg capsule 50 mcg PO DAILY #30 caps 04/28/20 lisinopril 20 mg tablet 20 mg PO DAILY #30 tabs 04/19 paliperidone 9 mg tablet,extended 9 mg PO DAILY #30 ta bs 04/28/20 release 24 hr (Invega) paliperidone palmitate 156 mg/mL 156 mg IM Q30D #1 mL 04/28/20 intramuscular syringe [facility] metoclopramide HCl 10 mg tablet 10 mg PO Q6H PRN nause a and 06/13/20 (Reglan) vomiting 7 days #14 tabs oxycodone 5 mg tablet 5 mg PO Q8H PRN pain #10 tab s 06/13/20 psyllium husk 3.4 gram/5.4 gram 1 tbsp PO DAILY #660 g feroz 01/11/22 oral powder (Metamucil) fluoxetine 10 mg capsule 10 mg PO DAILY 30 days #30 c aps 03/08/22 hydrocortisone 1 % topical ointment 1 appl topical BID 30 days #100 03/08/22 grams lorazepam 0.5 mg tablet 0.5 mg PO TID 30 days #90 ta bs 03/08/22 metformin 500 mg tablet 500 mg PO BIDWM 30 days #60 tabs 03/08/22 trazodone 100 mg tablet 100 mg PO BEDTIME 30 days #3 0 tabs 03/08/22 clotrimazole 1 % topical cream 1 appl topical BID 2 we eks #30 06/01/22 (Antifungal (clotrimazole)) grams hydrocortisone 1 % topical 1 appl topical BID PRN itch ing 06/14/22 ointment (Anti-Itch #28.35 grams (hydrocortisone)) cyclobenzaprine 10 mg tablet 10 mg PO TID PRN muscle s pasm #10 03/01/23 tabs ibuprofen 600 mg tablet 600 mg PO Q8H PRN pain #14 t abs 03/01/23 amoxicillin 875 mg-potassium 1 tab PO BID #14 tabs clavulanate 125 mg tablet lidocaine 5 % topical patch 1 patch topical DAILY #15 ea 04/02/25 prednisone 20 mg tablet 20 mg PO DAILY 5 days #5 tab s 04/02/25 Allergies Allergy/AdvReac Type Severity Reaction Status Date / Time No Known Allergies Allergy Mild NOT Verified 04/02/25 15:34 APPLICABLE Review of Systems Review of Systems: Pertinent review of systems as mentioned in HPI. All other system otherwise negative. [facility] Past Medical History [facility] Narrative: Hypertension, hypothyroidism Medical History (Updated 04/02/25 @ 20:06 by Haleigh Chiang DO) Pain in joint, multiple sites Skin-picking disorder Seasonal allergies Pre-diabetes Positive SILVIA (antinuclear antibody) Obesity Nonalcoholic fatty liver disease Exotropia Dyslipidemia Diverticula of intestine Aneurysm of splenic artery Schizoaffective disorder Hypothyroid Hypertension Surgical History No history of previous surgery Social History Social History Household Members: None and Other Household Members Other:: 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 Housing: Unknown / Unable to assess Alcohol intake: never Comment: PATIENT ASLEEP Patient Tobacco Use Status: Tobacco use Unknown Smoked in Last 30 Days: No Second Hand Smoke Exposure: No Use of substances other than those prescribed or required for medical reasons: No Advance Directives: No Advance Directives Information Provided: Yes service: No Sexual orientation: Straight/Heterosexual Physical Exam ED Exam Exam: General: Pleasant, no distress, interacting appropriately Head: Normacephalic, atraumatic ENT: oral mucosa moist, neck supple, no tracheal deviation Extremities: Right gluteal pain on palpation, patient is able to weightbear and walk without any issues. Neurological: Awake and alert, no facial droop noted Skin: Warm and dry Psychiatric: Appropriate mood and thoughts Vital Signs: Vital Signs - 24 hr 04/02/25 15:34 04/02/25 20:16 04/02/25 20:20 Temperature 96.6 F L 98.0 F 98.0 F Pulse Rate 76 87 87 Respiratory Rate 18 16 16 Blood Pressure 126/62 100/50 L 100/50 L Pulse Oximetry 93 98 98 Oxygen Delivery Method Room Air Room Air Room Air BMI result Body Mass Index 46.5 Medical Decision Making Medical Decision Making MDM Narrative: This is a 65-year-old female presented hospital today for evaluation of right hip pain. Right gluteal pain. Based on my exam and history I suspect this is right piriformis syndrome. She may have sciatica symptoms because of the pinching of her sciatica nerve from her piriformis. Patient has been sitting down all day from her program. Patient is able to ambulate without any issues. Lumbar x-ray is negative. Patient will be discharged home with short course of steroids to take. Lidocaine patch will be prescribed to the patient as well. Encouraged her to continue to take the Motrin. Differential Diagnosis Differential Diagnoses: The differential diagnosis associated with the presentation includes Osteoarthritis of right hip, piriformis syndrome, lumbar strain Independent Interpretation I performed an independent interpretation of an: Plain X-Ray Radiology Impression Discussion of test interpretation with radiology: I have reviewed the radiologist's reading. Discharge Plan Discharge Clinical Impression: Piriformis syndrome of right side Patient Disposition: Home, Self-Care Instructions: Piriformis Syndrome (ED) Prescriptions: New prednisone 20 mg tablet 20 mg PO DAILY 5 Days Qty: 5 0RF lidocaine 5 % adhesive patch,medicated 1 patch topical DAILY Qty: 15 0RF Rx Instructions: leave on most painful area for up to 12 hrs No Action clonazepam 1 mg Tablet 1 mg PO BEDTIME paliperidone [Invega] 9 mg Tablet Extended Release 24hr 9 mg PO DAILY Qty: 30 0RF Invega Sustenna 156 mg/mL Syringe 156 mg IM Q30D Qty: 1 0RF lisinopril 20 mg Tablet 20 mg PO DAILY Qty: 30 0RF levothyroxine 50 mcg Capsule 50 mcg PO DAILY Qty: 30 0RF metoclopramide HCl [Reglan] 10 mg tablet 10 mg PO Q6H PRN (Reason: nausea and vomiting) 7 Days Qty: 14 0RF oxycodone 5 mg tablet 5 mg PO Q8H PRN (Reason: pain) Qty: 10 0RF Metamucil 3.4 gram/5.4 gram powder 1 tbsp PO DAILY Qty: 660 0RF Rx Instructions: mix into at least 8 oz of water or juice before administering metformin 500 mg Tablet 500 mg PO BIDWM 30 Days Qty: 60 0RF hydrocortisone 1 % Ointment 1 appl topical BID 30 Days Qty: 100 0RF Protocol: Apply to: Apply to: left deltoid lorazepam 0.5 mg Tablet 0.5 mg PO TID 30 Days Qty: 90 0RF trazodone 100 mg Tablet 100 mg PO BEDTIME 30 Days Qty: 30 0RF fluoxetine 10 mg Capsule 10 mg PO DAILY 30 Days Qty: 30 0RF clotrimazole [Antifungal (clotrimazole)] 1 % cream 1 appl topical BID 14 Days Qty: 30 0RF hydrocortisone [Anti-Itch (HC)] 1 % ointment 1 appl topical BID PRN (Reason: itching) Qty: 28.35 0RF ibuprofen 600 mg tablet 600 mg PO Q8H PRN (Reason: pain) Qty: 14 0RF cyclobenzaprine 10 mg tablet 10 mg PO TID PRN (Reason: muscle spasm) Qty: 10 0RF amoxicillin-pot clavulanate 875-125 mg tablet 1 tab PO BID Qty: 14 0RF amlodipine 5 mg tablet 5 mg PO QAM cholecalciferol (vitamin D3) [Vitamin D3] 25 mcg (1,000 unit) capsule 25 mcg PO QAM Interventions: ED Discharge Assessment Last Done: 04/02/25 20:20 Discharge Date/Time: 04/02/25 20:20 Print Language: Macedonian
== END 2025-04-02 20:20 | disposition home or self-care (01) ==
PROVIDERS: Emergency Provider Student in an Organized Health Care Education/Training Program
DX: G57.01 Lesion of sciatic nerve, right lower limb (principal); M54.50 Low back pain, unspecified; Z79.899 Other long term (current) drug therapy
CPT/HCPCS: 72100; 99283; 99284

== ENCOUNTER → 2025-04-02 16:07 | Outpatient (BNV) | payer MEDICAID, SELFPAY | PROVIDERS: Visit Provider Radiology Diagnostic Radiology | DX: M51.370 Other intervertebral disc degeneration, lumbosacral region with discogenic back pain only (principal) | CPT/HCPCS: 72100 ==